=== PATIENT | female | born 1945 | race Caucasian/White ===

== ENCOUNTER → 2016-11-17 | Outpatient (CLI) | payer OTHER, MEDICARE ==
[~2016-11-17] MED LIST: CLB200 PO; GLC500 PO; LRT5 PO; VYTORIN
--- NOTE | 2016-11-18 14:53 | MAMMOGRAPHY REPORT ---
BILATERAL DIGITAL SCREENING MAMMOGRAM WITH CAD: 11/17/2016 CLINICAL HISTORY: Routine screening. Patient has no complaints. TECHNIQUE: Bilateral CC, MLO and repeat left MLO views were obtained. Current study was also evalua janessa with a Computer Aided Detection (CAD) system. COMPARISON: Comparison is made to exams dated: 11/16/2013 mammogram, 07/01/2012 mammogram, 03/24/2011 mammogram, 03/12/2010 mammogram - [facility], 12/12/2007, and 07/19/2006. BREAST COMPOSITION: There are scattered areas of fibroglandular density in both breasts. FINDINGS: There are benign rim calcifications in both breasts. Stable asymmetry in the left lower inner quadrant. No new suspicious mass, architectural distortion or cluster of microcalcifications i s seen. IMPRESSION: ACR BI-RADS CATEGORY 2: BENIGN There is no mammographic evidence of malignancy. A 1 year screening mammogram is recommended. The p atient will receive written notification of the results. Approximately 10% of breast cancers are not detected with mammography. A negative mammographic repor t should not delay biopsy if a clinically suggestive mass is present. Amie Arango M.D. ay/:11/17/2016 16:26:46 Temporary Data Entry Clerk: Shawnee White, [facility] letter sent: Normal 1/2 BI-RADS Code: ACR BI-RADS Category 2: Benign
== END | disposition home or self-care (01) ==
LOC: C.MAMM 15:20
PROVIDERS: ATTEND Family Medicine
DX: Z12.31 Encounter for screening mammogram for malignant neoplasm of breast (principal)

== ENCOUNTER 2019-02-01 05:18 | Inpatient (IN) ==
--- NOTE | 2019-01-13 08:24 | History & Physical Report ---
Date of Service January 13, 2019 date of surgery: 02-01-19 Assessment & Plan (1) Tricompartment osteoarthritis of left knee: Risks and benefits of procedure discussed in detail today, patient would like to proceed with a Left total knee replacement at [facility] as scheduled. will obtain medical clearance prior to surgery as well as obtain PATs at [facility]. Will place on ASA 81mg po bid x 1 month post op, f/u 2 weeks post op for routine post-operative care and x-ray, sooner if having any problems. Will discuss with Case Management poss rehab placement, has 14 steps in her house. At this point in time, has failed conservative measures and would like to proceed with surgical intervention. History of Present Illness Chief Complaint: left knee pain Primary Care Provider: Paul Ellison MD Ms Banks is a 73 year old female who complains of left knee pain, presents for pre-op evaluation prior to a left total knee replacement at [facility]. She presents with pain, crepitus, decreased rom and stiffness on the left side. She states that the symptoms have been chronic non-traumatic. The symptoms occur constantly with intermittent worsening. Currently the patient states that the symptoms are moderate-severe. The pain is described as aching sharp and discomforting. The symptoms are aggravated by ascending stairs, daily activiti es, descending stairs, first steps while awake, weight bearing, walking and repetitive activities. Lynette states that the symptoms are relieved by no specific activity. In addition to left knee pain the patient is also experiencing crepitus, decreased mobility, joint pain, instability, loss of motion, pain after activity and stiffness. Prior NSAIDs include Mobic IBU and Aleve. Prior pain medications include oxycodone and Morphine. She has been treated with Pt, has had Cortisone and Visco in the past on the left side. Pt has also tried PRP injections with no relief. Patient has had arthroscopic surgery. Dr. Sotelo performed a Left knee arthroscopy many years ago. Pt. lives in a 2 story home with Male Partner. Has 6 stairs to enter the home and 18 stairs to access the second floor with bedroom and bathroom. Pt is retired Allergies Allergy/AdvReac Type Severity Reaction Status Date / Time No Known Allergies Allergy Unknown Verified 01/10/19 15:48 Home Medications Home Medications Medication Instructions Recorded Confirmed Type ascorbic acid (vitamin C) [Vitamin 500 mg PO QDL 01/10/19 01/10/19 History C] biotin 1 mg PO QAM 01/10/19 01/10/19 History cholecalciferol (vitamin D3) 400 unit PO QDL 01/10/19 01/10/19 History [Vitamin D3] coenzyme Q10 [CoQ-10] 100 mg PO QDL 01/10/19 01/10/19 History cyanocobalamin (vitamin B-12) 100 mcg PO QDL 01/10/19 01/10/19 History [Vitamin B-12] docusate sodium [Colace] 100 mg PO QDL 01/10/19 01/10/19 History duloxetine 60 mg PO QDL 01/10/19 01/10/19 History folic acid 1 mg PO QDL 01/10/19 01/10/19 History levothyroxine 125 mcg PO QAM 01/10/19 01/10/19 History lisinopril 5 mg PO QDL 01/10/19 01/10/19 History lutein 40 mg PO QDL 01/10/19 01/10/19 History magnesium oxide 500 mg PO QDL 01/10/19 01/10/19 History meloxicam 15 mg PO QDL 01/10/19 01/10/19 History metformin 500 mg PO QDL 01/10/19 01/10/19 History morphine 15 mg PO Q8H PRN 01/10/19 01/10/19 History nystatin 1 applic TOPICAL BID PRN 01/10/19 01/10/19 History oxycodone-acetaminophen 1 tab PO Q6H PRN 01/10/19 01/10/19 History pantoprazole 40 mg PO QDL 01/10/19 01/10/19 History polyethylene glycol 3350 [Miralax] 8.5 g PO DAILY PRN 01/10/19 01/10/19 History pravastatin 20 mg PO QDL 01/10/19 01/10/19 History pregabalin [Lyrica] 225 mg PO BID 01/10/19 01/10/19 History pyridoxine (vitamin B6) [Vitamin 100 mg PO QAM 01/10/19 01/10/19 History B-6] s-adenosylmethionine [Elvin-E] 400 mg PO QDL 01/10/19 01/10/19 History simethicone 125 mg PO BID PRN 01/10/19 01/10/19 History turmeric-herbal complex no.278 300 mg PO QDL 01/10/19 01/10/19 History Past Med/Surg History Medical History Cancer skin (back, nose) Constipation Diabetes mellitus, type 2 Double vision Fibromyalgia GERD (gastroesophageal reflux disease) 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 Hyperlipidemia Hypertension Hypothyroidism Numbness and tingling in both hands Osteoarthritis Peripheral neuropathy feet, legs (causes balance issues) Sleep apnea Surgical History History of meniscectomy of left knee Hx of dilation and curettage Hx of eye surgery corrective (as child) Hx of tonsillectomy Hx of total hysterectomy Social History Preferred Language: Tunisian Communication Ability: Effective Beliefs That Will Affect Care: None Current Living Situation: Significant Other Feels Safe at Home: Yes Safety Concerns: Feels Safe At This Time Smoking Status: Never smoker Do You Dip or Chew Tobacco: No Second Hand Exposure: No Hx Alcohol Use: Yes Alcohol type: wine Hx Substance Use: Yes (MEDICAL MARIJUANA VAP) substance use type: marijuana Review of Systems Review of Systems: All systems reviewed & are unremarkable except as noted in HPI & below Constitutional: no fever, no chills and no sweats Respiratory: no cough and no dyspnea Cardiovascular: no chest pain, no dyspnea and no orthopnea Gastrointestinal: no abdominal pain, no nausea and no vomiting Musculoskeletal: as per Subjective / HPI Physical Exam Physical Exam: Ht: 5ft 6in Wt: 94.8kg BP: 122/76 Pulse: 72 Constitutional: WD/WN, vitals as above no acute distress Respiratory: normal respiratory effort, lungs clear to auscultation no respiratory distress, no labored breathing and does not use accessory muscles Cardiovascular: RRR, no murmur, no edema Gastrointestinal (Abdomen): normal bowel sounds, soft, nontender, no hepatosplenomegaly Musculoskeletal: Lynette ambulates with a limp, there is no erythema, warmth, or atrophy noted, there is a mild effusion, tender over the medial joint line and anterior knee joint. there is positive crepitation with motion, theo's ne gative, posterior drawer negative. positive flexion circumduction testing, negative anterior drawer, knee stable with valgus/varus stress. no extensor lag. pain with active range of motion, AROM 0/3/115, Passive ROM 0/3/120. No pain with active/passive ROM of ankle. Lower Extremity Strength normal. Lower Extremity Neuro-vascular is normal Results & Data Diagnostic Findings Left Knee X-ray from 01/02/19 confirms advanced degenerative changes to the left knee with overal varus alignment, greatest narrowing of the medial compartments and patellofemoral joint, showing osteophyte formation and subchondral sclerosis. no acute bony pathology noted.
--- NOTE | 2019-01-13 09:18 | PAT Medication Instructions ---
Medication Instructions Date of Service January 13, 2019 Home Medications ascorbic acid (vitamin C) [Vitamin C] 500 mg PO QDL biotin 1 mg PO QAM cholecalciferol (vitamin D3) [Vitamin D3] 400 unit PO QDL coenzyme Q10 [CoQ-10] 100 mg PO QDL cyanocobalamin (vitamin B-12) [Vitamin B-12] 100 mcg PO QDL docusate sodium [Colace] 100 mg PO QDL duloxetine 60 mg PO QDL folic acid 1 mg PO QDL levothyroxine 125 mcg PO QAM lisinopril 5 mg PO QDL lutein 40 mg PO QDL magnesium oxide 500 mg PO QDL meloxicam 15 mg PO QDL metformin 500 mg PO QDL morphine 15 mg PO Q8H PRN nystatin 1 applic TOPICAL BID PRN oxycodone-acetaminophen 1 tab PO Q6H PRN pantoprazole 40 mg PO QDL polyethylene glycol 3350 [Miralax] 8.5 g PO DAILY PRN pravastatin 20 mg PO QDL pregabalin [Lyrica] 225 mg PO BID pyridoxine (vitamin B6) [Vitamin B-6] 100 mg PO QAM s-adenosylmethionine [Elvin-E] 400 mg PO QDL simethicone 125 mg PO BID PRN turmeric-herbal complex no.278 300 mg PO QDL ASK your prescriber and surgeon meloxicam 15 mg PO QDL STOP taking 2 weeks before surgery (or as soon as possible if surgery is within 2 weeks) biotin 1 mg PO QAM coenzyme Q10 [CoQ-10] 100 mg PO QDL lutein 40 mg PO QDL s-adenosylmethionine [Elvin-E] 400 mg PO QDL turmeric-herbal complex no.278 300 mg PO QDL STOP taking 24 hours before surgery nystatin 1 applic TOPICAL BID PRN DO NOT take the morning of surgery ascorbic acid (vitamin C) [Vitamin C] 500 mg PO QDL cholecalciferol (vitamin D3) [Vitamin D3] 400 unit PO QDL cyanocobalamin (vitamin B-12) [Vitamin B-12] 100 mcg PO QDL docusate sodium [Colace] 100 mg PO QDL folic acid 1 mg PO QDL lisinopril 5 mg PO QDL magnesium oxide 500 mg PO QDL polyethylene glycol 3350 [Miralax] 8.5 g PO DAILY PRN pyridoxine (vitamin B6) [Vitamin B-6] 100 mg PO QAM simethicone 125 mg PO BID PRN Take morning of surgery With a small sip of water, OTHERWISE NOTHING TO EAT OR DRINK AFTER MIDNIGHT: duloxetine 60 mg PO QDL levothyroxine 125 mcg PO QAM magnesium oxide 500 mg PO QDL morphine 15 mg PO Q8H PRN (okay to take up to 4 hours prior to surgery if needed) oxycodone-acetaminophen 1 tab PO Q6H PRN (okay to take up to 4 hours prior to surgery if needed) pantoprazole 40 mg PO QDL pravastatin 20 mg PO QDL pregabalin [Lyrica] 225 mg PO BID Take evening before surgery morphine 15 mg PO Q8H PRN (if needed) oxycodone-acetaminophen 1 tab PO Q6H PRN (if needed) pregabalin [Lyrica] 225 mg PO BID simethicone 125 mg PO BID PRN (if needed) Other Notes If you have any questions please call us at [phone] or [phone] or [phone] or [phone]
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
[2019-01-13 16:00] LABS: Appearance Urine Clear (Clear); Bilirubin Urine Negative (Negative); Blood Urine Negative (Negative); Color Urine Yellow; Glucose Urine UA Negative (Negative); Ketones Urine Negative (Negative); Leukocyte Esterase Urine Negative (Negative); Nitrite Urine Negative (Negative); Protein Urine Negative (Negative); Specific Gravity Urine 1.014 (1.000-1.030); Urobilinogen Urine Negative (Negative)
--- NOTE | 2019-01-13 16:00 | XRay Report ---
XR chest 2V routine CLINICAL HISTORY: 73 years-old Female presenting with PREOP, shortness of breath with activity, wheez ing. TECHNIQUE: PA and lateral views of the chest were obtained. COMPARISON: None. FINDINGS: Atherosclerosis of the aortic arch. Cardiac silhouette borderline enlarged. Lungs and pleural spaces clear. Degenerative changes of the thoracic spine. Upper abdomen normal. IMPRESSION: 1. Borderline cardiomegaly. No other convincing evidence of acute cardiopulmonary disease. Electronically signed by: Douglas Martin M.D. 01/13/2019 3:59 PM
[2019-01-13 16:01] LABS: Basophils # (auto) 0.03 K/uL (0-0.2); Basophils % (auto) 0.4 %; Eosinophils # (auto) 0.19 K/uL (0-0.5); Eosinophils % (auto) 2.2 %; Hematocrit (blood only) 42.4 % (37-47); Hemoglobin 14.7 g/dL (12.0-16.0); Immature Granulocytes # (auto) 0.02 K/uL (0.00-0.02); Immature Granulocytes % (auto) 0.2 %; Lymphocytes # (auto) 1.71 K/uL (1.2-3.4); Lymphocytes % (auto) 20.2 %; Mean Corpuscular Hgb Conc 34.7 g/dL (32-36); Mean Platelet Volume 10.6 fL (7.4-10.4); Monocytes # (auto) 0.39 K/uL (0.11-0.59); Monocytes % (auto) 4.6 %; Neutrophils # (auto) 6.13 K/uL (1.4-6.5); Neutrophils % (auto) 72.4 %; Platelet Count 195 K/uL (130-400); RDW Coefficient of Variation 13.2 % (11.5-14.5); Red Blood Count 4.66 M/uL (4.2-5.4); White Blood Count 8.47 K/uL (4.8-10.8)
[2019-01-13 16:07] LABS: Albumin Level 4.2 gm/dl (3.4-5.0); BUN Creatinine Ratio 23.2 (10-20); Calcium 9.6 mg/dl (8.5-10.1); Creatinine Clr Calc Pharmacy 53.8 ml/min; Est GFR (African American) 57.9; Est GFR (Non-African American) 49.9; Potassium 5.3 mmol/L (3.5-5.1)
[2019-01-13 16:15] LABS: INR 1.1 (0.9-1.1); Partial Thromboplastin Ratio 0.9; Partial Thromboplastin Time 25.4 Seconds (21.0-31.0)
[2019-01-14 07:04] LABS: Estimated Average Glucose 157 mg/dl; Hemoglobin A1C 7.1 % (4.5-5.6)
[2019-02-01] MEDS ORDERED: LR 500ML BOLUS, THEN 15ML/HR IV SCH (06:00)
[2019-02-01] MEDS ORDERED: dexAMETHasone 4 MG TAB PO SCH (06:00)
[2019-02-01] MEDS ORDERED: GABAPENTIN 300 MG CAP PO SCH (06:00)
[2019-02-01] MEDS ORDERED: TRANEXAMIC ACID 1,000 MG **IV Pre-op IV SCH (06:00)
[2019-02-01] MEDS ORDERED: ACETAMINOPHEN 500 MG TAB PO SCH (06:00)
[2019-02-01] MEDS ORDERED: CEFAZOLIN 2000MG 2,000 MG/15 ML SYR IV SCH (06:00)
[2019-02-01] MEDS ORDERED: CeleBREX 200 MG CAP PO SCH (06:00)
[2019-02-01] MEDS ORDERED: ROPIVACAINE 0.5% HCL/PF 150 MG, BUPIVACAINE 0.5% MPF 30 ML, EPINEPHrine 30MG/30ML (OR U... INSTIL SCH (06:00)
[2019-02-01] MEDS ORDERED: METOCLOPRAMIDE HCL 10 MG TABLET PO SCH (06:00)
[2019-02-01] MEDS ORDERED: FAMOTIDINE 20 MG TAB PO SCH (06:00)
[2019-02-01] MEDS ORDERED: BUPIVACAINE 0.5 % 5 MG/1 ML PF 10ML VIAL ONE (06:23)
[2019-02-01] MEDS ORDERED: BUPIVACAINE 0.25% 30 ML VIAL ONE (06:23)
[2019-02-01] MEDS ORDERED: TRANEXAMIC ACID 1,000 MG **IV Intra-op IV SCH (06:30)
[2019-02-01] MEDS ORDERED: BACITRACIN INJ 50,000 UNIT VIAL ONE (06:34)
[2019-02-01] MEDS ORDERED: MIDAZOLAM HCL 1 MG/ML 2ML VIAL ONE (06:34)
[2019-02-01] MEDS ORDERED: ORTHO JOINT ANESTHETIC ONE (06:34)
[2019-02-01] MEDS ORDERED: PROPOFOL IV EMULSION 10 MG/ML 20 ML VIAL IV ONE ×2 (06:37→07:31)
--- NOTE | 2019-02-01 07:05 | History & Physical Bridge Note ---
Date of Service February 01, 2019 History & Physical Bridge Note I have examined the patient, reviewed the History & Physical and in the interval since the performance of the History & Physical I have noted the following changes of clinical significance: no changes noted
[2019-02-01] MEDS ORDERED: LIDOCAINE HCL 2% 2 ML VIAL/AMP(20MG/ML) INFIL ONE (07:31)
[2019-02-01] MEDS ORDERED: ONDANSETRON INJ 2 MG/ML 2 ML VIAL ONE (07:31)
[2019-02-01] MEDS ORDERED: ONDANSETRON INJ 2 MG/ML 2 ML VIAL IV PRN ×2 (07:43→10:32)
[2019-02-01] MEDS ORDERED: ePHEDrine sulfate 50 MG/ML AMP IV PRN (07:43)
[2019-02-01] MEDS ORDERED: ATROPINE SULFATE 0.1 MG/ML 10ML SYR IV PRN (07:43)
[2019-02-01] MEDS ORDERED: fentaNYL citrate 100 MCG/2 ML VIAL IV PRN (07:43)
--- NOTE | 2019-02-01 08:14 | Operative Report ---
Post Operative Report Pre & Post Diagnosis Operation Date: 02/01/19 07:00 Pre-Op Diagnosis: LEFT KNEE OSTEOARTHRITIS Post-Op Diagnosis: LEFT KNEE OSTEOARTHRITIS Procedure Operation Date: 02/01/19 07:00 Actual Procedures p Left Total Knee Arthroplasty(Left) utilizing [employer] journey 2 patient matched total knee arthroplasty size 5 femur 4 tibia 10 polyethylene 32 oval patella- Ian Chapin DO Surgeon Ian Chapin DO Mr Teacher Bony WANG Estimated Blood Loss 5 Findings Consistent with Post-Op Diagnosis Patient presents with severe end-stage tricompartmental degenerative joint disease left knee with varus alignment 10 degree flexion contracture significant posterior osteophytes marginal osteophyte subchondral bone cystic changes eburnated bone patellofemoral bone to bone eburnated bone changes and a moderate to large effusion Specimens Bone and cartilage Drains Bone and cartilage Complications none Disposition Accompanied Patient To Recovery: No Disposition: Recovery Room Indications Patient presents with severe end-stage tricompartmental degenerative joint disease of left knee no response to conservative management presents for left total knee arthroplasty the above intraoperative findings were noted that she is failed attempted conservative management including physical therapy anti- inflammatories relative rest activity modification corticosteroid injections Visco supplementation activity modification she presents with severe end-stage DJD bone to bone changes for left total knee arthroplasty Description of Procedure The patient was properly identified subsequently after proper prepping and draping of the left lower extremity anterior midline incision was made over the region of the extensor extensor mechanism after meticulous hemostasis was obtained and maintained in subcutaneous tissues a medial parapatellar incision was made The patella was subluxed lateralward the medial lateral gutter were cleaned from any hypertrophic synovitis and scar tissue of the distal femoral block was placed and the distal femoral osteotomy cut was made subsequently the chamfers anterior and posterior osteotomy cuts were made utilizing the 4-in-1 block the tibia was subsequently subluxed anteriorward medial and ateral meniscal remnants were excised in their entirety remnants of the anterior and po sterior cruciate ligaments were excised in their entirety excellent exposure of the proximal tibia was obtained the tibial osteotomy guide was placed on the proximal tibial osteotomy cut was made once again the knee was irrigated with copious amounts of sterile saline solution the patella was subsequently everted lateralward thickened scar tissue around the patella was removed the patella was subsequently cut utilizing a freehand technique and was drilled prepared for final preparation and placement of patella socially flexion-extension gaps were checked and the equal and symmetric trials were placed to the appropriate femoral and tibial trials with poly-spacer being placed for equal flexion and extension gaps and full range of motion including extension to 0 and flexion to 140 the trial components after having been taken to recovery range of motion was subsequently removed meticulous hemostasis was obtained and maintained subsequently a knee block injection of joint cocktail including ropivacaine 0.5% 150 mg. Bupivacaine 0.5% epinephrine 1-200,030 mL's toradol 30 mg dexamethasone 4 mg ketamine 10 mg clonidine 100 micrograms normal saline solution 30 mg was infiltrated into the soft tissues of the posterior knee medial lateral gutters and periosteal synovium special attention was paid to protect neurovascular structures at all times subsequently trial components having been removed the knee was irrigated with sterile saline solution. debris was removed the proximal tibia was subsequently prepared and was made ready for the placement of the tibial component tibial component was also cemented and tamped into position the femoral component was subsequently placed and cemented in the position the patellar component was subsequently cemented in position because hemostasis once again obtained and maintained wound having been thoroughly irrigated with debridement and debridement lavage was performed as well as a medial parapatellar incision closed with #1 Vicryl in interrupted fashion subcutaneous was closed with #2 Vicryl skin was closed with skin clips. PA-C was necessary for prepping and drapping as well as wound closure of deep fascia Sub cutaneous tissue and skin and was necessary for the case. A sterile compressive dressing was placed patient was taken to recovery in stable condition of report dictated by Tavares I attest to the content of the Intraoperative Record and any orders documented therein. Any exceptions are noted below. I attest to the content of the Intraoperative Record and any orders documented therein. Any exceptions are noted below.
--- NOTE | 2019-02-01 09:20 | XRay Report ---
XR knee LT 2V routine HISTORY: 73 years-old Female Surgical Post Op left knee total joint arthroplasty COMPARISON: None available TECHNIQUE: 2 views of the left knee FINDINGS: Left knee total joint arthroplasty and patella resurfacing demonstrates satisfactory alignment. No ac mat fracture or retained foreign body identified. Expected postsurgical soft tissue swelling with micheal p tissue air and surgical drainage catheter. IMPRESSION: Left knee total joint arthroplasty and patellar resurfacing with satisfactory alignment. The above report was generated using voice recognition software. It may contain grammatical, syntax o r spelling errors. Electronically signed by: Saeid Fabian M.D. 02/01/2019 9:18 AM
[2019-02-01] MEDS ORDERED: NON-FORMULARY MEDICATION (Biotin 1 MG) PO SCH (10:32)
[2019-02-01] MEDS ORDERED: MoRPHine SULFATE IR 15 MG TAB (IMMEDIATE RELEASE) PO PRN (10:32)
[2019-02-01] MEDS ORDERED: NALOXONE HCL 0.4 MG/1 ML VIAL/CARP IV PRN (10:32)
[2019-02-01] MEDS ORDERED: NYSTATIN POWDER 15GM BTL EXT PRN (10:32)
[2019-02-01] MEDS ORDERED: BISACODYL 10 MG SUPP PR PRN (10:32)
[2019-02-01] MEDS ORDERED: METOCLOPRAMIDE HCL INJ 5 MG/ML 2 ML VIAL IV PRN (10:32)
[2019-02-01] MEDS ORDERED: ALUMINUM/MAGNESIUM SUSP 30 ML UDC PO PRN (10:32)
[2019-02-01] MEDS ORDERED: MAGNESIUM HYDROXIDE SUSP 30 ML UDC PO PRN (10:32)
--- NOTE | 2019-02-01 10:35 | Operative Report ---
Post Operative Report Pre & Post Diagnosis Operation Date: 02/01/19 07:00 Pre-Op Diagnosis: LEFT KNEE OSTEOARTHRITIS Post-Op Diagnosis: LEFT KNEE OSTEOARTHRITIS Procedure Operation Date: 02/01/19 07:00 Actual Procedures p Left Total Knee Arthroplasty(Left) utilizing journey 2 patient matched total knee arthroplasty size 5 femur 4 tibia 10 polyethylene 32 oval patella- Ian Chapin DO Surgeon Ian Chapin DO Non Destructive Evaluation Manager Bony WANG Estimated Blood Loss 5 Findings Consistent with Post-Op Diagnosis Patient presents with severe end-stage tricompartmental degenerative joint disease varus alignment subchondral cystic changes marginal osteophytes moderate to large effusion varus alignment with a 10 degree flexion contracture Specimens Bone and cartilage Drains Medium bore Hemovac Complications none Disposition Accompanied Patient To Recovery: No Disposition: Recovery Room Indications Patient presents after having failed attempted conservative management including physical physical therapy Visco supplementation corticosteroid injection bracing relative rest activity modification the above intraoperative findings noted times surgery. Description of Procedure After proper identifying the patient subsequently after proper prepping and draping of the left lower extremity anterior midline incision was made over the region of the extensor extensor mechanism after meticulous hemostasis was obtained and maintained in subcutaneous tissues a medial parapatellar incision was made The patella was subluxed lateralward the medial lateral gutter were cleaned from any hypertrophic synovitis and scar tissue of the distal femoral block was placed and the distal femoral osteotomy cut was made subsequently the chamfers anterior and posterior osteotomy cuts were made utilizing the 4-in-1 block the tibia was subsequently subluxed anteriorward medial and ateral meniscal remnants were excised in their entirety remnants of the anterior and posterior cruciate ligaments were excised in their entirety excellent exposure of the proximal tibia was obtained the tibial osteotomy guide was placed on the proximal tibial osteotomy cut was made once again the knee was irrigated with copious amounts of sterile saline solution the patella was subsequently everted lateralward thickened scar tissue around the patella was removed the patella was subsequently cut utilizing a freehand technique and was drilled prepared for final preparation and placement of patella socially flexion-extension gaps were checked and the equal and symmetric trials were placed to the appropriate femoral and tibial trials with poly-spacer being placed for equal flexion and extension gaps and full range of motion including extension to 0 and flexion to 140 the trial components after having been taken to recovery range of motion was subsequently removed meticulous hemostasis was obtained and maintained subsequently a knee block injection of joint cocktail including ropivacaine 0.5% 150 mg. Bupivacaine 0.5% epinephrine 1-200,030 mL's toradol 30 mg dexamethasone 4 mg ketamine 10 mg clonidine 100 micrograms normal saline solution 30 mg was infiltrated into the soft tissues of the posterior knee medial lateral gutters and periosteal synovium special attention was paid to protect neurovascular structures at all times subsequently trial components having been removed the knee was irrigated with sterile saline solution. debris was removed the proximal tibia was subsequently prepared and was made ready for the placement of the tibial component tibial component was also cemented and tamped into position the femoral component was subsequently placed and cemented in the position the patellar component was subsequently cemented in position because hemostasis once again obtained and maintained wound having been thoroughly irrigated with debridement and debridement lavage was performed as well as a medial parapatellar incision closed with #1 Vicryl in interrupted fashion subcutaneous was closed with #2 Vicryl skin was closed with skin clips. PA-C was necessary for prepping and drapping as well as wound closure of deep fascia Sub cutaneous tissue and skin and was necessary for the case. A sterile compressive dressing was placed patient was taken to recovery in stable condition of report dictated by Tavares I attest to the content of the Intraoperative Record and any orders documented therein. Any exceptions are noted below. I attest to the content of the Intraoperative Record and any orders documented t herein. Any exceptions are noted below.
[2019-02-01] MEDS ORDERED: PHARMACY GLYCEMIC MGMT CONSULT PRN (10:44)
[2019-02-01] MEDS ORDERED: GLUCOSE 40% GEL 15 GM TUBE PO PRN (11:00)
[2019-02-01] MEDS ORDERED: GLUCOSE 10 TABS/TUBE PO PRN (11:00)
[2019-02-01] MEDS ORDERED: GLUCAGON FOR INJ 1 MG VIAL IM PRN (11:00)
[2019-02-01] MEDS ORDERED: DEXTROSE 50% 50 ML SYRINGE IV PRN (11:00)
[2019-02-01] MEDS ORDERED: SIMETHICONE 80 MG CHEW PO PRN (11:00)
[2019-02-01] MEDS ORDERED: CARBOHYDRATES FOR HYPOGLYCEMIA PO PRN (11:00)
--- NOTE | 2019-02-01 11:17 | Anesthesiology Progress Note ---
Date of Service February 01, 2019 Anesthesia Post Procedure Vital Signs Vital Signs: Temp Pulse Pulse Resp BP Pulse Ox 02/01/19 10:43 36.5 C 61 16 125/72 94 02/01/19 10:15 36.6 C 69 16 160/77 H 95 02/01/19 09:50 37.1 C 66 15 153/79 H 92 02/01/19 09:40 68 17 157/78 H 95 02/01/19 09:30 68 18 164/97 H 98 02/01/19 09:20 69 18 155/75 H 97 02/01/19 09:10 68 15 147/71 H 99 02/01/19 09:00 72 16 143/80 H 99 02/01/19 08:54 36.1 C L 68 12 137/71 98 02/01/19 06:41 36.7 C 63 18 167/79 H 98 Pain Intensity Bilateral Foot: Pain Intensity: 4 Transfer of Care Handoff Completed per policy Notes Mental Status: alert / awake / arousable and participated in evaluation Nausea / Vomiting: adequately controlled Pain: adequately controlled Airway Patency, RR, SpO2: stable & adequate BP & HR: stable & adequate Hydration State: stable & adequate Neuraxial Anesthesia: was administered and sensory block is resolving Anesthetic Complications: no major complications apparent and Pt Satisfied with anesthetic care
[2019-02-01] MEDS ORDERED: LANTUS PER UNIT CHARGE SQ ONE ×2 (11:30→21:00)
[2019-02-01] MEDS ORDERED: NON-FORMULARY MEDICATION (Lutein 40 MG) PO SCH (11:30)
[2019-02-01] MEDS: MULTIVITAMIN TAB PO SCH (12:26)
[2019-02-01] MEDS: PRAVASTATIN SOD 20 MG TAB PO SCH (12:26)
[2019-02-01] MEDS: CHOLECALCIFEROL (VITAMIN D) 400 UNITS TABLET PO SCH (12:27)
[2019-02-01] MEDS: FOLIC ACID 1 MG TAB PO SCH (12:27)
[2019-02-01] MEDS: LEVOTHYROXINE SODIUM 125 MCG TABLET PO SCH (12:27)
[2019-02-01] MEDS: PYRIDOXINE HCL 50 MG TAB PO SCH (12:28)
[2019-02-01] MEDS: ASCORBIC ACID 500 MG TAB PO SCH (12:28)
[2019-02-01] MEDS: DULOXETINE HCL 60 MG CAP PO SCH (12:29)
[2019-02-01] MEDS: CYANOCOBALAMIN (VITAMIN B-12) 100 MCG TABLET PO SCH (12:30)
[2019-02-01] MEDS: DOCUSATE SODIUM 100 MG CAP PO SCH ×3 (12:30→21:14)
[2019-02-01] MEDS: MAGNESIUM OXIDE 400 MG TAB PO SCH (12:30)
[2019-02-01] MEDS: PANTOprazole 40 MG TAB PO SCH (12:31)
[2019-02-01] MEDS: LISINOPRIL 5 MG TAB PO SCH (12:32)
[2019-02-01] MEDS: PREGABALIN 75 MG CAP PO SCH ×2 (12:34→21:23)
[2019-02-01] MEDS: SODIUM CHLORIDE 0.9% 1000ML 1,000 ML IV SCH ×2 (12:42→21:30)
[2019-02-01] MEDS: KETOROLAC TROMETHAMINE 15 MG/ML VIAL IV SCH ×2 (12:43→16:25)
[2019-02-01] MEDS: INSULIN ASPART 100 UNITS/ML 3 ML PEN SC SCH ×3 (12:46→21:16)
[2019-02-01] MEDS: CEFAZOLIN 2000MG 2,000 MG/15 ML SYR IV SCH ×2 (14:11→21:51)
[2019-02-01] MEDS: OXYCODONE/ACETAMINOPHEN 5mg/325mg TAB PO PRN ×2 (14:46→21:29)
--- NOTE | 2019-02-01 15:09 | Pharmacy Report ---
Pharmacy Glycemic Short Note 2 - Date of Service February 01, 2019 - Glycemic Short BSG Results (Last 24 hours): 02/01/19 02/01/19 02/01/19 06:09 08:57 11:58 POC Glucose 116 H 123 H 172 H OUTPATIENT ANTIDIABETIC REGIMEN: * Metformin 500mg PO daily with lunch * HbA1c: 7.1% (01/13/19) ASSESSMENT: * Ms Banks is a 73yo diabetic female, POD 0 s/p L TKA with Dr Chapin this morning. * Patient received 8mg PO dexamethasone preop, in addition to an ortho mix containing DXM. This is expected to contribute to steroid-induced hyperglycemia. * Patient is ordered a diabetic diet post-op and BSG upon arrival to the floor was 172. * Patient was initiated on a SQ basal/bolus insulin regimen in an attempt to keep BSGs controlled to promote wound healing and prevent infection. PLAN FOR INPATIENT GLYCEMIC CONTROL: * Hold outpatient oral diabetes medications * Plan to resume metformin tomorrow if patient is tolerating diet and renal function is appropriate. * Basal insulin * Lantus 10 units SQ x1 dose post-op * Lantus 10 units SQ x1 dose tonight if BSG > 180mg/dL * Bolus insulin * NovoLog per scale ACHS or Q6hrs while NPO * Goal Range: Low 110 mg/dL - High 150 mg/dL * Correction Factor: 58 mg/dL/unit * Nutritional / Prandial insulin per carb ratio of 1 unit per 8 grams CHO consumed PLAN FOR DISCHARGE: * Patient's A1c (7.1%) indicates excellent glycemic control in a 73yo patient. * Expect that patient may resume home regimen after discharge, as long as she does not report having episodes of hypoglycemia.
[2019-02-01] MEDS: SENNA 8.6 MG TAB PO SCH (21:14)
[2019-02-02] MEDS: KETOROLAC TROMETHAMINE 15 MG/ML VIAL IV SCH ×2 (00:31→06:04)
[2019-02-02] MEDS: LEVOTHYROXINE SODIUM 125 MCG TABLET PO SCH (06:04)
[2019-02-02 08:06] LABS: Hematocrit (blood only) 31.7 % (37-47); Hemoglobin 10.7 g/dL (12.0-16.0); Mean Corpuscular Hgb Conc 33.8 g/dL (32-36); Mean Corpuscular Volume 90.3 fL (80-100); Mean Platelet Volume 10.9 fL (7.4-10.4); Platelet Count 158 K/uL (130-400); RDW Coefficient of Variation 12.9 % (11.5-14.5); RDW Standard Deviation 42.3 fL (36.4-46.3); Red Blood Count 3.51 M/uL (4.2-5.4); White Blood Count 16.06 K/uL (4.8-10.8)
[2019-02-02] MEDS: OXYCODONE/ACETAMINOPHEN 5mg/325mg TAB PO PRN ×3 (08:25→23:08)
[2019-02-02] MEDS: PREGABALIN 75 MG CAP PO SCH ×2 (08:40→21:01)
[2019-02-02 08:46] LABS: BUN Creatinine Ratio 20.2 (10-20); Calcium 8.5 mg/dl (8.5-10.1); Creatinine Clr Calc Pharmacy 61.6 ml/min; Est GFR (African American) 68.1; Est GFR (Non-African American) 58.8; Potassium 4.6 mmol/L (3.5-5.1)
--- NOTE | 2019-02-02 08:55 | Pain Management Consultation ---
Date of Consultation February 02, 2019 Assessment & Plan (1) S/P total knee arthroplasty: Present on Admission?: No (2) Opioid dependence: Present on Admission?: Yes (3) Fibromyalgia: Present on Admission?: Yes (4) Peripheral neuropathy: Present on Admission?: Yes (5) Tricompartment osteoarthritis of left knee: 1. Review of PDMP indicates that the patient has been prescribed MS Contin 15 mg every 8 hours #90/month and oxycodone/acetaminophen 5/325 mg #180/month chronically per Dr. Ellison. Upon this admission it appears her MS Contin was discontinued and she was placed on MSIR 15 mg. Therefore will discontinue MSIR and have the patient resume her MS Contin 15 mg every 8 hours. 2. Patient may continue with oxycodone/acetaminophen 5/325 mg 1 tablet p.o. every 6 hours PRN for breakthrough pain. Due to her reported erratic usage of oxycodone/acetaminophen of 2-6 tablets daily chronically, would not recommend dose escalation or frequency escalation upon discharge. 3. Would ensure patient have Narcan available upon discharge 4. Would recommend follow-up with her prescribing physician upon discharge for plan to diminish her opioid dependency given that she should expect pain burden reduction status post successful TKA Thank you for allowing us to participate in the care of Mrs. Banks Present on Admission?: Yes History of Present Illness Reason for Consultation: History of opioid dependency status post left TKA Requesting Physician: Ian Chapin DO Attending Physician: Ian Chapin DO History of Present Illness Mrs. Banks is a 73-year-old white female who underwent left TKA 02/01/2019 due to chronic left knee pain associated with DJD and osteoarthritis. Patient has history of chronic opioid dependency related to chronic bilateral knee pain left greater than right-sided as well as a reported history of peripheral neuropathic pain. Patient reports she has been on opioid therapy for 20-25 years duration. She is currently followed by Dr. Ellison in the outpatient setting who prescribes her chronic opiate therapy. Patient reports comorbid diagnosis of diabetes mellitus, fibromyalgia, osteoarthritis and peripheral neuropathy affecting her feet. She has reportedly been utilizing MS Contin 15 mg twice daily-3 times daily and oxycodone/acetaminophen 5/325 mg 4-6 tablets daily per her report. Review of PDMP indicates prescriptions for MS Contin 15 mg every 8 hours #90/month and oxycodone/acetaminophen 5/325 every 4 hours #180/month. Patient reports that she does not utilize the medications as prescribed attempting to diminish her MS Contin to twice daily and oxycodone use reportedly varies from 2 daily to 6-8 daily. Patient indicates that she has experience minimal pain in the left knee since her surgical procedure yesterday and is only utilized oxycodone/acetaminophen x2 and MSIR 15 mg x 1. She reports aching discomfort in the left knee at this time rating her pain at a 6-8/10. She slept interm ittently throughout the night without nighttime awakening secondary to the discomfort. She denies low back or lumbar radicular component to pain complaints. She has no change in her chronic right knee pain complaints or her lower extremity peripheral neuropathic pain which she describes as burning and dysesthetic in nature and nondermatomal patterns affecting the feet and toes. Patient further reports use of medical marijuana which she has not found to be efficacious at controlling her pain. She does report that her chronic opiate therapy is minimally effective at pain control. She denies illicit drug use although has utilized marijuana in the past. Patient has no further constitutional complaints. Plan of care discussed with Dr. Grant. Pain Assessment Full Body Front + Back: 1. left knee pain 2. Bilateral non-dermatomal foot pain Pain scale - at its best (0-10): 5 Pain scale - at its worst (0-10): 8 Allergies Allergy/AdvReac Type Severity Reaction Status Date / Time aspirin AdvReac advised to Verified 02/01/19 05:49 avoid due to hx ITP Home Medications Home Medications Medication Instructions Recorded Confirmed Type ascorbic acid (vitamin C) [Vitamin 500 mg PO QDL 01/10/19 02/01/19 History C] biotin 1 mg PO QAM 01/10/19 02/01/19 History cholecalciferol (vitamin D3) 400 unit PO QDL 01/10/19 02/01/19 History [Vitamin D3] coenzyme Q10 [CoQ-10] 100 mg PO QDL 01/10/19 02/01/19 History cyanocobalamin (vitamin B-12) 100 mcg PO QDL 01/10/19 02/01/19 History [Vitamin B-12] docusate sodium [Colace] 100 mg PO QDL 01/10/19 02/01/19 History duloxetine 60 mg PO QDL 01/10/19 02/01/19 History folic acid 1 mg PO QDL 01/10/19 02/01/19 History levothyroxine 125 mcg PO QAM 01/10/19 02/01/19 History lisinopril 5 mg PO QDL 01/10/19 02/01/19 History lutein 40 mg PO QDL 01/10/19 02/01/19 History magnesium oxide 500 mg PO QDL 01/10/19 02/01/19 History meloxicam 15 mg PO QDL 01/10/19 02/01/19 History metformin 500 mg PO QDL 01/10/19 02/01/19 History morphine 15 mg PO Q8H PRN 01/10/19 02/01/19 History nystatin 1 applic TOPICAL BID PRN 01/10/19 02/01/19 History oxycodone-acetaminophen 1 tab PO Q6H PRN 01/10/19 02/01/19 History pantoprazole 40 mg PO QDL 01/10/19 02/01/19 History polyethylene glycol 3350 [Miralax] 8.5 g PO DAILY PRN 01/10/19 02/01/19 History pravastatin 20 mg PO QDL 01/10/19 02/01/19 History pregabalin [Lyrica] 225 mg PO BID 01/10/19 02/01/19 History pyridoxine (vitamin B6) [Vitamin 100 mg PO QAM 01/10/19 02/01/19 History B-6] s-adenosylmethionine [Elvin-E] 400 mg PO QDL 01/10/19 02/01/19 History simethicone 125 mg PO BID PRN 01/10/19 02/01/19 History turmeric-herbal complex no.278 300 mg PO QDL 01/10/19 02/01/19 History Pain History Pain Intensity Pain scale - at its best (0-10): 5 Pain scale - at its worst (0-10): 8 Patient History Medical History History of ITP (Chronic) 40 years ago; no issues since Sleep apnea (Chronic) no device Hyperlipidemia (Chronic) Hypertension (Chronic) Peripheral neuropathy (Chronic) feet, legs (causes balance issues) Numbness and tingling in both hands (Chronic) Double vision (Chronic) Diabetes mellitus, type 2 (Chronic) Hypothyroidism (Chronic) Cancer (Chronic) skin (back, nose) GERD (gastroesophageal reflux disease) (Chronic) Constipation (Chronic) Osteoarthritis (Chronic) Fibromyalgia (Chronic) Surgical History Hx of eye surgery (Chronic) corrective (as child) Hx of total hysterectomy (Resolved) Hx of tonsillectomy (Resolved) History of meniscectomy of left knee (Resolved) Hx of dilation and curettage (Resolved) Social History Preferred Language: Honduran Communication Ability: Effective Beliefs That Will Affect Care: None Current Living Situation: Significant Other Feels Safe at Home: Yes Safety Concerns: Feels Safe At This Time Smoking Status: Never smoker Do You Dip or Chew Tobacco: No Second Hand Exposure: No Hx Alcohol Use: Yes Alcohol type: wine Hx Substance Use: Yes (MEDICAL MARIJUANA VAP) substance use type: marijuana (medical marijuana vape prn pain- remotely; has not used recently- advised on [facility] ) Physical Exam Physical Exam: General: Patient sitting quietly in exam room in no acute distress. Speech and thought process appropriate. Mood and affect appropriate. Cognition intact. Head: Normocephalic and atraumatic. ENT: No evidence of nasal or oral mucosal lesions. Mucous membranes are moist. Eyes: Pupils equal round reactive to light. Neck: Supple without adenopathy and full range of motion. Chest: Nontender to palpation of the costosternal junction. Abdomen: Soft and nondistended. No organomegaly. Bowel sounds active. Upper extremities: Patient has significant thickening of PIP and DIP joints on multiple fingers of bilateral hands without active synovitis. There is evidence of some ulnar deviation appreciated. Lower extremities: Large bandage in place in the left lower extremity involving the knee region which was not removed for visual inspection. Patient has sensation intact to sharp and dull in the distal lower extremities. Minimal teodoro dence of paresthesias upon palpation. No significant dysesthesias. No evidence of allodynia, hyperpathia or hyperalgesic response. Strength testing was 5/5 with dorsiflexion, plantarflexion and EHL testing. Dorsalis pedis and posterior tibial pulses were 2+ equal bilaterally. Feet were warm to touch. Neurologic: Cranial nerves grossly intact. Ambulatory function not witnessed. Results Diagnostic Review Radiology: reports reviewed Radiology Findings: [facility] [place] [phone] XRay Report Patient: BRIDGETTE BANKSAdmit Date: 02/01/19 MR#: [id number]: [address] [facility] Acct ID:[id number]: Date: 1945City Zip: [place] [address] Age: 73Location: [facility]SU Sex: F Room/Bed: Att Phy: Ian Chapin D.O.Diagnosis: LEFT KNEE OSTEOARTHRITIS Breana Phy: Paul Ellison III, MDService Date: 02/01/19 Fam Phy: Paul Ellison III, MDInterpreting Phy: William Fabian Admit Phy: Ordering Phy: Fanny Burdick cc: ~ XR knee LT 2V routine HISTORY: 73 years-old Female Surgical Post Op left knee total joint arthroplasty COMPARISON: None available TECHNIQUE: 2 views of the left knee FINDINGS: Left knee total joint arthroplasty and patella resurfacing demonstrates satisfactory alignment. No acute fracture or retained foreign body identified. Expected postsurgical soft tissue swelling with deep tissue air and surgical drainage catheter. IMPRESSION: Left knee total joint arthroplasty and patellar resurfacing with satisfactory alignment. The above report was generated using voice recognition software. It may contain grammatical, syntax or spelling errors. Electronically signed by: Saeid Fabian M.D. 02/01/2019 9:18 AM Dictated: 02/01/19916 Transcribed: 02/01/19916
[2019-02-02] MEDS: INSULIN ASPART 100 UNITS/ML 3 ML PEN SC SCH ×4 (08:58→21:08)
[2019-02-02] MEDS ORDERED: POLYETHYLENE (MIRALAX) 17 GM PACK PO PRN (09:00)
[2019-02-02] MEDS: MoRPHine SULFATE CR 15 MG TABCR PO SCH ×2 (09:05→16:40)
[2019-02-02] MEDS: DOCUSATE SODIUM 100 MG CAP PO SCH ×3 (09:05→21:02)
[2019-02-02] MEDS: MULTIVITAMIN TAB PO SCH (09:05)
[2019-02-02] MEDS: RIVAROXABAN 10 MG TABLET PO SCH (09:07)
[2019-02-02] MEDS: PYRIDOXINE HCL 50 MG TAB PO SCH (09:07)
--- NOTE | 2019-02-02 09:33 | Orthopedic Progress Note ---
Date of Service February 02, 2019 Assessment & Plan (1) S/P total knee arthroplasty: Postop day 1 status post left total knee arthroplasty. PT/OT protocols. Weightbearing as tolerated. DVT prophylaxis with rivaroxaban, SCDs, CADE hose. Pain management as per pain management team recommendations. Discharge planning -patient is hoping to go to [facility] rehab post discharge. Awaiting authorization. Subjective Postop day 1 status post left total knee arthroplasty. Patient is currently sitting up in bed. Nursing is present and they are getting ready to take her to the restroom. She currently appears comfortable. She has no complaints this morning. Pain is controlled. Pain management team was in to discuss her current medications. She states that her medications have been adjusted accordingly and she is doing well. She denies any shortness of breath chest pain or lightheadedness. She denies calf tenderness. She states she is hoping to go to [facility]. Physical Exam Physical Exam: Dressings are clean, dry, intact. Hemovac drainage was 200 mL's from the latest shift. Calves are soft and nontender. Neurovascular is intact although patient does have some lower extremity neuropathy. Toes are mobile and she has good dorsiflexion and plantarflexion. Results & Data Vital Signs (Past 12 Hours) Vital Signs Temp Pulse Resp BP Pulse Ox 02/02/19 07:33 36.4 C L 65 16 117/71 96 02/02/19 03:18 36.6 C 67 16 161/81 H 97 02/01/19 23:10 36.5 C 69 14 155/74 H 96 Laboratory Results Laboratory Results WBC 16.06 K/uL (4.8-10.8) H 02/02/19 07:35 RBC 3.51 M/uL (4.2-5.4) L 02/02/19 07:35 Hgb 10.7 g/dL (12.0-16.0) L 02/02/19 07:35 Hct 31.7 % (37-47) L 02/02/19 07:35 MCV 90.3 fL (80-100) 02/02/19 07:35 MCH 30.5 pg (25-34) 02/02/19 07:35 MCHC 33.8 g/dL (32-36) 02/02/19 07:35 RDW Std Deviation 42.3 fL (36.4-46.3) 02/02/19 07:35 RDW Coeff of Feng 12.9 % (11.5-14.5) 02/02/19 07:35 Plt Count 158 K/uL (130-400) 02/02/19 07:35 MPV 10.9 fL (7.4-10.4) H 02/02/19 07:35 Immature Gran % (Auto) 0.2 % 01/13/19 15:35 Neut % (Auto) 72.4 % 01/13/19 15:35 Lymph % (Auto) 20.2 % 01/13/19 15:35 [place] % (Auto) 4.6 % 01/13/19 15:35 Eos % (Auto) 2.2 % 01/13/19 15:35 Baso % (Auto) 0.4 % 01/13/19 15:35 Immature Gran # (Auto) 0.02 K/uL (0.00-0.02) 01/13/19 15:35 Neut # (Auto) 6.13 K/uL (1.4-6.5) 01/13/19 15:35 Lymph # (Auto) 1.71 K/uL (1.2-3.4) 01/13/19 15:35 [place] # (Auto) 0.39 K/uL (0.11-0.59) 01/13/19 15:35 Eos # (Auto) 0.19 K/uL (0-0.5) 01/13/19 15:35 Baso # (Auto) 0.03 K/uL (0-0.2) 01/13/19 15:35 PT 11.0 Seconds (9.0-12.0) 01/13/19 15:35 INR 1.1 (0.9-1.1) 01/13/19 15:35 APTT 25.4 Seconds (21.0-31.0) 01/13/19 15:35 PTT Ratio 0.9 01/13/19 15:35 Sodium 136 mmol/L (136-145) 02/02/19 07:35 Potassium 4.6 mmol/L (3.5-5.1) 02/02/19 07:35 Chloride 101 mmol/L (98-107) 02/02/19 07:35 Carbon Dioxide 28 mmol/L (21-32) 02/02/19 07:35 Anion Gap 7.0 (3-11) 02/02/19 07:35 BUN 20 mg/dl (7-18) H 02/02/19 07:35 Creatinine 0.97 mg/dl (0.6-1.2) 02/02/19 07:35 Est Cr Clr Drug Dosing 61.6 ml/min 02/02/19 07:35 Est GFR ( Amer) 68.1 02/02/19 07:35 Est GFR (Non-Af Amer) 58.8 02/02/19 07:35 BUN/Creatinine Ratio 20.2 (10-20) H 02/02/19 07:35 Glucose 146 mg/dl (70-99) H 02/02/19 07:35 POC Glucose 148 (70-99) H 02/02/19 08:22 Estimat Average Glucose 157 mg/dl 01/13/19 15:35 Hemoglobin A1c 7.1 % (4.5-5.6) H 01/13/19 15:35 Calcium 8.5 mg/dl (8.5-10.1) 02/02/19 07:35 Albumin 4.2 gm/dl (3.4-5.0) 01/13/19 15:35 Specimen Hemolysis 02/02/19 07:35 Urine Color Yellow 01/13/19 15:35 Urine Appearance Clear (Clear) 01/13/19 15:35 Urine pH 7.0 (4.5-7.5) 01/13/19 15:35 Ur Specific [place] 1.014 (1.000-1.030) 01/13/19 15:35 Urine Protein Negative (Negative) 01/13/19 15:35 Urine Glucose (UA) Negative (Negative) 01/13/19 15:35 Urine Ketones Negative (Negative) 01/13/19 15:35 Urine Blood Negative (Negative) 01/13/19 15:35 Urine Nitrite Negative (Negative) 01/13/19 15:35 Urine Bilirubin Negative (Negative) 01/13/19 15:35 Urine Urobilinogen Negative (Negative) 01/13/19 15:35 Ur Leukocyte Esterase Negative (Negative) 01/13/19 15:35 Hepatitis C Ab Screen Neg (Neg) 02/01/19 05:46 Blood Type B Positive 01/13/19 15:35 Antibody Screen NEGATIVE 01/13/19 15:35
[2019-02-02] MEDS: ASCORBIC ACID 500 MG TAB PO SCH (11:18)
[2019-02-02] MEDS: FOLIC ACID 1 MG TAB PO SCH (11:18)
[2019-02-02] MEDS: CYANOCOBALAMIN (VITAMIN B-12) 100 MCG TABLET PO SCH (11:18)
[2019-02-02] MEDS: MAGNESIUM OXIDE 400 MG TAB PO SCH (11:18)
[2019-02-02] MEDS: PANTOprazole 40 MG TAB PO SCH (11:19)
[2019-02-02] MEDS: DULOXETINE HCL 60 MG CAP PO SCH (11:19)
[2019-02-02] MEDS: PRAVASTATIN SOD 20 MG TAB PO SCH (11:19)
[2019-02-02] MEDS: CHOLECALCIFEROL (VITAMIN D) 400 UNITS TABLET PO SCH (11:19)
[2019-02-02] MEDS: LISINOPRIL 5 MG TAB PO SCH (11:19)
[2019-02-02] MEDS: METFORMIN HCL 500 MG TAB PO SCH (12:56)
[2019-02-02] MEDS: SENNA 8.6 MG TAB PO SCH (21:02)
[2019-02-03] MEDS: MoRPHine SULFATE CR 15 MG TABCR PO SCH ×3 (00:21→17:12)
[2019-02-03] MEDS: LEVOTHYROXINE SODIUM 125 MCG TABLET PO SCH (06:16)
[2019-02-03] MEDS: OXYCODONE/ACETAMINOPHEN 5mg/325mg TAB PO PRN ×2 (06:19→12:13)
--- NOTE | 2019-02-03 07:04 | Orthopedic Progress Note ---
Date of Service February 03, 2019 Assessment & Plan (1) S/P total knee arthroplasty: Postop day 2 status post left total knee arthroplasty. PT/OT protocols. Weightbearing as tolerated. DVT prophylaxis with rivaroxaban, SCDs, CADE hose. Pain management as per pain management team recommendations. Discharge planning -patient is hoping to go to [facility] rehab post discharge. Awaiting authorization. Subjective POD #2 s/p Left TKA patient resting in bed. denies CP/SOB, denies fever/chills. pain currently rated as 6/10. Pain management team was in to discuss her current medications yesterday. She denies calf tenderness. She states she is hoping to go to [facility]. Physical Exam Physical Exam: Vital Signs Temp Pulse Resp BP Pulse Ox 02/02/19 23:34 36.5 C 67 16 147/78 H 100 02/02/19 15:29 36.7 C 67 17 126/71 97 02/02/19 14:27 96 H 16 137/83 96 02/02/19 12:00 37.3 C 63 16 140/72 99 02/02/19 07:33 36.4 C L 65 16 117/71 96 Intake and Output 02/02/19 02/03/19 02/03/19 22:59 06:59 14:59 Intake Total 500 / 1650 350 / 1650 Output Total 60 / 461 Balance 440 / 1189 350 / 1189 Intake: Oral 500 / 1650 350 / 1650 Output: Drain Output 60 / 110 Left Knee Hemo vac 60 / 110 Other: # Unmeasured Voi ds 1 Musculoskeletal: left leg: NVDI, calf SNT, negative bertram sign. DP palpable, able to wiggle toes/ankle movement without difficulty. JULIAN dressing clean dry and intact. expected post-operative bruising noted. Results & Data Vital Signs (Past 12 Hours) Vital Signs Temp Pulse Resp BP Pulse Ox 02/02/19 23:34 36.5 C 67 16 147/78 H 100 Laboratory Results Laboratory Results WBC 16.06 K/uL (4.8-10.8) H 02/02/19 07:35 RBC 3.51 M/uL (4.2-5.4) L 02/02/19 07:35 Hgb 10.7 g/dL (12.0-16.0) L 02/02/19 07:35 Hct 31.7 % (37-47) L 02/02/19 07:35 MCV 90.3 fL (80-100) 02/02/19 07:35 MCH 30.5 pg (25-34) 02/02/19 07:35 MCHC 33.8 g/dL (32-36) 02/02/19 07:35 RDW Std Deviation 42.3 fL (36.4-46.3) 02/02/19 07:35 RDW Coeff of Feng 12.9 % (11.5-14.5) 02/02/19 07:35 Plt Count 158 K/uL (130-400) 02/02/19 07:35 MPV 10.9 fL (7.4-10.4) H 02/02/19 07:35 Immature Gran % (Auto) 0.2 % 01/13/19 15:35 Neut % (Auto) 72.4 % 01/13/19 15:35 Lymph % (Auto) 20.2 % 01/13/19 15:35 [place] % (Auto) 4.6 % 01/13/19 15:35 Eos % (Auto) 2.2 % 01/13/19 15:35 Baso % (Auto) 0.4 % 01/13/19 15:35 Immature Gran # (Auto) 0.02 K/uL (0.00-0.02) 01/13/19 15:35 Neut # (Auto) 6.13 K/uL (1.4-6.5) 01/13/19 15:35 Lymph # (Auto) 1.71 K/uL (1.2-3.4) 01/13/19 15:35 [place] # (Auto) 0.39 K/uL (0.11-0.59) 01/13/19 15:35 Eos # (Auto) 0.19 K/uL (0-0.5) 01/13/19 15:35 Baso # (Auto) 0.03 K/uL (0-0.2) 01/13/19 15:35 PT 11.0 Seconds (9.0-12.0) 01/13/19 15:35 INR 1.1 (0.9-1.1) 01/13/19 15:35 APTT 25.4 Seconds (21.0-31.0) 01/13/19 15:35 PTT Ratio 0.9 01/13/19 15:35 Sodium 136 mmol/L (136-145) 02/02/19 07:35 Potassium 4.6 mmol/L (3.5-5.1) 02/02/19 07:35 Chloride 101 mmol/L (98-107) 02/02/19 07:35 Carbon Dioxide 28 mmol/L (21-32) 02/02/19 07:35 Anion Gap 7.0 (3-11) 02/02/19 07:35 BUN 20 mg/dl (7-18) H 02/02/19 07:35 Creatinine 0.97 mg/dl (0.6-1.2) 02/02/19 07:35 Est Cr Clr Drug Dosing 61.6 ml/min 02/02/19 07:35 Est GFR ( Amer) 68.1 02/02/19 07:35 Est GFR (Non-Af Amer) 58.8 02/02/19 07:35 BUN/Creatinine Ratio 20.2 (10-20) H 02/02/19 07:35 Glucose 146 mg/dl (70-99) H 02/02/19 07:35 POC Glucose 127 (70-99) H 02/02/19 20:36 Estimat Average Glucose 157 mg/dl 01/13/19 15:35 Hemoglobin A1c 7.1 % (4.5-5.6) H 01/13/19 15:35 Calcium 8.5 mg/dl (8.5-10.1) 02/02/19 07:35 Albumin 4.2 gm/dl (3.4-5.0) 01/13/19 15:35 Specimen Hemolysis 02/02/19 07:35 Urine Color Yellow 01/13/19 15:35 Urine Appearance Clear (Clear) 01/13/19 15:35 Urine pH 7.0 (4.5-7.5) 01/13/19 15:35 Ur Specific [place] 1.014 (1.000-1.030) 01/13/19 15:35 Urine Protein Negative (Negative) 01/13/19 15:35 Urine Glucose (UA) Negative (Negative) 01/13/19 15:35 Urine Ketones Negative (Negative) 01/13/19 15:35 Urine Blood Negative (Negative) 01/13/19 15:35 Urine Nitrite Negative (Negative) 01/13/19 15:35 Urine Bilirubin Negative (Negative) 01/13/19 15:35 Urine Urobilinogen Negative (Negative) 01/13/19 15:35 Ur Leukocyte Esterase Negative (Negative) 01/13/19 15:35 Hepatitis C Ab Screen Neg (Neg) 02/01/19 05:46 Blood Type B Positive 01/13/19 15:35 Antibody Screen NEGATIVE 01/13/19 15:35 Diagnostic Findings XR knee LT 2V routine HISTORY: 73 years-old Female Surgical Post Op left knee total joint arthroplasty COMPARISON: None available TECHNIQUE: 2 views of the left knee FINDINGS: Left knee total joint arthroplasty and patella resurfacing demonstrates satisfactory alignment. No acute fracture or retained foreign body identified. Expected postsurgical soft tissue swelling with deep tissue air and surgical drainage catheter. IMPRESSION: Left knee total joint arthroplasty and patellar resurfacing with satisfactory alignment.
[2019-02-03] MEDS: DOCUSATE SODIUM 100 MG CAP PO SCH ×3 (08:28→20:24)
[2019-02-03] MEDS: MULTIVITAMIN TAB PO SCH (08:28)
[2019-02-03] MEDS: RIVAROXABAN 10 MG TABLET PO SCH (08:29)
[2019-02-03] MEDS: PYRIDOXINE HCL 50 MG TAB PO SCH (08:29)
[2019-02-03] MEDS: PREGABALIN 75 MG CAP PO SCH ×2 (08:31→20:22)
[2019-02-03] MEDS: INSULIN ASPART 100 UNITS/ML 3 ML PEN SC SCH ×4 (08:34→22:07)
--- NOTE | 2019-02-03 10:24 | Pharmacy Report ---
Glycemic Control Progress Note - Date of Service February 03, 2019 - Scope Glycemic Pharmacist consulted for glycemic control to write orders per [facility] inpatient glycemic control protocol. - Objective Accuchecks BSG(last 24 hours):: 02/02/19 02/02/19 02/02/19 12:16 17:27 20:36 POC Glucose 188 H 141 H 127 H 02/03/19 08:08 POC Glucose 101 H HbA1c:: Hemoglobin A1c 7.1 % (4.5-5.6) H 01/13/19 15:35 - Recent Pertinent Medications The patient is currently receiving: * Basal insulin: NONE * Correctional Insulin: Novolog Correction per scale ACHS Goal Range: Low 110 mg/dL - High 150 mg/dL Correction Factor: 25 mg/dL/unit * Prandial insulin: Per carb ratio of 1 unit per 8 grams CHO consumed - Outpatient Anti-Diabetic Meds metformin 500 mg with lunch - Assessment & Plan ASSESSMENT: * See progress note from 02/01/19 for more background info, in short: * Pt receiving SQ basal bolus insulin regimen for hyperglycemia secondary to baseline DM (outpatient regimen on hold), POD 2 for left knee surgery. * Patient is currently receiving an average of 25 units of insulin per day * 0 units of basal insulin * 25 units of prandial/correctional insulin * BSGs ranging 127 - 188 mg/dl over the past 24hrs * Changes needed to insulin regimen: * AM Fasting BSG = 101 mg/dl. This is within goal range for patient based on inpatient targets and co-morbidities. Will continue to hold basal insulin. * Post-prandial BSGs started to trend downwards yesterday after dinner due to the steroid effects "wearing off." Metformin started yesterday as well. Loosen carbohydrate coverage and potentially discontinue by tomorrow. * Total daily dose = < 20 units. * Additional notes / comments: metformin 500 mg daily PLAN FOR INPATIENT GLYCEMIC CONTROL: * LOOSENING factor to 30 mg/dl/unit * LOOSENING carb ratio to 1 unit per 15 grams CHO consumed * Continuing goal range of Low 110 mg/dL - High 150 mg/dL RECOMMENDATIONS FOR DISCHARGE: * Patient's HbA1C is relatively controlled for her age. Would recommend increasing metformin as tolerated to a maximum of 2000 mg per day. * Please note that the plan above was derived based on current level of insulin resistance and hospital stress. These recommendations are appropriate for inpatient admission only. Plan of care upon discharge will need to be reassessed to avoid potential outpatient hypo/hyperglycemia. Thank you.
[2019-02-03] MEDS: PRAVASTATIN SOD 20 MG TAB PO SCH (12:15)
[2019-02-03] MEDS: CHOLECALCIFEROL (VITAMIN D) 400 UNITS TABLET PO SCH (12:15)
[2019-02-03] MEDS: METFORMIN HCL 500 MG TAB PO SCH (12:15)
[2019-02-03] MEDS: DULOXETINE HCL 60 MG CAP PO SCH (12:15)
[2019-02-03] MEDS: PANTOprazole 40 MG TAB PO SCH (12:15)
[2019-02-03] MEDS: LISINOPRIL 5 MG TAB PO SCH (12:16)
[2019-02-03] MEDS: ASCORBIC ACID 500 MG TAB PO SCH (12:16)
[2019-02-03] MEDS: MAGNESIUM OXIDE 400 MG TAB PO SCH (12:16)
[2019-02-03] MEDS: FOLIC ACID 1 MG TAB PO SCH (12:16)
[2019-02-03] MEDS: CYANOCOBALAMIN (VITAMIN B-12) 100 MCG TABLET PO SCH (12:17)
[2019-02-03] MEDS: OXYCODONE/APAP 7.5/325MG TAB PO PRN ×2 (16:13→20:23)
[2019-02-03] MEDS: SENNA 8.6 MG TAB PO SCH (20:24)
[2019-02-04] MEDS: OXYCODONE/APAP 7.5/325MG TAB PO PRN ×4 (00:33→14:17)
[2019-02-04] MEDS: MoRPHine SULFATE CR 15 MG TABCR PO SCH ×2 (01:27→07:48)
[2019-02-04] MEDS: LEVOTHYROXINE SODIUM 125 MCG TABLET PO SCH (06:05)
[2019-02-04] MEDS: PREGABALIN 75 MG CAP PO SCH (07:48)
[2019-02-04] MEDS: MULTIVITAMIN TAB PO SCH (07:49)
[2019-02-04] MEDS: PYRIDOXINE HCL 50 MG TAB PO SCH (07:49)
[2019-02-04] MEDS: DOCUSATE SODIUM 100 MG CAP PO SCH ×2 (07:50→12:48)
[2019-02-04] MEDS: RIVAROXABAN 10 MG TABLET PO SCH (07:50)
--- NOTE | 2019-02-04 07:57 | Orthopedic Progress Note ---
Date of Service February 04, 2019 Assessment & Plan (1) S/P total knee arthroplasty: Postop day 2 status post left total knee arthroplasty. PT/OT protocols. Weightbearing as tolerated. DVT prophylaxis with rivaroxaban, SCDs, CADE boateng. Pain management as per pain management team recommendations. Discharge planning -patient is hoping to go to [facility] rehab post discharge. Awaiting authorization. Subjective POD #3 s/p Left TKA Patient in chair at bedside. denies CP/SOB, denies fever/chills. Pain management team was in to discuss her current medications yesterday, adjustments were made to her pain regimine to give her what she was getting as an outpatient. She denies calf tenderness. She states she is hoping to go to [facility]. She states she wants to see how PT goes today before she goes to rehab. Results & Data Vital Signs (Past 12 Hours) Vital Signs Temp Pulse Resp BP Pulse Ox 02/04/19 06:32 36.5 C 62 18 130/79 96 02/03/19 23:04 36.7 C 65 14 116/70 97
--- NOTE | 2019-02-04 08:01 | Orthopedic Progress Note ---
Date of Service February 04, 2019 Assessment & Plan (1) S/P total knee arthroplasty: Postop day 3 status post left total knee arthroplasty. PT/OT protocols. Weightbearing as tolerated. DVT prophylaxis with rivaroxaban, SCDmaia, CADE boateng. Pain management as per pain management team recommendations. Discharge planning -patient is hoping to go to [facility] rehab post discharge. Awaiting authorization. Subjective POD #3 s/p Left TKA Patient in chair at bedside. denies CP/SOB, denies fever/chills. Pain management team was in to discuss her current medications yesterday, adjustments were made to her pain regimine to give her what she was getting as an outpatient. She denies calf tenderness. She states she is hoping to go to [facility]. She states she wants to see how PT goes today before she goes to rehab. Physical Exam Physical Exam: Left knee wound vac in place, no drainage, no erythema, no calf tenderness. Toes and ankle mobile, A&Ox3. Results & Data Vital Signs (Past 12 Hours) Vital Signs Temp Pulse Resp BP Pulse Ox 02/04/19 06:32 36.5 C 62 18 130/79 96 02/03/19 23:04 36.7 C 65 14 116/70 97
[2019-02-04] MEDS: INSULIN ASPART 100 UNITS/ML 3 ML PEN SC SCH ×2 (08:25→13:26)
[2019-02-04] MEDS: FOLIC ACID 1 MG TAB PO SCH (12:46)
[2019-02-04] MEDS: CYANOCOBALAMIN (VITAMIN B-12) 100 MCG TABLET PO SCH (12:46)
[2019-02-04] MEDS: PANTOprazole 40 MG TAB PO SCH (12:46)
[2019-02-04] MEDS: LISINOPRIL 5 MG TAB PO SCH (12:46)
[2019-02-04] MEDS: PRAVASTATIN SOD 20 MG TAB PO SCH (12:46)
[2019-02-04] MEDS: ASCORBIC ACID 500 MG TAB PO SCH (12:46)
[2019-02-04] MEDS: MAGNESIUM OXIDE 400 MG TAB PO SCH (12:46)
[2019-02-04] MEDS: CHOLECALCIFEROL (VITAMIN D) 400 UNITS TABLET PO SCH (12:47)
[2019-02-04] MEDS: METFORMIN HCL 500 MG TAB PO SCH (12:47)
[2019-02-04] MEDS: DULOXETINE HCL 60 MG CAP PO SCH (12:48)
--- NOTE | 2019-02-05 12:01 | Discharge Summary ---
Date of Service Date of Discharge: February 04, 2019 Date of Admission: 02-01-19 Admission HPI Per Admitting Provider Ms Banks is a 73 year old female who complains of left knee pain, presents for pre-op evaluation prior to a left total knee replacement at [facility]. She presents with pain, crepitus, decreased rom and stiffness on the left side. She states that the symptoms have been chronic non-traumatic. The symptoms occur constantly with intermittent worsening. Currently the patient states that the symptoms are moderate-severe. The pain is described as aching sharp and discomforting. The symptoms are aggravated by ascending stairs, daily activities, descending stairs, first steps while awake, weight bearing, walking and repetitive activities. Lynette states that the symptoms are relieved by no specific activity. In addition to left knee pain the patient is also experiencing crepitus, decreased mobility, joint pain, instability, loss of motion, pain after activity and stiffness. Prior NSAIDs include Mobic IBU and Aleve. Prior pain medications include oxycodone and Morphine. She has been treated with Pt, has had Cortisone and Visco in the past on the left side. Pt has also tried PRP injections with no relief. Patient has had arthroscopic surgery. Dr. Sotelo performed a Left knee arthroscopy many years ago. Pt. lives in a 2 story home with Male Partner. Has 6 stairs to enter the home and 18 stairs to access the second floor with bedroom and bathroom. Pt is retired Principal Diagnosis left knee osteoarthritis Discharge Exam Vital Signs Temp 36.5 C 02/04/19 06:32 Pulse 62 02/04/19 06:32 Resp 18 02/04/19 06:32 BP 130/79 02/04/19 06:32 Pulse Ox 96 02/04/19 06:32 Constitutional WD/WN, vitals as above no acute distress Musculoskeletal NVDI, calf SNT, negative bertram sign. DP palpable, able to wiggle toes/ankle movement without difficulty. JULIAN dressing clean dry and intact. expected post- operative bruising noted. Discharge Data Allergies Allergy/AdvReac Type Severity Reaction Status Date / Time aspirin AdvReac advised to Verified 02/01/19 05:49 avoid due to hx ITP Consultations 02/01/19 09:01 Consult Pain Management Routine 02/01/19 10:32 Consult Case Management - Discharge Planning Routine Procedures Performed Operation Date: 02/01/19 07:00 Actual Procedures p Left Total Knee Arthroplasty(Left) - Ian Chapin, Ordered Studies 02/01/19 05:00 US - OR guided needle placemen Routine Hospital Course (1) S/P total knee arthroplasty: Postop day 3 status post left total knee arthroplasty. PT/OT protocols. Weightbearing as tolerated. DVT prophylaxis with rivaroxaban, SCDs, CADE hose. Pain management as per pain management team recommendations. Total Time Total Time Spent Total Time Spent (In Minutes): 20 Total Time Includes: Examination of the Patient, Discharge Planning and Medication Reconciliation Discharge Plan Discharge Items Patient Disposition: Transfer Inpatient Rehab Fac Reason For Visit: LEFT KNEE OSTEOARTHRITIS Discharge Diagnosis: Left Knee Osteoarthritis Discharge Goals: Decrease discomfort and Improve function Activity: Per 'Additional Instructions' section Weightbearing: Left weightbearing Weightbearing Comment: as tolerated with walker Non-emergency contact: Surgeon Call non-emergency contact if: your pain is not controlled, your temperature is above 101.5, your wound has increased redness and your wound has increased drainage Follow-up/Referrals: Paul Ellison MD [Primary Care Provider] - Diet: Carb Consistent or DM2 Addtl Provider Instructions: ACTIVITY RECOMMENDATIONS: SELF CARE INSTRUCTIONS AFTER TOTAL KNEE REPLACEMENT A. You may need to continue a physical therapy program after discharge from the hospital. There are several options available to you. Your doctor will assist you in selecting the best one for you. 1. An out-patient facility 2 to 3 times a week for therapy or home therapy. 2. Continue working on all exercises taught to you in the hospital. Your goals should be to increase bending of your knee to 90 degrees and beyond and to fully straighten your knee. B. You may progress at your own pace from walking with a walker or crutches to a cane; then to no assistive devices. C. Make walking a part of your daily routine. Be up as much as comfortable with rest periods throughout the day. Rest with leg elevation is very important. Use the ice wrap frequently for the first 3-4 weeks. D. There are no restrictions on activities. You may ride in a car, shop, participate in it security manager and all social activities. E. Wear the long elastic stockings (CADE hose) 20 hours a day for 2 weeks after surgery. They can be removed several times a day for laundering and for a bath. F. You may shower, no tub baths until cleared by your doctor. SPECIAL CARE INSTRUCTIONS: VERY IMPORTANT TO READ AND REVIEW A. There are a few signs you need to watch for after you are home. Call [facility] if you notice any of the followin. Increased severe knee pain. Some pain is expected especially when you exercise. 2. Increased swelling in your leg or knee; pain or swelling of the calf muscle in either lower leg. 3. Any fluid drainage from the incision. 4. Shortness of breath or chest pain. B. Please call [facility] at if you have any concerns or questions about your operation or recovery. The doctor or his nurse will return your call promptly. C. You must take antibiotics before dental work, bladder, bowel or other surgery. Your doctor will provide you with a permanent care to carry describing this precaution. IMPORTANT: * REMEMBER TO TAKE XARELTO , 10 MG, ONCE DAILY FOR 4 WEEKS UNLESS OTHERWISE DIRECTED. THIS IS YOUR BLOOD THINNER. * HIGH RISK PATIENTS MAY BE PRESCRIBED A STRONGER BLOOD THINNER. THIS WILL BE PROVIDED AT DISCHARGE. * CALL IF INCREASED PAIN, REDNESS, DRAINAGE OR FEVER GREATER THAT 101. * WEAR CADE HOSE 20 HOURS PER DAY FOR 2 WEEKS. * JULIAN dressing - This is a large suction dressing covering your incision. This will help pull any excess drainage from the wound and allow your incision to heal properly. You may shower with this if you can keep the unit outside of the shower. If any bleeding or leakage is noted please call your doctor's office. This will remain on your incision for 7 days and then should be removed. This can be done yourself or by the home nursing staff if applicable. The entire unit is disposable once removed. Once removed, keep incision clean and dry. If redness or drainage is noted, please call your surgeon. . FOLLOW UP VISIT: If appointment is not already scheduled: Please call [facility] to make a follow-up appointment for 2 weeks after your surgery at . Patient to continue to follow with pain management as an outpatient. Prescriptions: New morphine 15 mg Tablet Extended Release 15 mg PO Q8H Qty: 18 RF: 0 docusate sodium 100 mg Capsule 100 mg PO BID 10 Days Qty: 20 RF: 0 Xarelto 10 mg Tablet 10 mg PO DAILY 28 Days Qty: 28 RF: 0 Narcan 4 mg/actuation spray,non-aerosol 1 sprays INTNAS ONCE Qty: 2 RF: 0 cefadroxil 500 mg capsule 500 mg PO BID Qty: 28 RF: 1 oxycodone-acetaminophen [Endocet] 7.5-325 mg Tablet 1 tab PO Q4H PRN (Reason: pain) Qty: 30 RF: 0 Continued metformin 500 mg Tablet 500 mg PO QDL RF: 0 cyanocobalamin (vitamin B-12) [Vitamin B-12] 100 mcg Tablet 100 mcg PO QDL RF: 0 ascorbic acid (vitamin C) [Vitamin C] 500 mg Tablet 500 mg PO QDL RF: 0 pantoprazole 40 mg Tablet,Delayed Release (Dr/Ec) 40 mg PO QDL RF: 0 levothyroxine 125 mcg Tablet 125 mcg PO QAM RF: 0 folic acid 1 mg Tablet 1 mg PO QDL RF: 0 pravastatin 20 mg Tablet 20 mg PO QDL RF: 0 lisinopril 5 mg Tablet 5 mg PO QDL RF: 0 pyridoxine (vitamin B6) [Vitamin B-6] 100 mg Tablet 100 mg PO QAM RF: 0 nystatin 100,000 unit/gram Powder 1 applic TOPICAL BID PRN (Reason: SKIN ISSUES) RF: 0 simethicone 125 mg Tablet 125 mg PO BID PRN (Reason: GERD) RF: 0 cholecalciferol (vitamin D3) [Vitamin D3] 400 unit Tablet 400 unit PO QDL RF: 0 coenzyme Q10 [CoQ-10] 100 mg Capsule 100 mg PO QDL RF: 0 duloxetine 60 mg Capsule,Delayed Release(Dr/Ec) 60 mg PO QDL RF: 0 biotin 1 mg Tablet 1 mg PO QAM RF: 0 Elvin-E 400 mg Tablet 400 mg PO QDL RF: 0 pregabalin [Lyrica] 225 mg Capsule 225 mg PO BID RF: 0 magnesium oxide 500 mg Capsule 500 mg PO QDL RF: 0 lutein 40 mg Capsule 40 mg PO QDL RF: 0 polyethylene glycol 3350 [Miralax] 17 gram/dose Powder 8.5 g PO DAILY PRN (Reason: Constipation) RF: 0 Discontinued meloxicam 15 mg Tablet 15 mg PO QDL RF: 0 oxycodone-acetaminophen 5-325 mg Tablet 1 tab PO Q6H PRN (Reason: Pain) RF: 0 morphine 15 mg Tablet 15 mg PO Q8H PRN (Reason: Pain) RF: 0 turmeric-herbal complex no.278 150 mg Capsule 300 mg PO QDL RF: 0 docusate sodium [Colace] 100 mg Capsule 100 mg PO QDL RF: 0 Stand-Alone Forms: [employer], Opioid Pain Management [employer]/Other Patient Handouts: Arthroscopy Knee, Tips Knee Post Op, Replacement Knee, Replacement Knee Home After, Arthroscopy Knee Recover, Arthroscopy Knee After Discharge Orders: Discharge Order (Routine); Ordered 02/04/19 Ordered By: Bony Kessler Skilled Items Patient informed of condition?: Yes DNR: No Discharge Level of Care: Acute rehab Communicable Disease: No Discharge Prognosis: Stable Admission Data Admit Date/Time: 02/01/19 09:00 Attending Provider: Ian Chapin Admit Provider: Ian Chapin Primary Care Provider: Paul Ellison Other Providers: Ruy Momin Upendra Service: Surgical Services Other Interventions: Discharge Summary Assessment (RN) Last Done: 02/03/19 09:41 DC Date/Time DO NOT enter until pt leaves facility: 02/04/19 14:55
== END 2019-02-04 14:55 | DRG 470 ==
LOC: ASU 05:18 → 3E 09:00
DX: Z79.84 Long term (current) use of oral hypoglycemic drugs; M17.12 Unilateral primary osteoarthritis, left knee

== ENCOUNTER 2022-01-23 03:47 | Inpatient (IN) ==
[2022-01-23] MEDS ORDERED: LORazepam 2 MG/1 ML VIAL IV STA (04:01)
[2022-01-23] MEDS ORDERED: ACETAMINOPHEN 1,000 MG/100 ML VIAL IV STA (04:02)
--- NOTE | 2022-01-23 04:25 | Emergency Department Note ---
History of Present Illness General Chief complaint: Chest Pain Stated complaint: chest pain Time Seen by Provider: 01/23/22 03:49 History of Present Illness Maximum Pain Intensity: 10 This 76-year-old presents to the ER complaining of ongoing chronic chest back and abdominal pain was been here twice already Location: Generalized Quality: Painful Severity: Moderate Duration: Past few weeks Timing: Started few weeks ago Context: Patient was concerned and came back in Modifying factors: better with nothing; worse with activity patient had a CTA and abdominal pelvis CT with no acute findings noted. She is on high-dose morphine and oxycodone. Patient denies fevers, vomiting, diarrhea, flulike illness. Home Medications Medication Instructions Recorded Confirmed Type biotin 1 mg tablet 1 mg PO QAM 01/10/19 01/17/22 History cholecalciferol (vitamin D3) 10 400 unit PO QDL 01/10/19 01/17/22 History mcg (400 unit) tablet (Vitamin D3) coenzyme Q10 100 mg capsule 100 mg PO QDL 01/10/19 01/17/22 History (CoQ-10) cyanocobalamin (vitamin B-12) 100 100 mcg PO QDL 01/10/19 01/17/22 History mcg tablet (Vitamin B-12) duloxetine 60 mg capsule,delayed 60 mg PO QDL 01/10/19 01/17/22 History release folic acid 1 mg tablet 1 mg PO QDL 01/10/19 01/17/22 History lutein 40 mg capsule 40 mg PO QDL 01/10/19 01/17/22 History magnesium oxide 500 mg capsule 500 mg PO QDL 01/10/19 01/17/22 History metformin 500 mg tablet 500 mg PO BID 01/10/19 01/17/22 History nystatin 100,000 unit/gram topical 1 applic topical BID PRN SKIN 01/10/19 01/17/22 History powder ISSUES pantoprazole 40 mg tablet,delayed 40 mg PO QDL 01/10/19 01/17/22 History release polyethylene glycol 3350 17 8.5 g PO QDL PRN Constipation 01/10/19 01/17/22 History gram/dose oral powder (Miralax) pravastatin 20 mg tablet 20 mg PO QDL 01/10/19 01/17/22 History simethicone 125 mg tablet 125 mg PO BID PRN GERD 01/10/19 01/17/22 History Lactobacillus-Bifidobacterium 30 30 cap PO QAM 02/18/19 01/17/22 History billion cell capsule,delayed release (Ultimate Alyson Probiotic) docusate sodium 100 mg tablet 100 mg PO BID PRN Constipation 02/18/19 01/17/22 History alpha lipoic acid 300 mg capsule 300 mg PO DAILY 11/19/20 01/17/22 History levothyroxine 150 mcg capsule 150 mcg PO DAILY 11/19/20 01/17/22 History turmeric 400 mg capsule 450 mg PO DAILY 11/19/20 01/17/22 History milk thistle 150 mg capsule 150 mg PO DAILY 01/30/21 01/17/22 History baclofen 10 mg tablet 10 mg PO BID PRN MUSCLE SPASMS 01/17/22 01/17/22 History celecoxib 200 mg capsule 200 mg PO DAILY 01/17/22 01/17/22 History hydrochlorothiazide 25 mg tablet 25 mg PO QAM PRN Fluid Retention 01/17/22 01/17/22 History lisinopril 20 mg tablet 20 mg PO DAILY 01/17/22 01/17/22 History morphine 15 mg tablet,extended 15 mg PO Q8H PRN Pain 01/17/22 01/17/22 History release naloxone 4 mg/actuation nasal 1 sprays intranasal DIRECTED 01/17/22 01/17/22 History spray (Narcan) pregabalin 200 mg capsule 200 mg PO TID 01/17/22 01/17/22 History tizanidine 2 mg tablet 2 mg PO Q6H PRN MUSCLE SPASMS 01/17/22 01/17/22 History Allergies Allergy/AdvReac Type Severity Reaction Status Date / Time aspirin AdvReac Unknown advised to Verified 01/17/22 19:00 avoid due to hx ITP Past Med/Surg History Medical History Cancer skin (back, nose) Constipation Diabetes mellitus, type 2 Diabetic peripheral neuropathy associated with type 2 diabetes mellitus Double vision Fibromyalgia GERD (gastroesophageal reflux disease) 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; no issues since Hyperesthesia Hyperlipidemia Hypertension Hypothyroidism Numbness and tingling in both hands Osteoarthritis Sleep apnea no device Surgical History History of meniscectomy of left knee Hx of dilation and curettage Hx of eye surgery corrective (as child) Hx of tonsillectomy Hx of total hysterectomy Social History Smoking Status: Former smoker Years Smoked: 10; Second Hand Exposure: No; Hx Alcohol Use: Yes Alcohol type: wine Alcohol Intake Frequency Comment: DAILY WITH DINNER Hx Substance Use: Yes (MEDICAL MARIJUANA VAP) Prescribed Medications: Marijuana Preferred Language: Czech Communication Ability: Effective Visual Impairment: No Limitations Hearing Ability: Normal Beliefs That Will Affect Care: None 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, [employer] Current Living Situation: Significant Other current occupational status: retired How many Children do You have: 0 Feels Safe at Home: Yes Diet Comment: ORGANIC Assistive Devices: Walker Review of Systems A total of 10 systems reviewed and were otherwise negative Physical Exam Vital Signs Vital Signs - 24 hr 01/23/22 03:57 01/23/22 04:09 01/23/22 05:03 Temperature 36.4 C L Temperature Source Oral Pulse Rate 63 Pulse Rate [Apical] 61 Respiratory Rate 18 16 Respiratory Effort / Characteristics Non-Labored Spontaneous Respiratory Depth Normal Respiratory Pattern Regular Blood Pressure 222/91 H Blood Pressure [Left Arm] 212/91 H Blood Pressure Mean 134 Blood Pressure Mean [Left Arm] 131 Blood Pressure Position Semi-fowlers Blood Pressure Position [Left Arm] Semi-fowlers Pulse Oximetry 99 99 99 Oxygen Delivery Method Room Air Room Air Room Air Sepsis Recent Fever Within 48 Hours No Sepsis New/Unexplained Change in Mental Status N/A Sepsis Action Taken by Nursing No Action Required VITALS: Vitals are noted on the nurse's note and reviewed by myself. Vital signs reviewed. GENERAL: Elderly female appears upset demanding answers for her chronic pain, in no acute distress, nondiaphoretic, well-developed well-nourished. SKIN: The skin was without rashes, erythema, edema, or bruising. There is no tenting of the skin. Capillary reflex less than 2 seconds. HEAD: Normocephalic atraumatic. EARS: External auditory canals clear, EYES: Pupils equal round and reactive to light and accommodation. Conjunctivae without injection, sclerae without icterus. Extraocular movements intact. NOSE: Patent, turbinates without inflammation or discharge. MOUTH: Mucous membranes moist. Pharynx without erythema or exudate. Uvula midline. Airway patent. Tongue does not deviate. NECK: Supple without nuchal rigidity. No lymphadenopathy. No thyromegaly. Cervical spine is nontender. No JVD. HEART: Regular rate and rhythm LUNGS: Clear to auscultation bilaterally without wheezes, rales or rhonchi. No retractions or accessory muscle use. ABDOMEN: Positive bowel sounds x 4. Normal tympanic percussion. Soft, nontender, without masses or organomegaly. Hahn sign negative. No guarding or rebound tenderness. No CVA tenderness MUSCULOSKELETAL: No muscle atrophy, erythema, or edema noted. NEURO: Patient was alert and oriented to person place and time. Normal sensation to light and sharp touch. No focal neurological deficits. Course Administered Medications Discontinued Medications Acetaminophen (Ofirmev) 1,000 mg in 100 mls @ 400 mls/hr IV NOW STA Stop: 01/23/22 04:16 Last Infusion: 01/23/22 04:45 Dose: 0 mls/hr Documented By: Admin: 01/23/22 04:30 Dose: 400 mls/hr Documented By: ALLYSON Lorazepam (Lorazepam 2 Mg/1 Ml Vial) 1 mg IV NOW STA; Protocol Stop: 01/23/22 04:02 Last Admin: 01/23/22 04:30 Dose: 1 mg Documented By: ALLYSON Medical Decision Making Medical Records Attestation: I reviewed the patient's medical records. Home Medications Current Medication List: was personally reviewed by me Laboratory Data Attestation: I reviewed the patient's lab results. Result diagrams: 01/23/22 04:39 01/23/22 04:39 Lab Results 01/23/22 01/23/22 01/23/22 Range/Units 04:16 04:32 04:39 WBC 8.82 (4.8-10.8) K/ul RBC 5.20 (3.93-5.22) M/uL Hgb 15.5 (12.0-16.0) g/dl Hct 45.4 H (34.1-44.9) % MCV 87.3 (80.0-100.0) fL MCH 29.8 (25.0-34.0) pg MCHC 34.1 (32.0-36.0) g/dL RDW Std Deviation 40.7 (36.4-46.3) fL RDW Coeff of Feng 12.9 (11.5-14.5) % Plt Count 232 (130-400) K/uL MPV 10.1 (9.4-12.3) fL Immature Gran % (Auto) 0.3 % Neut % (Auto) 89.6 % Lymph % (Auto) 7.6 % Crawford % (Auto) 2.2 % Eos % (Auto) 0.1 % Baso % (Auto) 0.2 % Neut # (Auto) 7.90 H (1.4-6.5) K/uL Lymph # (Auto) 0.67 L (1.2-3.4) K/uL Crawford # (Auto) 0.19 L (0.24-0.82) K/uL Eos # (Auto) 0.01 (0-0.50) K/uL Baso # (Auto) 0.02 (0-0.2) K/uL Immature Gran # (Auto) 0.03 H (0.00-0.02) K/uL Sodium (136-145) mmol/L Potassium (3.5-5.1) mmol/L Chloride (98-107) mmol/L Carbon Dioxide (21-32) mmol/L Anion Gap (3-11) BUN (6-23) mg/dl Creatinine (0.6-1.2) mg/dl Est Cr Clr Drug Dosing Est GFR ( Amer) ml/min Est GFR (Non-Af Amer) ml/min BUN/Creatinine Ratio (10-20) Glucose (70-99(Fasting)) mg/dl Calcium (8.5-10.1) mg/dl Magnesium (1.7-2.4) mg/dl Total Bilirubin (0.2-1.0) mg/dl AST (13-39) U/L ALT (7-52) U/L Alkaline Phosphatase (34-104) U/L Total Creatine Kinase (26-192) U/L Troponin I High Sens (0-14) pg/ml Total Protein (6.0-8.3) gm/dl Albumin (3.4-5.0) gm/dl Globulin (2.5-4.0) gm/dl Albumin/Globulin Ratio (0.9-2) Lipase (11-82) U/L Urine Color Yellow Urine Appearance Clear (Clear) Urine pH 7.5 (4.5-7.5) Ur Specific [place] 1.014 (1.000-1.030) Urine Protein 2+ H (Negative) Urine Glucose (UA) Trace H (Negative) Urine Ketones Negative (Negative) Urine Blood Trace H (Negative) Urine Nitrite Negative (Negative) Urine Bilirubin Negative (Negative) Urine Urobilinogen Negative (Negative) Ur Leukocyte Esterase Trace H (Negative) Urine WBC (Auto) 10-30 H (0-5) /hpf Urine RBC (Auto) 0-4 (0-4) /hpf U Hyaline Cast (Auto) 1-5 (0-5) /lpf U Epithel Cells (Auto) >30 H (0-5) /lpf Urine Bacteria (Auto) 1+ H (Negative) Ur Renal Epithelial Cell Not Reportable SARS-CoV-2, RNA, NAAT NEGATIVE (NEGATIVE) 01/23/22 Range/Units 04:39 WBC (4.8-10.8) K/ul RBC (3.93-5.22) M/uL Hgb (12.0-16.0) g/dl Hct (34.1-44.9) % MCV (80.0-100.0) fL MCH (25.0-34.0) pg MCHC (32.0-36.0) g/dL RDW Std Deviation (36.4-46.3) fL RDW Coeff of Feng (11.5-14.5) % Plt Count (130-400) K/uL MPV (9.4-12.3) fL Immature Gran % (Auto) % Neut % (Auto) % Lymph % (Auto) % Crawford % (Auto) % Eos % (Auto) % Baso % (Auto) % Neut # (Auto) (1.4-6.5) K/uL Lymph # (Auto) (1.2-3.4) K/uL Crawford # (Auto) (0.24-0.82) K/uL Eos # (Auto) (0-0.50) K/uL Baso # (Auto) (0-0.2) K/uL Immature Gran # (Auto) (0.00-0.02) K/uL Sodium 125 L (136-145) mmol/L Potassium 4.4 (3.5-5.1) mmol/L Chloride 90 L (98-107) mmol/L Carbon Dioxide 29 (21-32) mmol/L Anion Gap 6 (3-11) BUN 26 H (6-23) mg/dl Creatinine 0.82 (0.6-1.2) mg/dl Est Cr Clr Drug Dosing Not Reportable Est GFR ( Amer) 81.7 ml/min Est GFR (Non-Af Amer) 70.5 ml/min BUN/Creatinine Ratio 31.7 H (10-20) Glucose 169 H (70-99(Fasting)) mg/dl Calcium 9.4 (8.5-10.1) mg/dl Magnesium 2.2 (1.7-2.4) mg/dl Total Bilirubin 1.2 H (0.2-1.0) mg/dl AST 27 (13-39) U/L ALT 26 (7-52) U/L Alkaline Phosphatase 255 H (34-104) U/L Total Creatine Kinase 55 (26-192) U/L Troponin I High Sens 55.7 H* D (0-14) pg/ml Total Protein 8.1 (6.0-8.3) gm/dl Albumin 4.5 (3.4-5.0) gm/dl Globulin 3.6 (2.5-4.0) gm/dl Albumin/Globulin Ratio 1.3 (0.9-2) Lipase 22 (11-82) U/L Urine Color Urine Appearance (Clear) Urine pH (4.5-7.5) Ur Specific [place] (1.000-1.030) Urine Protein (Negative) Urine Glucose (UA) (Negative) Urine Ketones (Negative) Urine Blood (Negative) Urine Nitrite (Negative) Urine Bilirubin (Negative) Urine Urobilinogen (Negative) Ur Leukocyte Esterase (Negative) Urine WBC (Auto) (0-5) /hpf Urine RBC (Auto) (0-4) /hpf U Hyaline Cast (Auto) (0-5) /lpf U Epithel Cells (Auto) (0-5) /lpf Urine Bacteria (Auto) (Negative) Ur Renal Epithelial Cell SARS-CoV-2, RNA, NAAT (NEGATIVE) Imaging Data Attestation: I personally reviewed and interpreted this imaging study as follows: MDM Narrative Prior records/ancillary studies reviewed. Triage Nursing notes reviewed. Additional history obtained from EMS. The patient's history was concerning for chest pain. Differential diagnosis: Etiologies such as cardiac ischemia, aortic dissection, pulmonary embolism, pneumonia, pneumothorax, musculoskeletal, infections, pericarditis, myocarditis, esophageal rupture, gastrointestinal, as well as others were entertained. Physical examination: As above. ER treatment provided: An order was placed for continuous cardiac monitoring. The monitor shows a rate of 60-100 with a sinus rhythm. Ativan, Tylenol On reassessment the patient felt better. Diagnostic interpretation by me: The electrocardiogram was negative for pathologic change. Ordered for chest pain EKG: Normal sinus, poor baseline, no acute ST or T wave changes. Impression normal sinus rhythm interpreted by myself I think arrhythmia is unlikely. EKG shows normal sinus rhythm with no interval abnormalities such as QT prolongation or WPW. There are no findings to suggest Brugada syndrome. Cardiac monitoring in the emergency department reveals no tachycardic or bradycardic dysrhythmia. Hypertrophic cardiomyopathy was considered but there are no clear historical elements pointing toward this. EKG is not suggestive. The QRS voltage is not extremely large and there are no suggestive Q waves. The labs revealed hyponatremia stable per chart reviewed Mild hyperglycemia without DKA Mildly elevated troponin and repeat was ordered Imaging studies: Chest x-ray with no acute consolidation, pneumothorax or free air per my interpretation HEART SCORE: Hx: high/mod/low suspicion: 0 ECG: ST depression/nonspecific changes/normal: 0 Age: Greater than 65/45-64/less than 45: 2 Risk factors: (Hypertension, hyperlipidemia, diabetes, coronary disease, tobacco use, cocaine use): 2 Troponin: Greater than 2 times normal limits/1-2 times normal limits/normal: 1 Total: 5 Consultation: A consultation was placed with the hospitalist. The case was discussed and diag nostics were reviewed. The patient was evaluated in the ER for further treatment. Exam and history seem consistent with intractable pain. Medicine was consulted. She will be evaluated for her ongoing worsening pain. Negative troponin. Stable labs. By the evaluation outlined above emergent etiologies such as cardiac ischemia, aortic dissection, pulmonary embolism, pneumonia, pneumothorax, infections, pericarditis, myocarditis, gastrointestinal, as well as others were deemed relatively unlikely. The pt informed about the findings as listed above. All questions were answered and pleased with the treatment. The chart was completed utilizing [employer] Speech voice recognition software. Grammatical errors, random word insertions, pronoun errors, and incomplete sentences are an occassional consequence of this system due to software limitations, ambient noise, and hardware issues. Any formal questions or concerns about the content, text, or information contained within the body of this dictation should be directly addressed to the physician day care assistant for clarification. Impression & Plan Chest pain, Chronic pain, Elevated troponin Discharge Plan Visit Data Chief Complaint: Chest Pain Stated Complaint: chest pain ED Provider: Haley Burger ED Midlevel Provider: Junie Cowan Discharge Problem: Chest pain, Chronic pain, Elevated troponin Patient Disposition: Being Evaluated by Hospitalist Condition: Good Forms Stand Alone Forms: My [facility] [employer] Prescriptions Prescriptions: No Action levothyroxine 150 mcg capsule 150 mcg PO DAILY Rx Instructions: PER PT "DO NOT TAKE REGULARLY". alpha lipoic acid 300 mg capsule 300 mg PO DAILY Rx Instructions: PER PT "DO NOT TAKE REGULARLY". turmeric 400 mg capsule 450 mg PO DAILY Rx Instructions: PER PT "DO NOT TAKE REGULARLY". milk thistle 150 mg capsule 150 mg PO DAILY Rx Instructions: give with meal/snack PER PT "DO NOT TAKE REGULARLY". metformin 500 mg Tablet 500 mg PO BID Rx Instructions: PER PT "DO NOT TAKE REGULARLY". cyanocobalamin (vitamin B-12) [Vitamin B-12] 100 mcg Tablet 100 mcg PO QDL Rx Instructions: PER PT "DO NOT TAKE REGULARLY". pantoprazole 40 mg Tablet,Delayed Release (Dr/Ec) 40 mg PO QDL Rx Instructions: PER PT "DO NOT TAKE REGULARLY". folic acid 1 mg Tablet 1 mg PO QDL Rx Instructions: PER PT "DO NOT TAKE REGULARLY". pravastatin 20 mg Tablet 20 mg PO QDL Rx Instructions: PER PT "DO NOT TAKE REGULARLY". nystatin 100,000 unit/gram Powder 1 applic TOPICAL BID PRN (Reason: SKIN ISSUES) Rx Instructions: PER PT "DO NOT TAKE REGULARLY". simethicone 125 mg Tablet 125 mg PO BID PRN (Reason: GERD) Rx Instructions: PER PT "DO NOT TAKE REGULARLY". cholecalciferol (vitamin D3) [Vitamin D3] 400 unit Tablet 400 unit PO QDL Rx Instructions: PER PT "DO NOT TAKE REGULARLY". coenzyme Q10 [CoQ-10] 100 mg Capsule 100 mg PO QDL Rx Instructions: PER PT "DO NOT TAKE REGULARLY". duloxetine 60 mg Capsule,Delayed Release(Dr/Ec) 60 mg PO QDL Rx Instructions: PER PT "DO NOT TAKE REGULARLY". biotin 1 mg Tablet 1 mg PO QAM Rx Instructions: PER PT "DO NOT TAKE REGULARLY". magnesium oxide 500 mg Capsule 500 mg PO QDL Rx Instructions: PER PT "DO NOT TAKE REGULARLY". lutein 40 mg Capsule 40 mg PO QDL Rx Instructions: PER PT "DO NOT TAKE REGULARLY". polyethylene glycol 3350 [Miralax] 17 gram/dose Powder 8.5 g PO QDL PRN (Reason: Constipation) Rx Instructions: PER PT "DO NOT TAKE REGULARLY". docusate sodium 100 mg Tablet 100 mg PO BID PRN (Reason: Constipation) Rx Instructions: PER PT "DO NOT TAKE REGULARLY". Ultimate Alyson Probiotic 30 billion cell Capsule,Delayed Release(Dr/Ec) 30 cap PO QAM Rx Instructions: PER PT "DO NOT TAKE REGULARLY". celecoxib 200 mg capsule 200 mg PO DAILY Rx Instructions: PER PT "DO NOT TAKE REGULARLY". tizanidine 2 mg tablet 2 mg PO Q6H PRN (Reason: MUSCLE SPASMS) Rx Instructions: PER PT "DO NOT TAKE REGULARLY". lisinopril 20 mg tablet 20 mg PO DAILY Rx Instructions: PER PT "DO NOT TAKE REGULARLY". baclofen 10 mg tablet 10 mg PO BID PRN (Reason: MUSCLE SPASMS) Rx Instructions: PER PT "DO NOT TAKE REGULARLY". hydrochlorothiazide 25 mg tablet 25 mg PO QAM PRN (Reason: Fluid Retention) Rx Instructions: PER PT "DO NOT TAKE REGULARLY". pregabalin 200 mg capsule 200 mg PO TID Rx Instructions: PER PT "DO NOT TAKE REGULARLY". morphine 15 mg tablet extended release 15 mg PO Q8H PRN (Reason: Pain) Rx Instructions: PER PT "DO NOT TAKE REGULARLY". naloxone [Narcan] 4 mg/actuation spray,non-aerosol 1 sprays INTNAS DIRECTED Rx Instructions: PER PT "DO NOT TAKE REGULARLY". Referrals Referrals: Paul Ellison MD [Primary Care Provider] - : Chest pain Qualifiers: Chest pain type: unspecified Qualified Code(s): R07.9 - Chest pain, unspecified Chronic pain Qualifiers: Chronic pain type: other chronic pain Qualified Code(s): G89.29 - Other chronic pain
[2022-01-23 04:37] LABS: Appearance Urine Clear (Clear); Bacteria Urine Automated 1+ (Negative); Bilirubin Urine Negative (Negative); Blood Urine Trace (Negative); Color Urine Yellow; Epithelial Cell Urine Auto >30 /lpf (0-5); Glucose Urine UA Trace (Negative); Ketones Urine Negative (Negative); Leukocyte Esterase Urine Trace (Negative); Nitrite Urine Negative (Negative); Protein Urine 2+ (Negative); RBC Urine Automated 0-4 /hpf (0-4); Specific Gravity Urine 1.014 (1.000-1.030); Urobilinogen Urine Negative (Negative); pH Urine 7.5 (4.5-7.5)
[2022-01-23 04:50] LABS: Basophils # (auto) 0.02 K/uL (0-0.2); Basophils % (auto) 0.2 %; Eosinophils # (auto) 0.01 K/uL (0-0.50); Eosinophils % (auto) 0.1 %; Hematocrit (blood only) 45.4 % (34.1-44.9); Hemoglobin 15.5 g/dl (12.0-16.0); Immature Granulocytes # (auto) 0.03 K/uL (0.00-0.02); Immature Granulocytes % (auto) 0.3 %; Lymphocytes # (auto) 0.67 K/uL (1.2-3.4); Lymphocytes % (auto) 7.6 %; Mean Corpuscular Hemoglobin 29.8 pg (25.0-34.0); Mean Corpuscular Hgb Conc 34.1 g/dL (32.0-36.0); Mean Corpuscular Volume 87.3 fL (80.0-100.0); Mean Platelet Volume 10.1 fL (9.4-12.3); Monocytes # (auto) 0.19 K/uL (0.24-0.82); Monocytes % (auto) 2.2 %; Neutrophils % (auto) 89.6 %; Platelet Count 232 K/uL (130-400); RDW Coefficient of Variation 12.9 % (11.5-14.5); RDW Standard Deviation 40.7 fL (36.4-46.3); White Blood Count 8.82 K/ul (4.8-10.8)
[2022-01-23 05:12] LABS: Alanine Aminotransferase 26 U/L (7-52); Albumin Globulin Ratio 1.3 (0.9-2); Albumin Level 4.5 gm/dl (3.4-5.0); Alkaline Phosphatase 255 U/L (34-104); Anion Gap 6 (3-11); Aspartate Aminotransferase 27 U/L (13-39); BUN Creatinine Ratio 31.7 (10-20); Bilirubin,Total 1.2 mg/dl (0.2-1.0); Blood Urea Nitrogen 26 mg/dl (6-23); Calcium 9.4 mg/dl (8.5-10.1); Carbon Dioxide 29 mmol/L (21-32); Chloride 90 mmol/L (98-107); Creatine Kinase 55 U/L (26-192); Est GFR (African American) 81.7 ml/min; Est GFR (Non-African American) 70.5 ml/min; Globulin 3.6 gm/dl (2.5-4.0); Glucose 169 mg/dl (70-99(Fasting)); Lipase 22 U/L (11-82); Magnesium 2.2 mg/dl (1.7-2.4); Potassium 4.4 mmol/L (3.5-5.1); Sodium 125 mmol/L (136-145); Total Protein 8.1 gm/dl (6.0-8.3)
[2022-01-23 05:30] LABS: Troponin I High Sensitivity 55.7 pg/ml (0-14)
[2022-01-23] MEDS ORDERED: hydrALAZINE HCL 20 MG/ML VIAL IV STA (05:44)
[2022-01-23] MEDS ORDERED: LABETALOL HCL IV 5 MG/ML 20ML IV STA (07:02)
[2022-01-23] MEDS ORDERED: lisinopril 20 MG TAB PO STA (07:07)
--- NOTE | 2022-01-23 08:21 | XRay Report ---
XR chest 1V portable HISTORY: Atypical Chest Pain COMPARISON: Chest 01/13/2019. FINDINGS: The patient's chin partially obscures the left lung apex. Slightly rotated study. No defini te pneumothorax. No pleural effusions. The lungs are clear. The heart is borderline enlarged. Degener ative changes noted within the shoulders. IMPRESSION: No significant change compared to the prior study. No acute process. ACT 112: Negative or not required by law. Electronically signed by: Deangelo Wright M.D. 01/23/2022 8:20 AM
[2022-01-23] MEDS ORDERED: NYSTATIN POWDER 15GM BTL EXT PRN (08:26)
[2022-01-23] MEDS ORDERED: NALOXONE NASAL SPRAY 4 MG ER HOMEPACK PRN (08:26)
[2022-01-23] MEDS ORDERED: ACETAMINOPHEN 325 MG TAB PO PRN (08:26)
[2022-01-23] MEDS ORDERED: hydroCHLOROthiazide 25 MG TAB PO PRN (08:26)
[2022-01-23] MEDS ORDERED: LABETALOL HCL IV 5 MG/ML 20ML IV PRN (08:26)
[2022-01-23] MEDS ORDERED: HYDROmorphone INJ 0.5 MG/0.5 ML SYR IV PRN (08:26)
[2022-01-23] MEDS ORDERED: NITROGLYCERIN SL 0.4 MG/TAB TAB SL PRN (08:26)
[2022-01-23] MEDS ORDERED: ONDANSETRON INJ 2 MG/ML 2 ML VIAL IV PRN ×2 (08:26→09:33)
[2022-01-23] MEDS ORDERED: BACLOFEN 10 MG TAB PO PRN (08:26)
[2022-01-23] MEDS ORDERED: POLYETHYLENE (MIRALAX) 17 GM PACK PO PRN (08:26)
[2022-01-23] MEDS ORDERED: cefTRIAXone SODIUM 1,000 MG in DEXTROSE 5% 50 ML IV SCH (08:26)
[2022-01-23] MEDS ORDERED: SIMETHICONE 80 MG CHEW PO PRN (08:46)
[2022-01-23] MEDS ORDERED: NITROGLYCERIN 2% OINTMENT 30GM TUBE EXT SCH (09:00)
[2022-01-23] MEDS ORDERED: PREGABALIN 100 MG CAP PO SCH (09:00)
[2022-01-23] MEDS ORDERED: NALOXONE HCL 0.4 MG/1 ML VIAL/CARP IV PRN (09:05)
--- NOTE | 2022-01-23 09:13 | History and Physical Report ---
DATE OF ADMISSION: 01/23/2022. CHIEF COMPLAINT: Chest pain and chronic back pain. HISTORY OF PRESENT ILLNESS: This is a 76-year-old female with past medical history significant for type 2 diabetes, diabetic polyneuropathy, hypothyroidism, carpal tunnel syndrome, hypertension, GERD, osteoarthrosis, depression, sleep apnea, medical marijuana use, who lives at home alone, ambulates with a cane, comes with chest pain. The patient states that she is having chest pain for the last 2 weeks, pressure-like feeling. It is a constant pain, but later its getting worse.Also complains of back pain. Currently, resting comfortably, hemodynamically stable. Has some headache. Has some blurred visions, no earache, has some runny nose, no sore throat, no cough, no fevers. Appetite is okay. No shortness of breath, no nausea, no vomiting. Complains of upper abdominal pain. Normal bowel and bladder movements. ALLERGIES: SALICYLATES. PAST MEDICAL HISTORY: As mentioned above. PAST SURGICAL HISTORY: Colonoscopy, sebaceous cyst excision on the back, Pap screen, tonsillectomy and adenoidectomy. MEDICATIONS: The patient is on baclofen 10 mg p.o. b.i.d. p.r.n., celecoxib 200 mg p.o. daily, vitamin D 400 International Units p.o. daily, Coenzyme Q10 100 mg p.o. daily, vitamin B12 100 mcg p.o. daily, Colace 100 mg p.o. b.i.d. p.r.n., duloxetine 60 mg p.o. daily, folic acid 1 mg p.o. daily, hydrochlorothiazide 25 mg p.o. daily p.r.n. for fluid retention, probiotic 1 daily, levothyroxine 150 mcg p.o. daily, lisinopril 20 mg p.o. daily, magnesium oxide 500 mg p.o. daily, metformin 500 mg p.o. b.i.d., MS Contin 15 mg p.o. b.i.d., Narcan p.r.n., Protonix 40 mg p.o. daily, MiraLax daily p.r.n., pravastatin 20 mg p.o. daily, pregabalin 200 mg p.o. TID. FAMILY HISTORY: Significant for father has arthritis; mother has heart disorder; sister has diabetes; mother has stroke; sister has schizophrenia. SOCIAL HISTORY: Single. Quit smoking in 1971. Smoked 1 pack a day for 10 years. Glass of wine with dinner. Medical marijuana. REVIEW OF SYSTEMS: As per HPI. Rest of review of systems is negative. PHYSICAL EXAMINATION: GENERAL: The patient is of moderate build, not in acute distress. VITAL SIGNS: Temperature 36.4, pulse 63, respiratory rate 16, blood pressure 213/91, oxygen 97% on room air. HEENT: Pupils equal, round and reactive to light. Oral mucosa moist. NECK: No JVD, no neck masses. CARDIOVASCULAR: S1 and S2 heard. Regular rate and rhythm. No murmur, no gallop. RESPIRATORY SYSTEM: Normal AP diameter. No accessory muscle use. No wheezing, no crackles. ABDOMEN: Soft, epigastric tenderness present, no distention, no guarding. CENTRAL NERVOUS SYSTEM: Cranial nerves II-XII grossly intact, nonfocal. EXTREMITIES: No edema, no erythema. LABORATORY DATA: WBC is 8.8, hemoglobin 15.4, hematocrit 45.4, platelets 232. Sodium 125, potassium 4.4, chloride 90, bicarbonate 29, BUN 26, creatinine 0.8, serum glucose 169, calcium 9.4, magnesium 2.2, total bilirubin 1.2, AST 27, ALT 26, alkaline phosphatase 255. Troponin I high sensitivity 55, repeat is 124. Urinalysis: Trace leukocyte esterase, +1 bacteria. SARS-CoV-2 rapid test negative. IMAGING DATA: Chest x-ray, no acute findings. EKG: Normal sinus rhythm at a rate of 61. No significant change was seen. ASSESSMENT AND PLAN: This is a 76-year-old female comes with chest pain. 1. Chest pain: Mild elevation of troponin. EKG is okay. We will admit to tele floor. Serial cardiac enzymes, echocardiogram. N.p.o. until seen by cardiology. 2. Hypertensive urgency: Could be from the pain. Continue home medication. She is on lisinopril 20mg daily.Received iv hydralazine in the ER. We will give a dose of iv labetalol, place on nitro paste. Monitor in tele floor.Consulted cardiology. 3. Hyponatremia: Sodium was 136 on 01/06/2022. Today is 125. We will get serum osmolality, urine osmolality, urine sodium levels. BMP q. 6 hours and consult nephrology. 4. Urinary tract infection: Place on Rocephin. Follow the cultures. 5. Hypothyroidism: Continue Synthroid. 6. Chronic pain. Continue MS Contin. IV Dilaudid p.r.n. PT, OT when stable. 7. Diabetes: Holding metformin. Place on insulin sliding scale. Follow the blood sugars. 8. History of depression: Continue Cymbalta. 9. History of diabetic polyneuropathy: On pregabalin, Cymbalta and pain medications. 10. History of sleep apnea: As per Crys gordon followed after 2011, there was plan for cpap if no improvement. We will get nocturnal pulse ox study in the hospital. 11. Gastroesophageal reflux disease: On Protonix, but the patient also is having epigastric tenderness. We will also place on IV Pepcid b.i.d. and monitor. 12. Hyperlipidemia: On statin. 13. Deep venous thrombosis prophylaxis: Placed on heparin subcutaneous. DISPOSITION: Closely monitor in the tele floor. Level 1 full code. Expect to discharge home and follow with family doctor. Job ID: [id number] [facility]ona
[2022-01-23] MEDS: cefTRIAXone SODIUM 2,000 MG in DEXTROSE 5% 50 ML IV SCH (09:32)
[2022-01-23] MEDS ORDERED: NIFEdipine EXTENDED REL 30 MG TABCR PO STA (09:33)
[2022-01-23] MEDS ORDERED: NAPROXEN 375 MG TAB PO PRN (09:37)
[2022-01-23] MEDS: ATORVASTATIN 40 MG TAB PO SCH ×3 (09:37→11:25)
[2022-01-23] MEDS: FAMOTIDINE 20 MG in SYRINGE 3 ML IV SCH ×2 (09:38→20:27)
[2022-01-23] MEDS: LEVOTHYROXINE SODIUM 150 MCG TABLET PO SCH (09:38)
[2022-01-23 10:40] LABS: BUN Creatinine Ratio 30.7 (10-20); Calcium 9.6 mg/dl (8.5-10.1); Creatinine Clr Calc Pharmacy 73.1 ml/min; Est GFR (Non-African American) 78.5 ml/min; Potassium 4.3 mmol/L (3.5-5.1)
[2022-01-23 10:43] LABS: Troponin I High Sensitivity 197.6 pg/ml (0-14)
--- NOTE | 2022-01-23 11:19 | Electrocardiogram Report ---
Test Reason : Blood Pressure : / mmHG Vent. Rate : 061 BPM Atrial Rate : 061 BPM P-R Int : 186 ms QRS Dur : 084 ms QT Int : 410 ms P-R-T Axes : 070 048 073 degrees QTc Int : 412 ms Poor data quality, interpretation may be adversely affected Normal sinus rhythm Normal ECG When compared with ECG of 17-JAN-2022 17:43, No significant change was found Confirmed by Torsten Armendariz ([id number]) on 01/23/2022 11:18:56 AM Referred By: REFERRED SELF Confirmed By:Torsten Armendariz
--- NOTE | 2022-01-23 11:28 | Cardiology Consultation ---
Date of Consultation January 23, 2022 Assessment & Plan (1) Precordial chest pain: (2) Elevated troponin: (3) Hypertension: (4) Hypertensive urgency: Plan Complex 76 year old female admitted earlier today with atypical chest and epigastric discomfort, hypertension with hypertensive urgency, marked hyponatremia, UTI. High sensitivity Troponin I mildly elevated without acute EKG changes or overt symptoms suggestive of an acute myocardial injury suggesting possible nonischemic cause(s). RECOMMENDATIONS: Resting echocardiography. Nitro paste Increase lisinopril No beta-trevor, RE: resting bradycardia No HCTZ, RE: hyponatremia Maintain telemetry Further recommendations pending the above, evaluation by Dr. Momin, patient's ongoing hospitalization. Supervising Physician Co-Signing Physician Notes Patient was seen and examined, chart, medications, telemetry reviewed. Assessment as above. She presents with back abdominal and chest discomfort for several weeks duration. Symptoms of become limiting but are reproducible on palpation. Marked hypertensive urgency is present and in discussion with the patient, she has been unable to take usual medication regimen at home due to difficulty managing pills and pill bottles per her description for several months. Additional doses include anorexia and malaise with 15 pound or greater weight loss Question possible withdrawal symptoms exacerbating blood pressure issues EKGs without acute ischemic changes despite elevated troponin Echocardiogram reflects hyperdynamic LV function without wall motion abnormality, no pericardial effusion Exam: Notable for hypertension, findings consistent with diffuse arthropathy and neuropathy changes focal tenderness on palpation abdomen and chest Plan: As above. Do not suspect acute coronary syndrome we will add amlodipine 5 mg now and every afternoon for additional hypertension control. Hypertensive urgency is present possibly secondary to possible medication withdrawal. Notes lapse in antihypertensives Will check sed rate CRP question troponin elevation secondary to acute inflammatory marker, severe neuropathy and arthropathy is present. Question polymyalgia History of Present Illness Reason for Consultation: Chest pain, hypertensive urgency Requesting Physician: Jarod Attending Physician: Keshawn History of Present Illness Ms. Lynette Banks is a 76-year-old female who was admitted earlier today after being seen in the ER on 01/15/2022 and again on 01/17/2022, with back pain radiating around to the left side of the chest. This discomfort has waxed and waned somewhat though has pretty much been constant for the past 2+ weeks. The pain is reproducible with palpation of the chest wall. EKG on presentation revealed sinus rhythm at 61 bpm with no significant ST changes. A second EKG obtained earlier this morning revealed sinus bradycardia [address]-T wave changes. QTC 441 ms. Continuous telemetry monitoring reveals sinus/sinus bradycardia without, without atrial or ventricular arrhythmias. High-sensitivity troponin I was negative in the emergency room on January 15, 2022 and again on January 17, 2022, elevated on admission -> 55.7 - 124.5 - 197.6 pg/mL. Blood pressure markedly elevated, 222/91 on presentation. Marked hyponatremia was noted on presentation. Review of medication list reveals hydrochlorothiazide with patient noting she has never taken statin medication, prescribed as needed for fluid retention. No tachypalpitations. Stable exertional dyspnea. No orthopnea, PND, or edema. No dizziness or syncope. No fevers or chills. No melena or hematochezia + Headache. + Blurred vision. Diffuse pain. No vomiting or diarrhea. History includes chronic pain, hypertension, hypertensive heart disease, obstructive sleep apnea, type 2 diabetes mellitus, dyslipidemia, chronic peripheral polyneuropathy, hypothyroidism, GERD, generalized osteoarthritis, and major depression. Family History: Mother with CAD status post PCI. Sister with Schizophrenia. Social History: Former smoker. No alcohol. Medical marijuana. Allergies Allergy/AdvReac Type Severity Reaction Status Date / Time aspirin AdvReac Unknown advised to Verified 01/17/22 19:00 avoid due to hx ITP Home Medications Medication Instructions Recorded Confirmed Type biotin 1 mg tablet 1 mg PO QAM 01/10/19 01/23/22 History cholecalciferol (vitamin D3) 10 2,000 unit PO DAILY 01/10/19 01/23/22 History mcg (400 unit) tablet (Vitamin D3) coenzyme Q10 100 mg capsule 100 mg PO DAILY 01/10/19 01/23/22 History (CoQ-10) cyanocobalamin (vitamin B-12) 100 2,500 mcg PO DAILY 01/10/19 01/23/22 History mcg tablet (Vitamin B-12) duloxetine 60 mg capsule,delayed 60 mg PO DAILY 01/10/19 01/23/22 History release folic acid 1 mg tablet 800 mcg PO DAILY 01/10/19 01/23/22 History lutein 40 mg capsule 40 mg PO DAILY 01/10/19 01/23/22 History pantoprazole 40 mg tablet,delayed 40 mg PO DAILY 01/10/19 01/23/22 History release polyethylene glycol 3350 17 17 g PO DAILY PRN Constipation 01/10/19 01/23/22 History gram/dose oral powder (Miralax) pravastatin 20 mg tablet 20 mg PO DAILY 01/10/19 01/23/22 History simethicone 125 mg tablet 80 mg PO QID PRN Gi Upset 01/10/19 01/23/22 History docusate sodium 100 mg tablet 100 mg PO BID PRN Constipation 02/18/19 01/23/22 History alpha lipoic acid 300 mg capsule 300 mg PO DAILY 11/19/20 01/23/22 History baclofen 10 mg tablet 10 mg PO BID 01/17/22 01/23/22 History celecoxib 200 mg capsule 200 mg PO DAILY 01/17/22 01/23/22 History lisinopril 20 mg tablet 20 mg PO DAILY 01/17/22 01/23/22 History morphine 15 mg tablet,extended 15 mg PO TID 01/17/22 01/23/22 History release naloxone 4 mg/actuation nasal 1 sprays intranasal DIRECTED 01/17/22 01/23/22 History spray (Narcan) pregabalin 200 mg capsule 200 mg PO TID 01/17/22 01/23/22 History levothyroxine 150 mcg tablet 150 mcg PO DAILY 01/23/22 01/23/22 History magnesium citrate 100 mg capsule 100 mg PO DAILY 01/23/22 01/23/22 History meclizine 25 mg tablet 25 mg PO TID PRN Vertigo 01/23/22 01/23/22 History metformin 500 mg tablet,extended 1,000 mg PO DAILY 01/23/22 01/23/22 History release 24 hr oxycodone-acetaminophen 5 mg-325 1 tab PO Q4H PRN Pain, Severe 01/23/22 01/23/22 History mg tablet pyridoxine (vitamin B6) 100 mg 100 mg PO DAILY 01/23/22 01/23/22 History tablet thiamine HCl (vitamin B1) 250 mg 250 mg PO DAILY 01/23/22 01/23/22 History tablet Patient History Medical History Cancer skin (back, nose) Chronic hyponatremia Constipation Diabetes mellitus, type 2 Diabetic peripheral neuropathy associated with type 2 diabetes mellitus Double vision Fibromyalgia GERD (gastroesophageal reflux disease) 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; no issues since Hyperesthesia Hyperlipidemia Hypertension Hypothyroidism Numbness and tingling in both hands Osteoarthritis Sleep apnea no device Surgical History History of meniscectomy of left knee Hx of dilation and curettage Hx of eye surgery corrective (as child) Hx of tonsillectomy Hx of total hysterectomy Family History Mother Coronary heart disease Sister Schizophrenia Social History Smoking Status: Former smoker Years Smoked: 10; Second Hand Exposure: No; Hx Alcohol Use: No Hx Substance Use: No Preferred Language: Occitan Communication Ability: Effective Visual Impairment: No Limitations Hearing Ability: Normal Wafer Cleaner Required: No Beliefs That Will Affect Care: None 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 Physical Exam Physical Exam: General: Alert to person and place. NAD. Lethargic HENT: Normocephalic. Atraumatic. Eyes: PER. Conjunctiva pink, sclera clear. Neck: No carotid bruits. No JVD. Heart: RRR, 60 bpm. Systolic murmur. No rub. Lungs: Clear to auscultation anteriorly and laterally. Chest: Reproducible chest wall discomfort. Abdomen: +BS. Soft. Tenderness in the epigastric area. No masses or organomegaly. Extremities: No clubbing, cyanosis, or edema. Limited neurological examination is without focal deficits. Pulses: radial=3/4, posterior tibial=3/4. Results & Data ([facility]) Vital Signs (Past 12 Hours) Vital Signs Temp Pulse Pulse Resp BP BP Pulse Ox 01/23/22 08:15 59 L 19 98 01/23/22 08:15 201/111 H 01/23/22 08:11 224/100 H 01/23/22 08:11 57 L 20 99 01/23/22 08:04 216/98 H 01/23/22 08:04 59 L 14 01/23/22 08:03 59 L 20 01/23/22 08:12 36.5 C 61 18 216/98 H 99 01/23/22 08:02 58 L 16 190/73 H 95 01/23/22 06:29 63 16 213/91 H 97 01/23/22 05:30 61 14 225/83 H 98 01/23/22 05:03 61 16 212/91 H 99 01/23/22 04:09 99 01/23/22 03:57 36.4 C L 63 18 222/91 H 99 O2 Del Method 01/23/22 08:15 01/23/22 08:15 01/23/22 08:11 01/23/22 08:11 01/23/22 08:04 01/23/22 08:04 01/23/22 08:03 01/23/22 08:12 Room Air 01/23/22 08:02 Room Air 01/23/22 06:29 Room Air 01/23/22 05:30 Room Air 01/23/22 05:03 Room Air 01/23/22 04:09 Room Air 01/23/22 03:57 Room Air Laboratory Results Laboratory Results - last 24 hr 01/23/22 01/23/22 01/23/22 04:16 04:32 04:39 WBC 8.82 RBC 5.20 Hgb 15.5 Hct 45.4 H MCV 87.3 MCH 29.8 MCHC 34.1 RDW Std Deviation 40.7 RDW Coeff of Feng 12.9 Plt Count 232 MPV 10.1 Immature Gran % (Auto) 0.3 Neut % (Auto) 89.6 Lymph % (Auto) 7.6 [place] % (Auto) 2.2 Eos % (Auto) 0.1 Baso % (Auto) 0.2 Neut # (Auto) 7.90 H Lymph # (Auto) 0.67 L [place] # (Auto) 0.19 L Eos # (Auto) 0.01 Baso # (Auto) 0.02 Immature Gran # (Auto) 0.03 H Sodium Potassium Chloride Carbon Dioxide Anion Gap BUN Creatinine Est Cr Clr Drug Dosing Est GFR ( Amer) Est GFR (Non-Af Amer) BUN/Creatinine Ratio Glucose POC Glucose Osmolality Calcium Magnesium Total Bilirubin AST ALT Alkaline Phosphatase Total Creatine Kinase Troponin I High Sens Total Protein Albumin Globulin Albumin/Globulin Ratio Lipase Urine Color Yellow Urine Appearance Clear Urine pH 7.5 Ur Specific [place] 1.014 Urine Protein 2+ H Urine Glucose (UA) Trace H Urine Ketones Negative Urine Blood Trace H Urine Nitrite Negative Urine Bilirubin Negative Urine Urobilinogen Negative Ur Leukocyte Esterase Trace H Urine WBC (Auto) 10-30 H Urine RBC (Auto) 0-4 U Hyaline Cast (Auto) 1-5 U Epithel Cells (Auto) >30 H Urine Bacteria (Auto) 1+ H Ur Renal Epithelial Cell Not Reportable SARS-CoV-2, RNA, NAAT NEGATIVE 01/23/22 01/23/22 01/23/22 04:39 06:31 09:59 WBC RBC Hgb Hct MCV MCH MCHC RDW Std Deviation RDW Coeff of Feng Plt Count MPV Immature Gran % (Auto) Neut % (Auto) Lymph % (Auto) [place] % (Auto) Eos % (Auto) Baso % (Auto) Neut # (Auto) Lymph # (Auto) Marin # (Auto) Eos # (Auto) Baso # (Auto) Immature Gran # (Auto) Sodium 125 L Potassium 4.4 Chloride 90 L Carbon Dioxide 29 Anion Gap 6 BUN 26 H Creatinine 0.82 Est Cr Clr Drug Dosing Not Reportable Est GFR ( Amer) 81.7 Est GFR (Non-Af Amer) 70.5 BUN/Creatinine Ratio 31.7 H Glucose 169 H POC Glucose 169 H Osmolality Calcium 9.4 Magnesium 2.2 Total Bilirubin 1.2 H AST 27 ALT 26 Alkaline Phosphatase 255 H Total Creatine Kinase 55 Troponin I High Sens 55.7 H* D 124.5 H* D Total Protein 8.1 Albumin 4.5 Globulin 3.6 Albumin/Globulin Ratio 1.3 Lipase 22 Urine Color Urine Appearance Urine pH Ur Specific [place] Urine Protein Urine Glucose (UA) Urine Ketones Urine Blood Urine Nitrite Urine Bilirubin Urine Urobilinogen Ur Leukocyte Esterase Urine WBC (Auto) Urine RBC (Auto) U Hyaline Cast (Auto) U Epithel Cells (Auto) Urine Bacteria (Auto) Ur Renal Epithelial Cell SARS-CoV-2, RNA, NAAT 01/23/22 01/23/22 10:04 10:04 WBC RBC Hgb Hct MCV MCH MCHC RDW Std Deviation RDW Coeff of Feng Plt Count MPV Immature Gran % (Auto) Neut % (Auto) Lymph % (Auto) [place] % (Auto) Eos % (Auto) Baso % (Auto) Neut # (Auto) Lymph # (Auto) [place] # (Auto) Eos # (Auto) Baso # (Auto) Immature Gran # (Auto) Sodium 125 L Potassium 4.3 Chloride 87 L Carbon Dioxide 30 Anion Gap 8 BUN 23 Creatinine 0.75 Est Cr Clr Drug Dosing 73.1 Est GFR ( Amer) 91.0 Est GFR (Non-Af Amer) 78.5 BUN/Creatinine Ratio 30.7 H Glucose 168 H POC Glucose Osmolality 272 L Calcium 9.6 Magnesium Total Bilirubin AST ALT Alkaline Phosphatase Total Creatine Kinase Troponin I High Sens 197.6 H* D Total Protein Albumin Globulin Albumin/Globulin Ratio Lipase Urine Color Urine Appearance Urine pH Ur Specific [place] Urine Protein Urine Glucose (UA) Urine Ketones Urine Blood Urine Nitrite Urine Bilirubin Urine Urobilinogen Ur Leukocyte Esterase Urine WBC (Auto) Urine RBC (Auto) U Hyaline Cast (Auto) U Epithel Cells (Auto) Urine Bacteria (Auto) Ur Renal Epithelial Cell SARS-CoV-2, RNA, NAAT
[2022-01-23] MEDS ORDERED: PRAVASTATIN SOD 20 MG TAB PO SCH (11:30)
[2022-01-23] MEDS ORDERED: DULoxetine HCL 60 MG CAP PO SCH (11:30)
[2022-01-23] MEDS: INSULIN ASPART PER UNIT SC SCH ×3 (12:35→20:52)
[2022-01-23] MEDS: MAGNESIUM OXIDE 400 MG TAB PO SCH (12:37)
[2022-01-23] MEDS: CYANOCOBALAMIN (B-12) 100 MCG TABLET PO SCH (12:37)
[2022-01-23] MEDS: FOLIC ACID 1 MG TAB PO SCH (12:37)
[2022-01-23] MEDS: PANTOprazole 40 MG TAB PO SCH (12:38)
[2022-01-23] MEDS: NITROGLYCERIN 2% OINTMENT 30GM TUBE EXT SCH ×2 (12:38→18:31)
[2022-01-23] MEDS: CHOLECALCIFEROL 400 UNITS 10 MCG TAB PO SCH (12:38)
--- NOTE | 2022-01-23 12:51 | Nephrology Consultation ---
Date of Consultation January 23, 2022 Assessment & Plan (1) Chronic hyponatremia: hypotonic hyponatremia present intermittently but which has worsened this month from 131>125. recently rx'd prn hctz but did not start. not floridly volume overloaded or volume depleted. some recent aberrations in liver enzymes earlier this month. working dx would be euvolemic hyponatremia in setting of low solute intake presenting soduim 125 at 0400 on 01/23 in setting of hctz and nsaid use. 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 PMH includes severe/disabling neuropathy leading to chronic ambulatory dysfunction/ ambulates no more ideally than 100 feet w/ cane; DM 2, chronic back pain and fibromyalgia, HTN on lisinopril monotherapy, hypothryoid, OA, GERD, depression, sleep apnea, chronic ambulatory dysfunction /uses cane to ambulate, reformed tobacco abuse. She manages pain with longstanding celebrex and THC and opiates. she was given hctz earlier this month for edema but opted not to start it. she gets edema intermittently for a few weeks at a time and it resolves on its own; not necessarily dependent. She has had repeated low Na readings not in epic but in [facility], including prior to this month but none under 130 previously. She was seen in ER on 01/15 and 01/17 for similar pain issues w/ no ECG changes and normal troponins at those visits, though her troponin is mildly elevated today in setting of marked HTN w/ present Her in October 2021. She has really struggled since - to fill pill boxes, to take meds as rx'd (had stopped x several weeks recently and only resumed them on 01/19), to cope with practical/emotional realities after his . Tells me she 's not been eating well but has been trying to drink a lot of water. she has had blurred/limited vision x years, not acutely changing but possibly a bit worse recently; reproducible epigastric discomfort; no current/recent edema; stable chronic urinary frequency/no dysuria. ongoing severe neuropathy/chronic back/joint pain. no n/v; no F. no falls. no palpitations. no worsening breathing or exertional dyspnea or orthopnea. no cough. marked depression. + chronic vertigo/presyncopay symptoms but no falls. no EtOH use. Allergies Allergy/AdvReac Type Severity Reaction Status Date / Time aspirin AdvReac Unknown advised to Verified 01/17/22 19:00 avoid due to hx ITP Home Medications Medication Instructions Recorded Confirmed Type biotin 1 mg tablet 1 mg PO QAM 01/10/19 01/23/22 History cholecalciferol (vitamin D3) 10 2,000 unit PO DAILY 01/10/19 01/23/22 History mcg (400 unit) tablet (Vitamin D3) coenzyme Q10 100 mg capsule 100 mg PO DAILY 01/10/19 01/23/22 History (CoQ-10) cyanocobalamin (vitamin B-12) 100 2,500 mcg PO DAILY 01/10/19 01/23/22 History mcg tablet (Vitamin B-12) duloxetine 60 mg capsule,delayed 60 mg PO DAILY 01/10/19 01/23/22 History release folic acid 1 mg tablet 800 mcg PO DAILY 01/10/19 01/23/22 History lutein 40 mg capsule 40 mg PO DAILY 01/10/19 01/23/22 History pantoprazole 40 mg tablet,delayed 40 mg PO DAILY 01/10/19 01/23/22 History release polyethylene glycol 3350 17 17 g PO DAILY PRN Constipation 01/10/19 01/23/22 History gram/dose oral powder (Miralax) pravastatin 20 mg tablet 20 mg PO DAILY 01/10/19 01/23/22 History simethicone 125 mg tablet 80 mg PO QID PRN Gi Upset 01/10/19 01/23/22 History docusate sodium 100 mg tablet 100 mg PO BID PRN Constipation 02/18/19 01/23/22 History alpha lipoic acid 300 mg capsule 300 mg PO DAILY 11/19/20 01/23/22 History baclofen 10 mg tablet 10 mg PO BID 01/17/22 01/23/22 History celecoxib 200 mg capsule 200 mg PO DAILY 01/17/22 01/23/22 History lisinopril 20 mg tablet 20 mg PO DAILY 01/17/22 01/23/22 History morphine 15 mg tablet,extended 15 mg PO TID 01/17/22 01/23/22 History release naloxone 4 mg/actuation nasal 1 sprays intranasal DIRECTED 01/17/22 01/23/22 History spray (Narcan) pregabalin 200 mg capsule 200 mg PO TID 01/17/22 01/23/22 History levothyroxine 150 mcg tablet 150 mcg PO DAILY 01/23/22 01/23/22 History magnesium citrate 100 mg capsule 100 mg PO DAILY 01/23/22 01/23/22 History meclizine 25 mg tablet 25 mg PO TID PRN Vertigo 01/23/22 01/23/22 History metformin 500 mg tablet,extended 1,000 mg PO DAILY 01/23/22 01/23/22 History release 24 hr oxycodone-acetaminophen 5 mg-325 1 tab PO Q4H PRN Pain, Severe 01/23/22 01/23/22 History mg tablet pyridoxine (vitamin B6) 100 mg 100 mg PO DAILY 01/23/22 01/23/22 History tablet thiamine HCl (vitamin B1) 250 mg 250 mg PO DAILY 01/23/22 01/23/22 History tablet Patient History Medical History Cancer skin (back, nose) Chronic hyponatremia Constipation Diabetes mellitus, type 2 Diabetic peripheral neuropathy associated with type 2 diabetes mellitus Double vision Fibromyalgia GERD (gastroesophageal reflux disease) 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; no issues since Hyperesthesia Hyperlipidemia Hypertension Hypothyroidism Numbness and tingling in both hands Osteoarthritis Sleep apnea no device Surgical History History of meniscectomy of left knee Hx of dilation and curettage Hx of eye surgery corrective (as child) Hx of tonsillectomy Hx of total hysterectomy Family History Mother Coronary heart disease Sister Schizophrenia Social History Smoking Status: Former smoker Years Smoked: 10; Second Hand Exposure: No; Hx Alcohol Use: No Hx Substance Use: No Preferred Language: Micronesian Communication Ability: Effective Visual Impairment: No Limitations Hearing Ability: Normal Pharmacy Tech Required: No Beliefs That Will Affect Care: None 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, [employer]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 Current Living Situation: Alone current occupational status: retired How many Children do You have: 0 Feels Safe at Home: Yes Safety Concerns: Feels Safe At This Time Diet Comment: ORGANIC Assistive Devices: Cane Review of Systems Review of Systems: All systems reviewed & are unremarkable except as noted in HPI & below Physical Exam Constitutional: well developed, well nourished, + frail appearing and cooperative; no acute distress Eyes: EOM intact bilaterally (R amblyopia and lid lag) ENMT: Ears: no external ear abnormality Nose: no external nose abnormality Mouth: + dry oral mucous membranes Neck: no nuchal rigidity Respiratory: normal respiratory effort Auscultation: + diminished lung sounds Cardiovascular: Rate/Rhythm: regular rhythm and + bradycardic Extremities: no edema Gastrointestinal (Abdomen): Inspection/Auscultation: normal bowel sounds Pe rcussion/Palpation: + abdomen tender (epigastric TTP w/o rebound/guarding) and abdomen soft Musculoskeletal: Extremities: strength 5/5 throughout Skin: no rashes, warm and dry Neurologic: olson, fluent speech, no tremor Psychiatric: Orientation: oriented x 3 Eye Contact: good eye contact Speech: normal rate/rhythm/volume of speech Insight: good insight Judgement: good judgement Results & Data ([facility]) Vital Signs (Past 12 Hours) Vital Signs Temp Pulse Pulse Resp BP BP Pulse Ox 01/23/22 11:30 206/92 H 01/23/22 11:30 58 L 18 01/23/22 11:00 60 16 01/23/22 11:00 207/86 H 01/23/22 10:30 199/143 H 01/23/22 10:30 57 L 20 96 01/23/22 10:01 61 15 98 01/23/22 10:01 202/94 H 01/23/22 10:00 62 17 97 01/23/22 09:50 60 16 94 01/23/22 09:50 201/90 H 01/23/22 09:46 59 L 18 95 01/23/22 09:46 197/90 H 01/23/22 09:41 56 L 20 95 01/23/22 09:41 168/101 H 01/23/22 09:35 62 19 96 01/23/22 09:35 202/93 H 01/23/22 09:33 219/92 H 01/23/22 09:33 62 15 98 01/23/22 09:32 61 22 97 01/23/22 09:32 209/87 H 01/23/22 09:00 57 L 19 98 01/23/22 09:00 203/152 H 01/23/22 08:45 63 27 H 95 01/23/22 08:45 203/139 H 01/23/22 08:30 216/105 H 01/23/22 08:30 59 L 18 97 01/23/22 08:15 59 L 19 98 01/23/22 08:15 201/111 H 01/23/22 08:11 224/100 H 01/23/22 08:11 57 L 20 99 01/23/22 08:04 216/98 H 01/23/22 08:04 59 L 14 01/23/22 08:03 59 L 20 01/23/22 08:12 36.5 C 61 18 216/98 H 99 01/23/22 08:02 58 L 16 190/73 H 95 01/23/22 06:29 63 16 213/91 H 97 01/23/22 05:30 61 14 225/83 H 98 01/23/22 05:03 61 16 212/91 H 99 01/23/22 04:09 99 01/23/22 03:57 36.4 C L 63 18 222/91 H 99 O2 Del Method 01/23/22 11:30 01/23/22 11:30 01/23/22 11:00 01/23/22 11:00 01/23/22 10:30 01/23/22 10:30 01/23/22 10:01 01/23/22 10:01 01/23/22 10:00 01/23/22 09:50 01/23/22 09:50 01/23/22 09:46 01/23/22 09:46 01/23/22 09:41 01/23/22 09:41 01/23/22 09:35 01/23/22 09:35 01/23/22 09:33 01/23/22 09:33 01/23/22 09:32 01/23/22 09:32 01/23/22 09:00 01/23/22 09:00 01/23/22 08:45 01/23/22 08:45 01/23/22 08:30 01/23/22 08:30 01/23/22 08:15 01/23/22 08:15 01/23/22 08:11 01/23/22 08:11 01/23/22 08:04 01/23/22 08:04 01/23/22 08:03 01/23/22 08:12 Room Air 01/23/22 08:02 Room Air 01/23/22 06:29 Room Air 01/23/22 05:30 Room Air 01/23/22 05:03 Room Air 01/23/22 04:09 Room Air 01/23/22 03:57 Room Air Laboratory Results 01/23/22 04:39 01/23/22 10:04 sNa 132 7/14; sNa 127 7/16 sOsm 272 uOsm pending Nelson 86 UA reviewed Diagnostic Findings cxr FINDINGS: The patient's chin partially obscures the left lung apex. Slightly rotated study. No definite pneumothorax. No pleural effusions. The lungs are clear. The heart is borderline enlarged. Degenerative changes noted within the shoulders. IMPRESSION: No significant change compared to the prior study. No acute process. CTA/CT a/p earlier this month -no dissection -plm HTN -unremarkable kidneys/adrenals
[2022-01-23 14:04] LABS: Thyroid Stimulating Hormone 5.016 uIu/ml (0.300-4.500)
[2022-01-23] MEDS: HEPARIN SOD 5,000 UNIT/0.5 ML VIAL SQ SCH ×2 (14:22→21:31)
[2022-01-23] MEDS: MoRPHine SULFATE CR 15 MG TABCR PO SCH ×2 (14:22→20:25)
[2022-01-23] MEDS ORDERED: amLODIPine BESYLATE 5 MG TAB PO ONE (14:31)
--- NOTE | 2022-01-23 15:07 | Ultrasound Report ---
ABDOMINAL ULTRASOUND, RIGHT UPPER QUADRANT HISTORY: abnormal LFTs. COMPARISON: Abdomen and pelvis CT 01/17/2022. FINDINGS: Pancreas: Obscured by overlying bowel gas. Liver: The liver is echogenic consistent with fatty change. 15 cm in length. Gallbladder: No gallbladder wall thickening. No gallstones. Negative sonographic Hahn sign. Questio nal sludge within the gallbladder is likely due to artifact. CBD: 4 mm. Right kidney: No hydronephrosis. IMPRESSION: 1. Hepatic steatosis. 2. No gallbladder wall thickening. No gallstones. ACT 112: Negative or not required by law. Electronically signed by: Deangelo Wright M.D. 01/23/2022 3:06 PM
[2022-01-23 16:10] LABS: BUN Creatinine Ratio 26.3 (10-20); C Reactive Protein 0.98 mg/dl (0-0.5); Calcium 9.2 mg/dl (8.5-10.1); Creatinine Clr Calc Pharmacy 68.5 ml/min; Est GFR (African American) 84.2 ml/min; Est GFR (Non-African American) 72.6 ml/min; Potassium 4.4 mmol/L (3.5-5.1)
[2022-01-23 16:15] LABS: Troponin I High Sensitivity 200.6 pg/ml (0-14)
[2022-01-23] MEDS ORDERED: METOCLOPRAMIDE HCL INJ 5 MG/ML 2 ML VIAL IV PRN (17:14)
[2022-01-23] MEDS: lisinopril 20 MG TAB PO SCH (20:25)
[2022-01-23] MEDS: PREGABALIN 100 MG CAP PO SCH (20:26)
[2022-01-23] MEDS ORDERED: MoRPHine SULFATE CR 15 MG TABCR PO SCH (21:00)
[2022-01-23 21:10] LABS: BUN Creatinine Ratio 26.6 (10-20); Creatinine Clr Calc Pharmacy 69.4 ml/min; Est GFR (African American) 85.5 ml/min; Est GFR (Non-African American) 73.7 ml/min; Potassium 4.3 mmol/L (3.5-5.1)
[2022-01-23 21:16] LABS: Troponin I High Sensitivity 161.5 pg/ml (0-14)
[2022-01-24] MEDS: NITROGLYCERIN 2% OINTMENT 30GM TUBE EXT SCH ×2 (00:47→06:17)
[2022-01-24 05:08] LABS: Basophils # (auto) 0.03 K/uL (0-0.2); Basophils % (auto) 0.2 %; Eosinophils # (auto) 0.07 K/uL (0-0.50); Eosinophils % (auto) 0.5 %; Hemoglobin 13.8 g/dl (12.0-16.0); Immature Granulocytes # (auto) 0.04 K/uL (0.00-0.02); Immature Granulocytes % (auto) 0.3 %; Lymphocytes # (auto) 1.75 K/uL (1.2-3.4); Lymphocytes % (auto) 13.3 %; Mean Corpuscular Hemoglobin 29.6 pg (25.0-34.0); Mean Corpuscular Hgb Conc 34.5 g/dL (32.0-36.0); Mean Corpuscular Volume 85.7 fL (80.0-100.0); Mean Platelet Volume 10.5 fL (9.4-12.3); Monocytes # (auto) 0.88 K/uL (0.24-0.82); Monocytes % (auto) 6.7 %; Neutrophils # (auto) 10.37 K/uL (1.4-6.5); Platelet Count 266 K/uL (130-400); RDW Coefficient of Variation 13.1 % (11.5-14.5); RDW Standard Deviation 40.5 fL (36.4-46.3); Red Blood Count 4.67 M/uL (3.93-5.22); White Blood Count 13.14 K/ul (4.8-10.8)
[2022-01-24 05:26] LABS: BUN Creatinine Ratio 24.7 (10-20); Calcium 8.7 mg/dl (8.5-10.1); Creatinine Clr Calc Pharmacy 64.5 ml/min; Est GFR (African American) 78.2 ml/min; Est GFR (Non-African American) 67.5 ml/min; Magnesium 1.9 mg/dl (1.7-2.4); Potassium 4.6 mmol/L (3.5-5.1)
[2022-01-24] MEDS: HEPARIN SOD 5,000 UNIT/0.5 ML VIAL SQ SCH ×3 (06:17→21:50)
[2022-01-24] MEDS: LEVOTHYROXINE SODIUM 150 MCG TABLET PO SCH (06:17)
[2022-01-24] MEDS ORDERED: SODIUM CHLORIDE 0.9% 1000ML 500 ML IV ONE (07:25)
[2022-01-24 07:51] LABS: Estimated Average Glucose 126 mg/dl
[2022-01-24] MEDS: INSULIN ASPART PER UNIT SC SCH ×4 (08:28→21:41)
[2022-01-24] MEDS: POLYETHYLENE (MIRALAX) 17 GM PACK PO SCH (08:43)
[2022-01-24] MEDS: DOCUSATE SODIUM/SENNA 50/8.6MG TAB PO SCH (08:44)
[2022-01-24] MEDS: ATORVASTATIN 40 MG TAB PO SCH (08:45)
[2022-01-24] MEDS: FAMOTIDINE 20 MG in SYRINGE 3 ML IV SCH (08:47)
[2022-01-24] MEDS: cefTRIAXone SODIUM 2,000 MG in DEXTROSE 5% 50 ML IV SCH (08:47)
[2022-01-24] MEDS ORDERED: lisinopril 20 MG TAB PO SCH (09:00)
--- NOTE | 2022-01-24 09:02 | Nephrology Progress Note ---
Date of Service January 24, 2022 Assessment & Plan (1) Chronic hyponatremia: Plan: Hypotonic hyponatremia present intermittently but which has worsened this month from 131>125. recently rx'd prn hctz but did not start. Was not floridly volume overloaded or volume depleted when examined yesterday .Some recent aberrations in liver enzymes earlier this month. -BP has been variable with systolics in 150--160's, in lows 90's lately - Urine studies pointing towards SIADH/ Renal salt wasting , faridaley on the background of HCTZ and NSAID Use. -Was asymptomatic with initial sodium of 125, sodium dropped to as low as 121 , 122 on latest check. - Agree with 500 mls NS, ok to give another 500 mls. - start on Urea 15 mg BID - Q 6 Sodium - pain control -goal sNa is 130 tomorrow am labs -check q6hr for now -1.5L fluid limit/ protein shakes doesn't count toward limit and diabetic diet. (2) Hypertensive urgency: Plan: had NTG paste, IV labetalol and hydralazine in ER w/ minimal change; adrenals ok on recent imaging and no evidence earlier this month of dissection or aneurysm in chest/abdomen -avoid nsaids -avoid thiazides -f/u TFTs -per cardiology - simpler to have one certified energy manager Admission and Anticipated Discharge Date Admission Date: January 23, 2022 Subjective Seen for Hyponatremia Comfortable, no new issues. Review of Systems Review of Systems: Comfortable no SOB, no pedal edema Physical Exam Physical Exam: General: Alert to person and place. NAD. Lethargic HENT: Normocephalic. Atraumatic. Eyes: PER. Conjunctiva pink, sclera clear. Neck: No carotid bruits. No JVD. Heart: Systolic murmur. No rub. Lungs: Clear to auscultation anteriorly and laterally. Chest: Reproducible chest wall discomfort. Abdomen: +BS. Soft. Tenderness in the epigastric area. No masses or org anomegaly. Extremities: No clubbing, cyanosis, or edema. Results & Data ([facility]) Vital Signs (Past 12 Hours) Vital Signs Pulse Pulse Resp BP Pulse Ox Pulse Ox O2 Del Method 01/24/22 06:00 51 L 23 106/49 L 92 01/24/22 05:30 110/52 L 01/24/22 05:00 53 L 9 L 91/51 L 93 01/24/22 04:30 54 L 17 93/50 L 91 01/24/22 04:00 57 L 16 90 01/24/22 03:30 58 L 19 94 01/24/22 03:00 55 L 14 114/52 L 93 01/24/22 03:00 114/52 L 01/24/22 02:00 56 L 15 124/57 L 92 01/24/22 01:00 56 L 15 114/56 L 92 01/24/22 00:00 58 L 16 132/58 L 93 01/23/22 23:00 58 L 17 139/60 93 01/23/22 22:00 59 L 17 137/63 96 01/24/22 02:15 60 96 Room Air 01/24/22 00:00 57 L 01/23/22 21:59 58 L 94 Room Air 01/23/22 21:30 147/67 H 01/23/22 21:30 59 L 15 94 01/23/22 21:00 59 L 16 93 01/23/22 21:00 139/73 Laboratory Results 01/24/22 04:39 01/24/22 04:39
--- NOTE | 2022-01-24 09:04 | Electrocardiogram Report ---
Test Reason : Blood Pressure : / mmHG Vent. Rate : 059 BPM Atrial Rate : 059 BPM P-R Int : 190 ms QRS Dur : 096 ms QT Int : 446 ms P-R-T Axes : 051 037 035 degrees QTc Int : 441 ms Sinus bradycardia Otherwise normal ECG When compared with ECG of 23-JAN-2022 03:57, No significant change was found Confirmed by Ric Parker ([id number]) on 01/24/2022 9:03:58 AM Referred By: REFERRED SELF Confirmed By:Ric Parker
--- NOTE | 2022-01-24 09:49 | Electrocardiogram Report ---
Test Reason : Blood Pressure : / mmHG Vent. Rate : 052 BPM Atrial Rate : 052 BPM P-R Int : 184 ms QRS Dur : 088 ms QT Int : 492 ms P-R-T Axes : 061 041 064 degrees QTc Int : 457 ms Sinus bradycardia Otherwise normal ECG When compared with ECG of 23-JAN-2022 08:50, (unconfirmed) No significant change was found Confirmed by Ric Parker ([id number] on 01/24/2022 9:48:49 AM Referred By: REFERRED SELF Confirmed By:Ric Parker
[2022-01-24] MEDS: lisinopril 20 MG TAB PO SCH (10:28)
[2022-01-24] MEDS: amLODIPine BESYLATE 5 MG TAB PO SCH (10:28)
[2022-01-24] MEDS: MoRPHine SULFATE CR 15 MG TABCR PO SCH ×3 (10:35→21:45)
[2022-01-24] MEDS: UREA (UREA-NA) 15 GM PACK PO SCH ×2 (10:36→21:45)
[2022-01-24] MEDS: PREGABALIN 100 MG CAP PO SCH ×3 (10:36→21:45)
--- NOTE | 2022-01-24 11:42 | Hospitalist Progress Note ---
Date of Service January 24, 2022 Assessment & Plan (1) Chronic hyponatremia: Plan: - patient has chronic hyponatremia that is usually low 130s - presented with Na around 121-125 - currently asymptomatic - renal consulted - likely in the setting of decreased po intake and solute intake - IVF with NS for now - renal added urea BID - trend Na (2) Hypertensive urgency: Plan: - presented with BP >200s/100s with chest pain, elevated troponin, negative ECG changes - s/p IV BP medications in ED - Cardiology and renal following - s/p nitro paste - increased lisinopril to 20mg BID, amlodipine 5mg - BP much better controlled, chest pain resolved since yesterday - continue above meds (3) Abdominal pain: Plan: - unclear etiology at this time - pancreatitis vs gastroparesis vs gastritis - improving with PPI, IVF, reglan - will continue with above management - CT-AP in ED without significant abnormality - should have GI evaluation for gastroparesis as outpatient given significant polyneuropathy and DM - tolerating diet well (4) Elevated liver enzymes: Plan: - RUQ US shows steatosis - has LFTs much more elevated earlier in 01/2022 that have now improved - monitor for now (5) Gastroesophageal reflux disease: Plan: - could be contributing to pain episodes - continue PPI and pepcid (6) Elevated troponin: Plan: - elevated in the setting of chestp and and severe hypertension - ECG without ischemic changes - on high dose statin - cardiology following - trended down (7) Diabetic peripheral neuropathy associated with type 2 diabetes mellitus: Plan: - severe and somewhat debiliating - chronic pain management - continue lyrical - BG control (8) Hyperlipidemia: Plan: - continue statin (9) Hypertension: Plan: - continue medications as above (10) Diabetes mellitus, type 2: Plan: - FSG AC+HS - SSI for now (11) Hypothyroidism: Plan: - continue home medication - TSH 5 but FT4 1.0 (12) Constipation: Plan: - could be contributing to abdominal pain - aggressive bowel regimen in the setting of chronic opioid use (13) Osteoarthritis: Plan: - multimodal pain management - Voltaren gel for supplementation Plan Full Code DVT ppx heparin SC Momo Liao MD Hospital Medicine Admission and Anticipated Discharge Date Admission Date: January 23, 2022 Subjective This is a 76-year-old female with past medical history significant for type 2 diabetes, diabetic polyneuropathy, hypothyroidism, carpal tunnel syndrome, hypertension, GERD, osteoarthrosis, depression, sleep apnea, medical marijuana use, who lives at home alone, ambulates with a cane, comes with chest pain and upper abdominal pain. Found to have troponin elevation without ECG changes, seen by cardio, not ACS, troponin trended down. Also being treated for UTI. Found to have hyponatremia that has worsened from her baseline hyponatremia. Improved with IVF, antibiotics, pain medication. history of polyneuropathy and in the setting of severe abdominal pain and n/v, could have underlying gastroparesis, treated with reglan with improvement. Continues to progress. The patient feels better today, pain is much improved. Tolerating a diet well. Denies chest pain, shortness of breath, no vomiting but some nausea that is improved from yesterday. Denies other complaints. Review of Systems Review of Systems: All systems reviewed & are unremarkable except as noted in Subjective Physical Exam Constitutional: WD/WN, vitals as above Eyes: PERRL, conjunctivae normal, anicteric sclerae ENMT: external ear and nose normal, oropharynx normal Neck: trachea midline, no thyromegaly Respiratory: normal respiratory effort, lungs clear to auscultation Cardiovascular: RRR, no murmur, no edema Gastrointestinal (Abdomen): Inspection/Auscultation: abdomen normal to inspection and normal bowel sounds Percussion/Palpation: + abdomen tender (mild to palpation in epigastric region but improved) and abdomen soft; no guarding and abdomen not rigid Musculoskeletal: no cyanosis or clubbing, extremities motor strength 5/5 Skin: no rashes, warm and dry Neurologic: PERRL, EOMI, accommodation nl, no face palsy, no dysarthria moves all extremities and awake; no focal motor deficits, not confused and not obtunded Psychiatric: A+Ox3, euthymic affect Results & Data Results & Data ([facility]) Vital Signs (Past 12 Hours) Vital Signs Temp Pulse Pulse Resp BP Pulse Ox Pulse Ox 01/24/22 09:00 92 H 14 94 01/24/22 08:52 82 17 93 01/24/22 08:52 102/44 L 01/24/22 08:46 115 H 15 94 01/24/22 08:46 90/53 L 01/24/22 08:40 93/49 L 01/24/22 08:40 124 H 14 94 01/24/22 08:35 102 H 17 93 01/24/22 08:35 85/42 L 01/24/22 08:32 71/54 L 01/24/22 08:32 68 18 94 01/24/22 08:00 51 L 14 92 01/24/22 08:00 114/53 L 01/24/22 07:30 51 L 20 92 01/24/22 07:30 114/52 L 01/24/22 07:01 51 L 14 92 01/24/22 07:01 105/55 L 01/24/22 07:00 55 L 16 93 01/24/22 06:30 107/48 L 01/24/22 06:30 51 L 15 91 01/24/22 09:07 36.4 C L 01/24/22 06:00 51 L 23 106/49 L 92 01/24/22 05:30 110/52 L 01/24/22 05:00 53 L 9 L 91/51 L 93 01/24/22 04:30 54 L 17 93/50 L 91 01/24/22 04:00 57 L 16 90 01/24/22 03:30 58 L 19 94 01/24/22 03:00 55 L 14 114/52 L 93 01/24/22 03:00 114/52 L 01/24/22 02:00 56 L 15 124/57 L 92 01/24/22 01:00 56 L 15 114/56 L 92 01/24/22 00:00 58 L 16 132/58 L 93 01/24/22 02:15 60 96 01/24/22 00:00 57 L O2 Del Method 01/24/22 09:00 01/24/22 08:52 01/24/22 08:52 01/24/22 08:46 01/24/22 08:46 01/24/22 08:40 01/24/22 08:40 01/24/22 08:35 01/24/22 08:35 01/24/22 08:32 01/24/22 08:32 01/24/22 08:00 01/24/22 08:00 01/24/22 07:30 01/24/22 07:30 01/24/22 07:01 01/24/22 07:01 01/24/22 07:00 01/24/22 06:30 01/24/22 06:30 01/24/22 09:07 01/24/22 06:00 01/24/22 05:30 01/24/22 05:00 01/24/22 04:30 01/24/22 04:00 01/24/22 03:30 01/24/22 03:00 01/24/22 03:00 01/24/22 02:00 01/24/22 01:00 01/24/22 00:00 01/24/22 02:15 Room Air 01/24/22 00:00 Laboratory Results Short CBC 01/24/22 Range/Units 04:39 WBC 13.14 H (4.8-10.8) K/ul Hgb 13.8 (12.0-16.0) g/dl Hct 40.0 (34.1-44.9) % Plt Count 266 (130-400) K/uL BMP 01/23/22 01/23/22 01/24/22 15:26 20:27 04:39 Sodium 123 L 121 L 122 L Potassium 4.4 4.3 4.6 Chloride 86 L 88 L 88 L Carbon Dioxide 29 26 28 BUN 21 21 21 Creatinine 0.80 0.79 0.85 Glucose 124 H 120 H 121 H Calcium 9.2 9.0 8.7 Medications Administered Current Inpatient Medications Acetaminophen (Acetaminophen 325 Mg Tab) 650 mg PO Q4H PRN PRN Reason: Pain or Fever Stop: 02/22/22 08:25 Amlodipine Besylate (Amlodipine Besylate 5 Mg Tab) 5 mg PO [facility] Stop: 02/23/22 08:59 Last Admin: 01/24/22 10:28 Dose: Not Given Atorvastatin Calcium (Atorvastatin 40 Mg Tab) [facility] [place] Stop: 02/22/22 08:59 Last Admin: 01/24/22 08:45 Dose: 80 mg Baclofen (Baclofen 10 Mg Tab) 10 mg PO BID PRN PRN Reason: MUSCLE SPASMS Stop: 02/22/22 08:25 Cyanocobalamin (Cyanocobalamin (B-12) 100 Mcg Tablet) 100 mcg PO QDL [facility] Stop: 02/22/22 11:29 Last Admin: 01/23/22 12:37 Dose: 100 mcg Diclofenac Sodium (Diclofenac Sod 1% Gel 100 Gm Tube) 2 gm EXT Q8 [facility]; Protocol Stop: 02/23/22 13:59 Docusate Sodium (Docusate Sodium 100 Mg Cap) 100 mg PO BID PRN PRN Reason: Constipation Stop: 02/22/22 08:31 Folic Acid (Folic Acid 1 Mg Tab) 1 mg PO QDL [facility] Stop: 02/22/22 11:29 Last Admin: 01/23/22 12:37 Dose: 1 mg Heparin Sodium (Porcine) (Heparin Sod 5,000 Unit/0.5 Ml Vial) 5,000 units SQ Q8 [facility] Stop: 02/22/22 13:59 Last Admin: 01/24/22 06:17 Dose: 5,000 units Famotidine 20 mg/ Syringe 5 mls @ 2.5 mls/min IV BID [facility] Stop: 02/22/22 08:59 Last Admin: 01/24/22 08:47 Dose: 2.5 mls/min Ceftriaxone Sodium 2,000 mg/ (Dextrose) 70 mls @ 140 mls/hr IV Q24H [facility] Stop: 02/02/22 08:59 Last Admin: 01/24/22 08:47 Dose: 140 mls/hr Insulin Aspart (Insulin Aspart Per Unit) 0 units SC ACHS [facility] Stop: 02/22/22 11:29 Last Admin: 01/24/22 08:28 Dose: Not Given Levothyroxine Sodium (Levothyroxine Sodium 150 Mcg Tablet) 150 mcg PO DAILYBB [facility] Stop: 02/22/22 08:59 Last Admin: 01/24/22 06:17 Dose: 150 mcg Lisinopril (Lisinopril 20 Mg Tab) 20 mg PO BID [facility] Stop: 02/22/22 20:59 Last Admin: 01/24/22 10:28 Dose: Not Given Magnesium Oxide (Magnesium Oxide 400 Mg Tab) 400 mg PO QDL [facility] Stop: 02/22/22 11:29 Last Admin: 01/23/22 12:37 Dose: 400 mg Metoclopramide HCl (Metoclopramide Hcl 10 Mg Tablet) 10 mg PO ACHS [facility] Stop: 02/23/22 11:29 Morphine Sulfate (Morphine Sulfate Cr 15 Mg Tabcr) 15 mg PO TID [facility] Stop: 02/06/22 13:59 Last Admin: 01/24/22 10:35 Dose: 15 mg Naloxone HCl (Naloxone Hcl 0.4 Mg/1 Ml Vial/Carp) 0.1 mg IV Q5M PRN; Protocol PRN Reason: Oversedation/Resp Depression Stop: 02/06/22 09:04 Nitroglycerin (Nitroglycerin Sl 0.4 Mg/Tab Tab) 0.4 mg SL UD PRN PRN Reason: Chest Pain Stop: 02/22/22 08:25 Nystatin (Nystatin Powder 15gm Btl) 1 appln EXT BID PRN PRN Reason: SKIN ISSUES Stop: 02/22/22 08:25 Ondansetron HCl (Ondansetron Inj 2 Mg/Ml 2 Ml Vial) 4 mg IV Q6H PRN PRN Reason: Nausea And Vomiting Stop: 02/22/22 09:32 Oxycodone/Acetaminophen (Oxycodone/Acetaminophen 5mg/325mg Tab) 1 tab PO Q4H PRN PRN Reason: Pain Stop: 02/06/22 14:06 Pantoprazole Sodium (Pantoprazole 40 Mg Tab) 40 mg PO QDL [facility] Stop: 02/22/22 11:29 Last Admin: 01/23/22 12:38 Dose: 40 mg Polyethylene Glycol (Polyethylene (Miralax) 17 Gm Pack) 17 gm PO DAILY PRN PRN Reason: Constipation Stop: 02/22/22 08:25 Polyethylene Glycol (Polyethylene (Miralax) 17 Gm Pack) 17 gm PO DAILY [facility] Stop: 01/26/22 08:59 Last Admin: 01/24/22 08:43 Dose: 17 gm Pregabalin (Pregabalin 100 Mg Cap) 200 mg PO TID [facility] Stop: 02/23/22 13:59 Senna/Docusate Sodium (Docusate Sodium/Senna 50/8.6mg Tab) 1 tab PO QAM [facility] Stop: 02/23/22 08:59 Last Admin: 01/24/22 08:44 Dose: 1 tab Simethicone (Simethicone 80 Mg Chew) 160 mg PO BID PRN PRN Reason: gas Stop: 02/22/22 08:45 Urea (Urea (Urea-Na) 15 Gm Pack) 15 gm PO BID [facility] Stop: 02/23/22 09:14 Last Admin: 01/24/22 10:36 Dose: 15 gm Vitamin D (Cholecalciferol 400 Units 10 Mcg Tab) 400 units PO QDL [facility] Stop: 02/22/22 11:29 Last Admin: 01/23/22 12:38 Dose: 400 units (1) Abdominal pain Abdominal location: left upper quadrant Qualified Code(s): R10.12 - Left upper quadrant pain
[2022-01-24] MEDS: FOLIC ACID 1 MG TAB PO SCH (12:43)
[2022-01-24] MEDS: METOCLOPRAMIDE HCL 10 MG TABLET PO SCH ×3 (12:44→21:50)
[2022-01-24] MEDS: PANTOprazole 40 MG TAB PO SCH (12:44)
[2022-01-24] MEDS: MAGNESIUM OXIDE 400 MG TAB PO SCH (12:44)
[2022-01-24] MEDS: CYANOCOBALAMIN (B-12) 100 MCG TABLET PO SCH (12:49)
[2022-01-24] MEDS: CHOLECALCIFEROL 400 UNITS 10 MCG TAB PO SCH (12:49)
--- NOTE | 2022-01-24 13:28 | Cardiology Progress Note ---
Date of Service January 24, 2022 Assessment & Plan (1) Precordial chest pain: (2) Elevated troponin: (3) Hypertension: (4) Hypertensive urgency: Plan Complex 76 year old female admitted earlier today with atypical chest and epigastric discomfort, hypertension with hypertensive urgency, marked hyponatremia, UTI. High sensitivity Troponin I mildly elevated without acute EKG changes or overt symptoms suggestive of an acute myocardial injury suggesting possible nonischemic cause(s). RECOMMENDATIONS: bp now relatively hypotensive will hold pm lisinopril dose ?hypertensive response to pain? no wall motion abnormalities on echo no further cardiac testing indicated at this time Admission and Anticipated Discharge Date Admission Date: January 23, 2022 Subjective Pt seen and examined, chart reviewed. States that she's feeling much better today. No further abdominal pain. Tolerating diet. Denies cp or sob. tele reviewed: sinus rhythm without arrhyhmia Review of Systems Review of Systems: All systems reviewed & are unremarkable except as noted in HPI & below Physical Exam Physical Exam: General: Awake, alert and oriented x 3. No acute distress. HEENT: Normocephalic, atraumatic. Pupils equal, round and reactive to light and accommodation. Extraocular muscles are intact. Anicteric sclera. Moist mucous membranes. Neck: No JVD. No bruit. Cardiovascular: Regular. Positive S-4. Normal S-1 and S-2. No S-3. No murmurs or rubs. Pulmonary: Clear to auscultation B/L. No rales, rhonchi or wheezing Abdomen: Bowel sounds x 4, soft. No rebound, guarding or tenderness. No organomegaly. Extremities: No clubbing, cyanosis or edema. +2 pedal pulses bilaterally. Skin: Warm and dry. Results & Data ([facility]) Vital Signs (Past 12 Hours) Vital Signs Temp Pulse Pulse Resp BP Pulse Ox Pulse Ox 01/24/22 09:00 92 H 14 94 01/24/22 08:52 82 17 93 01/24/22 08:52 102/44 L 01/24/22 08:46 115 H 15 94 01/24/22 08:46 90/53 L 01/24/22 08:40 93/49 L 01/24/22 08:40 124 H 14 94 01/24/22 08:35 102 H 17 93 01/24/22 08:35 85/42 L 01/24/22 08:32 71/54 L 01/24/22 08:32 68 18 94 01/24/22 08:00 51 L 14 92 01/24/22 08:00 114/53 L 01/24/22 07:30 51 L 20 92 01/24/22 07:30 114/52 L 01/24/22 07:01 51 L 14 92 01/24/22 07:01 105/55 L 01/24/22 07:00 55 L 16 93 01/24/22 06:30 107/48 L 01/24/22 06:30 51 L 15 91 01/24/22 09:07 36.4 C L 01/24/22 06:00 51 L 23 106/49 L 92 01/24/22 05:30 110/52 L 01/24/22 05:00 53 L 9 L 91/51 L 93 01/24/22 04:30 54 L 17 93/50 L 91 01/24/22 04:00 57 L 16 90 01/24/22 03:30 58 L 19 94 01/24/22 03:00 55 L 14 114/52 L 93 01/24/22 03:00 114/52 L 01/24/22 02:00 56 L 15 124/57 L 92 01/24/22 02:15 60 96 O2 Del Method 01/24/22 09:00 01/24/22 08:52 01/24/22 08:52 01/24/22 08:46 01/24/22 08:46 01/24/22 08:40 01/24/22 08:40 01/24/22 08:35 01/24/22 08:35 01/24/22 08:32 01/24/22 08:32 01/24/22 08:00 01/24/22 08:00 01/24/22 07:30 01/24/22 07:30 01/24/22 07:01 01/24/22 07:01 01/24/22 07:00 01/24/22 06:30 01/24/22 06:30 01/24/22 09:07 01/24/22 06:00 01/24/22 05:30 01/24/22 05:00 01/24/22 04:30 01/24/22 04:00 01/24/22 03:30 01/24/22 03:00 01/24/22 03:00 01/24/22 02:00 01/24/22 02:15 Room Air
[2022-01-24] MEDS: DICLOFENAC SOD 1% GEL 100 GM TUBE EXT SCH ×2 (15:18→21:45)
[2022-01-24 16:21] LABS: BUN Creatinine Ratio 39.3 (10-20); Calcium 8.9 mg/dl (8.5-10.1); Creatinine Clr Calc Pharmacy 65.2 ml/min; Est GFR (African American) 79.4 ml/min; Est GFR (Non-African American) 68.5 ml/min; Potassium 4.9 mmol/L (3.5-5.1)
[2022-01-24] MEDS: FAMOTIDINE 20 MG TAB PO SCH (21:45)
[2022-01-25] MEDS ORDERED: SODIUM CHLORIDE 0.9% 1000ML 1,000 ML IV SCH (06:58)
[2022-01-25 08:14] LABS: Basophils # (auto) 0.03 K/uL (0-0.2); Basophils % (auto) 0.4 %; Eosinophils # (auto) 0.15 K/uL (0-0.50); Hematocrit (blood only) 40.5 % (34.1-44.9); Hemoglobin 14.1 g/dl (12.0-16.0); Immature Granulocytes # (auto) 0.03 K/uL (0.00-0.02); Immature Granulocytes % (auto) 0.4 %; Lymphocytes % (auto) 30.7 %; Mean Corpuscular Hgb Conc 34.8 g/dL (32.0-36.0); Mean Corpuscular Volume 86.2 fL (80.0-100.0); Mean Platelet Volume 10.9 fL (9.4-12.3); Monocytes # (auto) 0.65 K/uL (0.24-0.82); Monocytes % (auto) 8.7 %; Neutrophils # (auto) 4.34 K/uL (1.4-6.5); Neutrophils % (auto) 57.8 %; Platelet Count 243 K/uL (130-400); RDW Coefficient of Variation 13.3 % (11.5-14.5); RDW Standard Deviation 42.2 fL (36.4-46.3)
[2022-01-25 08:37] LABS: Phosphorus 2.9 mg/dl (2.5-4.9)
[2022-01-25] MEDS: lisinopril 20 MG TAB PO SCH (09:46)
[2022-01-25] MEDS: METOCLOPRAMIDE HCL 10 MG TABLET PO SCH ×4 (09:46→21:38)
[2022-01-25] MEDS: HEPARIN SOD 5,000 UNIT/0.5 ML VIAL SQ SCH ×3 (09:46→21:39)
[2022-01-25] MEDS: LEVOTHYROXINE SODIUM 150 MCG TABLET PO SCH (09:46)
[2022-01-25] MEDS: DICLOFENAC SOD 1% GEL 100 GM TUBE EXT SCH ×3 (09:46→21:39)
[2022-01-25] MEDS: CHOLECALCIFEROL 400 UNITS 10 MCG TAB PO SCH (09:47)
[2022-01-25] MEDS: ATORVASTATIN 40 MG TAB PO SCH (09:47)
[2022-01-25] MEDS: CYANOCOBALAMIN (B-12) 100 MCG TABLET PO SCH (09:47)
[2022-01-25] MEDS: amLODIPine BESYLATE 5 MG TAB PO SCH (09:48)
[2022-01-25] MEDS: PANTOprazole 40 MG TAB PO SCH (09:48)
[2022-01-25] MEDS: POLYETHYLENE (MIRALAX) 17 GM PACK PO SCH (09:48)
[2022-01-25] MEDS: MAGNESIUM OXIDE 400 MG TAB PO SCH (09:48)
[2022-01-25] MEDS: FAMOTIDINE 20 MG TAB PO SCH ×2 (09:48→21:39)
[2022-01-25] MEDS: UREA (UREA-NA) 15 GM PACK PO SCH ×2 (09:48→18:44)
[2022-01-25] MEDS: DOCUSATE SODIUM/SENNA 50/8.6MG TAB PO SCH (09:48)
[2022-01-25] MEDS: FOLIC ACID 1 MG TAB PO SCH (09:50)
[2022-01-25] MEDS: PREGABALIN 100 MG CAP PO SCH ×3 (09:54→21:38)
[2022-01-25] MEDS: oxyCODONE/ACETAMINOPHEN 5mg/325mg TAB PO PRN ×2 (09:54→23:25)
[2022-01-25] MEDS: MoRPHine SULFATE CR 15 MG TABCR PO SCH ×3 (09:55→21:38)
[2022-01-25] MEDS: cefTRIAXone SODIUM 2,000 MG in DEXTROSE 5% 50 ML IV SCH (10:01)
[2022-01-25 10:08] LABS: BUN Creatinine Ratio 40.9 (10-20); Calcium 9.1 mg/dl (8.5-10.1); Creatinine Clr Calc Pharmacy 62.3 ml/min; Est GFR (Non-African American) 64.7 ml/min; Potassium 4.3 mmol/L (3.5-5.1)
--- NOTE | 2022-01-25 10:48 | Cardiology Progress Note ---
Date of Service January 25, 2022 Assessment & Plan (1) Precordial chest pain: (2) Elevated troponin: (3) Hypertension: (4) Hypertensive urgency: (5) Sinus bradycardia: Plan Complex 76 year old female admitted earlier today with atypical chest and epigastric discomfort, hypertension with hypertensive urgency, marked hyponatremia, UTI. High sensitivity Troponin I mildly elevated without acute EKG changes or overt symptoms suggestive of an acute myocardial injury suggesting possible nonischemic cause(s). RECOMMENDATIONS: bp now well controlled Would continue current medical regimen on discharge ?hypertensive response to pain? no wall motion abnormalities on echo no further cardiac testing indicated at this time Patient found to have resting bradycardia and recommend outpatient Zio patch monitor to be placed by our office and worn for 1 week and then follow-up in 1 month. Okay to discharge to home from a cardiac standpoint Admission and Anticipated Discharge Date Admission Date: January 23, 2022 Subjective Patient seen and examined out of bed in chair, chart reviewed. No further cardiovascular complaints. Telemetry reviewed: Sinus rhythm/sinus bradycardia Review of Systems Review of Systems: All systems reviewed & are unremarkable except as noted in HPI & below Physical Exam Physical Exam: General: Awake, alert and oriented x 3. No acute distress. HEENT: Normocephalic, atraumatic. Pupils equal, round and reactive to light and accommodation. Extraocular muscles are intact. Anicteric sclera. Moist mucous membranes. Neck: No JVD. No bruit. Cardiovascular: Regular. Positive S-4. Normal S-1 and S-2. No S-3. No murmurs or rubs. Pulmonary: Clear to auscultation B/L. No rales, rhonchi or wheezing Abdomen: Bowel sounds x 4, soft. No rebound, guarding or tenderness. No organomegaly. Extremities: No clubbing, cyanosis or edema. +2 pedal pulses bilaterally. Skin: Warm and dry. Results & Data ([facility]) Vital Signs (Past 12 Hours) Vital Signs Temp Pulse Pulse Resp BP Pulse Ox O2 Del Method 01/25/22 08:09 36.4 C L 48 L 20 124/78 96 Room Air 01/25/22 03:00 36.9 C 46 L 16 100/52 L 97 01/24/22 23:36 36.5 C 53 L 18 117/55 L 96 01/24/22 23:31 52 L
[2022-01-25] MEDS: INSULIN ASPART PER UNIT SC SCH ×4 (11:05→22:16)
--- NOTE | 2022-01-25 11:28 | Nephrology Progress Note ---
Date of Service January 25, 2022 Assessment & Plan (1) Chronic hyponatremia: Plan: Hypotonic hyponatremia present intermittently but which has worsened this month from 131>125. recently rx'd prn hctz but did not start. Was not floridly volume overloaded or volume depleted when examined yesterday .Some recent aberrations in liver enzymes earlier this month. -BP has been variable with systolics in 150--160's, in lows 90's lately - Urine studies pointing towards SIADH/ Renal salt wasting , faridaley on the background of HCTZ and NSAID Use. -Was asymptomatic with initial sodium of 125, sodium dropped to as low as 121, received fluid and was started on carri urea. sna 130 today , Bp has been good/ - Continue on Urea 15 mg BID - Q 24 Sodium - pain control -1.5L fluid limit/ protein shakes doesn't count toward limit and diabetic diet. - Will need f/u with nephrology in 1-2 weeks of discharge with repeat BMP, Urine and Plasma osm and U na. (2) Hypertensive urgency: Plan: had NTG paste, IV labetalol and hydralazine in ER w/ minimal change; adrenals ok on recent imaging and no evidence earlier this month of dissection or aneurysm in chest/abdomen - Better controlled with lisinopril and amlodipine. -avoid nsaids -avoid thiazides Admission and Anticipated Discharge Date Admission Date: January 23, 2022 Subjective Comfortable, no abdominal pain Denies cp or sob. Review of Systems Review of Systems: Comfortable no SOB, no pedal edema Physical Exam Physical Exam: General: Alert to person and place.Comfortable HENT: Normocephalic. Atraumatic. Eyes: PER. Conjunctiva pink, sclera clear. Neck: No carotid bruits. No JVD. Heart: Systolic murmur. No rub. Lungs: Clear to auscultation anteriorly and laterally. Chest: Reproducible chest wall discomfort. Abdomen: +BS. Soft. Tenderness in the epigastric area. No masses or organomegaly. Extremities: No clubbing, cyanosis, or edema. Results & Data ([facility]) Vital Signs (Past 12 Hours) Vital Signs Temp Pulse Pulse Resp BP Pulse Ox O2 Del Method 01/25/22 08:00 Room Air 01/25/22 08:00 48 L 01/25/22 08:09 36.4 C L 48 L 20 124/78 96 Room Air 01/25/22 03:00 36.9 C 46 L 16 100/52 L 97 01/24/22 23:36 36.5 C 53 L 18 117/55 L 96 01/24/22 23:31 52 L Laboratory Results 01/25/22 06:53 01/25/22 09:29
--- NOTE | 2022-01-25 11:53 | Hospitalist Progress Note ---
Date of Service January 25, 2022 Assessment & Plan (1) Chronic hyponatremia: Plan: - patient has chronic hyponatremia that is usually low 130s - presented with Na around 121-125 - currently asymptomatic - renal consulted - likely in the setting of decreased po intake and solute intake - IVF with NS for now - renal added urea BID - Na up to 130 today - trend Na (2) Hypertensive urgency: Plan: - presented with BP >200s/100s with chest pain, elevated troponin, negative ECG changes - s/p IV BP medications in ED - Cardiology and renal following - s/p nitro paste - continue on lisinopril to 20mg daily, amlodipine 5mg - BP much better controlled, chest pain resolved since yesterday - continue above meds (3) Abdominal pain: Plan: - unclear etiology at this time - pancreatitis vs gastroparesis vs gastritis - improving with PPI, IVF, reglan - will continue with above management - CT-AP in ED without significant abnormality - should have GI evaluation for gastroparesis as outpatient given significant polyneuropathy and DM - tolerating diet well (4) Elevated liver enzymes: Plan: - RUQ US shows steatosis - has LFTs much more elevated earlier in 01/2022 that have now improved - monitor for now (5) Gastroesophageal reflux disease: Plan: - could be contributing to pain episodes - continue PPI and pepcid (6) Elevated troponin: Plan: - elevated in the setting of chestp and and severe hypertension - ECG without ischemic changes - on high dose statin - cardiology following - trended down (7) Diabetic peripheral neuropathy associated with type 2 diabetes mellitus: Plan: - severe and somewhat debiliating - chronic pain management - continue lyrical - BG control (8) Hyperlipidemia: Plan: - continue statin (9) Hypertension: Plan: - continue medications as above (10) Diabetes mellitus, type 2: Plan: - FSG AC+HS - SSI for now (11) Hypothyroidism: Plan: - continue home medication - TSH 5 but FT4 1.0 (12) Constipation: Plan: - could be contributing to abdominal pain - aggressive bowel regimen in the setting of chronic opioid use (13) Osteoarthritis: Plan: - multimodal pain management - Voltaren gel for supplementation Plan Full Code DVT ppx heparin SC Dispo: Inpatient rehab Momo Liao MD Hospital Medicine Admission and Anticipated Discharge Date Admission Date: January 23, 2022 Subjective This is a 76-year-old female with past medical history significant for type 2 diabetes, diabetic polyneuropathy, hypothyroidism, carpal tunnel syndrome, hypertension, GERD, osteoarthrosis, depression, sleep apnea, medical marijuana use, who lives at home alone, ambulates with a cane, comes with chest pain and upper abdominal pain. Found to have troponin elevation without ECG changes, seen by cardio, not ACS, troponin trended down. Also being treated for UTI. Found to have hyponatremia that has worsened from her baseline hyponatremia. Improved with IVF, antibiotics, pain medication. history of polyneuropathy and in the setting of severe abdominal pain and n/v, could have underlying gastroparesis, treated with reglan with improvement. Continues to progress. The patient feels better today, pain is much improved. Tolerating a diet well. Denies chest pain, shortness of breath, no vomiting but some nausea that is improved from yesterday. Denies other complaints except feeling a little weak. Review of Systems Review of Systems: All systems reviewed & are unremarkable except as noted in Subjective Physical Exam Constitutional: WD/WN, vitals as above Eyes: PERRL, conjunctivae normal, anicteric sclerae ENMT: external ear and nose normal, oropharynx normal Neck: trachea midline, no thyromegaly Respiratory: normal respiratory effort, lungs clear to auscultation Cardiovascular: RRR, no murmur, no edema Gastrointestinal (Abdomen): Inspection/Auscultation: abdomen normal to inspection and normal bowel sounds Percussion/Palpation: + abdomen tender (mild to palpation in epigastric region but improved) and abdomen soft; no guarding and abdomen not rigid Musculoskeletal: no cyanosis or clubbing, extremities motor strength 5/5 Extremities: + hand abnormality (chronic changes of osteoarthritis in both hand in DIP and PIP mostly) Bilateral Skin: no rashes, warm and dry Neurologic: PERRL, EOMI, accommodation nl, no face palsy, no dysarthria moves all extremities and awake; no focal motor deficits, not confused and not obtunded Psychiatric: A+Ox3, euthymic affect Results & Data Results & Data ([facility]) Vital Signs (Past 12 Hours) Vital Signs Temp Pulse Pulse Resp BP Pulse Ox O2 Del Method 01/25/22 11:49 36.5 C 51 L 18 114/58 L 98 Room Air 01/25/22 08:00 Room Air 01/25/22 08:00 48 L 01/25/22 08:09 36.4 C L 48 L 20 124/78 96 Room Air 01/25/22 03:00 36.9 C 46 L 16 100/52 L 97 Laboratory Results Short CBC 01/25/22 Range/Units 06:53 WBC 7.50 (4.8-10.8) K/ul Hgb 14.1 (12.0-16.0) g/dl Hct 40.5 (34.1-44.9) % Plt Count 243 (130-400) K/uL BMP 01/24/22 01/25/22 15:44 09:29 Sodium 124 L 130 L Potassium 4.9 4.3 Chloride 91 L 95 L Carbon Dioxide 26 28 BUN 33 H 36 H Creatinine 0.84 0.88 Glucose 110 H 112 H Calcium 8.9 9.1 Medications Administered Current Inpatient Medications Acetaminophen (Acetaminophen 325 Mg Tab) 650 mg PO Q4H PRN PRN Reason: Pain or Fever Stop: 02/22/22 08:25 Amlodipine Besylate (Amlodipine Besylate 5 Mg Tab) [facility] [place] Stop: 02/23/22 08:59 Last Admin: 01/25/22 09:48 Dose: 5 mg Atorvastatin Calcium (Atorvastatin 40 Mg Tab) 80 mg PO QAM [facility] Stop: 02/22/22 08:59 Last Admin: 01/25/22 09:47 Dose: 80 mg Baclofen (Baclofen 10 Mg Tab) 10 mg PO BID PRN PRN Reason: MUSCLE SPASMS Stop: 02/22/22 08:25 Cyanocobalamin (Cyanocobalamin (B-12) 100 Mcg Tablet) 100 mcg PO QDL [facility] Stop: 02/22/22 11:29 Last Admin: 01/25/22 09:47 Dose: 100 mcg Diclofenac Sodium (Diclofenac Sod 1% Gel 100 Gm Tube) 2 gm EXT Q8 [facility]; Protocol Stop: 02/23/22 13:59 Last Admin: 01/25/22 09:46 Dose: 2 gm Docusate Sodium (Docusate Sodium 100 Mg Cap) 100 mg PO BID PRN PRN Reason: Constipation Stop: 02/22/22 08:31 Famotidine (Famotidine 20 Mg Tab) 20 mg PO BID [facility] Stop: 02/23/22 20:59 Last Admin: 01/25/22 09:48 Dose: 20 mg Folic Acid (Folic Acid 1 Mg Tab) 1 mg PO QDL [facility] Stop: 02/22/22 11:29 Last Admin: 01/25/22 09:50 Dose: 1 mg Heparin Sodium (Porcine) (Heparin Sod 5,000 Unit/0.5 Ml Vial) 5,000 units SQ Q8 [facility] Stop: 02/22/22 13:59 Last Admin: 01/25/22 09:46 Dose: 5,000 units Ceftriaxone Sodium 2,000 mg/ (Dextrose) 70 mls @ 140 mls/hr IV Q24H [facility] Stop: 02/02/22 08:59 Last Infusion: 01/25/22 10:46 Dose: Infused Insulin Aspart (Insulin Aspart Per Unit) 0 units SC [facility] Stop: 02/22/22 11:29 Last Admin: 01/25/22 11:05 Dose: Not Given Levothyroxine Sodium (Levothyroxine Sodium 150 Mcg Tablet) 150 mcg PO DAILYBB [facility] Stop: 02/22/22 08:59 Last Admin: 01/25/22 09:46 Dose: 150 mcg Lisinopril (Lisinopril 20 Mg Tab) 20 mg PO DAILY [facility] Stop: 02/24/22 08:59 Last Admin: 01/25/22 09:46 Dose: 20 mg Magnesium Oxide (Magnesium Oxide 400 Mg Tab) 400 mg PO QDL [facility] Stop: 02/22/22 11:29 Last Admin: 01/25/22 09:48 Dose: 400 mg Metoclopramide HCl (Metoclopramide Hcl 10 Mg Tablet) 10 mg PO ACHS [facility] Stop: 02/23/22 11:29 Last Admin: 01/25/22 09:46 Dose: 10 mg Morphine Sulfate (Morphine Sulfate Cr 15 Mg Tabcr) 15 mg PO TID [facility] Stop: 02/06/22 13:59 Last Admin: 01/25/22 09:55 Dose: 15 mg Naloxone HCl (Naloxone Hcl 0.4 Mg/1 Ml Vial/Carp) 0.1 mg IV Q5M PRN; Protocol PRN Reason: Oversedation/Resp Depression Stop: 02/06/22 09:04 Nitroglycerin (Nitroglycerin Sl 0.4 Mg/Tab Tab) 0.4 mg SL UD PRN PRN Reason: Chest Pain Stop: 02/22/22 08:25 Nystatin (Nystatin Powder 15gm Btl) 1 appln EXT BID PRN PRN Reason: SKIN ISSUES Stop: 02/22/22 08:25 Ondansetron HCl (Ondansetron Inj 2 Mg/Ml 2 Ml Vial) 4 mg IV Q6H PRN PRN Reason: Nausea And Vomiting Stop: 02/22/22 09:32 Oxycodone/Acetaminophen (Oxycodone/Acetaminophen 5mg/325mg Tab) 1 tab PO Q4H PRN PRN Reason: Pain Stop: 02/06/22 14:06 Last Admin: 01/25/22 09:54 Dose: 1 tab Pantoprazole Sodium (Pantoprazole 40 Mg Tab) 40 mg PO QDL [facility] Stop: 02/22/22 11:29 Last Admin: 01/25/22 09:48 Dose: 40 mg Polyethylene Glycol (Polyethylene (Miralax) 17 Gm Pack) 17 gm PO DAILY PRN PRN Reason: Constipation Stop: 02/22/22 08:25 Polyethylene Glycol (Polyethylene (Miralax) 17 Gm Pack) 17 gm PO DAILY [facility] Stop: 01/26/22 08:59 Last Admin: 01/25/22 09:48 Dose: Not Given Pregabalin (Pregabalin 100 Mg Cap) 200 mg PO TID [facility] Stop: 02/23/22 13:59 Last Admin: 01/25/22 09:54 Dose: 200 mg Senna/Docusate Sodium (Docusate Sodium/Senna 50/8.6mg Tab) 1 tab PO QAM [facility] Stop: 02/23/22 08:59 Last Admin: 01/25/22 09:48 Dose: 1 tab Simethicone (Simethicone 80 Mg Chew) 160 mg PO BID PRN PRN Reason: gas Stop: 02/22/22 08:45 Urea (Urea (Urea-Na) 15 Gm Pack) 15 gm PO BID [facility] Stop: 02/23/22 09:14 Last Admin: 01/25/22 09:48 Dose: Not Given Vitamin D (Cholecalciferol 400 Units 10 Mcg Tab) 400 units PO QDL [facility] Stop: 02/22/22 11:29 Last Admin: 01/25/22 09:47 Dose: 400 units (1) Abdominal pain Abdominal location: left upper quadrant Qualified Code(s): R10.12 - Left upper quadrant pain
--- NOTE | 2022-01-25 12:01 | Electrocardiogram Report ---
Test Reason : Blood Pressure : / mmHG Vent. Rate : 046 BPM Atrial Rate : 046 BPM P-R Int : 182 ms QRS Dur : 086 ms QT Int : 474 ms P-R-T Axes : 068 045 065 degrees QTc Int : 414 ms Sinus bradycardia Otherwise normal ECG When compared with ECG of 24-JAN-2022 04:47, No significant change was found Confirmed by Ric Parker ([id number]) on 01/25/2022 12:00:56 PM Referred By: REFERRED SELF Confirmed By:Ric Parker
[2022-01-25] MEDS ORDERED: MECLIZINE 12.5 MG TAB PO PRN (12:02)
[2022-01-26] MEDS: HEPARIN SOD 5,000 UNIT/0.5 ML VIAL SQ SCH (06:24)
[2022-01-26] MEDS: DICLOFENAC SOD 1% GEL 100 GM TUBE EXT SCH (06:24)
[2022-01-26] MEDS: LEVOTHYROXINE SODIUM 150 MCG TABLET PO SCH (06:25)
[2022-01-26] MEDS ORDERED: METOCLOPRAMIDE HCL 10 MG TABLET PO PRN (06:58)
[2022-01-26 07:11] LABS: Basophils # (auto) 0.08 K/uL (0-0.2); Eosinophils # (auto) 0.22 K/uL (0-0.50); Eosinophils % (auto) 2.7 %; Hematocrit (blood only) 40.5 % (34.1-44.9); Hemoglobin 13.6 g/dl (12.0-16.0); Immature Granulocytes # (auto) 0.03 K/uL (0.00-0.02); Immature Granulocytes % (auto) 0.4 %; Lymphocytes # (auto) 2.75 K/uL (1.2-3.4); Lymphocytes % (auto) 33.4 %; Mean Corpuscular Hemoglobin 29.4 pg (25.0-34.0); Mean Corpuscular Hgb Conc 33.6 g/dL (32.0-36.0); Mean Corpuscular Volume 87.5 fL (80.0-100.0); Mean Platelet Volume 10.6 fL (9.4-12.3); Monocytes # (auto) 0.64 K/uL (0.24-0.82); Monocytes % (auto) 7.8 %; Neutrophils # (auto) 4.52 K/uL (1.4-6.5); Neutrophils % (auto) 54.7 %; Platelet Count 225 K/uL (130-400); RDW Coefficient of Variation 13.6 % (11.5-14.5); RDW Standard Deviation 43.7 fL (36.4-46.3); Red Blood Count 4.63 M/uL (3.93-5.22); White Blood Count 8.24 K/ul (4.8-10.8)
[2022-01-26 07:53] LABS: Albumin Globulin Ratio 1.3 (0.9-2); Albumin Level 3.6 gm/dl (3.4-5.0); BUN Creatinine Ratio 41.5 (10-20); Bilirubin,Total 0.5 mg/dl (0.2-1.0); Calcium 8.9 mg/dl (8.5-10.1); Creatinine Clr Calc Pharmacy 67.6 ml/min; Est GFR (African American) 81.7 ml/min; Est GFR (Non-African American) 70.5 ml/min; Globulin 2.8 gm/dl (2.5-4.0); Magnesium 1.9 mg/dl (1.7-2.4); Potassium 4.5 mmol/L (3.5-5.1); Total Protein 6.4 gm/dl (6.0-8.3)
[2022-01-26] MEDS: FAMOTIDINE 20 MG TAB PO SCH (10:37)
[2022-01-26] MEDS: UREA (UREA-NA) 15 GM PACK PO SCH (10:37)
[2022-01-26] MEDS: MoRPHine SULFATE CR 15 MG TABCR PO SCH ×2 (10:37→13:25)
[2022-01-26] MEDS: FOLIC ACID 1 MG TAB PO SCH (10:37)
[2022-01-26] MEDS: amLODIPine BESYLATE 5 MG TAB PO SCH ×2 (10:37→14:37)
[2022-01-26] MEDS: ATORVASTATIN 40 MG TAB PO SCH (10:37)
[2022-01-26] MEDS: PANTOprazole 40 MG TAB PO SCH (10:37)
[2022-01-26] MEDS: lisinopril 20 MG TAB PO SCH ×2 (10:37→14:38)
[2022-01-26] MEDS: PREGABALIN 100 MG CAP PO SCH ×2 (10:37→13:25)
[2022-01-26] MEDS: CYANOCOBALAMIN (B-12) 100 MCG TABLET PO SCH (10:38)
[2022-01-26] MEDS: INSULIN ASPART PER UNIT SC SCH ×2 (10:39→12:54)
[2022-01-26] MEDS: cefTRIAXone SODIUM 2,000 MG in DEXTROSE 5% 50 ML IV SCH (10:39)
[2022-01-26] MEDS: oxyCODONE/ACETAMINOPHEN 5mg/325mg TAB PO PRN (10:42)
[2022-01-26] MEDS: DOCUSATE SODIUM 100 MG CAP PO PRN ×2 (10:42→10:49)
[2022-01-26] MEDS: CHOLECALCIFEROL 400 UNITS 10 MCG TAB PO SCH (12:54)
[2022-01-26] MEDS: MAGNESIUM OXIDE 400 MG TAB PO SCH (12:54)
[2022-01-26] MEDS: DOCUSATE SODIUM/SENNA 50/8.6MG TAB PO SCH (12:55)
--- NOTE | 2022-01-26 16:29 | Discharge Summary ---
Date of Service January 26, 2022 Admission HPI Per Admitting Provider This is a 76-year-old female with past medical history significant for type 2 diabetes, diabetic polyneuropathy, hypothyroidism, carpal tunnel syndrome, hypertension, GERD, osteoarthrosis, depression, sleep apnea, medical marijuana use, who lives at home alone, ambulates with a cane, comes with chest pain. The patient states that she is having chest pain for the last 2 weeks, pressure- like feeling. It is a constant pain, but later its getting worse.Also complains of back pain. Currently, resting comfortably, hemodynamically stable. Has some headache. Has some blurred visions, no earache, has some runny nose, no sore throat, no cough, no fevers. Appetite is okay. No shortness of breath, no nausea, no vomiting. Complains of upper abdominal pain. Normal bowel and bladder movements. Admission Exam Per Admitting Provider GENERAL: The patient is of moderate build, not in acute distress. VITAL SIGNS: Temperature 36.4, pulse 63, respiratory rate 16, blood pressure 213/91, oxygen 97% on room air. HEENT: Pupils equal, round and reactive to light. Oral mucosa moist. NECK: No JVD, no neck masses. CARDIOVASCULAR: S1 and S2 heard. Regular rate and rhythm. No murmur, no gallop. RESPIRATORY SYSTEM: Normal AP diameter. No accessory muscle use. No wheezing, no crackles. ABDOMEN: Soft, epigastric tenderness present, no distention, no guarding. CENTRAL NERVOUS SYSTEM: Cranial nerves II-XII grossly intact, nonfocal. EXTREMITIES: No edema, no erythema. Principal Diagnosis Sepsis from UTI Discharge Exam Constitutional: WD/WN, vitals as above Eyes: PERRL, conjunctivae normal, anicteric sclerae ENMT: external ear and nose normal, oropharynx normal Neck: trachea midline, no thyromegaly Respiratory: normal respiratory effort, lungs clear to auscultation Cardiovascular: RRR, no murmur, no edema Gastrointestinal (Abdomen): Inspection/Auscultation: abdomen normal to inspection and normal bowel sounds Percussion/Palpation: + abdomen tender (mild to palpation in epigastric region but improved) and abdomen soft; no guarding and abdomen not rigid Musculoskeletal: no cyanosis or clubbing, extremities motor strength 5/5 Extremities: + hand abnormality (chronic changes of osteoarthritis in both hand in DIP and PIP mostly) Bilateral Skin: no rashes, warm and dry Neurologic: PERRL, EOMI, accommodation nl, no face palsy, no dysarthria moves all extremities and awake; no focal motor deficits, not confused and not obtunded Psychiatric: A+Ox3, euthymic affect Discharge Data Allergies Allergy/AdvReac Type Severity Reaction Status Date / Time aspirin AdvReac Unknown advised to Verified 01/17/22 19:00 avoid due to hx ITP Consultations 01/23/22 05:45 ED Decision to Admit Stat 01/23/22 08:26 Consult Cardiology Routine Consult Nephrology Routine Ordered Studies 01/23/22 13:51 US RUQ [US liver] Routine Hospital Course (1) Chronic hyponatremia: (2) Hypertensive urgency: (3) Abdominal pain: (4) Elevated liver enzymes: (5) Gastroesophageal reflux disease: (6) Elevated troponin: (7) Diabetic peripheral neuropathy associated with type 2 diabetes mellitus: (8) Hyperlipidemia: (9) Hypertension: (10) Diabetes mellitus, type 2: (11) Hypothyroidism: (12) Constipation: (13) Osteoarthritis: Plan This is a 76-year-old female with past medical history significant for type 2 diabetes, diabetic polyneuropathy, hypothyroidism, carpal tunnel syndrome, hypertension, GERD, osteoarthrosis, depression, sleep apnea, medical marijuana use, who lives at home alone, ambulates with a cane, comes with chest pain and upper abdominal pain. Found to have troponin elevation without ECG changes, seen by cardio, not ACS, troponin trended down. Also being treated for UTI. Found to have hyponatremia that has worsened from her baseline hyponatremia. Improved with IVF, antibiotics, pain medication. history of polyneuropathy and in the setting of severe abdominal pain and n/v, could have underlying gastroparesis, treated with reglan with improvement. Improved and ready for discharge 01/26/2022. (1) Chronic hyponatremia: Plan: - patient has chronic hyponatremia that is usually low 130s - presented with Na around 121-125 - currently asymptomatic - renal consulted - likely in the setting of decreased po intake and solute intake - IVF with NS for now - renal added urea BID - Na up to 130 today - trend Na (2) Hypertensive urgency: Plan: - presented with BP >200s/100s with chest pain, elevated troponin, negative ECG changes - s/p IV BP medications in ED - Cardiology and renal following - s/p nitro paste - continue on lisinopril to 20mg daily, amlodipine 5mg - BP much better controlled, chest pain resolved since yesterday - continue above meds (3) Abdominal pain: Plan: - unclear etiology at this time - pancreatitis vs gastroparesis vs gastritis - improving with PPI, IVF, reglan - will continue with above management - CT-AP in ED without significant abnormality - should have GI evaluation for gastroparesis as outpatient given significant polyneuropathy and DM - tolerating diet well (4) Elevated liver enzymes: Plan: - RUQ US shows steatosis - has LFTs much more elevated earlier in 01/2022 that have now improved - monitor for now (5) Gastroesophageal reflux disease: Plan: - could be contributing to pain episodes - continue PPI and pepcid (6) Elevated troponin: Plan: - elevated in the setting of chestp and and severe hypertension - ECG without ischemic changes - on high dose statin - cardiology following - trended down (7) Diabetic peripheral neuropathy associated with type 2 diabetes mellitus: Plan: - severe and somewhat debiliating - chronic pain management - continue lyrical - BG control (8) Hyperlipidemia: Plan: - continue statin (9) Hypertension: Plan: - continue medications as above (10) Diabetes mellitus, type 2: Plan: - FSG AC+HS - SSI for now (11) Hypothyroidism: Plan: - continue home medication - TSH 5 but FT4 1.0 (12) Constipation: Plan: - could be contributing to abdominal pain - aggressive bowel regimen in the setting of chronic opioid use (13) Osteoarthritis: Plan: - multimodal pain management - Voltaren gel for supplementation Plan Full Code DVT ppx heparin SC Dispo: Inpatient rehab Home Health Attestation I certify that this patient is under my care and that I, or a physicians claims assistant working with me, had a face to-face encounter that meets the home health [id number] encounter requirements with this patient. The encounter with the patient was in whole, or in part, for the following medical condition, which is the primary reason for home health care (list medical condition): Chest pain. I certify that, based on my findings, the following services are medically necessary home health services: My clinical findings support the need for the above services because: OT Assess ADL Status and Restore Function w ADLs PT Assessment for Endurance / Balance / Strength PT Eval for Safety and Mobility PT Eval for Safety, Gait Training, Assistive Devices PT Gait and Balance Training, Strengthening and Safety Skilled Nsg Assessment Further, I certify that my clinical findings support that this patient is homebound (i.e. absences from home require considerable and taxing effort and are for medical reasons or tenriism services or infrequently or of short duration when for other reasons) because: Certification for Home Health Services: Based on the above findings, I certify that this patient is confined to the home and needs intermittent senior care care, physical therapy and/or speech therapy or continues to need occupational therapy. The patient is under my care, and I have initiated the establishment of the plan of care. This patient will be followed by a physician who will periodically review the plan of care. Total Time Total Time Spent Total Time Spent (In Minutes): 30 minutes Total Time Includes: Examination of the Patient, Discharge Planning, Medication Reconciliation and Communication With Other Providers Discharge Plan Discharge Items Patient Disposition: Home - Home Health Services Reason For Visit: chest pain Discharge Diagnosis: Sepsis from UTI Condition on Discharge: Good Activity: As commented below Activity Comment: as tolerated. With home PT and services Lifting: Gradually increase as tolerated Bathing: No limitations Weightbearing: Full weightbearing Non-emergency contact: Primary Care Provider, Environmental Health And Safety Intern and Continuous Improvement Manager Call non-emergency contact if: you have any medication questions, your symptoms worsen and your pain is not controlled Follow-up/Referrals: Shawnee Matthew MD, PhD [Physician] - Ruy Momin MD [Physician] - Paul Ellison MD [Primary Care Provider] - Diet: Carb Consistent or DM2 and Heart Healthy Addtl Attending Provider Instructions: You were admitted for sepsis likely from a UTI and abdominal pain with nausea and vomiting. You were treated with IV fluids, antibiotics, and reglan (to help with nausea). You continued to improve in terms of your pain, tolerating a regular diet, and getting out of bed. You should finish 6 more days of antibiotics and work with home physical therapy and home health aide to help you get things done around the house and with your medications. You will have 6 days of ciprofloxacin 500mg 2x/day and should follow up with your primary care doctor, conical mixer (Dr. 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 Pending Studies at Discharge: No Stand-Alone Forms: My [facility], Smoking Cessation Medications and DC Order Prescriptions: New amlodipine [Norvasc] 5 mg Tablet 5 mg PO QAM Qty: 30 0RF diclofenac sodium [Voltaren Arthritis Pain] 1 % Gel 2 g EXT Q8 PRN (Reason: pain) Qty: 100 0RF Ure-Na 15 gram Powder In Packet 15 g PO BID Qty: 8 0RF metoclopramide HCl 10 mg Tablet 10 mg PO ACHS PRN (Reason: nausea and vomiting) Qty: 30 0RF ciprofloxacin HCl 500 mg tablet 500 mg PO BID Qty: 12 0RF pravastatin 40 mg tablet 40 mg PO HS Qty: 30 0RF Continued alpha lipoic acid 300 mg capsule 300 mg PO DAILY cyanocobalamin (vitamin B-12) [Vitamin B-12] 100 mcg Tablet 2,500 mcg PO DAILY pantoprazole 40 mg Tablet,Delayed Release (Dr/Ec) 40 mg PO DAILY folic acid 1 mg Tablet 800 mcg PO DAILY simethicone 125 mg Tablet 80 mg PO QID PRN (Reason: Gi Upset) cholecalciferol (vitamin D3) [Vitamin D3] 400 unit Tablet 2,000 unit PO DAILY coenzyme Q10 [CoQ-10] 100 mg Capsule 100 mg PO DAILY duloxetine 60 mg Capsule,Delayed Release(Dr/Ec) 60 mg PO DAILY biotin 1 mg Tablet 1 mg PO QAM lutein 40 mg Capsule 40 mg PO DAILY polyethylene glycol 3350 [Miralax] 17 gram/dose Powder 17 g PO DAILY PRN (Reason: Constipation) docusate sodium 100 mg Tablet 100 mg PO BID PRN (Reason: Constipation) levothyroxine 150 mcg Tablet 150 mcg PO DAILY magnesium citrate 100 mg Capsule 100 mg PO DAILY metformin 500 mg Tablet Extended Release 24 Hr 1,000 mg PO DAILY meclizine 25 mg Tablet 25 mg PO TID PRN (Reason: Vertigo) oxycodone-acetaminophen 5-325 mg Tablet 1 tab PO Q4H PRN (Reason: Pain, Severe) thiamine HCl (vitamin B1) 250 mg Tablet 250 mg PO DAILY pyridoxine (vitamin B6) 100 mg Tablet 100 mg PO DAILY celecoxib 200 mg capsule 200 mg PO DAILY lisinopril 20 mg tablet 20 mg PO DAILY baclofen 10 mg tablet 10 mg PO BID pregabalin 200 mg capsule 200 mg PO TID morphine 15 mg tablet extended release 15 mg PO TID naloxone [Narcan] 4 mg/actuation spray,non-aerosol 1 sprays [facility] DIRECTED Discontinued pravastatin 20 mg Tablet 20 mg PO DAILY Discharge Orders: Discharge Order (Routine); Ordered 01/26/22 Ordered By: Momo Medina/Other Patient Handouts: Managing Type 2 Diabetes, Special Foot Care for Diabetes Admission Data Admit Date/Time: 01/23/22 07:00 Attending Provider: Momo Liao Admit Provider: Ben Olivera Primary Care Provider: Paul Ellison Other Providers: Ben Olivera ; Woody Sanchez ; Edmund Patel ; Ruy Momin ; Ian Stover ; Aly Benites ; Bony Porras ; Vanessa Saeed ; Meenu Sarah ; Marcella Morales ; Pedro Luis Gama ; Shawnee Matthew. ; [facility] Other Interventions: Discharge Summary Assessment (RN) Last Done: 01/26/22 13:36
--- NOTE | 2022-01-26 17:34 | Nephrology Progress Note ---
Date of Service January 26, 2022 Assessment & Plan (1) Chronic hyponatremia: Plan: Hypotonic hyponatremia present intermittently but which has worsened this month from 131>125 at admission and today back to OP baseline. recently rx'd prn hctz but did not start. Was not floridly volume overloaded or volume depleted when examined yesterday Some recent aberrations in liver enzymes earlier this month. -BP has been variable with systolics in 150--160's, in lows 90's lately - Urine studies pointing towards SIADH/ Renal salt wasting , likley on the background of HCTZ and NSAID Use. - Continue on Urea 15 mg BID while in house but not at d/c as insurnace does not cover it; can review need at OP OV - pain control -1.5L fluid limit/ protein shakes doesn't count toward limit and diabetic diet. - Will need f/u with nephrology in 1-2 weeks of discharge with repeat BMP, Urine and Plasma osm and U na. (2) Hypertensive urgency: Plan: adrenals ok on recent imaging and no evidence earlier this month of dissection or aneurysm in chest/abdomen - Better controlled with lisinopril and amlodipine; per hospitalist, PCP, cardiology -avoid nsaids -avoid thiazides Admission and Anticipated Discharge Date Admission Date: January 23, 2022 Subjective pt seen as she was preparing for hospital d/c. bp better controlled. many questions about her medications, outpt follow up; anxious about how she'll manage house; no pain or dypsnea or n/v or confusion Review of Systems Review of Systems: All systems reviewed & are unremarkable except as noted in Subjective Physical Exam Constitutional: well developed, well nourished and cooperative; no acute distress Eyes: EOM intact bilaterally (R amblyopia and lid lag) ENMT: Ears: no external ear abnormality Nose: no external nose abnormality Mouth: + dry oral mucous membranes Neck: no nuchal rigidity Respiratory: normal respiratory effort Auscultation: + diminished lung sounds Cardiovascular: Rate/Rhythm: regular rhythm and + bradycardic Extremities: no edema Gastrointestinal (Abdomen): Inspection/Auscultation: normal bowel sounds Percussion/Palpation: abdomen soft; abdomen nontender Musculoskeletal: Extremities: strength 5/5 throughout Skin: no rashes, warm and dry Psychiatric: Orientation: oriented x 3 Eye Contact: good eye contact Speech: normal rate/rhythm/volume of speech Insight: good insight Judgement: good judgement Results & Data ([facility]) Vital Signs (Past 12 Hours) Vital Signs Temp Pulse Pulse Resp BP BP Pulse Ox 01/26/22 13:36 36.9 C 49 L 18 133/66 117/57 L 99 01/26/22 08:00 42 L 01/26/22 11:18 36.9 C 49 L 18 133/66 99 01/26/22 07:26 36.4 C L 45 L 18 117/57 L 95 O2 Del Method 01/26/22 13:36 01/26/22 08:00 01/26/22 11:18 Room Air 01/26/22 07:26 Room Air Laboratory Results 01/26/22 06:53 01/26/22 06:53
== END 2022-01-26 16:27 | disposition home health service (06) | DRG 872 ==
LOC: ED 03:47 → 1E 07:00 → 2E 01-24 16:25

== ENCOUNTER 2024-03-08 14:47 | Inpatient (IN) ==
--- NOTE | 2024-03-08 15:25 | XRay Report ---
XR chest 1V portable CLINICAL HISTORY: weakness TECHNIQUE: Single frontal radiograph of the chest was obtained. Comparison: Comparison is made to chest radiograph 01/23/2022 FINDINGS: No lines and tubes are seen. The cardiomediastinal silhouette is normal. The lungs are clear. No evid ence of pleural effusion or pneumothorax. IMPRESSION: No acute chest disease. ACT 112: Negative or not required by law. Electronically signed by: Tanner Russo M.D. 03/08/2024 3:24 PM
--- NOTE | 2024-03-08 15:36 | Emergency Department Note ---
Impression & Plan Generalized weakness, Leukocytosis, Non-ST elevation OH (NSTEMI), FRANKLIN (acute kidney injury), Acute confusion, Rhabdomyolysis, Elevated CK, Transaminitis, Elevated lactic acid level, Elevated procalcitonin ED Provider Note HISTORY OF PRESENT ILLNESS: Patient is a 78-year-old female presenting with generalized weakness. Patient presents with EMS. EMS reports that the friend went to check on the patient today and found her stuck on the commode. Patient was unsure when she went up into the bathroom. She states that "I made a horrible mess with diarrhea." She reports she was too weak to get off of the commode. Friend presents to bedside and reports that she normally checks in on the patient and last saw her yesterday at 1700. States that the patient takes a lot of oxycodone for her pain normally. Patient is complaining of left lower quadrant abdominal pain. No reported fevers. Patient denies any chest pain or shortness of breath. ROS: as above PHYSICAL EXAM: Constitutional: Patient appears in no acute distress. HENT: Head: Normocephalic and atraumatic. Eyes: EOMI, PERRL Mouth/Throat: Mucous membranes moist. Neck: Trachea midline. Neck supple. Cardiovascular: RRR, No murmurs, rubs or gallops. Intact distal pulses. Pulmonary/Chest: No respiratory distress. Breath sounds clear and equal bilaterally. No wheezes or rales. Abdominal: Abdomen soft, no tenderness, rebound or guarding. Musculoskeletal: No edema, tenderness or deformity noted. Skin: Warm and dry. Patient is noted to have ecchymosis and skin breakdown in the shape of a toilet bowl on her bilateral buttock and bilateral proximal posterior thighs. Neurological: Alert to person, place and time but confused as to the events leading up to the ER visit. CN II-XII grossly intact, moving all extremities equally and fully. MDM: - Vitals signs showed hypertension. - History obtained via EMS, given patient's intermittent confusion and amnesia to the events. History as above. - Chronic conditions affecting care: GERD; HTN; HLD; opioid dependence; DM-2 - Differential diagnoses include, but are not limited to: Rhabdomyolysis; CVA; intracranial hemorrhage; electrolyte abnormality; dysrhythmia; viral syndrome; ACS - Order placed for continuous cardiac monitoring. At this time, monitor showed rate of 82 bpm with normal sinus rhythm, per my interpretation. - External medical records reviewed. Discharge summary dated 01/26/2022 was reviewed. Patient was admitted that time for chest pain and sepsis from a UTI. - EKG interpreted by myself showed normal sinus rhythm. Rate 83 bpm. QT 346. No acute ischemic changes. - Laboratory workup interpreted by myself showed leukocytosis (WBC 21.09); hyponatremia (Na 133); elevated anion gap (18); FRANKLIN (Cr 2.15); hyperglycemia (glucose 169); elevated troponin (49.2); negative alcohol; elevated lactate (4.0); hypermagnesemia (Mg 4.1); elevated bilirubin (1.6); transaminitis (AST 177; ALT 53); elevated CK (6644); normal TSH; elevated procalcitonin (43.50) - CXR negative for pneumonia, per my interpretation - Patient given 2L NS in ER and 4 mg IV zofran for nausea. Patient sepsis fluid volume resuscitation based on ideal body weight is 1636.20 mL. - CT head wo contrast negative for acute pathology - CT abdomen/pelvis wo contrast ordered. - Blood cultures added to workup, but obtained after antibiotics administered. - Discussion was had with sample case porter about patient's case and need for admission - Hospitalist consulted for admission - Patient admitted to [facility] Hospitalist service for further evaluation and management. I have personally spent 58 minutes of critical care time in the direct management of this patient. This includes bedside care, interpretation of diagnostic studies, and testing, discussion with consultants, patient, and family members, and other required patient management activities. This 58 minutes is in excess of all separately billable procedures. ASSESSMENT AND PLAN: Diagnosis: generalized weakness; leukocytosis; FRANKLIN; NSTEMI; acute confusion; rhabdomyolysis; elevated lactic acid level; transaminitis; elevated CK; elevated procalcitonin Plan: Admit Past Med/Surg History Problem List (Updated 03/08/24 @ 18:09 by Latricia Matos PA-C) History of MRSA infection Hyponatremia Hypermagnesemia Metabolic acidosis Hypertensive urgency Elevated procalcitonin (Acute) Elevated lactic acid level (Acute) Transaminitis (Acute) Elevated CK (Acute) Rhabdomyolysis (Acute) Acute confusion (Acute) FRANKLIN (acute kidney injury) (Acute) Non-ST elevation OH (NSTEMI) (Acute) Leukocytosis (Acute) Generalized weakness (Acute) Accidental bee sting (Acute) Burn of finger (Acute) Sinus bradycardia Chronic hyponatremia Chronic pain (Acute) Hyperesthesia Diabetic peripheral neuropathy associated with type 2 diabetes mellitus Diabetic ulcer of toe of left foot associated with diabetes mellitus due to underlying condition, limited to breakdown of skin Radicular pain of upper extremity Gait abnormality S/P total knee arthroplasty Opioid dependence Sleep apnea no device Hyperlipidemia Hypertension Numbness and tingling in both hands Diabetes mellitus, type 2 Hypothyroidism Cancer skin (back, nose) GERD (gastroesophageal reflux disease) Constipation Osteoarthritis (Chronic) Fibromyalgia (Acute) Tricompartment osteoarthritis of left knee Medical History Hypertensive urgency Abdominal pain Elevated liver enzymes Precordial chest pain Double vision 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; no issues since Surgical History Hx of dilation and curettage History of meniscectomy of left knee Hx of tonsillectomy Hx of total hysterectomy Hx of eye surgery corrective (as child) Family History Mother Coronary heart disease Sister Schizophrenia Social History Smoking Status: Current some day smoker Tobacco Type: Cigarettes Second Hand Exposure: No; Do You Dip or Chew Tobacco: No; Hx Alcohol Use: Yes Alcohol type: wine Alcohol Intake Frequency: 4 or More x per/Week Alcohol Intake Frequency Comment: DAILY WITH DINNER Hx Substance Use: No Preferred Language: Indonesian Communication Ability: Effective Visual Impairment: Limited Hearing Ability: Normal Gamero[employer] Technician Required: No Beliefs That Will Affect Care: None marital status: Single 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, [employer] Current Living Situation: Alone current occupational status: retired How many Children do You have: 0 Feels Safe at Home: Yes Diet: diabetic Diet Comment: ORGANIC Assistive Devices: Cane Allergies Allergies Allergy/AdvReac Type Severity Reaction Status Date / Time sulfamethoxazole Allergy Severe Swelling Unverified 03/08/24 17:56 [From Bactrim] of Lip/Tongue/Throat AND HIVES trimethoprim [From Bactrim] Allergy Severe Swelling Unverified 03/08/24 17:56 of Lip/Tongue/Throat AND HIVES aspirin AdvReac Unknown advised to Verified 03/08/24 17:56 avoid due to hx ITP Home Meds Home Medications Medication Instructions Recorded Confirmed biotin 1 mg tablet 1 mg PO QAM 01/10/19 03/08/24 cholecalciferol (vitamin D3) 10 2,000 unit PO DAILY 01/10/19 03/08/24 mcg (400 unit) tablet (Vitamin D3) coenzyme Q10 100 mg capsule 100 mg PO DAILY 01/10/19 03/08/24 (CoQ-10) cyanocobalamin (vitamin B-12) 100 2,500 mcg PO DAILY 01/10/19 03/08/24 mcg tablet (Vitamin B-12) folic acid 1 mg tablet 1 mg PO DAILY 01/10/19 03/08/24 lutein 40 mg capsule 40 mg PO DAILY 01/10/19 03/08/24 pantoprazole 40 mg tablet,delayed 40 mg PO DAILY 01/10/19 03/08/24 release polyethylene glycol 3350 17 17 g PO DAILY PRN Constipation 01/10/19 03/08/24 gram/dose oral powder (Miralax) simethicone 125 mg tablet 80 mg PO QID PRN Gi Upset 01/10/19 03/08/24 docusate sodium 100 mg tablet 100 mg PO BID PRN Constipation 02/18/19 03/08/24 celecoxib 200 mg capsule 200 mg PO DAILY 01/17/22 03/08/24 lisinopril 20 mg tablet 20 mg PO DAILY 01/17/22 03/08/24 morphine 15 mg tablet,extended 15 mg PO TID 01/17/22 03/08/24 release naloxone 4 mg/actuation nasal 1 sprays intranasal DIRECTED 01/17/22 03/08/24 spray (Narcan) pregabalin 200 mg capsule 200 mg PO TID 01/17/22 03/08/24 levothyroxine 150 mcg tablet 150 mcg PO DAILY 01/23/22 03/08/24 magnesium citrate 100 mg capsule 100 mg PO DAILY 01/23/22 03/08/24 meclizine 25 mg tablet 25 mg PO TID PRN Vertigo 01/23/22 03/08/24 metformin 500 mg tablet,extended 1,000 mg PO DAILY 01/23/22 03/08/24 release 24 hr oxycodone-acetaminophen 5 mg-325 1 tab PO Q4H PRN Pain, Severe 01/23/22 03/08/24 mg tablet pyridoxine (vitamin B6) 100 mg 100 mg PO DAILY 01/23/22 03/08/24 tablet thiamine HCl (vitamin B1) 250 mg 250 mg PO DAILY 01/23/22 03/08/24 tablet alpha lipoic acid 300 mg capsule 600 mg PO DAILY 12/18/22 03/08/24 berberine-herbal comb no.18 capsule 1 cap PO DAILY 12/18/22 03/08/24 duloxetine 30 mg capsule,delayed See Rx Instructions .Route .COMPLEX 07/30/23 03/08/24 release duloxetine 60 mg capsule,delayed See Rx Instructions .Route .COMPLEX 03/08/24 03/08/24 release Previous Rx's Medication Instructions Recorded pravastatin 40 mg tablet 40 mg PO HS #30 tabs 01/26/22 Results & Data (ED) Vital Signs Vital Signs - 24 hr 03/08/24 14:58 03/08/24 15:00 03/08/24 15:16 Pulse Rate 83 82 Pulse Rate [Apical] Respiratory Rate 16 Respiratory Effort / Characteristics Non-Labored Respiratory Depth Normal Blood Pressure 151/102 H Blood Pressure [Right Arm] Blood Pressure Mean 118 Blood Pressure Mean [Right Arm] Pulse Oximetry 94 94 Oxygen Delivery Method Room Air Room Air Sepsis Recent Fever Within 48 Hours No Sepsis New/Unexplained Change in Mental Status N/A Sepsis Action Taken by Nursing No Action Required 03/08/24 16:40 Pulse Rate Pulse Rate [Apical] 79 Respiratory Rate 22 Respiratory Effort / Characteristics Respiratory Depth Blood Pressure Blood Pressure [Right Arm] 196/97 H Blood Pressure Mean Blood Pressure Mean [Right Arm] 130 Pulse Oximetry Oxygen Delivery Method Sepsis Recent Fever Within 48 Hours Sepsis New/Unexplained Change in Mental Status Sepsis Action Taken by Nursing Laboratory Data 03/08/24 16:24 03/08/24 16:24 Lab Results 03/08/24 03/08/24 Range/Units 16:24 16:44 WBC 21.09 H (4.8-10.8) K/ul RBC 6.42 H (4.20-5.40) M/uL Hgb 18.0 H (12.0-16.0) g/dl Hct 53.7 H (37.0-47.0) % MCV 83.6 (80.0-100.0) fL MCH 28.0 (25.0-34.0) pg MCHC 33.5 (32.0-36.0) g/dL RDW Std Deviation 43.7 (36.4-46.3) fL RDW Coeff of Feng 14.9 H (11.5-14.5) % Plt Count 244 (130-400) K/uL MPV 11.0 (9.4-12.4) fL Immature Gran % (Auto) 0.6 % Neut % (Auto) 87.6 % Lymph % (Auto) 3.6 % Taylor % (Auto) 7.8 % Eos % (Auto) 0.0 % Baso % (Auto) 0.4 % Neut # (Auto) 18.47 H (1.40-6.50) K/uL Lymph # (Auto) 0.76 L (1.20-3.40) K/uL Taylor # (Auto) 1.65 H (0.11-0.59) K/uL Eos # (Auto) 0.00 (0.00-0.50) K/uL Baso # (Auto) 0.09 (0.00-0.20) K/uL Immature Gran # (Auto) 0.12 (0.01-0.20) K/uL Hypogranular Neuts Occasional Dohle Bodies 1+ PT 12.1 H (9.0-12.0) Seconds INR 1.1 (0.9-1.1) Sodium 133 L (136-145) mmol/L Potassium 4.9 (3.5-5.1) mmol/L Chloride 98 (98-107) mmol/L Carbon Dioxide 17 L (21-32) mmol/L Anion Gap 18 H (3-11) BUN 43 H (6-23) mg/dl Creatinine 2.15 H (0.6-1.2) mg/dl Est Cr Clr Drug Dosing Not Reportable Est GFR ( Amer) 25.1 ml/min Est GFR (Non-Af Amer) 21.7 ml/min BUN/Creatinine Ratio 20.0 (10-20) Glucose 169 H (70-99(Fasting)) mg/dl Lactate 4.0 H* (0.4-2.0) mmol/L Calcium 9.0 (8.6-10.3) mg/dl Magnesium 4.1 H (1.7-2.4) mg/dl Total Bilirubin 1.6 H (0.2-1.0) mg/dl AST 177 H (13-39) U/L ALT 53 H (7-52) U/L Alkaline Phosphatase 75 (34-104) U/L Total Creatine Kinase 6644 H (26-192) U/L Troponin I High Sens 49.2 H (0-14) pg/ml Total Protein 6.5 (6.0-8.3) gm/dl Albumin 3.8 (3.4-5.0) gm/dl Globulin 2.7 (2.5-4.0) gm/dl Albumin/Globulin Ratio 1.4 (0.9-2) Procalcitonin 43.50 H (0-0.5) ng/ml TSH 0.675 (0.300-4.500) uIu/ml Ethyl Alcohol mg/dL < 10.0 (<10.0) mg/dl Administered Medications Discontinued Medications Sodium Chloride (Nss) 1,000 mls @ 999 mls/hr IV .Q1H1M ONE Stop: 03/08/24 16:23 Last Infusion: 03/08/24 16:43 Dose: Infused Documented By: Admin: 03/08/24 15:42 Dose: 999 mls/hr Documented By: GARRICK Sodium Chloride (Nss) 1,000 mls @ 999 mls/hr IV .Q1H1M ONE Stop: 03/08/24 18:13 Last Admin: 03/08/24 17:45 Dose: 999 mls/hr Documented By: GARRICK Piperacillin Sod/Tazobactam Sod (Zosyn) 4.5 gm in 100 mls @ 200 mls/hr IV NOW ONE Stop: 03/08/24 17:42 Last Admin: 03/08/24 17:54 Dose: 200 mls/hr Documented By: GARRICK Ondansetron HCl (Ondansetron Inj 2 Mg/Ml 2 Ml Vial) 4 mg IV NOW STA Stop: 03/08/24 15:24 Last Admin: 03/08/24 15:47 Dose: 4 mg Documented By: GARRICK Imaging Data Radiologist's Impression: Chest X-Ray 03/08/24 15:00 XR chest 1V portable CLINICAL HISTORY: weakness TECHNIQUE: Single frontal radiograph of the chest was obtained. Comparison: Comparison is made to chest radiograph 01/23/2022 FINDINGS: No lines and tubes are seen. The cardiomediastinal silhouette is normal. The lungs are clear. No evidence of pleural effusion or pneumothorax. IMPRESSION: No acute chest disease. ACT 112: Negative or not required by law. Electronically signed by: Tanner Russo M.D. 03/08/2024 3:[address] 03/08/24 15:23 CT head/brain wo con CLINICAL HISTORY: 78 years-old Female with confusion. Acutely altered mental status TECHNIQUE: Multiple axial CT images of the head were obtained without contrast. A dose lowering technique was utilized adhering to the principles of ALARA. CT DOSE: 1984.53 mGy.cm COMPARISON: None. FINDINGS: No acute intracranial hemorrhage, intra-axial mass, acute territorial infarct or abnormal extra-axial collection. Mild involutional changes with chronic microvascular ischemic disease. Asymmetric dilation of the right lateral ventricle in comparison to the left measures up to 2.3 cm and displaces the septum pellucidum several millimeters to the left. The calvarium is intact. The paranasal sinuses, mastoid air cells, and middle ear cavities are clear. IMPRESSION: 1. No acute intracranial hemorrhage or acute territorial infarct. 2. Age-indeterminate asymmetric dilation of the right lateral ventricle in comparison to the left with displacement of the septum pellucidum. Correlate with prior imaging. ACT 112: Negative or not required by law. The above report was generated using voice recognition software. It may contain grammatical, syntax or spelling errors. Electronically signed by: William Fabian M.D. 03/08/2024 6:01 PM Discharge Plan Visit Data Chief Complaint: Weakness Stated Complaint: WEAKNESS ED Provider: Luz Frank Discharge Problem: Generalized weakness, Leukocytosis, Non-ST elevation OH (NSTEMI), FRANKLIN (acute kidney injury), Acute confusion, Rhabdomyolysis, Elevated CK, Transaminitis, Elevated lactic acid level, Elevated procalcitonin Forms Stand Alone Forms: [employer] Prescriptions Prescriptions: No Action alpha lipoic acid 300 mg capsule 600 mg PO DAILY Rx Instructions: Unable to verify OTC meds at this date/time. berberine-herbal comb no.18 Capsule 1 cap PO DAILY Rx Instructions: Unable to verify OTC meds at this date/time. cyanocobalamin (vitamin B-12) [Vitamin B-12] 100 mcg Tablet 2,500 mcg PO DAILY Rx Instructions: Unable to verify OTC meds at this date/time. pantoprazole 40 mg Tablet,Delayed Release (Dr/Ec) 40 mg PO DAILY folic acid 1 mg Tablet 1 mg PO DAILY simethicone 125 mg Tablet 80 mg PO QID PRN (Reason: Gi Upset) Rx Instructions: Unable to verify OTC meds at this date/time. cholecalciferol (vitamin D3) [Vitamin D3] 400 unit Tablet 2,000 unit PO DAILY Rx Instructions: Unable to verify OTC meds at this date/time. coenzyme Q10 [CoQ-10] 100 mg Capsule 100 mg PO DAILY Rx Instructions: Unable to verify OTC meds at this date/time. biotin 1 mg Tablet 1 mg PO QAM Rx Instructions: Unable to verify OTC meds at this date/time. lutein 40 mg Capsule 40 mg PO DAILY Rx Instructions: Unable to verify OTC meds at this date/time. polyethylene glycol 3350 [Miralax] 17 gram/dose Powder 17 g PO DAILY PRN (Reason: Constipation) Rx Instructions: Unable to verify OTC meds at this date/time. docusate sodium 100 mg Tablet 100 mg PO BID PRN (Reason: Constipation) Rx Instructions: Unable to verify OTC meds at this date/time. levothyroxine 150 mcg Tablet 150 mcg PO DAILY magnesium citrate 100 mg Capsule 100 mg PO DAILY Rx Instructions: Unable to verify OTC meds at this date/time. metformin 500 mg Tablet Extended Release 24 Hr 1,000 mg PO DAILY meclizine 25 mg Tablet 25 mg PO TID PRN (Reason: Vertigo) oxycodone-acetaminophen 5-325 mg Tablet 1 tab PO Q4H PRN (Reason: Pain, Severe) thiamine HCl (vitamin B1) 250 mg Tablet 250 mg PO DAILY Rx Instructions: Unable to verify OTC meds at this date/time. pyridoxine (vitamin B6) 100 mg Tablet 100 mg PO DAILY Rx Instructions: Unable to verify OTC meds at this date/time. pravastatin 40 mg tablet 40 mg PO HS Qty: 30 0RF duloxetine 30 mg capsule,delayed release(DR/EC) See Rx Instructions .ROUTE .COMPLEX Rx Instructions: Take 30mg w/ 60mg to equal 90mg once daily celecoxib 200 mg capsule 200 mg PO DAILY lisinopril 20 mg tablet 20 mg PO DAILY pregabalin 200 mg capsule 200 mg PO TID morphine 15 mg tablet extended release 15 mg PO TID naloxone [Narcan] 4 mg/actuation spray,non-aerosol 1 sprays INTNAS DIRECTED duloxetine 60 mg capsule,delayed release(DR/EC) See Rx Instructions .ROUTE .COMPLEX Rx Instructions: Take 60mg w/ 30mg to equal 90mg everyday Referrals Referrals: Paul Ellison MD [Primary Care Provider] -
[2024-03-08] MEDS: SODIUM CHLORIDE 0.9% 1,000 ML IV ONE ×2 (15:42→17:45)
[2024-03-08] MEDS: ONDANSETRON INJ 2 MG/ML 2 ML VIAL IV STA (15:47)
[2024-03-08 16:41] LABS: Hematocrit (blood only) 53.7 % (37.0-47.0); Mean Corpuscular Hgb Conc 33.5 g/dL (32.0-36.0); Mean Corpuscular Volume 83.6 fL (80.0-100.0); Platelet Count 244 K/uL (130-400); RDW Coefficient of Variation 14.9 % (11.5-14.5); RDW Standard Deviation 43.7 fL (36.4-46.3); Red Blood Count 6.42 M/uL (4.20-5.40); White Blood Count 21.09 K/ul (4.8-10.8)
[2024-03-08 17:09] LABS: Anion Gap 18 (3-11); Blood Urea Nitrogen 43 mg/dl (6-23); Carbon Dioxide 17 mmol/L (21-32); Chloride 98 mmol/L (98-107); Est GFR (African American) 25.1 ml/min; Est GFR (Non-African American) 21.7 ml/min; Glucose 169 mg/dl (70-99(Fasting)); Potassium 4.9 mmol/L (3.5-5.1); Sodium 133 mmol/L (136-145)
[2024-03-08 17:15] LABS: Troponin I High Sensitivity 49.2 pg/ml (0-14)
[2024-03-08 17:23] LABS: INR 1.1 (0.9-1.1); Prothrombin Time 12.1 Seconds (9.0-12.0)
[2024-03-08 17:24] LABS: Thyroid Stimulating Hormone 0.675 uIu/ml (0.300-4.500)
[2024-03-08 17:25] LABS: Alanine Aminotransferase 53 U/L (7-52); Albumin Globulin Ratio 1.4 (0.9-2); Albumin Level 3.8 gm/dl (3.4-5.0); Alkaline Phosphatase 75 U/L (34-104); Aspartate Aminotransferase 177 U/L (13-39); Bilirubin,Total 1.6 mg/dl (0.2-1.0); Creatine Kinase 6644 U/L (26-192); Globulin 2.7 gm/dl (2.5-4.0); Magnesium 4.1 mg/dl (1.7-2.4); Total Protein 6.5 gm/dl (6.0-8.3)
--- NOTE | 2024-03-08 17:52 | History & Physical Report ---
Date of Service March 08, 2024 Assessment & Plan (1) Rhabdomyolysis: (2) FRANKLIN (acute kidney injury): (3) Transaminitis: (4) Acute metabolic encephalopathy: (5) Elevated lactic acid level: (6) Nausea vomiting and diarrhea: (7) Generalized weakness: (8) Hypermagnesemia: (9) Sepsis: (10) Elevated procalcitonin: (11) Metabolic acidosis: Plan: Pancolitis ?Possible GI symptoms from infectious vs inflammatory vs narcotic withdrawal Possible UTI Patient is 78 year old female with PMH HTN, DM II, peripheral neuropathy, chronic pain on chronic narcotics and medical marijuana, hypothyroidism, depression and others listed below presented to ER for generalized weakness, N/V/D. It is reported upon initial presentation to ER patient was confused and very drowsy. Nursing staff report patient appears to be less drowsy and is now able to tell more history WBC: 21, CO2: 17, A, BUN: 43, Cr: 2.1, Lactate: 4.0, procalcitonin: 43, CK: 6644, Troponin: 49, Na: 133, magnesium: 4.1 T bili: 1.6 (was 1.7 on 11/20/23), AST: 177, ALT: 53 (Previously normal in 11/2023) EKG: Sinus rhythm without ST elevation [employer] respiratory panel negative CT Abd/pelvis: Findings compatible with a nonspecific nonspecific pancolitis, likely infectious or inflammatory. No bowel obstruction, pneumatosis or pneumoperitoneum.. Distended gallbladder. Punctate right renal calculus. In ER given 2L NSS, Zofran, Zosyn. Obtain stool culture, c-diff Blood culture pending Place Toro cath for more accurate I&O's Lactated Ringers Trend lactate Trend troponin Lipase pending Zosyn, daptomycin Obtain US gallbladder further assess gallbladder. Currently pt with diffuse abdo rosa maria discomfort GI consult Hold home metformin, Celebrex secondary to FRANKLIN For now patients mental status seems to be clearing and improving. Will hold her chronic narcotic pain medications for now and if mental status back to baseline will plan to resume. Hold home magnesium supplement secondary to hypermagnesemia Hold home vitamins/supplements for now given nausea Fall precautions PT/OT eval CBC, CMP, CK, magnesium labs in am If no improvement or worsening renal function consider nephrology consult (12) Hypertensive urgency: Plan: Prior Dx HTN, Not on BP meds recently secondary to controlled BP. Outpatient PCP notes with BP: 112/58 on 11/04/23 visit and BP: 132/80 on 02/01/24 visit. Has HCTZ to use on prn basis for LE edema however reports does not use ?possible opioid withdrawal component Monitor BP Hydralazine IV prn (13) Abnormal CT scan, head: Plan: History brain MRI without contrast 06/02/2011: Mild generalized age-related cerebral parenchyma is appreciated with slight compensatory dilation of ventricles, sulci and basal cisterns. Mild asymmetry of the lateral ventricles likely congenital and of no clinical significance. Tiny nonspecific focus of T2/FLAIR hyperintensity is present in the subcortical white matter of the right posterior frontal lobe. 08/19/2007 MRI brain with and without contrast: Mild asymmetry in the lateral ventricles is essentially unchanged, as on previous study there are few tiny punctate areas of increased T2 and FLAIR signal in the deep white matter. This is about the same. 04/17/2004 MRI brain with and without contrast: Right lateral ventricle is slightly larger compared to the left CT Head: No acute intracranial hemorrhage or acute territorial infarct. Age- indeterminate asymmetric dilation of the right lateral ventricle in comparison to the left with displacement of the septum pellucidum. Correlate with prior imaging. Obtain new MRI brain Neurology consult (14) Pressure injury of buttock, stage 1: Plan: From prolonged sitting on toilet seat Wound nurse consult (15) Hyponatremia: Plan: Prior history chronic hyponatremia. Was 138 on 11/20/2023, 131 on 07/29/2023 Monitor BMP (16) History of MRSA infection: Plan: Reported h/o MRSA infection to left toe in past. Currently appears healed (17) Hyperlipidemia: Plan: Hold statin while on daptomycin (18) Chronic pain: Plan: On chronic morphine, Percocet, pregabalin. Holding for now given encephalopathy. Seems to be improving and will plan to resume when able (19) Diabetes mellitus, type 2: Plan: A1c: 6.2 on 10/15/23 Hold metformin Novolog sliding scale per protocol A1c in am (20) Hypothyroidism: Plan: TSH: 0.67 Continue levothyroxine DVT Prophylaxis Heparin SQ Admit PCU Full Code as per discussion with pt, however states if poor prognosis would not want prolonged life support Follows with Dr Ellison for routine care Pt was seen and care coordinated with Dr Kaur. See addendum I spent a total of 80 minutes reviewing notes, outpatient records, labs, medication, coordinating, documenting and providing care for this patient excluding time spent in the performance of separately billed services. History of Present Illness Chief Complaint: generalized weakness Primary Care Provider: Paul Ellison MD Patient is 78 year old female with PMH HTN, DM II, peripheral neuropathy, chronic pain on chronic narcotics and medical marijuana, hypothyroidism, depression and others listed below presented to ER for generalized weakness, N/V/D. History obtained from patient and outpatient chart review and inpatient chart review. History is somewhat limited and possibly unreliable as patient with difficulty recalling events. Patient states past couple of days had some chills, was not taking temperature. States yesterday had some generalized weakness. It is reported her friend saw her yesterday afternoon and patient seemed to be ok. Patient states that she remembers her friend visiting and remembers letting the cats inside yesterday evening. She states she had onset of nausea, vomiting and diarrhea. Is unsure how many episodes and unsure if any melena or hematochezia or hematemesis. Complains of diffuse abdominal discomfort. States sat on toilet and was too weak and couldn't get up. Patient was found today by friend sitting on toilet with reported diarrhea noted in bathroom. Patient unsure how long was sitting on toilet as is having trouble recalling events in past 24 hours. She states her throat feels dry but denies any recent sore throat, rhinorrhea or cough. States chronic SOB with climbing flight of stairs but otherwise denies SOB at rest. Patient had reported some intermittent blurry vision for unknown amount of time. Also reports intermittent dizziness for years and states had workup previously. Doesn't feel dizziness is worse than usual. Per outpatient PCP note from 02/01/24 patient with history MRSA to left 3rd toe and was following with Enoch Canela with [facility] and was on Bactrim however developed hives and oral sores so was switched to Nuzyra. Patient reports hasn't taken antibiotics for months as left 3rd toe has healed. Reports chronic pain "everywhere" with worst pain being in bilateral upper and lower extremities. Is on chronic morphine, Percocet and pregabalin. Denies DELCID, dizziness, neck pain, CP, palpitations, cough, paresthesias, weakness, extremity weakness, extremity edema, rashes, urinary sy mptoms. Denies recent travel or known ill contacts Allergies Allergy/AdvReac Type Severity Reaction Status Date / Time sulfamethoxazole Allergy Severe Swelling Unverified 03/08/24 17:56 [From Bactrim] of Lip/Tongue/Throat AND HIVES trimethoprim [From Bactrim] Allergy Severe Swelling Unverified 03/08/24 17:56 of Lip/Tongue/Throat AND HIVES aspirin AdvReac Unknown advised to Verified 03/08/24 17:56 avoid due to hx ITP Home Medications Medication Instructions Recorded Confirmed Type biotin 1 mg tablet 1 mg PO QAM 01/10/19 03/08/24 History cholecalciferol (vitamin D3) 10 2,000 unit PO DAILY 01/10/19 03/08/24 History mcg (400 unit) tablet (Vitamin D3) coenzyme Q10 100 mg capsule 100 mg PO DAILY 01/10/19 03/08/24 History (CoQ-10) cyanocobalamin (vitamin B-12) 100 100 mcg PO DAILY 01/10/19 03/08/24 History mcg tablet (Vitamin B-12) folic acid 1 mg tablet 1 mg PO DAILY 01/10/19 03/08/24 History lutein 40 mg capsule 40 mg PO DAILY 01/10/19 03/08/24 History pantoprazole 40 mg tablet,delayed 40 mg PO DAILY 01/10/19 03/08/24 History release polyethylene glycol 3350 17 17 g PO DAILY PRN Constipation 01/10/19 03/08/24 History gram/dose oral powder (Miralax) simethicone 125 mg tablet 80 mg PO QID PRN Gi Upset 01/10/19 03/08/24 History docusate sodium 100 mg tablet 100 mg PO BID PRN Constipation 02/18/19 03/08/24 History celecoxib 200 mg capsule 200 mg PO DAILY 01/17/22 03/08/24 History morphine 15 mg tablet,extended 15 mg PO TID 01/17/22 03/08/24 History release naloxone 4 mg/actuation nasal 1 sprays intranasal DIRECTED 01/17/22 03/08/24 History spray (Narcan) pregabalin 200 mg capsule 200 mg PO TID 01/17/22 03/08/24 History levothyroxine 150 mcg tablet 150 mcg PO DAILY 01/23/22 03/08/24 History magnesium citrate 100 mg capsule 100 mg PO DAILY 01/23/22 03/08/24 History meclizine 25 mg tablet 25 mg PO TID PRN Vertigo 01/23/22 03/08/24 History metformin 500 mg tablet,extended 1,000 mg PO DAILY 01/23/22 03/08/24 History release 24 hr oxycodone-acetaminophen 5 mg-325 1 tab PO Q4H PRN Pain, Severe 01/23/22 03/08/24 History mg tablet pyridoxine (vitamin B6) 100 mg 100 mg PO DAILY 01/23/22 03/08/24 History tablet thiamine HCl (vitamin B1) 250 mg 250 mg PO DAILY 01/23/22 03/08/24 History tablet pravastatin 40 mg tablet 40 mg PO HS #30 tabs 01/26/22 03/08/24 Rx alpha lipoic acid 300 mg capsule 600 mg PO DAILY 12/18/22 03/08/24 History berberine-herbal comb no.18 capsule 1 cap PO DAILY 12/18/22 03/08/24 History duloxetine 30 mg capsule,delayed See Rx Instructions .Route .COMPLEX 07/30/23 03/08/24 History release duloxetine 60 mg capsule,delayed See Rx Instructions .Route .COMPLEX 03/08/24 03/08/24 History release hydrochlorothiazide 12.5 mg capsule 12.5 mg PO DAILY PRN Edema 03/08/24 03/08/24 History oxybutynin chloride 10 mg 10 mg PO DAILY 03/08/24 03/08/24 History tablet,extended release 24 hr oxybutynin chloride 5 mg 5 mg PO PM 03/08/24 03/08/24 History tablet,extended release 24 hr Past Med/Surg History Problem List (Updated 03/08/24 @ 20:27 by Latricia Matos PA-C) Sepsis Acute metabolic encephalopathy Pressure injury of buttock, stage 1 Nausea vomiting and diarrhea Abnormal CT scan, head History of MRSA infection Hyponatremia Hypermagnesemia Metabolic acidosis Hypertensive urgency Elevated procalcitonin (Acute) Elevated lactic acid level (Acute) Transaminitis (Acute) Elevated CK (Acute) Rhabdomyolysis (Acute) Acute confusion (Acute) FRANKLIN (acute kidney injury) (Acute) Non-ST elevation DC (NSTEMI) (Acute) Leukocytosis (Acute) Generalized weakness (Acute) Accidental bee sting (Acute) Burn of finger (Acute) Sinus bradycardia Chronic hyponatremia Chronic pain (Acute) Hyperesthesia Diabetic peripheral neuropathy associated with type 2 diabetes mellitus Diabetic ulcer of toe of left foot associated with diabetes mellitus due to und erlying condition, limited to breakdown of skin Radicular pain of upper extremity Gait abnormality S/P total knee arthroplasty Opioid dependence Sleep apnea no device Hyperlipidemia Hypertension Numbness and tingling in both hands Diabetes mellitus, type 2 Hypothyroidism Cancer skin (back, nose) GERD (gastroesophageal reflux disease) Constipation Osteoarthritis (Chronic) Fibromyalgia (Acute) Tricompartment osteoarthritis of left knee Medical History Abdominal pain Elevated liver enzymes Precordial chest pain Double vision 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; no issues since Surgical History Hx of dilation and curettage History of meniscectomy of left knee Hx of tonsillectomy Hx of total hysterectomy Hx of eye surgery corrective (as child) Family History Mother Coronary heart disease Sister Schizophrenia Social History Smoking Status: Former smoker Tobacco Type: Cigarettes Cigarettes Per Day: "long time ago"; Second Hand Exposure: No; Do You Dip or Chew Tobacco: No; Hx Alcohol Use: Yes Alcohol type: wine Alcohol Intake Frequency: 4 or More x per/Week Alcohol Intake Frequency Comment: DAILY WITH DINNER Hx Substance Use: Yes Prescribed Medications: Marijuana Last Used Substance: Unknown Substance Use Type Other:: "I have been trying medical marijuana" Preferred Language: Korean Communication Ability: Effective Visual Impairment: Limited Hearing Ability: Normal Extension Work Instructor Required: No Beliefs That Will Affect Care: None marital status: Single 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, [employer] Current Living Situation: Alone Current Living Situation Comment: lives at home in 2 story house - friend checks in regularly current occupational status: retired How many Children do You have: 0 Feels Safe at Home: Yes Diet: diabetic Diet Comment: ORGANIC Assistive Devices: Cane and Walker Review of Systems Review of Systems: All systems reviewed & are unremarkable except as noted in HPI & below Physical Exam Physical Exam: General: no acute distress, overweight elderly female Head: normocephalic, atraumatic Eyes: PERRL, conjunctiva non-injected, anicteric ENT: normal inspection external ears, nose, mucous membranes dry Neck: supple, trachea midline Lungs: clear, no respiratory distress, no wheezing/rhonchi/rales CV: RRR, no murmur, no pretibial edema Abd: normal BS, soft, +diffuse tenderness to palpation Ext: no erythema, no calf tenderness; left 3rd toe with small scab without erythema Neuro: More Alert, oriented to person, place and time, difficulty remembering events of past 12-24 hours, no focal deficits noted, appears to have normal affect Skin: warm, dry, +nonblanching erythema to buttock from toilet seat Results & Data Results & Data Vital Signs (Past 12 Hours) Vital Signs Pulse Pulse Resp BP BP Pulse Ox O2 Del Method 03/08/24 16:40 79 22 196/97 H 03/08/24 15:16 82 03/08/24 15:00 94 Room Air 03/08/24 14:58 83 16 151/102 H 94 Room Air Laboratory Results Short CBC 03/08/24 Range/Units 16:24 WBC 21.09 H (4.8-10.8) K/ul Hgb 18.0 H (12.0-16.0) g/dl Hct 53.7 H (37.0-47.0) % Plt Count 244 (130-400) K/uL BMP 03/08/24 16:24 Sodium 133 L Potassium 4.9 Chloride 98 Carbon Dioxide 17 L BUN 43 H Creatinine 2.15 H Glucose 169 H Calcium 9.0 Cardiac Enzymes 03/08/24 Range/Units 16:24 Total Creatine Kinase 6644 H (26-192) U/L Liver Function 03/08/24 Range/Units 16:24 Total Bilirubin 1.6 H (0.2-1.0) mg/dl AST 177 H (13-39) U/L ALT 53 H (7-52) U/L Alkaline Phosphatase 75 (34-104) U/L Albumin 3.8 (3.4-5.0) gm/dl Urine 03/08/24 Range/Units 18:35 Urine Color Dark Yellow Urine Appearance Cloudy A (Clear) Urine pH 5.5 (4.5-7.5) Ur Specific [place] 1.020 (1.000-1.030) Urine Protein 3+ H (Negative) Urine Glucose (UA) Negative (Negative) Diagnostic Findings Chest X-Ray 03/08/24 15:00 XR chest 1V portable CLINICAL HISTORY: weakness TECHNIQUE: Single frontal radiograph of the chest was obtained. Comparison: Comparison is made to chest radiograph 01/23/2022 FINDINGS: No lines and tubes are seen. The cardiomediastinal silhouette is normal. The lungs are clear. No evidence of pleural effusion or pneumothorax. IMPRESSION: No acute chest disease. ACT 112: Negative or not required by law. Electronically signed by: Tanner Russo M.D. 03/08/2024 3:[address] 03/08/24 15:23 CT head/brain wo con CLINICAL HISTORY: 78 years-old Female with confusion. Acutely altered mental status TECHNIQUE: Multiple axial CT images of the head were obtained without contrast. A dose lowering technique was utilized adhering to the principles of ALARA. CT DOSE: 1984.53 mGy.cm COMPARISON: None. FINDINGS: No acute intracranial hemorrhage, intra-axial mass, acute territorial infarct or abnormal extra-axial collection. Mild involutional changes with chronic microvascular ischemic disease. Asymmetric dilation of the right lateral ventricle in comparison to the left measures up to 2.3 cm and displaces the septum pellucidum several millimeters to the left. The calvarium is intact. The paranasal sinuses, mastoid air cells, and middle ear cavities are clear. IMPRESSION: 1. No acute intracranial hemorrhage or acute territorial infarct. 2. Age-indeterminate asymmetric dilation of the right lateral ventricle in comparison to the left with displacement of the septum pellucidum. Correlate with prior imaging. ACT 112: Negative or not required by law. The above report was generated using voice recognition software. It may contain grammatical, syntax or spelling errors. Electronically signed by: William Fabian M.D. 03/08/2024 6:01 PM Abdomen/Pelvis CT 03/08/24 17:[address] WITHOUT CONTRAST HISTORY: Acute left lower quadrant abdominal pain LLQ abd pain; diarrhea TECHNIQUE: Multiaxial CT images of the abdomen and pelvis were performed without contrast. A dose lowering technique was utilized adhering to the principles of ALARA. COMPARISON STUDY: 12/10/2023. FINDINGS: 4 mm left lower lobe and 3 mm inferior segment lingula as solid pulmonary nodules were not clearly seen on prior. No free air. Unenhanced spleen, atrophic pancreas and adrenal glands appear unchanged. 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 Unremarkable unenhanced liver. Distended gallbladder without definite wall thickening. Punctate nonobstructing right renal calculus. No hydronephrosis. Small exophytic cyst of the inferior pole left kidney. Decompressed urinary bladder with wall thickening. Hysterectomy. Atherosclerosis of the aorta. Distended stomach. No small bowel obstruction. The majority of the large bowel and rectum is distended and fluid-filled with diffuse wall thickening and pericolonic inflammatory stranding. Normal appendix. Unremarkable soft tissues. 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 No acute fracture. IMPRESSION: 1. Findings compatible with a nonspecific nonspecific pancolitis, likely infectious or inflammatory. 2. No bowel obstruction, pneumatosis or pneumoperitoneum. 3. Distended gallbladder. 4. Punctate right renal calculus. ACT 112: Negative or not required by law. The above report was generated using voice recognition software. It may contain grammatical, syntax or spelling errors. Electronically signed by: William Fabian M.D. 03/08/2024 6:50 PM Supervising Physician Co-Signing Physician Notes Patient is a 78-year-old female with history of diabetes mellitus, hypertension, hypothyroidism, SEE, chronic pain syndrome, depression and other medical problems presents with history of nausea, vomiting, diarrhea, generalized weakness, altered mental status. Patient is although oriented during my encounter in ED, she had some memory issues giving details about her medical history and current problems. She admits to have significant diarrhea which she believes especially since 1 day duration associated with chills and generalized weakness. She was unable to take her medications today due to significant weakness. She states that she lives alone. She also states having generalized abdominal pain. She was unable to get up from her toilet due to significant weakness today. She is unsure about recent antibiotic use. Also reports intermittent dizziness for many years and ongoing visual changes which she does not believe to be new. Please review HPI for complete details of presentation. I personally reviewed blood work and imaging studies. Physical Exam: Vitals signs as noted above General Appearance: Obese, no apparent distress Head: normocephalic, Atraumatic Eyes: normal inspection, EOMI Neck: supple, Trachea midline Respiratory/Chest: Normal breath sounds, CTA, No accessory muscle use Cardiovascular: S1, S2, No murmur Abdomen/GI:Soft, generalized tenderness, no guarding, rigidity, Bowel sounds present Extremities/Musculoskeletal:normal inspection, 1+edema Neurologic/Psych:AAOX3, grossly no focal neurological deficits, poor memory Skin: normal color, warm, erythematous buttock Acute metabolic encephalopathy likely multifactorial secondary to sepsis, medications, Rhabdomyolysis Sepsis: Possible sources:Pancolitis,Suspected UTI, Gall bladder disease Acute kidney injury Non traumatic Acute Rhabdomyolysis Hypertensive urgency Acute Metabolic acidosis Lactic acidosis Hypermagnesemia Troponin elevation, transaminitis likely secondary to Rhabdomyolysis Abnormal CT head Distended gallbladder Dehydration Agree with aggressive fluids, Broad spectrum antibiotics Trend lactic acid, Monitor renal function, CK levels Avoid nephrotoxic occasions IV hydralazine PRN Hold magnesium supplements Follow up blood, urine cultures Obtain gallbladder ultrasound Also obtain MRI brain for further revelation Neuro checks, neurology ergonomics consultant Check Lipase levels Obtain stool studies for diarrhea Given pancolitis, request GI evaluation Hold sedative medications, Monitor for withdrawal I personally interviewed and examined at bedside. Patient's care is coordinated with Latricia Matos PA-C. I have reviewed the advanced practitioner's documentation, and I agree with plan of care. Please refer to the documentation above for details of patient's presentation and for discussion of other issues. I spent a total [id number] coordinating, documenting, and providing care for this patient excluding time spent in the performance of separately billed services. (18) Chronic pain Chronic pain type: other chronic pain Qualified Code(s): G89.29 - Other chronic pain
[2024-03-08] MEDS: PIPERACILLIN/TAZOBACTAM 4.5 GM/100 ML BAG IV ONE (17:54)
--- NOTE | 2024-03-08 18:04 | CT Scan Report ---
CT head/brain wo con CLINICAL HISTORY: 78 years-old Female with confusion. Acutely altered mental status TECHNIQUE: Multiple axial CT images of the head were obtained without contrast. A dose lowering tech nique was utilized adhering to the principles of ALARA. CT DOSE: 1984.53 mGy.cm COMPARISON: None. FINDINGS: No acute intracranial hemorrhage, intra-axial mass, acute territorial infarct or abnormal extra-axial collection. Mild involutional changes with chronic microvascular ischemic disease. Asymmetric dilati on of the right lateral ventricle in comparison to the left measures up to 2.3 cm and displaces the s eptum pellucidum several millimeters to the left. The calvarium is intact. The paranasal sinuses, mastoid air cells, and middle ear cavities are clear . IMPRESSION: 1. No acute intracranial hemorrhage or acute territorial infarct. 2. Age-indeterminate asymmetric dilation of the right lateral ventricle in comparison to the left wit h displacement of the septum pellucidum. Correlate with prior imaging. ACT 112: Negative or not required by law. The above report was generated using voice recognition software. It may contain grammatical, syntax o r spelling errors. Electronically signed by: William Fabian M.D. 03/08/2024 6:01 PM
[2024-03-08 18:12] LABS: Dohle Bodies 1+; Hypogranular Neutrophils Occasional
[2024-03-08 18:15] LABS: Basophils # (auto) 0.09 K/uL (0.00-0.20); Basophils % (auto) 0.4 %; Immature Granulocytes # (auto) 0.12 K/uL (0.01-0.20); Immature Granulocytes % (auto) 0.6 %; Lymphocytes # (auto) 0.76 K/uL (1.20-3.40); Lymphocytes % (auto) 3.6 %; Monocytes # (auto) 1.65 K/uL (0.11-0.59); Monocytes % (auto) 7.8 %; Neutrophils # (auto) 18.47 K/uL (1.40-6.50); Neutrophils % (auto) 87.6 %
[2024-03-08 18:24] LABS: Adenovirus PCR Not Detected (NotDetected); Bordetella parapertussis PCR Not Detected (NotDetected); Bordetella pertussis PCR Not Detected (NotDetected); Chlamydia pneumoniae PCR Not Detected (NotDetected); Coronavirus 229E PCR Not Detected (NotDetected); Coronavirus CoV-2 (COVID19)PCR Not Detected (NotDetected); Coronavirus HKU1 PCR Not Detected (NotDetected); Coronavirus NL63 PCR Not Detected (NotDetected); Coronavirus OC43PCR Not Detected (NotDetected); Human Metapneumovirus PCR Not Detected (NotDetected); Influenza A PCR Not Detected (NotDetected); Influenza B PCR Not Detected (NotDetected); Mycoplasma pneumoniae PCR Not Detected (NotDetected); Parainfluenza Virus 1 PCR Not Detected (NotDetected); Parainfluenza Virus 2 PCR Not Detected (NotDetected); Parainfluenza Virus 3 PCR Not Detected (NotDetected); Parainfluenza Virus 4 PCR Not Detected (NotDetected); Respiratory Syncytial VirusPCR Not Detected (NotDetected); Rhinovirus/Enterovirus PCR Not Detected (NotDetected)
--- NOTE | 2024-03-08 18:52 | CT Scan Report ---
ABDOMEN AND PELVIS CT WITHOUT CONTRAST HISTORY: Acute left lower quadrant abdominal pain LLQ abd pain; diarrhea TECHNIQUE: Multiaxial CT images of the abdomen and pelvis were performed without contrast. A dose lo wering technique was utilized adhering to the principles of ALARA. COMPARISON STUDY: 12/10/2023. FINDINGS: 4 mm left lower lobe and 3 mm inferior segment lingula as solid pulmonary nodules were not clearly seen on prior. No free air. Unenhanced spleen, atrophic pancreas and adrenal glands appear un changed. 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 Unremarkable unenhanced liver. Distende d gallbladder without definite wall thickening. Punctate nonobstructing right renal calculus. No hydronephrosis. Small exophytic cyst of the inferior pole left kidney. Decompressed urinary bladder with wall thickening. Hysterectomy. Atherosclerosis o f the aorta. Distended stomach. No small bowel obstruction. The majority of the large bowel and rectu m is distended and fluid-filled with diffuse wall thickening and pericolonic inflammatory stranding. Normal appendix. Unremarkable soft tissues. 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 No acute fracture. IMPRESSION: 1. Findings compatible with a nonspecific nonspecific pancolitis, likely infectious or inflammatory. 2. No bowel obstruction, pneumatosis or pneumoperitoneum. 3. Distended gallbladder. 4. Punctate right renal calculus. ACT 112: Negative or not required by law. The above report was generated using voice recognition software. It may contain grammatical, syntax o r spelling errors. Electronically signed by: William Fabian M.D. 03/08/2024 6:50 PM
[2024-03-08 19:09] LABS: Appearance Urine Cloudy (Clear); Bilirubin Urine 1+ (Negative); Blood Urine Negative (Negative); Color Urine Dark Yellow; Glucose Urine UA Negative (Negative); Ketones Urine Negative (Negative); Leukocyte Esterase Urine 1+ (Negative); Nitrite Urine Positive (Negative); Protein Urine 3+ (Negative); RBC Urine Automated 0-2 /hpf (0-2); Urobilinogen Urine Negative (Negative); pH Urine 5.5 (4.5-7.5)
[2024-03-08 19:11] LABS: Bacteria Urine Automated 1+ (None Seen); Renal Epithelial Cells Urine Present /lpf (None Presnt)
[2024-03-08 19:12] LABS: Hyaline Casts Urine P /lpf (None Presnt)
[2024-03-08] MEDS: hydrALAZINE HCL 20 MG/ML VIAL IV STA (19:28)
[2024-03-08 19:43] LABS: Amphetamines+Metham, Urine Neg (Neg); Barbiturates, Urine Neg (Neg); Benzodiazepine, Urine Neg (Neg); Cocaine, Urine Neg (Neg); Fentanyl, Urine Neg (Neg); MDMA (Ecstacy), Urine Neg (Neg); Marijuana, Urine Neg (Neg); Methadone, Urine Neg (Neg); Opiate, Urine Pos (Neg); Phencyclidine, Urine Neg (Neg)
[2024-03-08] MEDS: ACETAMINOPHEN 1,000 MG/100 ML VIAL IV STA (19:57)
[2024-03-08 20:07] LABS: Troponin I High Sensitivity 58.8 pg/ml (0-14)
[2024-03-08] MEDS: DAPTOmycin 425 MG in SYRINGE 0 ML IV ONE (20:32)
[2024-03-08] MEDS ORDERED: GLUCOSE 10 TAB/TUBE PO PRN (21:26)
[2024-03-08] MEDS ORDERED: CARBOHYDRATES FOR HYPOGLYCEMIA PO PRN (21:26)
[2024-03-08] MEDS ORDERED: hydrALAZINE HCL 20 MG/ML VIAL IV PRN (21:26)
[2024-03-08] MEDS ORDERED: ACETAMINOPHEN 325 MG TAB PO PRN (21:26)
[2024-03-08] MEDS ORDERED: GLUCOSE 40% GEL 15 GM TUBE PO PRN (21:26)
[2024-03-08] MEDS ORDERED: GLUCAGON FOR INJ 1 MG VIAL SQ PRN (21:26)
[2024-03-08] MEDS: LACTATED RINGER'S 1,000 ML IV ONE (21:29)
[2024-03-08] MEDS: INSULIN ASPART PER UNIT CHARGE SC SCH (22:12)
[2024-03-08] MEDS: HEPARIN SOD 5,000 UNIT/0.5 ML VIAL SQ SCH (22:25)
--- NOTE | 2024-03-08 22:45 | Ultrasound Report ---
Exam(s): US GALLBLADDER EXAM: US Abdomen Limited, Right Upper Quadrant CLINICAL HISTORY: Reason for exam: abd pain. TECHNIQUE: Real-time ultrasound of the right upper quadrant with image documentation. COMPARISON: CT abdomen pelvis March 08, 2024 FINDINGS: Liver: Liver measures 15.3 cm. Somewhat heterogeneous. No focal lesion. Gallbladder: Gallbladder distended. No stones or wall thickening. Negative Hahn sign. Common bile duct: Common bile duct nondilated measuring 4 mm. Pancreas: Unremarkable as visualized. Right kidney: No hydronephrosis in the right kidney. IMPRESSION: Distended gallbladder. No cholelithiasis or evidence of acute cholecystitis. Electronically signed by: David Talavera MD 03/08/24 22:44 PM
[2024-03-08] MEDS: LACTATED RINGER'S 1,000 ML IV SCH (23:58)
[2024-03-09] MEDS: PIPERACILLIN/TAZOBACTAM 4.5 GM/100 ML BAG IV SCH ×2 (00:06→18:02)
[2024-03-09] MEDS: metroNIDAZOLE 500 MG/100 ML BAG IV STA (00:06)
--- NOTE | 2024-03-09 00:49 | Magnetic Resonance Report ---
Exam(s): MRI HEAD Without Contrast EXAM: MR Head Without Intravenous Contrast CLINICAL HISTORY: Reason for exam: abnormal ct head. TECHNIQUE: Magnetic resonance images of the head/brain without intravenous contrast in multiple planes. COMPARISON: Head CT 03/08/2024 FINDINGS: Brain: No restricted diffusion. No cerebral edema, mass-effect, or susceptibility artifact. No intracranial hemorrhage. Empty sella. Ventricles: Asymmetric dilatation of the right lateral ventricle with respect to the left. Normal third and fourth ventricles. No periventricular edema or obstructing mass. Bones/joints: Unremarkable. No acute fracture. Sinuses: Unremarkable as visualized. No acute sinusitis. Mastoid air cells: Unremarkable as visualized. No mastoid effusion. Orbits: Unremarkable as visualized. IMPRESSION: Asymmetric dilatation of the right lateral ventricle with respect to the left. No periventricular edema or obstructing mass. Electronically signed by: David Talavera MD 03/09/24 00:49 AM
[2024-03-09] MEDS: SIMETHICONE 80 MG CHEW PO ONE (01:10)
[2024-03-09] MEDS: ONDANSETRON INJ 2 MG/ML 2 ML VIAL IV PRN (01:11)
[2024-03-09] MEDS: LACTATED RINGER'S 1,000 ML IV SCH (01:24)
[2024-03-09 03:17] LABS: Adenovirus F 40/41 PCR Not Detected (NotDetected); Astrovirus PCR Not Detected (NotDetected); Campylobacter PCR Not Detected (NotDetected); Cryptosporidium PCR Not Detected (NotDetected); Cyclospora cayetanensis PCR Not Detected (NotDetected); Entamoeba histolytica PCR Not Detected (NotDetected); Enteroaggregative E.coli(EAEC) Not Detected (NotDetected); Enteropathogenic E.coli (EPEC) Not Detected (NotDetected); Enterotoxigenic E.coli (ETEC) Not Detected (NotDetected); Giardia lamblia PCR Not Detected (NotDetected); Norovirus GI/GII PCR Not Detected (NotDetected); Plesiomonas shigelloides PCR Not Detected (NotDetected); Rotavirus A PCR Not Detected (NotDetected); Salmonella PCR Not Detected (NotDetected); Sapovirus PCR Not Detected (NotDetected); Shiga-like Toxin E.coli (STEC) Not Detected (NotDetected); Shigella/Enteroinvasive E.coli Not Detected (NotDetected); Vibrio cholerae PCR Not Detected (NotDetected); Vibrio species PCR Not Detected (NotDetected); Yersinia enterocolitica PCR Not Detected (NotDetected)
[2024-03-09 04:49] LABS: Basophils # (auto) 0.12 K/uL (0.00-0.20); Basophils % (auto) 0.7 %; Eosinophils # (auto) 0.22 K/uL (0.00-0.50); Eosinophils % (auto) 1.2 %; Hematocrit (blood only) 49.5 % (37.0-47.0); Hemoglobin 16.6 g/dl (12.0-16.0); Immature Granulocytes # (auto) 0.08 K/uL (0.01-0.20); Immature Granulocytes % (auto) 0.4 %; Lymphocytes # (auto) 1.03 K/uL (1.20-3.40); Lymphocytes % (auto) 5.7 %; Mean Corpuscular Hemoglobin 27.9 pg (25.0-34.0); Mean Corpuscular Hgb Conc 33.5 g/dL (32.0-36.0); Mean Corpuscular Volume 83.1 fL (80.0-100.0); Monocytes % (auto) 5.6 %; Neutrophils # (auto) 15.55 K/uL (1.40-6.50); Neutrophils % (auto) 86.4 %; Platelet Count 241 K/uL (130-400); RDW Coefficient of Variation 15.6 % (11.5-14.5); Red Blood Count 5.96 M/uL (4.20-5.40)
[2024-03-09 05:33] LABS: BUN Creatinine Ratio 21.9 (10-20); Calcium 8.7 mg/dl (8.6-10.3); Creatinine Clr Calc Pharmacy 19.2 ml/min; Est GFR (African American) 19.1 ml/min; Est GFR (Non-African American) 16.5 ml/min; Potassium 5.8 mmol/L (3.5-5.1)
--- NOTE | 2024-03-09 05:33 | Communication Note ---
Date of Service: March 09, 2024 Late entry Notified of worsening lactic acidosis at 1130 PM, 03/08. 9.9 from 6.7 from 4 SBP 170s AP Severe sepsis SIRS + lactic acidosis Secondary to complicated UTI Rule out C. difficile given diarrhea symptoms Rhabdomyolysis Continue Zosyn, hold daptomycin given rhabdomyolysis Follow lactic acid response to increase IVF rate Stool C. difficile Flagyl 1 dose for possible C. difficile given sepsis criteria
[2024-03-09 05:50] LABS: Albumin Globulin Ratio 1.4 (0.9-2); Albumin Level 3.3 gm/dl (3.4-5.0); Bilirubin,Total 1.6 mg/dl (0.2-1.0); Globulin 2.3 gm/dl (2.5-4.0); Magnesium 3.7 mg/dl (1.7-2.4); Phosphorus 7.9 mg/dl (2.5-4.9); Total Protein 5.6 gm/dl (6.0-8.3)
[2024-03-09] MEDS: CALCIUM GLUCONATE 1,000 MG/60 ML BAG IV STA ×2 (06:04→21:39)
[2024-03-09] MEDS: SODIUM CHLORIDE 0.9% 1,000 ML IV ONE (06:05)
[2024-03-09] MEDS: SODIUM BICARB 8.4% INJ 50 MEQ/50 ML SYR IV STA (06:42)
[2024-03-09] MEDS: SODIUM CHLORIDE 0.9% 1,000 ML IV SCH (07:11)
[2024-03-09 07:47] LABS: Estimated Average Glucose 131 mg/dl; Hemoglobin A1C 6.2 % (4.5-5.6)
[2024-03-09] MEDS: DULoxetine HCL 30 MG CAP PO SCH (08:06)
[2024-03-09] MEDS: LEVOTHYROXINE SODIUM 150 MCG TABLET PO SCH (08:06)
[2024-03-09] MEDS: DULoxetine HCL 60 MG CAP PO SCH (08:06)
--- NOTE | 2024-03-09 08:50 | XRay Report ---
KUB HISTORY: abd distension, pain COMPARISON: Abdomen and pelvis CT 03/08/2024. FINDINGS: Moderate gaseous distention of the stomach. Mildly dilated gas and stool-filled colon is ag ain noted. This is similar to the prior study. This measures up to 8.7 cm in diameter. No dilated loo ps of small bowel identified. No renal calculi. No ureteral calculi. No pneumoperitoneum or pneumato sis. IMPRESSION: 1. Mildly dilated gas and stool-filled colon, unchanged. 2. No evidence for a small bowel obstruction. 3. Moderate gaseous distention of the stomach. ACT 112: Negative or not required by law. Electronically signed by: Deangelo Wright M.D. 03/09/2024 8:48 AM
[2024-03-09] MEDS ORDERED: PANTOprazole 40 MG TAB PO SCH (09:00)
[2024-03-09] MEDS: MULTI-VITAMIN INFUSION 10 ML, THIAMINE HCL 100 MG, FOLIC ACID 1 MG in SODIUM CHLORIDE 0... IV ONE (09:12)
[2024-03-09] MEDS: HYDROmorphone INJ 1 MG/ML SYRINGE IV PRN (09:12)
[2024-03-09] MEDS: PANTOprazole 40 MG in SYRINGE 0 ML IV SCH (09:12)
[2024-03-09] MEDS: THIAMINE HCL 200 MG in SODIUM CHLORIDE 0.9% 50 ML IV STA (09:12)
[2024-03-09 09:30] LABS: Base Excess VBG -10.2 mEq/L; HCO3 VBG 15 mmol/L; Oxygen Saturation VBG < 60.0 %; PCO2 VBG 29 mmHg (38-50); PO2 VBG 33 mmHg; pH VBG 7.31 (7.36-7.41)
[2024-03-09] MEDS: FUROSEMIDE 40 MG/4 ML VIAL IV ONE (09:43)
--- NOTE | 2024-03-09 09:43 | Surgery Consultation ---
Date of Consultation March 09, 2024 Assessment & Plan (1) Pancolitis: (2) Sepsis: (3) Rhabdomyolysis: (4) FRANKLIN (acute kidney injury): (5) Nausea vomiting and diarrhea: (6) Elevated lactic acid level: 78 yo female presented to ED via EMS with questionable 1 day history of nausea, vomiting, and diarrhea found on commode by friend. Found to have pancolitis with leukocytosis of 21k, lactic acid elevated at 4, severe rhabdomyolysis with FRANKLIN, elevated troponin, transaminitis, and electrolyte abnormalities. Rising lactic acid up to 9.9 overnight with increasing abdominal pain, distention, and not passing gas. KUB this am showing distended stomach and large bowel up to 8 cm. Repeat lactic acid trending down 9.9 --? 8.6 --> 6.5. NGT placed and over 700 cc dark bilious output and abdomen softer on examination. No acute surgical intervention required, recommend NGT for decompression, pain management, IV fluids, antiemetics , follow lactic acid. Given patients severe rhabdomyolysis, FRANKLIN, electrolyte abnormalities, sepsis, would consider ICU for closer monitoring. If colon continues to be distended may need rectal decompression?, await GI consultation. Discussed with Dr. Vickers who agrees with above. Supervising Physician Co-Signing Physician Notes I have seen and examined the patient and agree with the above assessment and plan. In brief this is a woman who was found on the commode by her friends. She was too weak to get off the commode. She was taken to the department where she was found to have severe electrolyte derangements, pancolitis but negative C. difficile. Leukocytosis 21. Elevated troponin, transaminitis. Rhabdomyolysis with AKA. Lactic acid was 4 peaked at 9.9 and is now down to 6.5. On exam she is tender to palpation diffusely in the abdomen but is not peritoneal. Given her improving numbers and abdominal exam, would hold off on emergent surgical intervention at this time. I strongly recommend she be transferred to the intensive care unit for closer monitoring of her multiple organ dysfunction. if possible, I would repeat the CT scan with IV and possible p.o. contrast in the next day or 2. We will continue to follow closely. History of Present Illness Reason for Consultation: acute abdomen Requesting Physician: Helder Chaudhary MD Attending Physician: Helder Chaudhary MD History of Present Illness 78 year old female with past medical history of chronic pain on chronic narcotics, diabetes type 2, hyperlipidemia, hypertension, hypothyroidism, osteoarthritis, fibromyalgia, who presented to ED via EMS. EMS reported that the friend went to check on the patient and found her stuck on the commode patient was having diarrhea, nausea, and vomiting. Unsure how long she was on commode. She was confused when she presented to ED so history is limited. She was found to have pancolitis on CT scan with FRANKLIN, rhabdomyolysis, transaminitis, elevated lactic acid, electrolyte abnormalities, and leukocytosis of 21k. I was asked to see patient this morning due to acute abdomen with increasing distention, abdominal pain , and not passing gas. Patient states she is currently feeling a lot of abdominal pain rating 9/10. ROS is limited, not great historian. Stats she did have small bowel movement when getting an xray of her abdomen not passing much gas. Has not had any pain medication. Nursing staff present in room states she has had no urine output and is on her 8th liter of fluid. Lactic acid this morning was 8.6 at 4. KUB still pending. Allergies Allergy/AdvReac Type Severity Reaction Status Date / Time sulfamethoxazole Allergy Severe Swelling Unverified 03/08/24 17:56 [From Bactrim] of Lip/Tongue/Throat AND HIVES trimethoprim [From Bactrim] Allergy Severe Swelling Unverified 03/08/24 17:56 of Lip/Tongue/Throat AND HIVES aspirin AdvReac Unknown advised to Verified 03/08/24 17:56 avoid due to hx ITP Home Medications Medication Instructions Recorded Confirmed Type biotin 1 mg tablet 1 mg PO QAM 01/10/19 03/08/24 History cholecalciferol (vitamin D3) 10 2,000 unit PO DAILY 01/10/19 03/08/24 History mcg (400 unit) tablet (Vitamin D3) coenzyme Q10 100 mg capsule 100 mg PO DAILY 01/10/19 03/08/24 History (CoQ-10) cyanocobalamin (vitamin B-12) 100 100 mcg PO DAILY 01/10/19 03/08/24 History mcg tablet (Vitamin B-12) folic acid 1 mg tablet 1 mg PO DAILY 01/10/19 03/08/24 History lutein 40 mg capsule 40 mg PO DAILY 01/10/19 03/08/24 History pantoprazole 40 mg tablet,delayed 40 mg PO DAILY 01/10/19 03/08/24 History release polyethylene glycol 3350 17 17 g PO DAILY PRN Constipation 01/10/19 03/08/24 History gram/dose oral powder (Miralax) simethicone 125 mg tablet 80 mg PO QID PRN Gi Upset 01/10/19 03/08/24 History docusate sodium 100 mg tablet 100 mg PO BID PRN Constipation 02/18/19 03/08/24 History celecoxib 200 mg capsule 200 mg PO DAILY 01/17/22 03/08/24 History morphine 15 mg tablet,extended 15 mg PO TID 01/17/22 03/08/24 History release naloxone 4 mg/actuation nasal 1 sprays intranasal DIRECTED 01/17/22 03/08/24 History spray (Narcan) pregabalin 200 mg capsule 200 mg PO TID 01/17/22 03/08/24 History levothyroxine 150 mcg tablet 150 mcg PO DAILY 01/23/22 03/08/24 History magnesium citrate 100 mg capsule 100 mg PO DAILY 01/23/22 03/08/24 History meclizine 25 mg tablet 25 mg PO TID PRN Vertigo 01/23/22 03/08/24 History metformin 500 mg tablet,extended 1,000 mg PO DAILY 01/23/22 03/08/24 History release 24 hr oxycodone-acetaminophen 5 mg-325 1 tab PO Q4H PRN Pain, Severe 01/23/22 03/08/24 History mg tablet pyridoxine (vitamin B6) 100 mg 100 mg PO DAILY 01/23/22 03/08/24 History tablet thiamine HCl (vitamin B1) 250 mg 250 mg PO DAILY 01/23/22 03/08/24 History tablet pravastatin 40 mg tablet 40 mg PO HS #30 tabs 01/26/22 03/08/24 Rx alpha lipoic acid 300 mg capsule 600 mg PO DAILY 12/18/22 03/08/24 History berberine-herbal comb no.18 capsule 1 cap PO DAILY 12/18/22 03/08/24 History duloxetine 30 mg capsule,delayed See Rx Instructions .Route .COMPLEX 07/30/23 03/08/24 History release duloxetine 60 mg capsule,delayed See Rx Instructions .Route .COMPLEX 03/08/24 03/08/24 History release hydrochlorothiazide 12.5 mg capsule 12.5 mg PO DAILY PRN Edema 03/08/24 03/08/24 History oxybutynin chloride 10 mg 10 mg PO DAILY 03/08/24 03/08/24 History tablet,extended release 24 hr oxybutynin chloride 5 mg 5 mg PO PM 03/08/24 03/08/24 History tablet,extended release 24 hr Patient History Medical History Abdominal pain Elevated liver enzymes Precordial chest pain Double vision 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; no issues since Surgical History Hx of dilation and curettage History of meniscectomy of left knee Hx of tonsillectomy Hx of total hysterectomy Hx of eye surgery corrective (as child) Family History Mother Coronary heart disease Sister Schizophrenia Social History Smoking Status: Former smoker Tobacco Type: Cigarettes Cigarettes Per Day: "long time ago"; Second Hand Exposure: No; Do You Dip or Chew Tobacco: No; Hx Alcohol Use: Yes Alcohol type: wine Alcohol Intake Frequency: 4 or More x per/Week Alcohol Intake Frequency Comment: DAILY WITH DINNER Hx Substance Use: Yes Prescribed Medications: Marijuana Last Used Substance: Unknown Substance Use Type Other:: "I have been trying medical marijuana" Preferred Language: Yi Communication Ability: Effective Visual Impairment: Limited Hearing Ability: Normal Director Heart Required: No Beliefs That Will Affect Care: None marital status: Single 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, [employer]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 Current Living Situation: Alone Current Living Situation Comment: lives at home in 2 story house - friend checks in regularly current occupational status: retired How many Children do You have: 0 Other Information That Helps Us Care for You: No Feels Safe at Home: Yes Safety Concerns: Feels Safe At This Time Diet: diabetic Diet Comment: ORGANIC Assistive Devices: Cane, Walker and Wheelchair Assistive Devices Comment: pt states she has walker and cane but "furnitrue surfs" Review of Systems Review of Systems: All systems reviewed & are unremarkable except as noted in HPI & below Physical Exam Constitutional: + obese; no acute distress, not in distr ess, not combative and not diaphoretic Looks uncomfortable due to abdominal distention and pain but not in acute distress Respiratory: normal respiratory effort; no respiratory distress, no labored breathing and no retractions Cardiovascular: Rate/Rhythm: regular rhythm and + tachycardic Heart Sounds: normal S1 and normal S2 Gastrointestinal (Abdomen): Inspection/Auscultation: + abdomen distended (moderately distended) Percussion/Palpation: + abdomen tender (generalized), + guarding (voluntary), abdomen soft and + abdomen firm (secondary to distention); abdomen not rigid She is tympaninc on percussion with generalized tenderness on palpation with guarding. Skin: no rashes, warm and dry Psychiatric: Orientation: alert and oriented x 3 Results & Data Vital Signs (Past 12 Hours) Vital Signs Temp Pulse Pulse Resp BP BP Pulse Ox 03/09/24 07:28 36.6 C 99 H 18 168/70 H 91 03/09/24 02:27 36.4 C L 93 H 18 160/67 H 92 03/09/24 02:00 94 H O2 Del Method 03/09/24 07:28 Room Air 03/09/24 02:27 Room Air 03/09/24 02:00 Laboratory Results 03/09/24 03/09/24 03/09/24 Range/Units 11:12 09:18 07:32 WBC (4.8-10.8) K/ul RBC (4.20-5.40) M/uL Hgb (12.0-16.0) g/dl Hct (37.0-47.0) % MCV (80.0-100.0) fL MCH (25.0-34.0) pg MCHC (32.0-36.0) g/dL RDW Std Deviation (36.4-46.3) fL RDW Coeff of Feng (11.5-14.5) % Plt Count (130-400) K/uL MPV (9.4-12.4) fL Immature Gran % (Auto) % Neut % (Auto) % Lymph % (Auto) % [place] % (Auto) % Eos % (Auto) % Baso % (Auto) % Neut # (Auto) (1.40-6.50) K/uL Lymph # (Auto) (1.20-3.40) K/uL [place] # (Auto) (0.11-0.59) K/uL Eos # (Auto) (0.00-0.50) K/uL Baso # (Auto) (0.00-0.20) K/uL Immature Gran # (Auto) (0.01-0.20) K/uL Hypogranular Neuts Dohle Bodies PT (9.0-12.0) Seconds INR (0.9-1.1) VBG pH 7.31 L (7.36-7.41) VBG pCO2 29 L (38-50) mmHg VBG pO2 33 mmHg VBG HCO3 15 mmol/L VBG O2 Saturation < 60.0 % VBG Base Excess -10.2 mEq/L Sodium 132 L (136-145) mmol/L Potassium 5.7 H (3.5-5.1) mmol/L Chloride 99 (98-107) mmol/L Carbon Dioxide 17 L (21-32) mmol/L Anion Gap 16 H (3-11) BUN 65 H (6-23) mg/dl Creatinine 3.07 H D (0.6-1.2) mg/dl Est Cr Clr Drug Dosing 16.7 Est GFR ( Amer) 16.3 ml/min Est GFR (Non-Af Amer) 14.1 ml/min BUN/Creatinine Ratio 21.2 H (10-20) Glucose 111 H (70-99(Fasting)) mg/dl POC Glucose 99 (70-99) mg/dl Estimat Average Glucose mg/dl Hemoglobin A1c (4.5-5.6) % Lactate Pending 6.5 H* (0.4-2.0) mmol/L Calcium 8.0 L (8.6-10.3) mg/dl Phosphorus (2.5-4.9) mg/dl Magnesium (1.7-2.4) mg/dl Total Bilirubin (0.2-1.0) mg/dl AST (13-39) U/L ALT (7-52) U/L Alkaline Phosphatase (34-104) U/L Total Creatine Kinase (26-192) U/L Troponin I High Sens (0-14) pg/ml Total Protein (6.0-8.3) gm/dl Albumin (3.4-5.0) gm/dl Globulin (2.5-4.0) gm/dl Albumin/Globulin Ratio (0.9-2) Lipase (11-82) U/L Procalcitonin (0-0.5) ng/ml TSH (0.300-4.500) uIu/ml Urine Color Urine Appearance (Clear) Urine pH (4.5-7.5) Ur Specific [place] (1.000-1.030) Urine Protein (Negative) Urine Glucose (UA) (Negative) Urine Ketones (Negative) Urine Blood (Negative) Urine Nitrite (Negative) Urine Bilirubin (Negative) Urine Urobilinogen (Negative) Ur Leukocyte Esterase (Negative) Urine WBC (Auto) (0-5) /hpf Urine RBC (Auto) (0-2) /hpf U Hyaline Cast (Auto) (0-2) /lpf U Epithel Cells (Auto) (0-2) /hpf Urine Bacteria (Auto) (None Seen) Ur Renal Epithelial Cell (None Presnt) /lpf Hyaline Casts (None Presnt) /lpf Nasal Screen MRSA (PCR) (Negative) Stl C. cayetanensis PCR (NotDetected) Stool Rotavirus A PCR (NotDetected) Stl Adenov F 40/41 PCR (NotDetected) Stool Astrovirus (PCR) (NotDetected) Stool Campylobacter PCR (NotDetected) Stl C. diff Tox B Gene (Neg) Stool Cryptosporidium PCR (NotDetected) Stl E.coli Shiga Tox PCR (NotDetected) Stl Enterotoxigenic E PCR (NotDetected) Stool EPEC (PCR) (NotDetected) Stool EAEC (PCR) (NotDetected) Stl E. histolytica PCR (NotDetected) Stool Giardia Lamblia PCR (NotDetected) Stool Salmonella PCR (NotDetected) Stool Sapovirus (PCR) (NotDetected) Stl P. shigelloides PCR (NotDetected) Stl Shigella/EIEC PCR (NotDetected) St Y.enterocolitica PCR (NotDetected) Stool Vibrio (PCR) (NotDetected) Stl Vibrio cholerae PCR (NotDetected) Stl Norovirus GI/GII PCR (NotDetected) Urine Opiates Screen (Neg) U Codeine Confrm GC/MS Ur Morphine (GC/MS) Ur Hydrocodone (GC/MS) Ur Norhydrocodone Ur Noroxycodone Urine Oxycodone (GC/MS) U Oxymorphone GC/MS Ur Methadone, Qual (Neg) Ur Hydromorphone (GC/MS) Urine Fentanyl Screen (Neg) Urine Barbiturates (Neg) Ur Phencyclidine (PCP) (Neg) U Amphetamin/Meth Scrn (Neg) MDMA (Ecstasy) Screen (Neg) U Benzodiazepines Scrn (Neg) Ur Cocaine Metabolite (Neg) U Marijuana (THC) Screen (Neg) Drug Screen Comment Ethyl Alcohol mg/dL (<10.0) mg/dl Adenovirus (PCR) (NotDetected) B. pertussis DNA (PCR) (NotDetected) B.parapertussis DNA PCR (NotDetected) C. pneumoniae DNA (PCR) (NotDetected) Coronavirus OC43 (PCR) (NotDetected) Coronavirus HKU1 (PCR) (NotDetected) Coronavirus 229E (PCR) (NotDetected) SARS-CoV-2 (PCR) (NotDetected) Coronavirus NL63 (PCR) (NotDetected) Human Metapneumovir PCR (NotDetected) Influenza Type A (PCR) (NotDetected) Influenza Type B (PCR) (NotDetected) M. pneumoniae (PCR) (NotDetected) Parainfluenza 1 (PCR) (NotDetected) Parainfluenza 2 (PCR) (NotDetected) Parainfluenza 3 (PCR) (NotDetected) Parainfluenza 4 (PCR) (NotDetected) RSV (PCR) (NotDetected) Entero/Rhino (PCR) (NotDetected) 03/09/24 03/09/24 03/08/24 Range/Units 04:13 01:51 23:34 WBC 18.00 H (4.8-10.8) K/ul RBC 5.96 H (4.20-5.40) M/uL Hgb 16.6 H (12.0-16.0) g/dl Hct 49.5 H (37.0-47.0) % MCV 83.1 (80.0-100.0) fL MCH 27.9 (25.0-34.0) pg MCHC 33.5 (32.0-36.0) g/dL RDW Std Deviation 45.0 (36.4-46.3) fL RDW Coeff of Feng 15.6 H (11.5-14.5) % Plt Count 241 (130-400) K/uL MPV 11.0 (9.4-12.4) fL Immature Gran % (Auto) 0.4 % Neut % (Auto) 86.4 % Lymph % (Auto) 5.7 % [place] % (Auto) 5.6 % Eos % (Auto) 1.2 % Baso % (Auto) 0.7 % Neut # (Auto) 15.55 H (1.40-6.50) K/uL Lymph # (Auto) 1.03 L (1.20-3.40) K/uL [place] # (Auto) 1.00 H (0.11-0.59) K/uL Eos # (Auto) 0.22 (0.00-0.50) K/uL Baso # (Auto) 0.12 (0.00-0.20) K/uL Immature Gran # (Auto) 0.08 (0.01-0.20) K/uL Hypogranular Neuts Dohle Bodies PT (9.0-12.0) Seconds INR (0.9-1.1) VBG pH (7.36-7.41) VBG pCO2 (38-50) mmHg VBG pO2 mmHg VBG HCO3 mmol/L VBG O2 Saturation % VBG Base Excess mEq/L Sodium 130 L (136-145) mmol/L Potassium 5.8 H (3.5-5.1) mmol/L Chloride 97 L (98-107) mmol/L Carbon Dioxide 13 L (21-32) mmol/L Anion Gap 20 H (3-11) BUN 59 H (6-23) mg/dl Creatinine 2.70 H D (0.6-1.2) mg/dl Est Cr Clr Drug Dosing 19.2 Est GFR ( Amer) 19.1 ml/min Est GFR (Non-Af Amer) 16.5 ml/min BUN/Creatinine Ratio 21.9 H (10-20) Glucose 127 H (70-99(Fasting)) mg/dl POC Glucose (70-99) mg/dl Estimat Average Glucose 131 mg/dl Hemoglobin A1c 6.2 H (4.5-5.6) % Lactate 8.6 H* 9.9 H* (0.4-2.0) mmol/L Calcium 8.7 (8.6-10.3) mg/dl Phosphorus 7.9 H (2.5-4.9) mg/dl Magnesium 3.7 H (1.7-2.4) mg/dl Total Bilirubin 1.6 H (0.2-1.0) mg/dl AST 633 H (13-39) U/L ALT 341 H (7-52) U/L Alkaline Phosphatase 74 (34-104) U/L Total Creatine Kinase 8853 H (26-192) U/L Troponin I High Sens 189.5 H* D 102.5 H* D (0-14) pg/ml Total Protein 5.6 L (6.0-8.3) gm/dl Albumin 3.3 L (3.4-5.0) gm/dl Globulin 2.3 L (2.5-4.0) gm/dl Albumin/Globulin Ratio 1.4 (0.9-2) Lipase (11-82) U/L Procalcitonin 51.90 H (0-0.5) ng/ml TSH (0.300-4.500) uIu/ml Urine Color Urine Appearance (Clear) Urine pH (4.5-7.5) Ur Specific [place] (1.000-1.030) Urine Protein (Negative) Urine Glucose (UA) (Negative) Urine Ketones (Negative) Urine Blood (Negative) Urine Nitrite (Negative) Urine Bilirubin (Negative) Urine Urobilinogen (Negative) Ur Leukocyte Esterase (Negative) Urine WBC (Auto) (0-5) /hpf Urine RBC (Auto) (0-2) /hpf U Hyaline Cast (Auto) (0-2) /lpf U Epithel Cells (Auto) (0-2) /hpf Urine Bacteria (Auto) (None Seen) Ur Renal Epithelial Cell (None Presnt) /lpf Hyaline Casts (None Presnt) /lpf Nasal Screen MRSA (PCR) (Negative) Stl C. cayetanensis PCR Not Detected (NotDetected) Stool Rotavirus A PCR Not Detected (NotDetected) Stl Adenov F 40/41 PCR Not Detected (NotDetected) Stool Astrovirus (PCR) Not Detected (NotDetected) Stool Campylobacter PCR Not Detected (NotDetected) Stl C. diff Tox B Gene Negative Cdiff Gene (Neg) Stool Cryptosporidium PCR Not Detected (NotDetected) Stl E.coli Shiga Tox PCR Not Detected (NotDetected) Stl Enterotoxigenic E PCR Not Detected (NotDetected) Stool EPEC (PCR) Not Detected (NotDetected) Stool EAEC (PCR) Not Detected (NotDetected) Stl E. histolytica PCR Not Detected (NotDetected) Stool Giardia Lamblia PCR Not Detected (NotDetected) Stool Salmonella PCR Not Detected (NotDetected) Stool Sapovirus (PCR) Not Detected (NotDetected) Stl P. shigelloides PCR Not Detected (NotDetected) Stl Shigella/EIEC PCR Not Detected (NotDetected) St Y.enterocolitica PCR Not Detected (NotDetected) Stool Vibrio (PCR) Not Detected (NotDetected) Stl Vibrio cholerae PCR Not Detected (NotDetected) Stl Norovirus GI/GII PCR Not Detected (NotDetected) Urine Opiates Screen (Neg) U Codeine Confrm GC/MS Ur Morphine (GC/MS) Ur Hydrocodone (GC/MS) Ur Norhydrocodone Ur Noroxycodone Urine Oxycodone (GC/MS) U Oxymorphone GC/MS Ur Methadone, Qual (Neg) Ur Hydromorphone (GC/MS) Urine Fentanyl Screen (Neg) Urine Barbiturates (Neg) Ur Phencyclidine (PCP) (Neg) U Amphetamin/Meth Scrn (Neg) MDMA (Ecstasy) Screen (Neg) U Benzodiazepines Scrn (Neg) Ur Cocaine Metabolite (Neg) U Marijuana (THC) Screen (Neg) Drug Screen Comment Ethyl Alcohol mg/dL (<10.0) mg/dl Adenovirus (PCR) (NotDetected) B. pertussis DNA (PCR) (NotDetected) B.parapertussis DNA PCR (NotDetected) C. pneumoniae DNA (PCR) (NotDetected) Coronavirus OC43 (PCR) (NotDetected) Coronavirus HKU1 (PCR) (NotDetected) Coronavirus 229E (PCR) (NotDetected) SARS-CoV-2 (PCR) (NotDetected) Coronavirus NL63 (PCR) (NotDetected) Human Metapneumovir PCR (NotDetected) Influenza Type A (PCR) (NotDetected) Influenza Type B (PCR) (NotDetected) M. pneumoniae (PCR) (NotDetected) Parainfluenza 1 (PCR) (NotDetected) Parainfluenza 2 (PCR) (NotDetected) Parainfluenza 3 (PCR) (NotDetected) Parainfluenza 4 (PCR) (NotDetected) RSV (PCR) (NotDetected) Entero/Rhino (PCR) (NotDetected) 03/08/24 03/08/24 03/08/24 Range/Units 21:36 19:24 19:04 WBC (4.8-10.8) K/ul RBC (4.20-5.40) M/uL Hgb (12.0-16.0) g/dl Hct (37.0-47.0) % MCV (80.0-100.0) fL MCH (25.0-34.0) pg MCHC (32.0-36.0) g/dL RDW Std Deviation (36.4-46.3) fL RDW Coeff of Feng (11.5-14.5) % Plt Count (130-400) K/uL MPV (9.4-12.4) fL Immature Gran % (Auto) % Neut % (Auto) % Lymph % (Auto) % [place] % (Auto) % Eos % (Auto) % Baso % (Auto) % Neut # (Auto) (1.40-6.50) K/uL Lymph # (Auto) (1.20-3.40) K/uL [place] # (Auto) (0.11-0.59) K/uL Eos # (Auto) (0.00-0.50) K/uL Baso # (Auto) (0.00-0.20) K/uL Immature Gran # (Auto) (0.01-0.20) K/uL Hypogranular Neuts Dohle Bodies PT (9.0-12.0) Seconds INR (0.9-1.1) VBG pH (7.36-7.41) VBG pCO2 (38-50) mmHg VBG pO2 mmHg VBG HCO3 mmol/L VBG O2 Saturation % VBG Base Excess mEq/L Sodium (136-145) mmol/L Potassium (3.5-5.1) mmol/L Chloride (98-107) mmol/L Carbon Dioxide (21-32) mmol/L Anion Gap (3-11) BUN (6-23) mg/dl Creatinine (0.6-1.2) mg/dl Est Cr Clr Drug Dosing Est GFR ( Amer) ml/min Est GFR (Non-Af Amer) ml/min BUN/Creatinine Ratio (10-20) Glucose (70-99(Fasting)) mg/dl POC Glucose 136 H (70-99) mg/dl Estimat Average Glucose mg/dl Hemoglobin A1c (4.5-5.6) % Lactate 6.7 H* (0.4-2.0) mmol/L Calcium (8.6-10.3) mg/dl Phosphorus (2.5-4.9) mg/dl Magnesium (1.7-2.4) mg/dl Total Bilirubin (0.2-1.0) mg/dl AST (13-39) U/L ALT (7-52) U/L Alkaline Phosphatase (34-104) U/L Total Creatine Kinase (26-192) U/L Troponin I High Sens (0-14) pg/ml Total Protein (6.0-8.3) gm/dl Albumin (3.4-5.0) gm/dl Globulin (2.5-4.0) gm/dl Albumin/Globulin Ratio (0.9-2) Lipase (11-82) U/L Procalcitonin (0-0.5) ng/ml TSH (0.300-4.500) uIu/ml Urine Color Urine Appearance (Clear) Urine pH (4.5-7.5) Ur Specific [place] (1.000-1.030) Urine Protein (Negative) Urine Glucose (UA) (Negative) Urine Ketones (Negative) Urine Blood (Negative) Urine Nitrite (Negative) Urine Bilirubin (Negative) Urine Urobilinogen (Negative) Ur Leukocyte Esterase (Negative) Urine WBC (Auto) (0-5) /hpf Urine RBC (Auto) (0-2) /hpf U Hyaline Cast (Auto) (0-2) /lpf U Epithel Cells (Auto) (0-2) /hpf Urine Bacteria (Auto) (None Seen) Ur Renal Epithelial Cell (None Presnt) /lpf Hyaline Casts (None Presnt) /lpf Nasal Screen MRSA (PCR) Negative (Negative) Stl C. cayetanensis PCR (NotDetected) Stool Rotavirus A PCR (NotDetected) Stl Adenov F 40/41 PCR (NotDetected) Stool Astrovirus (PCR) (NotDetected) Stool Campylobacter PCR (NotDetected) Stl C. diff Tox B Gene (Neg) Stool Cryptosporidium PCR (NotDetected) Stl E.coli Shiga Tox PCR (NotDetected) Stl Enterotoxigenic E PCR (NotDetected) Stool EPEC (PCR) (NotDetected) Stool EAEC (PCR) (NotDetected) Stl E. histolytica PCR (NotDetected) Stool Giardia Lamblia PCR (NotDetected) Stool Salmonella PCR (NotDetected) Stool Sapovirus (PCR) (NotDetected) Stl P. shigelloides PCR (NotDetected) Stl Shigella/EIEC PCR (NotDetected) St Y.enterocolitica PCR (NotDetected) Stool Vibrio (PCR) (NotDetected) Stl Vibrio cholerae PCR (NotDetected) Stl Norovirus GI/GII PCR (NotDetected) Urine Opiates Screen (Neg) U Codeine Confrm GC/MS Ur Morphine (GC/MS) Ur Hydrocodone (GC/MS) Ur Norhydrocodone Ur Noroxycodone Urine Oxycodone (GC/MS) U Oxymorphone GC/MS Ur Methadone, Qual (Neg) Ur Hydromorphone (GC/MS) Urine Fentanyl Screen (Neg) Urine Barbiturates (Neg) Ur Phencyclidine (PCP) (Neg) U Amphetamin/Meth Scrn (Neg) MDMA (Ecstasy) Screen (Neg) U Benzodiazepines Scrn (Neg) Ur Cocaine Metabolite (Neg) U Marijuana (THC) Screen (Neg) Drug Screen Comment Ethyl Alcohol mg/dL (<10.0) mg/dl Adenovirus (PCR) (NotDetected) B. pertussis DNA (PCR) (NotDetected) B.parapertussis DNA PCR (NotDetected) C. pneumoniae DNA (PCR) (NotDetected) Coronavirus OC43 (PCR) (NotDetected) Coronavirus HKU1 (PCR) (NotDetected) Coronavirus 229E (PCR) (NotDetected) SARS-CoV-2 (PCR) (NotDetected) Coronavirus NL63 (PCR) (NotDetected) Human Metapneumovir PCR (NotDetected) Influenza Type A (PCR) (NotDetected) Influenza Type B (PCR) (NotDetected) M. pneumoniae (PCR) (NotDetected) Parainfluenza 1 (PCR) (NotDetected) Parainfluenza 2 (PCR) (NotDetected) Parainfluenza 3 (PCR) (NotDetected) Parainfluenza 4 (PCR) (NotDetected) RSV (PCR) (NotDetected) Entero/Rhino (PCR) (NotDetected) 03/08/24 03/08/24 03/08/24 Range/Units 18:35 17:42 17:27 WBC (4.8-10.8) K/ul RBC (4.20-5.40) M/uL Hgb (12.0-16.0) g/dl Hct (37.0-47.0) % MCV (80.0-100.0) fL MCH (25.0-34.0) pg MCHC (32.0-36.0) g/dL RDW Std Deviation (36.4-46.3) fL RDW Coeff of Feng (11.5-14.5) % Plt Count (130-400) K/uL MPV (9.4-12.4) fL Immature Gran % (Auto) % Neut % (Auto) % Lymph % (Auto) % [place] % (Auto) % Eos % (Auto) % Baso % (Auto) % Neut # (Auto) (1.40-6.50) K/uL Lymph # (Auto) (1.20-3.40) K/uL [place] # (Auto) (0.11-0.59) K/uL Eos # (Auto) (0.00-0.50) K/uL Baso # (Auto) (0.00-0.20) K/uL Immature Gran # (Auto) (0.01-0.20) K/uL Hypogranular Neuts Dohle Bodies PT (9.0-12.0) Seconds INR (0.9-1.1) VBG pH (7.36-7.41) VBG pCO2 (38-50) mmHg VBG pO2 mmHg VBG HCO3 mmol/L VBG O2 Saturation % VBG Base Excess mEq/L Sodium (136-145) mmol/L Potassium (3.5-5.1) mmol/L Chloride (98-107) mmol/L Carbon Dioxide (21-32) mmol/L Anion Gap (3-11) BUN (6-23) mg/dl Creatinine (0.6-1.2) mg/dl Est Cr Clr Drug Dosing Est GFR ( Amer) ml/min Est GFR (Non-Af Amer) ml/min BUN/Creatinine Ratio (10-20) Glucose (70-99(Fasting)) mg/dl POC Glucose (70-99) mg/dl Estimat Average Glucose mg/dl Hemoglobin A1c (4.5-5.6) % Lactate (0.4-2.0) mmol/L Calcium (8.6-10.3) mg/dl Phosphorus (2.5-4.9) mg/dl Magnesium (1.7-2.4) mg/dl Total Bilirubin (0.2-1.0) mg/dl AST (13-39) U/L ALT (7-52) U/L Alkaline Phosphatase (34-104) U/L Total Creatine Kinase (26-192) U/L Troponin I High Sens 58.8 H* (0-14) pg/ml Total Protein (6.0-8.3) gm/dl Albumin (3.4-5.0) gm/dl Globulin (2.5-4.0) gm/dl Albumin/Globulin Ratio (0.9-2) Lipase 152 H (11-82) U/L Procalcitonin (0-0.5) ng/ml TSH (0.300-4.500) uIu/ml Urine Color Dark Yellow Urine Appearance Cloudy A (Clear) Urine pH 5.5 (4.5-7.5) Ur Specific [place] 1.020 (1.000-1.030) Urine Protein 3+ H (Negative) Urine Glucose (UA) Negative (Negative) Urine Ketones Negative (Negative) Urine Blood Negative (Negative) Urine Nitrite Positive A (Negative) Urine Bilirubin 1+ H (Negative) Urine Urobilinogen Negative (Negative) Ur Leukocyte Esterase 1+ H (Negative) Urine WBC (Auto) 6-10 H (0-5) /hpf Urine RBC (Auto) 0-2 (0-2) /hpf U Hyaline Cast (Auto) 11-20 H (0-2) /lpf U Epithel Cells (Auto) 6-10 H (0-2) /hpf Urine Bacteria (Auto) 1+ H (None Seen) Ur Renal Epithelial Cell Present A (None Presnt) /lpf Hyaline Casts P (None Presnt) /lpf Nasal Screen MRSA (PCR) (Negative) Stl C. cayetanensis PCR (NotDetected) Stool Rotavirus A PCR (NotDetected) Stl Adenov F 40/41 PCR (NotDetected) Stool Astrovirus (PCR) (NotDetected) Stool Campylobacter PCR (NotDetected) Stl C. diff Tox B Gene (Neg) Stool Cryptosporidium PCR (NotDetected) Stl E.coli Shiga Tox PCR (NotDetected) Stl Enterotoxigenic E PCR (NotDetected) Stool EPEC (PCR) (NotDetected) Stool EAEC (PCR) (NotDetected) Stl E. histolytica PCR (NotDetected) Stool Giardia Lamblia PCR (NotDetected) Stool Salmonella PCR (NotDetected) Stool Sapovirus (PCR) (NotDetected) Stl P. shigelloides PCR (NotDetected) Stl Shigella/EIEC PCR (NotDetected) St Y.enterocolitica PCR (NotDetected) Stool Vibrio (PCR) (NotDetected) Stl Vibrio cholerae PCR (NotDetected) Stl Norovirus GI/GII PCR (NotDetected) Urine Opiates Screen Pos H (Neg) U Codeine Confrm GC/MS Pending Ur Morphine (GC/MS) Pending Ur Hydrocodone (GC/MS) Pending Ur Norhydrocodone Pending Ur Noroxycodone Pending Urine Oxycodone (GC/MS) Pending U Oxymorphone GC/MS Pending Ur Methadone, Qual Neg (Neg) Ur Hydromorphone (GC/MS) Pending Urine Fentanyl Screen Neg (Neg) Urine Barbiturates Neg (Neg) Ur Phencyclidine (PCP) Neg (Neg) U Amphetamin/Meth Scrn Neg (Neg) MDMA (Ecstasy) Screen Neg (Neg) U Benzodiazepines Scrn Neg (Neg) Ur Cocaine Metabolite Neg (Neg) U Marijuana (THC) Screen Neg (Neg) Drug Screen Comment Pending Ethyl Alcohol mg/dL (<10.0) mg/dl Adenovirus (PCR) Not Detected (NotDetected) B. pertussis DNA (PCR) Not Detected (NotDetected) B.parapertussis DNA PCR Not Detected (NotDetected) C. pneumoniae DNA (PCR) Not Detected (NotDetected) Coronavirus OC43 (PCR) Not Detected (NotDetected) Coronavirus HKU1 (PCR) Not Detected (NotDetected) Coronavirus 229E (PCR) Not Detected (NotDetected) SARS-CoV-2 (PCR) Not Detected (NotDetected) Coronavirus NL63 (PCR) Not Detected (NotDetected) Human Metapneumovir PCR Not Detected (NotDetected) Influenza Type A (PCR) Not Detected (NotDetected) Influenza Type B (PCR) Not Detected (NotDetected) M. pneumoniae (PCR) Not Detected (NotDetected) Parainfluenza 1 (PCR) Not Detected (NotDetected) Parainfluenza 2 (PCR) Not Detected (NotDetected) Parainfluenza 3 (PCR) Not Detected (NotDetected) Parainfluenza 4 (PCR) Not Detected (NotDetected) RSV (PCR) Not Detected (NotDetected) Entero/Rhino (PCR) Not Detected (NotDetected) 03/08/24 03/08/24 Range/Units 16:44 16:24 WBC 21.09 H (4.8-10.8) K/ul RBC 6.42 H (4.20-5.40) M/uL Hgb 18.0 H (12.0-16.0) g/dl Hct 53.7 H (37.0-47.0) % MCV 83.6 (80.0-100.0) fL MCH 28.0 (25.0-34.0) pg MCHC 33.5 (32.0-36.0) g/dL RDW Std Deviation 43.7 (36.4-46.3) fL RDW Coeff of Feng 14.9 H (11.5-14.5) % Plt Count 244 (130-400) K/uL MPV 11.0 (9.4-12.4) fL Immature Gran % (Auto) 0.6 % Neut % (Auto) 87.6 % Lymph % (Auto) 3.6 % [place] % (Auto) 7.8 % Eos % (Auto) 0.0 % Baso % (Auto) 0.4 % Neut # (Auto) 18.47 H (1.40-6.50) K/uL Lymph # (Auto) 0.76 L (1.20-3.40) K/uL [place] # (Auto) 1.65 H (0.11-0.59) K/uL Eos # (Auto) 0.00 (0.00-0.50) K/uL Baso # (Auto) 0.09 (0.00-0.20) K/uL Immature Gran # (Auto) 0.12 (0.01-0.20) K/uL Hypogranular Neuts Occasional Dohle Bodies 1+ PT 12.1 H (9.0-12.0) Seconds INR 1.1 (0.9-1.1) VBG pH (7.36-7.41) VBG pCO2 (38-50) mmHg VBG pO2 mmHg VBG HCO3 mmol/L VBG O2 Saturation % VBG Base Excess mEq/L Sodium 133 L (136-145) mmol/L Potassium 4.9 (3.5-5.1) mmol/L Chloride 98 (98-107) mmol/L Carbon Dioxide 17 L (21-32) mmol/L Anion Gap 18 H (3-11) BUN 43 H (6-23) mg/dl Creatinine 2.15 H (0.6-1.2) mg/dl Est Cr Clr Drug Dosing Not Reportable Est GFR ( Amer) 25.1 ml/min Est GFR (Non-Af Amer) 21.7 ml/min BUN/Creatinine Ratio 20.0 (10-20) Glucose 169 H (70-99(Fasting)) mg/dl POC Glucose (70-99) mg/dl Estimat Average Glucose mg/dl Hemoglobin A1c (4.5-5.6) % Lactate 4.0 H* (0.4-2.0) mmol/L Calcium 9.0 (8.6-10.3) mg/dl Phosphorus (2.5-4.9) mg/dl Magnesium 4.1 H (1.7-2.4) mg/dl Total Bilirubin 1.6 H (0.2-1.0) mg/dl AST 177 H (13-39) U/L ALT 53 H (7-52) U/L Alkaline Phosphatase 75 (34-104) U/L Total Creatine Kinase 6644 H (26-192) U/L Troponin I High Sens 49.2 H (0-14) pg/ml Total Protein 6.5 (6.0-8.3) gm/dl Albumin 3.8 (3.4-5.0) gm/dl Globulin 2.7 (2.5-4.0) gm/dl Albumin/Globulin Ratio 1.4 (0.9-2) Lipase (11-82) U/L Procalcitonin 43.50 H (0-0.5) ng/ml TSH 0.675 (0.300-4.500) uIu/ml Urine Color Urine Appearance (Clear) Urine pH (4.5-7.5) Ur Specific [place] (1.000-1.030) Urine Protein (Negative) Urine Glucose (UA) (Negative) Urine Ketones (Negative) Urine Blood (Negative) Urine Nitrite (Negative) Urine Bilirubin (Negative) Urine Urobilinogen (Negative) Ur Leukocyte Esterase (Negative) Urine WBC (Auto) (0-5) /hpf Urine RBC (Auto) (0-2) /hpf U Hyaline Cast (Auto) (0-2) /lpf U Epithel Cells (Auto) (0-2) /hpf Urine Bacteria (Auto) (None Seen) Ur Renal Epithelial Cell (None Presnt) /lpf Hyaline Casts (None Presnt) /lpf Nasal Screen MRSA (PCR) (Negative) Stl C. cayetanensis PCR (NotDetected) Stool Rotavirus A PCR (NotDetected) Stl Adenov F 40/41 PCR (NotDetected) Stool Astrovirus (PCR) (NotDetected) Stool Campylobacter PCR (NotDetected) Stl C. diff Tox B Gene (Neg) Stool Cryptosporidium PCR (NotDetected) Stl E.coli Shiga Tox PCR (NotDetected) Stl Enterotoxigenic E PCR (NotDetected) Stool EPEC (PCR) (NotDetected) Stool EAEC (PCR) (NotDetected) Stl E. histolytica PCR (NotDetected) Stool Giardia Lamblia PCR (NotDetected) Stool Salmonella PCR (NotDetected) Stool Sapovirus (PCR) (NotDetected) Stl P. shigelloides PCR (NotDetected) Stl Shigella/EIEC PCR (NotDetected) St Y.enterocolitica PCR (NotDetected) Stool Vibrio (PCR) (NotDetected) Stl Vibrio cholerae PCR (NotDetected) Stl Norovirus GI/GII PCR (NotDetected) Urine Opiates Screen (Neg) U Codeine Confrm GC/MS Ur Morphine (GC/MS) Ur Hydrocodone (GC/MS) Ur Norhydrocodone Ur Noroxycodone Urine Oxycodone (GC/MS) U Oxymorphone GC/MS Ur Methadone, Qual (Neg) Ur Hydromorphone (GC/MS) Urine Fentanyl Screen (Neg) Urine Barbiturates (Neg) Ur Phencyclidine (PCP) (Neg) U Amphetamin/Meth Scrn (Neg) MDMA (Ecstasy) Screen (Neg) U Benzodiazepines Scrn (Neg) Ur Cocaine Metabolite (Neg) U Marijuana (THC) Screen (Neg) Drug Screen Comment Ethyl Alcohol mg/dL < 10.0 (<10.0) mg/dl Adenovirus (PCR) (NotDetected) B. pertussis DNA (PCR) (NotDetected) B.parapertussis DNA PCR (NotDetected) C. pneumoniae DNA (PCR) (NotDetected) Coronavirus OC43 (PCR) (NotDetected) Coronavirus HKU1 (PCR) (NotDetected) Coronavirus 229E (PCR) (NotDetected) SARS-CoV-2 (PCR) (NotDetected) Coronavirus NL63 (PCR) (NotDetected) Human Metapneumovir PCR (NotDetected) Influenza Type A (PCR) (NotDetected) Influenza Type B (PCR) (NotDetected) M. pneumoniae (PCR) (NotDetected) Parainfluenza 1 (PCR) (NotDetected) Parainfluenza 2 (PCR) (NotDetected) Parainfluenza 3 (PCR) (NotDetected) Parainfluenza 4 (PCR) (NotDetected) RSV (PCR) (NotDetected) Entero/Rhino (PCR) (NotDetected) Diagnostic Findings ABDOMEN AND PELVIS CT WITHOUT CONTRAST HISTORY: Acute left lower quadrant abdominal pain LLQ abd pain; diarrhea TECHNIQUE: Multiaxial CT images of the abdomen and pelvis were performed without contrast. A dose lowering technique was utilized adhering to the principles of ALARA. COMPARISON STUDY: 12/10/2023. FINDINGS: 4 mm left lower lobe and 3 mm inferior segment lingula as solid pulmonary nodules were not clearly seen on prior. No free air. Unenhanced s pleen, atrophic pancreas and adrenal glands appear unchanged. 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 Unremarkable unenhanced liver. Distended gallbladder without definite wall thickening. Punctate nonobstructing right renal calculus. No hydronephrosis. Small exophytic cyst of the inferior pole left kidney. Decompressed urinary bladder with wall thickening. Hysterectomy. Atherosclerosis of the aorta. Distended stomach. No small bowel obstruction. The majority of the large bowel and rectum is distended and fluid-filled with diffuse wall thickening and pericolonic inflammatory stra nding. Normal appendix. Unremarkable soft tissues. 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 No acute fracture. IMPRESSION: 1. Findings compatible with a nonspecific nonspecific pancolitis, likely infectious or inflammatory. 2. No bowel obstruction, pneumatosis or pneumoperitoneum. 3. Distended gallbladder. 4. Punctate right renal calculus. Exam(s): US GALLBLADDER EXAM: US Abdomen Limited, Right Upper Quadrant CLINICAL HISTORY: Reason for exam: abd pain. TECHNIQUE: Real-time ultrasound of the right upper quadrant with image documentation. COMPARISON: CT abdomen pelvis March 08, 2024 FINDINGS: Liver: Liver measures 15.3 cm. Somewhat heterogeneous. No focal lesion. Gallbladder: Gallbladder distended. No stones or wall thickening. Negative Hahn sign. Common bile duct: Common bile duct nondilated measuring 4 mm. Pancreas: Unremarkable as visualized. Right kidney: No hydronephrosis in the right kidney. IMPRESSION: Distended gallbladder. No cholelithiasis or evidence of acute cholecystitis. KUB HISTORY: abd distension, pain COMPARISON: Abdomen and pelvis CT 03/08/2024. FINDINGS: Moderate gaseous distention of the stomach. Mildly dilated gas and stool-filled colon is again noted. This is similar to the prior study. This measures up to 8.7 cm in diameter. No dilated loops of small bowel identified. No renal calculi. No ureteral calculi. No pneumoperitoneum or pneumatosis. IMPRESSION: 1. Mildly dilated gas and stool-filled colon, unchanged. 2. No evidence for a small bowel obstruction. 3. Moderate gaseous distention of the stomach.
--- NOTE | 2024-03-09 09:44 | XRay Report ---
XR chest 1V portable HISTORY: Post NG tube placement COMPARISON: Chest 03/08/2024. FINDINGS: No pneumothorax. No pleural effusions. No focal lung consolidations to suggest a pneumonia. No evidence for pulmonary edema. The heart is normal in size. Nasogastric tube terminates below the diaphragm is likely within the stomach. The tip is not included on this study. IMPRESSION: Nasogastric tube terminates below the diaphragm is likely within the stomach. The tip is not included on this study. Therefore, this is considered to be in good position. ACT 112: Negative or not required by law. Electronically signed by: Deangelo Wright M.D. 03/09/2024 9:42 AM
[2024-03-09 09:56] LABS: Potassium 5.7 mmol/L (3.5-5.1)
[2024-03-09 10:05] LABS: BUN Creatinine Ratio 21.2 (10-20); Creatinine Clr Calc Pharmacy 16.7 ml/min; Est GFR (African American) 16.3 ml/min; Est GFR (Non-African American) 14.1 ml/min
--- NOTE | 2024-03-09 10:24 | Nephrology Consultation ---
Date of Consultation March 09, 2024 Assessment & Plan (1) FRANKLIN (acute kidney injury): FRANKLIN in the setting of Acute rhabdo. Unfortunately rhabdo is severe despite not so impressive initial total CK. given her age, gender, baseline health she does not need a really massive CK to have this no urine after 8 liters of Iv fluid. cannot give aggressively anymore. but with rising K ( usually the first problem to deal) have to give bicarb drip to delay the dialysis. Dropping Ca++, rising Creat ( rising about 2 per day), rising K, rising LFT are all bad features of Severe rhabdo and she has it all. urine sediment is consistent with ATN with lots of epithelial cells as well as hyaline cast. at this rate she will almost certainly need dialysis within next 36---48 hrs. her BP is good so she can have Conventional HD if needed. Stop metformin, Celebrex, JANET/ARB, Lyrica. She is too many meds. Unless Critical Stop all her meds. She is NPO anyway. Can give iv Opioids given her baseline use. but at this point the most difficult thing to manage would be the hyperkalemia which unfortunately is very likely to get worse and we need to be proactive and avoid all potassium containing liquids including Ringer lactate. and as aggressively managed medically as possible. dextrose insulin bicarb drip and Lokelma when allowed p.o. (2) Rhabdomyolysis: primary issue here. No clear h/o fall but maybe she did and does not remember. (3) Sepsis: High WBC and high lactic Acid. Both are dropping and BP is good so that is good. (4) Metabolic acidosis: Will start Bicarb drip for this. lactic acidosis still present although the lactic acid level is dropping. (5) Hypermagnesemia: Sec to taking Mag tabs and FRANKLIN pre admission. mag is trending now and needs to be tracked. Mag check BID (6) Hyponatremia: She has h/o Hyponatremia but was still on HCTZ. Should never be used ever again. Currently stable. But low na is expected with such severe anuric FRANKLIN. (7) Transaminitis: Rising Liver enzymes again expected with Acute Rhabdo and Severe Anuric FRANKLIN. needs at least twice daily LFT. NAC can be given but she really should not be getting too much iv fluid given anuric. More important to give bicarb. Plan very complex patient involving multiple systems. Reviewed multiple specialists notes including General Surgery Gastroenterology. time spent total of 80 mins. Plan discussed with Primary team and in agreement. History of Present Illness Reason for Consultation: FRANKLIN with Rhabdomyolysis Attending Physician: Helder Chaudhary MD History of Present Illness 78/F with long standing DM II, peripheral neuropathy, chronic pain on chronic narcotics, PVD with h/o MRSA Infection, hypothyroidism, depression and others listed below presented to ER for generalized weakness, N/V/D. found to have FRANKLIN with Acute Rhabdo. got 8 liters fluid already and still no urine.Then just got 100 iv lasix but so far no urine. Creat rising rapidly, K is rising and Ca is dropping as expected in severe Rhabdo. CT abdomen shows park colitis and is currently NPO For the last few days she had chills, ? fever , generalized weakness, nausea vomiting and diarrhea. Patient was found by friend sitting on toilet with reported diarrhea noted in bathroom. Patient unsure how long was sitting on toilet as is having trouble recalling events. Reports chronic pain with worst pain being in bilateral upper and lower extremities. Is on chronic morphine, Percocet and pregabalin. Denies DELCID, dizziness, neck pain, CP, palpitations, cough, paresthesias, weakness, extremity weakness, extremity edema, rashes, urinary symptoms. Denies recent travel or known ill contacts. ROS--see HPI. She had n,v,d,abd pain, weakness. 12 systems reviewed and negative Physical Exam Physical Exam: General: no acute distress, Speech is slow with difficulty remembering things. Head: normocephalic, atraumatic ENT: normal inspection external ears, nose, mucous membranes dry Neck: supple, trachea midline Lungs: clear, no respiratory distress, no wheezing/rhonchi/rales CV: RRR, no murmur, no pretibial edema Abd: normal BS, soft, +diffuse tenderness to palpation Ext: clear skin signs of PVD. Dusky red Skin b/l Neuro: Alert, oriented to person, place and time, difficulty remembering events .no focal deficits noted, appears to have normal affect Allergies Allergy/AdvReac Type Severity Reaction Status Date / Time sulfamethoxazole Allergy Severe Swelling Unverified 03/08/24 17:56 [From Bactrim] of Lip/Tongue/Throat AND HIVES trimethoprim [From Bactrim] Allergy Severe Swelling Unverified 03/08/24 17:56 of Lip/Tongue/Throat AND HIVES aspirin AdvReac Unknown advised to Verified 03/08/24 17:56 avoid due to hx ITP Home Medications Medication Instructions Recorded Confirmed Type biotin 1 mg tablet 1 mg PO QAM 01/10/19 03/08/24 History cholecalciferol (vitamin D3) 10 2,000 unit PO DAILY 01/10/19 03/08/24 History mcg (400 unit) tablet (Vitamin D3) coenzyme Q10 100 mg capsule 100 mg PO DAILY 01/10/19 03/08/24 History (CoQ-10) cyanocobalamin (vitamin B-12) 100 100 mcg PO DAILY 01/10/19 03/08/24 History mcg tablet (Vitamin B-12) folic acid 1 mg tablet 1 mg PO DAILY 01/10/19 03/08/24 History lutein 40 mg capsule 40 mg PO DAILY 01/10/19 03/08/24 History pantoprazole 40 mg tablet,delayed 40 mg PO DAILY 01/10/19 03/08/24 History release polyethylene glycol 3350 17 17 g PO DAILY PRN Constipation 01/10/19 03/08/24 History gram/dose oral powder (Miralax) simethicone 125 mg tablet 80 mg PO QID PRN Gi Upset 01/10/19 03/08/24 History docusate sodium 100 mg tablet 100 mg PO BID PRN Constipation 02/18/19 03/08/24 History celecoxib 200 mg capsule 200 mg PO DAILY 01/17/22 03/08/24 History morphine 15 mg tablet,extended 15 mg PO TID 01/17/22 03/08/24 History release naloxone 4 mg/actuation nasal 1 sprays intranasal DIRECTED 01/17/22 03/08/24 History spray (Narcan) pregabalin 200 mg capsule 200 mg PO TID 01/17/22 03/08/24 History levothyroxine 150 mcg tablet 150 mcg PO DAILY 01/23/22 03/08/24 History magnesium citrate 100 mg capsule 100 mg PO DAILY 01/23/22 03/08/24 History meclizine 25 mg tablet 25 mg PO TID PRN Vertigo 01/23/22 03/08/24 History metformin 500 mg tablet,extended 1,000 mg PO DAILY 01/23/22 03/08/24 History release 24 hr oxycodone-acetaminophen 5 mg-325 1 tab PO Q4H PRN Pain, Severe 01/23/22 03/08/24 History mg tablet pyridoxine (vitamin B6) 100 mg 100 mg PO DAILY 01/23/22 03/08/24 History tablet thiamine HCl (vitamin B1) 250 mg 250 mg PO DAILY 01/23/22 03/08/24 History tablet pravastatin 40 mg tablet 40 mg PO HS #30 tabs 01/26/22 03/08/24 Rx alpha lipoic acid 300 mg capsule 600 mg PO DAILY 12/18/22 03/08/24 History berberine-herbal comb no.18 capsule 1 cap PO DAILY 12/18/22 03/08/24 History duloxetine 30 mg capsule,delayed See Rx Instructions .Route .COMPLEX 07/30/23 03/08/24 History release duloxetine 60 mg capsule,delayed See Rx Instructions .Route .COMPLEX 03/08/24 03/08/24 History release hydrochlorothiazide 12.5 mg capsule 12.5 mg PO DAILY PRN Edema 03/08/24 03/08/24 History oxybutynin chloride 10 mg 10 mg PO DAILY 03/08/24 03/08/24 History tablet,extended release 24 hr oxybutynin chloride 5 mg 5 mg PO PM 03/08/24 03/08/24 History tablet,extended release 24 hr Patient History Medical History Abdominal pain Elevated liver enzymes Precordial chest pain Double vision 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; no issues since Surgical History Hx of dilation and curettage History of meniscectomy of left knee Hx of tonsillectomy Hx of total hysterectomy Hx of eye surgery corrective (as child) Family History Mother Coronary heart disease Sister Schizophrenia Social History Smoking Status: Former smoker Tobacco Type: Cigarettes Cigarettes Per Day: "long time ago"; Second Hand Exposure: No; Do You Dip or Chew Tobacco: No; Hx Alcohol Use: Yes Alcohol type: wine Alcohol Intake Frequency: 4 or More x per/Week Alcohol Intake Frequency Comment: DAILY WITH DINNER Hx Substance Use: Yes Prescribed Medications: Marijuana Last Used Substance: Unknown Substance Use Type Other:: "I have been trying medical marijuana" Preferred Language: Liberian Communication Ability: Effective Visual Impairment: Limited Hearing Ability: Normal Tube Molder Fiberglass Required: No Beliefs That Will Affect Care: None marital status: Single 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, [employer] Current Living Situation: Alone Current Living Situation Comment: lives at home in 2 story house - friend checks in regularly current occupational status: retired How many Children do You have: 0 Other Information That Helps Us Care for You: No Feels Safe at Home: Yes Safety Concerns: Feels Safe At This Time Diet: diabetic Diet Comment: ORGANIC Assistive Devices: Cane and Walker Assistive Devices Comment: pt states she has walker and cane but "furnitrue surfs" Results & Data Vital Signs (Past 12 Hours) Vital Signs Temp Pulse Pulse Resp BP BP Pulse Ox 03/09/24 07:28 36.6 C 99 H 18 168/70 H 91 03/09/24 02:27 36.4 C L 93 H 18 160/67 H 92 03/09/24 02:00 94 H O2 Del Method 03/09/24 07:28 Room Air 03/09/24 02:27 Room Air 03/09/24 02:00 Laboratory Results reviewed CBC, renal panel, CK, CXR, LFT. Magnesium level urine test Diagnostic Findings CXR, CT Abdomen
[2024-03-09] MEDS ORDERED: STAT IV/IM STA (10:31)
--- NOTE | 2024-03-09 10:48 | Electrocardiogram Report ---
Test Reason : Blood Pressure : */* mmHG Vent. Rate : 83 BPM Atrial Rate : 83 BPM P-R Int : 168 ms QRS Dur : 74 ms QT Int : 346 ms P-R-T Axes : 85 74 80 degrees QTcB Int : 406 ms Normal sinus rhythm Left atrial enlargement Normal ECG When compared with ECG of 29-Jul-2023 21:51, No significant change was found Confirmed by Carlos Garcia [id number] on 03/09/2024 10:48:10 AM Referred By: Confirmed By: Carlos Garcia
--- NOTE | 2024-03-09 10:49 | Gastrointestinal Consultation ---
Date of Consultation March 09, 2024 Assessment & Plan (1) Pancolitis: Patient is a 78 year old female currently admitted with sepsis/rhabdomyolysis. Likely most of her issues stem from the rhabdomyolysis. LFTs rising and this is likely secondary to rhabdo. CT scan shown pancolitis. KUB with moderate gaseous distention of stomach and mild dilated colon. stool studies were unremarkable. No bowel movements during admission. Discussed case with Dr. Srivastava. - no need for rectal tube at this time. - continue with NG. - recommend supportive care. - Further recommendations to follow, see Dr. Srivastava's append. Supervising Physician Co-Signing Physician Notes I examined the patient and reviewed patient's chart , laboratory data and imaging studies. I agree with with assessment and plan of care as suggested by advanced practice provider. Critically ill patient with rhabdomyolysis, acute renal failure, acute ischemic colitis which is likely of ischemic etiology as stool studies are negative for infectious cause. Abdominal x-rays showed mildly dilated gas and stool-filled colon that measured up to 8.7 cm in diameter, similar to the prior study. At this point continue supportive measures. Obtain abdominal films tomorrow. Consider colonoscopy for colonic decompression if diameter of the colon increases to 12 cm. History of Present Illness Reason for Consultation: pancolitis Requesting Physician: Latricia Matos PAC Attending Physician: Helder Chaudhary MD History of Present Illness Patient is a 78 year old female with a past medical history of HTN, DM II, peripheral neuropathy, chronic pain on chronic narcotics and medical marijuana, hypothyroidism, and depression who presented to ED on 03/08 for generalized weakness, nausea, vomiting, and diarrhea. Upon work up she was admitted due to rhabdomyolysis and sepsis amongst other things. During evaluation she had a CT scan showing pancolitis that favored infectious or inflammatory etiology. stool studies were unremarkable. she denies any black stools or rectal bleeding. she tells me that she does feel somewhat better since admission. she has NG placed due to distention and it is draining green fluid. no further emesis, but she does report ongoing nausea and abdominal discomfort. she denies acid reflux. no bowel movements since admission. Nursing said surgery was questioning rectal tube placement for decompression. she has had rising transaminases and worsening renal function in the setting of rhabdomyolysis. she tells me she has had egd and colonoscopy in the past through [facility], but I do not have these records for review. Allergies Allergy/AdvReac Type Severity Reaction Status Date / Time sulfamethoxazole Allergy Severe Swelling Unverified 03/08/24 17:56 [From Bactrim] of Lip/Tongue/Throat AND HIVES trimethoprim [From Bactrim] Allergy Severe Swelling Unverified 03/08/24 17:56 of Lip/Tongue/Throat AND HIVES aspirin AdvReac Unknown advised to Verified 03/08/24 17:56 avoid due to hx ITP Home Medications Medication Instructions Recorded Confirmed Type biotin 1 mg tablet 1 mg PO QAM 01/10/19 03/08/24 History cholecalciferol (vitamin D3) 10 2,000 unit PO DAILY 01/10/19 03/08/24 History mcg (400 unit) tablet (Vitamin D3) coenzyme Q10 100 mg capsule 100 mg PO DAILY 01/10/19 03/08/24 History (CoQ-10) cyanocobalamin (vitamin B-12) 100 100 mcg PO DAILY 01/10/19 03/08/24 History mcg tablet (Vitamin B-12) folic acid 1 mg tablet 1 mg PO DAILY 01/10/19 03/08/24 History lutein 40 mg capsule 40 mg PO DAILY 01/10/19 03/08/24 History pantoprazole 40 mg tablet,delayed 40 mg PO DAILY 01/10/19 03/08/24 History release polyethylene glycol 3350 17 17 g PO DAILY PRN Constipation 01/10/19 03/08/24 History gram/dose oral powder (Miralax) simethicone 125 mg tablet 80 mg PO QID PRN Gi Upset 01/10/19 03/08/24 History docusate sodium 100 mg tablet 100 mg PO BID PRN Constipation 02/18/19 03/08/24 History celecoxib 200 mg capsule 200 mg PO DAILY 01/17/22 03/08/24 History morphine 15 mg tablet,extended 15 mg PO TID 01/17/22 03/08/24 History release naloxone 4 mg/actuation nasal 1 sprays intranasal DIRECTED 01/17/22 03/08/24 History spray (Narcan) pregabalin 200 mg capsule 200 mg PO TID 01/17/22 03/08/24 History levothyroxine 150 mcg tablet 150 mcg PO DAILY 01/23/22 03/08/24 History magnesium citrate 100 mg capsule 100 mg PO DAILY 01/23/22 03/08/24 History meclizine 25 mg tablet 25 mg PO TID PRN Vertigo 01/23/22 03/08/24 History metformin 500 mg tablet,extended 1,000 mg PO DAILY 01/23/22 03/08/24 History release 24 hr oxycodone-acetaminophen 5 mg-325 1 tab PO Q4H PRN Pain, Severe 01/23/22 03/08/24 History mg tablet pyridoxine (vitamin B6) 100 mg 100 mg PO DAILY 01/23/22 03/08/24 History tablet thiamine HCl (vitamin B1) 250 mg 250 mg PO DAILY 01/23/22 03/08/24 History tablet pravastatin 40 mg tablet 40 mg PO HS #30 tabs 01/26/22 03/08/24 Rx alpha lipoic acid 300 mg capsule 600 mg PO DAILY 12/18/22 03/08/24 History berberine-herbal comb no.18 capsule 1 cap PO DAILY 12/18/22 03/08/24 History duloxetine 30 mg capsule,delayed See Rx Instructions .Route .COMPLEX 07/30/23 03/08/24 History release duloxetine 60 mg capsule,delayed See Rx Instructions .Route .COMPLEX 03/08/24 03/08/24 History release hydrochlorothiazide 12.5 mg capsule 12.5 mg PO DAILY PRN Edema 03/08/24 03/08/24 History oxybutynin chloride 10 mg 10 mg PO DAILY 03/08/24 03/08/24 History tablet,extended release 24 hr oxybutynin chloride 5 mg 5 mg PO PM 03/08/24 03/08/24 History tablet,extended release 24 hr Patient History Medical History Abdominal pain Elevated liver enzymes Precordial chest pain Double vision 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; no issues since Surgical History Hx of dilation and curettage History of meniscectomy of left knee Hx of tonsillectomy Hx of total hysterectomy Hx of eye surgery corrective (as child) Family History Mother Coronary heart disease Sister Schizophrenia Social History Smoking Status: Former smoker Tobacco Type: Cigarettes Cigarettes Per Day: "long time ago"; Second Hand Exposure: No; Do You Dip or Chew Tobacco: No; Hx Alcohol Use: Yes Alcohol type: wine Alcohol Intake Frequency: 4 or More x per/Week Alcohol Intake Frequency Comment: DAILY WITH DINNER Hx Substance Use: Yes Prescribed Medications: Marijuana Last Used Substance: Unknown Substance Use Type Other:: "I have been trying medical marijuana" Preferred Language: Chinese Communication Ability: Effective Visual Impairment: Limited Hearing Ability: Normal Handyman Required: No Beliefs That Will Affect Care: None marital status: Single 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, [employer] Current Living Situation: Alone Current Living Situation Comment: lives at home in 2 story house - friend checks in regularly current occupational status: retired How many Children do You have: 0 Other Information That Helps Us Care for You: No Feels Safe at Home: Yes Safety Concerns: Feels Safe At This Time Diet: diabetic Diet Comment: ORGANIC Assistive Devices: Cane, Walker and Wheelchair Assistive Devices Comment: pt states she has walker and cane but "furnitrue surfs" Review of Systems Review of Systems: All systems reviewed & are unremarkable except as noted in HPI & below Physical Exam Constitutional: WD/WN, vitals as above ENMT: NG in place Respiratory: normal respiratory effort, lungs clear to auscultation Cardiovascular: Rate/Rhythm: regular rate and regular rhythm Gastrointestinal (Abdomen): diffuse tenderness noted to palpation, soft, no guarding. normal bowel sounds. Psychiatric: Orientation: alert and oriented x 3 Affect: euthymic affect Results & Data Vital Signs (Past 12 Hours) Vital Signs Temp Pulse Pulse Resp BP BP Pulse Ox 03/09/24 07:28 97.9 F 99 H 18 168/70 H 91 03/09/24 02:27 97.5 F L 93 H 18 160/67 H 92 03/09/24 02:00 94 H O2 Del Method 03/09/24 07:28 Room Air 03/09/24 02:27 Room Air 03/09/24 02:00 Diagnostic Findings KUB HISTORY: abd distension, pain COMPARISON: Abdomen and pelvis CT 03/08/2024. FINDINGS: Moderate gaseous distention of the stomach. Mildly dilated gas and stool-filled colon is again noted. This is similar to the prior study. This measures up to 8.7 cm in diameter. No dilated loops of small bowel identified. No renal calculi. No ureteral calculi. No pneumoperitoneum or pneumatosis. IMPRESSION: 1. Mildly dilated gas and stool-filled colon, unchanged. 2. No evidence for a small bowel obstruction. 3. Moderate gaseous distention of the stomach. ACT 112: Negative or not required by law. Electronically signed by: Deangelo Wright M.D. 03/09/2024 8:48 AM ABDOMEN AND PELVIS CT WITHOUT CONTRAST HISTORY: Acute left lower quadrant abdominal pain LLQ abd pain; diarrhea TECHNIQUE: Multiaxial CT images of the abdomen and pelvis were performed without contrast. A dose lowering technique was utilized adhering to the principles of ALARA. COMPARISON STUDY: 12/10/2023. FINDINGS: 4 mm left lower lobe and 3 mm inferior segment lingula as solid pulmonary nodules were not clearly seen on prior. No free air. Unenhanced spleen, atrophic pancreas and adrenal glands appear unchanged. 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 Unremarkable unenhanced liver. Distended gallbladder without definite wall thickening. Punctate nonobstructing right renal calculus. No hydronephrosis. Small exophytic cyst of the inferior pole left kidney. Decompressed urinary bladder with wall thickening. Hysterectomy. Atherosclerosis of the aorta. Distended stomach. No small bowel obstruction. The majority of the large bowel and rectum is distended and fluid-filled with diffuse wall thickening and pericolonic inflammatory stranding. Normal appendix. Unremarkable soft tissues. 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 No acute fracture. IMPRESSION: 1. Findings compatible with a nonspecific nonspecific pancolitis, likely infectious or inflammatory. 2. No bowel obstruction, pneumatosis or pneumoperitoneum. 3. Distended gallbladder. 4. Punctate right renal calculus. ACT 112: Negative or not required by law. The above report was generated using voice recognition software. It may contain grammatical, syntax or spelling errors. Electronically signed by: William Fabian M.D. 03/08/2024 6:50 PM Coding Level of Care Code 11556 INT INP/OBS CARE 2/55MIN Diagnoses Pancolitis K51.00 Time Spent (min) 60
--- NOTE | 2024-03-09 11:01 | Electrocardiogram Report ---
Test Reason : Blood Pressure : */* mmHG Vent. Rate : 95 BPM Atrial Rate : 95 BPM P-R Int : 180 ms QRS Dur : 82 ms QT Int : 340 ms P-R-T Axes : 84 61 54 degrees QTcB Int : 427 ms Normal sinus rhythm Normal ECG When compared with ECG of 08-Mar-2024 15:01, (unconfirmed) No significant change was found Confirmed by Carlos Garcia ([id number] on 03/09/2024 11:00:44 AM Referred By: REFERRED SELF Confirmed By: Carlos Garcia
[2024-03-09] MEDS: INSULIN HUMAN REGULAR PER UNIT 10 UNITS in SYRINGE 9.9 ML IV STA ×2 (11:15→17:45)
[2024-03-09] MEDS: SODIUM BICARBONATE 8.4% 150 MEQ in DEXTROSE 5% 1,000 ML IV SCH (11:16)
[2024-03-09] MEDS: CALCIUM GLUCONATE 1,000 MG/60 ML BAG IV SCH (11:16)
[2024-03-09] MEDS: DEXTROSE 50% 50 ML SYRINGE IV ONE ×3 (11:18→21:45)
--- NOTE | 2024-03-09 11:46 | Hospitalist Progress Note ---
Date of Service March 09, 2024 Assessment & Plan (1) Pancolitis: Plan 78 year old female with PMH of HTN, DM II, peripheral neuropathy, chronic pain on chronic narcotics and medical marijuana, hypothyroidism, depression and others listed below presented to ER for generalized weakness, N/V/D, diffuse abdominal discomfort. It is reported upon initial presentation to ER patient was confused and very drowsy. Later on patient appears to be less drowsy and is was able to provide more history to admitting team. Pt noted to have difficulty recalling events. Pt was found by her friend sitting on toilet, maybe anywhere between 12-24 hours she might have been there. She is being managed for the following: Acute metabolic encephalopathy likely multifactorial secondary to sepsis, medications, Rhabdomyolysis Patient coming in with generalized weakness, nausea, vomiting, diffuse abdominal discomfort and noted to be confused/forgetful at presentation. Admitting CT head with no acute intracranial findings. Age-indeterminate asymmetric dilatation of right lateral ventricle noted. Admitting Brain MRI: Asymmetric dilatation of right lateral ventricle with respect to the left. No acute finding. Admitting CXR with no acute finding. BioFire panel negative. U tox positive for opiates/respiratory depending on negative. Hold home neuropsychotropic's. Discussed with neurology, brain imaging findings appears to be anatomical variant. No need for any further workup. Patient still forgetful and unreliable with history. Expect to improve with treatment of underlying cause. See below. Severe sepsis POA: Likely secondary to pancolitis Pancolitis Likely large bowel obstruction Increase blood lactic acid level: At admission 4.0, gradually up trended, now downtrending. Patient on IV fluid resuscitation. Patient on antibiotic. Transaminitis: At admisison - total bilirubin 1.6/AST and ALT elevated/ALP WNL. Likely secondary to rhabdomyolysis and acute sepsis. Monitor LFT. Patient presenting with nausea, vomiting, diarrhea, diffuse abdominal tenderness. CTAP: Nonspecific pancolitis likely infectious or inflammatory. No bowel obstruction. Distended gallbladder. Punctate right renal calculus. US gallbladder: Distended gallbladder. No cholelithiasis or evidence of acute cholecystitis. Stool PCR and C. difficile negative. Admitting procalcitonin 43, up trended to 51 next day. Patient continues to have increasing abdominal pain and distention 9/5, repeat x-ray KUB with mildly dilated gas and stool-filled colon. No evidence of a small bowel obstruction. Moderate gaseous distention of the stomach. Discussed with general surgery, plan for NG tube, 700 mL fluid out open NG tube insertion. Patient reports some relief in abdominal pain and distention. Continue with Zosyn 03/08. continue with PPI IV twice daily. c/w pain meds prn. GI consulted, await further recommendation. Follow blood culture. Acute UTI: Noted on urinalysis. Patient on antibiotic. Follow urine culture. Acute rhabdomyolysis: Likely nontraumatic versus traumatic. Patient cannot reliably recall events. Admitting CPK of 6644, up trended to 8853 next day. patient had been on IV fluid resuscitation, fluid rate need to be decreased due to patient not making any urine and risks of pulmonary edema. Discussed with nephrology. Currently on IV fluid per nephrology. CPK in AM. Likely demand ischemia: Troponin 49, gradually up trended to 189, likely secondary to significant rhabdomyolysis ongoing. Patient complains no chest pain. EKG NSR, no acute ST or T changes. Repeat EKG today w/ no new changes. Hypertensive urgency: Blood pressure elevated at presentation in the ED. Still high but better currently. Continue to monitor. Acute kidney injury and ATN iso acute rhabdomyolysis Lactic acidosis Metabolic acidosis Electrolyte abnormalities: Hyperkalemia, Hypocalcemia, Hypomagnesemia Dehydration Admitting WBC 21K, hemoglobin 18K, platelet 240 4K. Likely hemoconcentration. Admitting creatinine 2.15, admitting lactic acid 4.0. Admitting bicarb 17. Patient received about 8 L IV fluid from admission time, no urine output by 03/09 AM. Discussed with nephrology urgently, plan to decrease IV fluid rate to 80 mL an hour, currently fluid being managed by nephrology. Patient on bicarb drip due to worsening metabolic acidosis. Lactic acidosis also worsening, now finally downtrending. Patient hyperkalemic, continue to monitor BMP, utilize insulin and dextrose to bring the potassium down. Patient getting calcium. Patient is a started on high-dose IV Lasix trial, if patient does not make urine, likely will need dialysis. Chronic hyponatremia: Prior history chronic hyponatremia. Was 138 on 11/20/2023, 131 on 07/29/2023. Sodium 132 today. DC hydrochlorothiazide on discharge. Pressure injury of buttock, stage I: From prolonged sitting on toilet seat. Wound nurse consult. History of MRSA infection: Reported h/o MRSA infection to left toe in past. Currently appears healed Other chronic medical conditions: Currently hold p.o. medications if not warranted emergently. Hyperlipidemia: Patient on statin at home. Chronic pain: Patient on chronic morphine, Percocet, pregabalin. T2DM: Hold metformin, sliding scale insulin while in hospital. Glycemic pharmacy consult. Hypothyroidism: Hold home levothyroxine DVT prophylaxis: Heparin subcu PCU status, PT/OT down the road. Full Code as per admitting team's discussion with pt, however states if poor prognosis would not want prolonged life support Follows with Dr Ellison for routine care Total time spent reviewing chart, bedside exam x 2, d/w Gen Sx and Nephrology in detail (see note), updating pt's friends was 100 minutes. Admission and Anticipated Discharge Date Admission Date: March 08, 2024 Subjective Patient was seen and examined at bedside. Patient was lying in bed, on room air, in mild distress, reporting increasing abdominal pain and distention. Patient is made n.p.o., has been getting IV fluid, has not made urine output. Patient is alert and awake, appears forgetful on conversation. Pt reports no gas since last night. During the visit at bedside, patient's friend at bedside , discussed plan of care with the patient and her friend at bedside. They voiced understanding and were agreeable. Patient is aware that she is very sick and can deteriorate any moment and might end up needing dialysis. Pt had NGT in and she had 700 cc out, she feels better w/ abd pain at this moment. Physical Exam Physical Exam: GENERAL: Alert and awake, mild distress, on RA. appears ill/sick. NG tube in situ noted during revist at bedside. HEENT: No pallor, no icterus. Pupils equal, round and reactive to light. Oral mucosa dry. NECK: No JVD, no neck masses. HEART: S1 and S2 heard. Regular rate and rhythm. tachycardia. No murmur, no gallop. RESPIRATORY SYSTEM: Normal AP diameter. No accessory muscle use. No wheezing, no crackles. ABDOMEN: distended, diffusely tender. CENTRAL NERVOUS SYSTEM: No facial droop. Speech is clear. Obeys simple commands. Moves extremities. EXTREMITIES: No edema, no erythema seen. Results & Data Results & Data Vital Signs (Past 12 Hours) Vital Signs Temp Pulse Pulse Resp BP BP Pulse Ox 03/09/24 11:00 36.4 C L 93 H 18 149/73 H 92 03/09/24 07:28 36.6 C 99 H 18 168/70 H 91 03/09/24 02:27 36.4 C L 93 H 18 160/67 H 92 03/09/24 02:00 94 H O2 Del Method 03/09/24 11:00 Room Air 03/09/24 07:28 Room Air 03/09/24 02:27 Room Air 03/09/24 02:00
[2024-03-09 15:31] LABS: BUN Creatinine Ratio 20.7 (10-20); Calcium 8.3 mg/dl (8.6-10.3); Est GFR (African American) 14.3 ml/min; Est GFR (Non-African American) 12.3 ml/min; Potassium 5.5 mmol/L (3.5-5.1)
[2024-03-09] MEDS ORDERED: PHARMACY GLYCEMIC MGMT CONSULT PRN (16:42)
[2024-03-09] MEDS: FUROSEMIDE 40 MG/4 ML VIAL IV SCH (17:45)
[2024-03-09] MEDS ORDERED: Nursing to Pharmacy Communication SCH (20:15)
[2024-03-09 20:19] LABS: BUN Creatinine Ratio 20.3 (10-20); Calcium 7.9 mg/dl (8.6-10.3); Creatinine Clr Calc Pharmacy 13.5 ml/min; Est GFR (African American) 12.6 ml/min; Est GFR (Non-African American) 10.9 ml/min; Potassium 5.6 mmol/L (3.5-5.1)
[2024-03-09] MEDS ORDERED: HYDROmorphone INJ 1 MG/ML SYRINGE IV PRN (21:02)
[2024-03-09] MEDS: INSULIN HUMAN REGULAR PER UNIT 5 UNITS in SYRINGE 4.95 ML IV STA (21:44)
[2024-03-10] MEDS: INSULIN ASPART PER UNIT CHARGE SC SCH (00:12)
[2024-03-10 00:57] LABS: BUN Creatinine Ratio 20.3 (10-20); Creatinine Clr Calc Pharmacy 12.8 ml/min; Est GFR (African American) 11.9 ml/min; Est GFR (Non-African American) 10.2 ml/min
[2024-03-10] MEDS: CALCIUM GLUCONATE 1,000 MG/60 ML BAG IV STA ×2 (01:31→22:30)
[2024-03-10] MEDS: INSULIN HUMAN REGULAR PER UNIT 5 UNITS in SYRINGE 4.95 ML IV ONE (01:38)
[2024-03-10] MEDS: DEXTROSE 50% 50 ML SYRINGE IV ONE ×3 (01:39→22:32)
[2024-03-10] MEDS: ALBUMIN 25% 25 GM/100 ML VIAL IV ONE (02:05)
[2024-03-10 07:46] LABS: Base Excess VBG -5.2 mEq/L; HCO3 VBG 17 mmol/L; PCO2 VBG 26 mmHg (38-50); PO2 VBG 58 mmHg; pH VBG 7.43 (7.36-7.41)
--- NOTE | 2024-03-10 07:49 | XRay Report ---
XR chest 1V portable HISTORY: tachypnea COMPARISON: Chest 03/09/2024. FINDINGS: Nasogastric tube terminates within the distal stomach. There are low lung volumes. No pneum othorax. The heart remains enlarged. Bibasilar linear densities are nonspecific but favor subsegmenta l atelectasis. There is mild central pulmonary vascular congestion without overt edema. No pleural ef fusions. IMPRESSION: 1. Cardiomegaly with mild central pulmonary vascular congestion. 2. Nasogastric tube terminates in the stomach. 3. A few bibasilar densities are new from the prior study and favor subsegmental atelectasis given th e low lung volumes. A developing pneumonia also remains in the differential diagnosis. ACT 112: Negative or not required by law. Electronically signed by: Deangelo Wright M.D. 03/10/2024 7:48 AM
[2024-03-10 08:01] LABS: Hematocrit (blood only) 39.3 % (37.0-47.0); Hemoglobin 14.2 g/dl (12.0-16.0); Mean Corpuscular Hemoglobin 28.1 pg (25.0-34.0); Mean Corpuscular Hgb Conc 36.1 g/dL (32.0-36.0); Mean Corpuscular Volume 77.8 fL (80.0-100.0); Mean Platelet Volume 11.2 fL (9.4-12.4); Platelet Count 156 K/uL (130-400); RDW Coefficient of Variation 15.2 % (11.5-14.5); Red Blood Count 5.05 M/uL (4.20-5.40)
[2024-03-10 08:20] LABS: Albumin Globulin Ratio 1.4 (0.9-2); Albumin Level 2.8 gm/dl (3.4-5.0); BUN Creatinine Ratio 20.3 (10-20); Bilirubin,Total 2.5 mg/dl (0.2-1.0); Calcium 7.8 mg/dl (8.6-10.3); Creatinine Clr Calc Pharmacy 12.5 ml/min; Est GFR (African American) 10.9 ml/min; Est GFR (Non-African American) 9.4 ml/min; Magnesium 3.3 mg/dl (1.7-2.4); Phosphorus 5.2 mg/dl (2.5-4.9); Potassium 6.4 mmol/L (3.5-5.1); Total Protein 4.8 gm/dl (6.0-8.3)
[2024-03-10] MEDS: INSULIN HUMAN REGULAR PER UNIT 10 UNITS in SYRINGE 9.9 ML IV ONE ×2 (08:41→22:32)
[2024-03-10] MEDS: CALCIUM GLUCONATE 1,000 MG/60 ML BAG IV ONE (08:44)
[2024-03-10] MEDS: SODIUM BICARB 8.4% INJ 50 MEQ/50 ML SYR IV STA ×3 (09:03→22:38)
--- NOTE | 2024-03-10 10:03 | Surgery Progress Note ---
Date of Service March 10, 2024 Assessment & Plan (1) Pancolitis: (2) Sepsis: (3) Rhabdomyolysis: (4) FRANKLIN (acute kidney injury): (5) Nausea vomiting and diarrhea: (6) Elevated lactic acid level: Plan: 78 yo female presented to ED via EMS with questionable 1 day history of nausea, vomiting, and diarrhea found on commode by friend. Found to have pancolitis with leukocytosis of 21k, lactic acid elevated at 4, severe rhabdomyolysis with FRANKLIN, elevated troponin, transaminitis, and electrolyte abnormalities. Rising lactic acid up to 9.9 overnight with increasing abdominal pain, distention, and not passing gas. KUB this am showing distended stomach and large bowel up to 8 cm. Repeat lactic acid trending down 9.9 --? 8.6 --> 6.5. NGT placed and over 700 cc dark bilious output and abdomen softer on examination. 03/10/2024: afebrile leukocytosis improved to 16 (18) lactate down to 4.9 (6.3) CK trending down Potassium 6.4, Creatinine 4.29 NGT output 50 cc last shift Abdomen with diffuse tenderness, guarding, and rebound (worse today) Plan: Patient being transferred to ICU, will require HD Given patients abdominal examination and overall decline, will require exploration. Will plan for ex lap possible bowel resection possible ostomy once patient gets HD Continue ICU management Dr. Vickers has seen and examined patient. Admission and Anticipated Discharge Date Admission Date: March 08, 2024 Supervising Physician Co-Signing Physician Notes I have seen and examined the patient personally and agree with the above assessment plan. As of this morning, her abdominal exam has progressed to distended, severely tender with rebound and guarding. She is being transferred to the ICU. I had discussion with the ICU attending. potassium is 6.8. We will plan for an emergent run of dialysis followed by emergent exploratory laparotomy. As she is obtunded, her friend was consented, but this case is considered an emergent life-threatening situation. We will take her to the operating room as soon as dialysis is complete. Subjective unable to obtain ROS given current mental status, obtunded Physical Exam Constitutional: + ill appearing, + obese and + lethargic Respiratory: normal respiratory effort; no respiratory distress Cardiovascular: Rate/Rhythm: + tachycardic Gastrointestinal (Abdomen): Inspection/Auscultation: + abdomen distended Percussion/Palpation: + abdomen tender (diffuse tenderness with rebound and guarding), + guarding and abdomen soft; abdomen not rigid Neurologic: + obtunded Results & Data Vital Signs (Past 12 Hours) Vital Signs Temp Pulse Pulse Resp BP Pulse Ox O2 Del Method 03/10/24 07:57 37.0 C 89 20 143/72 H 93 Nasal Cannula 03/10/24 03:41 36.8 C 90 26 H 111/67 91 Nasal Cannula 03/10/24 01:10 37.0 C 90 24 104/58 L 91 Nasal Cannula 03/09/24 23:17 89 20 93 Nasal Cannula 03/09/24 23:00 95 H 03/09/24 22:13 36.8 C 102 H 22 160/73 H 90 Nasal Cannula O2 Flow Rate 03/10/24 07:57 2 03/10/24 03:41 2.0 03/10/24 01:10 2 03/09/24 23:17 2 03/09/24 23:00 03/09/24 22:13 3.0 Laboratory Results 03/10/24 03/10/24 03/10/24 Range/Units 07:28 05:59 00:14 WBC 16.10 H (4.8-10.8) K/ul RBC 5.05 (4.20-5.40) M/uL Hgb 14.2 (12.0-16.0) g/dl Hct 39.3 (37.0-47.0) % MCV 77.8 L D (80.0-100.0) fL MCH 28.1 (25.0-34.0) pg MCHC 36.1 H (32.0-36.0) g/dL RDW Std Deviation 43.0 (36.4-46.3) fL RDW Coeff of Feng 15.2 H (11.5-14.5) % Plt Count 156 (130-400) K/uL MPV 11.2 (9.4-12.4) fL VBG pH 7.43 H (7.36-7.41) VBG pCO2 26 L (38-50) mmHg VBG pO2 58 mmHg VBG HCO3 17 mmol/L VBG O2 Saturation 89.0 % VBG Base Excess -5.2 mEq/L Sodium 132 L 130 L (136-145) mmol/L Potassium 6.4 H* 6.0 H (3.5-5.1) mmol/L Chloride 96 L 97 L (98-107) mmol/L Carbon Dioxide 20 L 19 L (21-32) mmol/L Anion Gap 16 H 14 H (3-11) BUN 87 H 81 H (6-23) mg/dl Creatinine 4.29 H 4.00 H (0.6-1.2) mg/dl Est Cr Clr Drug Dosing 12.5 12.8 ml/min Est GFR ( Amer) 10.9 11.9 ml/min Est GFR (Non-Af Amer) 9.4 10.2 ml/min BUN/Creatinine Ratio 20.3 H 20.3 H (10-20) Glucose 133 H 151 H (70-99(Fasting)) mg/dl POC Glucose 148 H (70-99) mg/dl Lactate 4.9 H* (0.4-2.0) mmol/L Calcium 7.8 L 8.0 L (8.6-10.3) mg/dl Phosphorus 5.2 H (2.5-4.9) mg/dl Magnesium 3.3 H (1.7-2.4) mg/dl Total Bilirubin 2.5 H D (0.2-1.0) mg/dl AST 1216 H (13-39) U/L ALT 1230 H (7-52) U/L Alkaline Phosphatase 112 H (34-104) U/L Ammonia 74.0 H 76.0 H (18-72) umol/L Total Creatine Kinase 2344 H (26-192) U/L Total Protein 4.8 L (6.0-8.3) gm/dl Albumin 2.8 L (3.4-5.0) gm/dl Globulin 2.0 L (2.5-4.0) gm/dl Albumin/Globulin Ratio 1.4 (0.9-2) 03/10/24 03/09/24 03/09/24 Range/Units 00:02 19:47 16:55 WBC (4.8-10.8) K/ul RBC (4.20-5.40) M/uL Hgb (12.0-16.0) g/dl Hct (37.0-47.0) % MCV (80.0-100.0) fL MCH (25.0-34.0) pg MCHC (32.0-36.0) g/dL RDW Std Deviation (36.4-46.3) fL RDW Coeff of Feng (11.5-14.5) % Plt Count (130-400) K/uL MPV (9.4-12.4) fL VBG pH (7.36-7.41) VBG pCO2 (38-50) mmHg VBG pO2 mmHg VBG HCO3 mmol/L VBG O2 Saturation % VBG Base Excess mEq/L Sodium 131 L (136-145) mmol/L Potassium 5.6 H (3.5-5.1) mmol/L Chloride 98 (98-107) mmol/L Carbon Dioxide 17 L (21-32) mmol/L Anion Gap 16 H (3-11) BUN 77 H (6-23) mg/dl Creatinine 3.80 H D (0.6-1.2) mg/dl Est Cr Clr Drug Dosing 13.5 ml/min Est GFR ( Amer) 12.6 ml/min Est GFR (Non-Af Amer) 10.9 ml/min BUN/Creatinine Ratio 20.3 H (10-20) Glucose 151 H (70-99(Fasting)) mg/dl POC Glucose 140 H 105 H (70-99) mg/dl Lactate (0.4-2.0) mmol/L Calcium 7.9 L (8.6-10.3) mg/dl Phosphorus (2.5-4.9) mg/dl Magnesium (1.7-2.4) mg/dl Total Bilirubin (0.2-1.0) mg/dl AST (13-39) U/L ALT (7-52) U/L Alkaline Phosphatase (34-104) U/L Ammonia (18-72) umol/L Total Creatine Kinase (26-192) U/L Total Protein (6.0-8.3) gm/dl Albumin (3.4-5.0) gm/dl Globulin (2.5-4.0) gm/dl Albumin/Globulin Ratio (0.9-2) 03/09/24 03/09/24 03/09/24 Range/Units 14:35 12:03 11:12 WBC (4.8-10.8) K/ul RBC (4.20-5.40) M/uL Hgb (12.0-16.0) g/dl Hct (37.0-47.0) % MCV (80.0-100.0) fL MCH (25.0-34.0) pg MCHC (32.0-36.0) g/dL RDW Std Deviation (36.4-46.3) fL RDW Coeff of Feng (11.5-14.5) % Plt Count (130-400) K/uL MPV (9.4-12.4) fL VBG pH (7.36-7.41) VBG pCO2 (38-50) mmHg VBG pO2 mmHg VBG HCO3 mmol/L VBG O2 Saturation % VBG Base Excess mEq/L Sodium 131 L (136-145) mmol/L Potassium 5.5 H (3.5-5.1) mmol/L Chloride 98 (98-107) mmol/L Carbon Dioxide 17 L (21-32) mmol/L Anion Gap 16 H (3-11) BUN 71 H (6-23) mg/dl Creatinine 3.43 H D (0.6-1.2) mg/dl Est Cr Clr Drug Dosing 15.0 ml/min Est GFR ( Amer) 14.3 ml/min Est GFR (Non-Af Amer) 12.3 ml/min BUN/Creatinine Ratio 20.7 H (10-20) Glucose 130 H (70-99(Fasting)) mg/dl POC Glucose 143 H (70-99) mg/dl Lactate 6.3 H* (0.4-2.0) mmol/L Calcium 8.3 L (8.6-10.3) mg/dl Phosphorus (2.5-4.9) mg/dl Magnesium (1.7-2.4) mg/dl Total Bilirubin (0.2-1.0) mg/dl AST (13-39) U/L ALT (7-52) U/L Alkaline Phosphatase (34-104) U/L Ammonia (18-72) umol/L Total Creatine Kinase (26-192) U/L Total Protein (6.0-8.3) gm/dl Albumin (3.4-5.0) gm/dl Globulin (2.5-4.0) gm/dl Albumin/Globulin Ratio (0.9-2)
--- NOTE | 2024-03-10 10:33 | Nephrology Progress Note ---
Date of Service March 10, 2024 Assessment & Plan Admission and Anticipated Discharge Date Admission Date: March 08, 2024 Subjective Assessment & Plan (1) FRANKLIN (acute kidney injury): FRANKLIN in the setting of Acute rhabdo. Unfortunately rhabdo is severe despite not so impressive initial total CK. given her age, gender, baseline health she does not need a really massive CK to have this no urine after 8 liters of Iv fluid. cannot give aggressively anymore. but with rising K ( usually the first problem to deal) have to give bicarb drip to delay the dialysis. Dropping Ca++, rising Creat ( rising about 2 per day), rising K, rising LFT are all bad features of Severe rhabdo and she has it all. urine sediment is consistent with ATN with lots of epithelial cells as well as hyaline cast. her BP is good so she can have Conventional HD if needed. Although does have high HR Stop metformin, Celebrex, JANET/ARB, Lyrica. She is too many meds. Unless Critical Stop all her meds. She is NPO anyway. Can give iv Opioids given her baseline use. Despite aggressive control of high K --K is 6.4 with anuric FRANKLIN from ATN in the setting of Rhabdo. will do emergent dialysis today for about 2hrs. She needs temp HD cath and then dialysis for high K mainly. Plan is potential surgery after that. if question can use IV contrast since it is such a critical decision to make at this time. (2) Rhabdomyolysis: primary issue here. No clear h/o fall but maybe she did and does not remember. ? ut as the cause. CK is down today though (3) Sepsis: High WBC and high lactic Acid. Both are dropping (4) Metabolic acidosis: Continue Bicarb drip for this. lactic acidosis still present although the lactic acid level is dropping. Should get better after dialysis (5) Hypermagnesemia: Sec to taking Mag tabs and FRANKLIN pre admission. mag is trending now and needs to be tracked. Should get normal after dialysis (6) Hyponatremia: She has h/o Hyponatremia but was still on HCTZ. Should never be used ever again. Currently stable. But low na is expected with such severe anuric FRANKLIN. (7) Transaminitis: Rising Liver enzymes again expected with Acute Rhabdo and Severe Anuric FRANKLIN. needs at least twice daily LFT. ALT and AST still rising Plan very complex patient involving multiple systems. Significant decline in her health status overnight. Reviewed multiple specialists notes including General Surgery Gastroenterology. Discussed in detail with ICU. Called her friend Iwona listed as her contact and service clerks supervisor ( patient has no family) and got verbal Consent for dialysis. She gave verbal Consent yesterday when she was more lucid anyway. had to arrange emergent dialysis nurse ( back up nurse) Time spent total of 80 mins. Physical Exam Physical Exam: General: Much sicker today. HR fast BP is fine for now. Not able to talk. Head: normocephalic, atraumatic ENT: normal inspection external ears, nose, mucous membranes dry Neck: supple, trachea midline Lungs: clear, no respiratory distress, no wheezing/rhonchi/rales CV: tachycardic. Abd:Distended +diffuse tenderness to palpation Ext: clear skin signs of PVD. Dusky red Skin b/l Neuro: much more obtunded today Results & Data Vital Signs (Past 12 Hours) Vital Signs Temp Pulse Pulse Resp BP Pulse Ox O2 Del Method 03/10/24 07:57 37.0 C 89 20 143/72 H 93 Nasal Cannula 03/10/24 03:41 36.8 C 90 26 H 111/67 91 Nasal Cannula 03/10/24 01:10 37.0 C 90 24 104/58 L 91 Nasal Cannula 03/09/24 23:17 89 20 93 Nasal Cannula 03/09/24 23:00 95 H O2 Flow Rate 03/10/24 07:57 2 03/10/24 03:41 2.0 03/10/24 01:10 2 03/09/24 23:17 2 03/09/24 23:00
[2024-03-10] MEDS ORDERED: SODIUM CHLORIDE 0.9% 1,000 ML IV PRN (10:45)
--- NOTE | 2024-03-10 11:14 | Anesthesiology Consultation ---
Date of Service March 10, 2024 Assessment & Plan (1) Encounter for pre-operative examination: Chart Review Chart Review: Acceptable Risk for Surgery (urgent procedure - to have dialysis first) History Surgery Operation Date: 03/10/24 09:10 Proposed Procedures p Exploratory Laparotomy, Possible Bowel Resection, Possible Ostomy - Duke Vickers MD Height/Weight Height: 5 ft 4 in Weight: 94.9 kg Allergies Allergy/AdvReac Type Severity Reaction Status Date / Time sulfamethoxazole Allergy Severe Swelling Unverified 03/08/24 17:56 [From Bactrim] of Lip/Tongue/Throat AND HIVES trimethoprim [From Bactrim] Allergy Severe Swelling Unverified 03/08/24 17:56 of Lip/Tongue/Throat AND HIVES aspirin AdvReac Unknown advised to Verified 03/08/24 17:56 avoid due to hx ITP Medications Home Medications Medication Instructions Recorded Confirmed Last Taken biotin 1 mg tablet 1 mg PO QAM 01/10/19 03/08/24 03/07/24 cholecalciferol (vitamin D3) 10 2,000 unit PO DAILY 01/10/19 03/08/24 03/07/24 mcg (400 unit) tablet (Vitamin D3) coenzyme Q10 100 mg capsule 100 mg PO DAILY 01/10/19 03/08/24 03/07/24 (CoQ-10) cyanocobalamin (vitamin B-12) 100 100 mcg PO DAILY 01/10/19 03/08/24 03/07/24 mcg tablet (Vitamin B-12) folic acid 1 mg tablet 1 mg PO DAILY 01/10/19 03/08/24 03/07/24 lutein 40 mg capsule 40 mg PO DAILY 01/10/19 03/08/24 03/07/24 pantoprazole 40 mg tablet,delayed 40 mg PO DAILY 01/10/19 03/08/24 03/07/24 release polyethylene glycol 3350 17 17 g PO DAILY PRN Constipation 01/10/19 03/08/24 03/07/24 gram/dose oral powder (Miralax) simethicone 125 mg tablet 80 mg PO QID PRN Gi Upset 01/10/19 03/08/24 03/07/24 docusate sodium 100 mg tablet 100 mg PO BID PRN Constipation 02/18/19 03/08/24 02/18/19 celecoxib 200 mg capsule 200 mg PO DAILY 01/17/22 03/08/24 03/07/24 morphine 15 mg tablet,extended 15 mg PO TID 01/17/22 03/08/24 03/07/24 release naloxone 4 mg/actuation nasal 1 sprays intranasal DIRECTED 01/17/22 03/08/24 Unknown spray (Narcan) pregabalin 200 mg capsule 200 mg PO TID 01/17/22 03/08/24 03/07/24 levothyroxine 150 mcg tablet 150 mcg PO DAILY 01/23/22 03/08/24 03/07/24 magnesium citrate 100 mg capsule 100 mg PO DAILY 01/23/22 03/08/24 03/07/24 meclizine 25 mg tablet 25 mg PO TID PRN Vertigo 01/23/22 03/08/24 Unknown metformin 500 mg tablet,extended 1,000 mg PO DAILY 01/23/22 03/08/24 03/07/24 release 24 hr oxycodone-acetaminophen 5 mg-325 1 tab PO Q4H PRN Pain, Severe 01/23/22 03/08/24 03/07/24 mg tablet pyridoxine (vitamin B6) 100 mg 100 mg PO DAILY 01/23/22 03/08/24 03/07/24 tablet thiamine HCl (vitamin B1) 250 mg 250 mg PO DAILY 01/23/22 03/08/24 03/07/24 tablet pravastatin 40 mg tablet 40 mg PO HS #30 tabs 01/26/22 03/08/24 03/07/24 alpha lipoic acid 300 mg capsule 600 mg PO DAILY 12/18/22 03/08/24 03/07/24 berberine-herbal comb no.18 capsule 1 cap PO DAILY 12/18/22 03/08/24 03/07/24 duloxetine 30 mg capsule,delayed See Rx Instructions .Route .COMPLEX 07/30/23 03/08/24 03/07/24 release duloxetine 60 mg capsule,delayed See Rx Instructions .Route .COMPLEX 03/08/24 03/08/24 03/07/24 release hydrochlorothiazide 12.5 mg capsule 12.5 mg PO DAILY PRN Edema 03/08/24 03/08/24 Unknown oxybutynin chloride 10 mg 10 mg PO DAILY 03/08/24 03/08/24 Unknown tablet,extended release 24 hr oxybutynin chloride 5 mg 5 mg PO PM 03/08/24 03/08/24 Unknown tablet,extended release 24 hr Active Medications Generic Name Dose Route Start Last Admin Trade Name Patsy RIDER Reason Stop Dose Admin Duloxetine HCl 30 mg 03/09/24 09:00 03/09/24 08:06 Duloxetine Hcl 30 Mg Cap PO 04/08/24 08:59 Not Given DAILY HARMAN Duloxetine HCl 60 mg 03/09/24 09:00 03/09/24 08:06 Duloxetine Hcl 60 Mg Cap PO 04/08/24 08:59 Not Given DAILY HARMAN Furosemide 100 mg 03/09/24 16:45 03/10/24 09:07 Furosemide 40 Mg/4 Ml Vial IV 04/08/24 16:44 100 mg Q8H HARMAN Administration Heparin Sodium (Porcine) 5,000 units 03/08/24 21:26 03/09/24 21:40 Heparin Sod 5,000 Unit/0.5 Ml Vial SQ 04/07/24 21:25 5,000 units Q12 HARMAN Administration Pantoprazole Sodium 40 mg/ 10 mls @ 5 mls/min 03/09/24 08:15 03/10/24 08:44 Syringe IV 04/08/24 08:14 5 mls/min BID HARMAN Administration Sodium Bicarbonate 150 meq/ 1,150 mls @ 80 mls/hr 03/09/24 10:45 03/10/24 01:06 Dextrose IV 04/08/24 10:44 80 mls/hr .[id number] HARMAN Administration Piperacillin Sod/Tazobactam Sod 4.5 gm in 100 mls @ 25 mls/hr 03/09/24 19:00 03/10/24 06:07 Zosyn IV 03/12/24 18:59 25 mls/hr Q12H HARMAN Administration Insulin Aspart 0 units 03/10/24 00:00 03/10/24 06:10 Insulin Aspart Per Unit Charge SC 04/09/24 00:00 1 units Q6 HARMAN Administration Levothyroxine Sodium 150 mcg 03/09/24 09:00 03/09/24 08:06 Levothyroxine Sodium 150 Mcg Tablet PO 04/08/24 08:59 Not Given DAILY HARMAN Ondansetron HCl 4 mg 03/08/24 21:26 03/09/24 01:11 Ondansetron Inj 2 Mg/Ml 2 Ml Vial IV 04/07/24 21:25 4 mg Q6H PRN Administration Nausea Past Medical History Medical History (Updated 03/10/24 @ 11:14 by Francisco Ryan MD) Pancolitis Sepsis Acute metabolic encephalopathy Rhabdomyolysis FRANKLIN (acute kidney injury) GERD (gastroesophageal reflux disease) Diabetes mellitus, type 2 Sleep apnea no device Abdominal pain Elevated liver enzymes Precordial chest pain Double vision 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; no issues since Past Family History Family History Mother Coronary heart disease Sister Schizophrenia Past Surgical History Surgical History S/P total knee arthroplasty Hx of dilation and curettage History of meniscectomy of left knee Hx of tonsillectomy Hx of total hysterectomy Hx of eye surgery corrective (as child) Social History Smoking Status: Former smoker Smoking cigarettes per day: "long time ago" Do You Dip or Chew Tobacco: No Hx Alcohol Use: Yes Alcohol type: wine alcohol intake frequency: a few times a week Hx Substance Use: Yes substance use type: marijuana Substance Use Type Other:: "I have been trying medical marijuana" Last Used Substance: Unknown Physical Exam Vital Signs Last Vital Signs Temp 37.0 C 03/10/24 07:57 Pulse 89 03/10/24 07:57 Resp 20 03/10/24 07:57 BP 143/72 H 03/10/24 07:57 Pulse Ox 93 03/10/24 07:57 O2 Del Method Nasal Cannula 03/10/24 07:57 O2 Flow Rate 2 03/10/24 07:57 Testing Laboratory Results 03/10/24 07:28 03/10/24 07:28 PT 12.1 Seconds (9.0-12.0) H 03/08/24 16:24 INR 1.1 (0.9-1.1) 03/08/24 16:24 Hemoglobin A1c 6.2 % (4.5-5.6) H 03/09/24 04:13 Urine Color Dark Yellow 03/08/24 18:35 Urine Appearance Cloudy (Clear) A 03/08/24 18:35 Urine pH 5.5 (4.5-7.5) 03/08/24 18:35 Ur Specific [place] 1.020 (1.000-1.030) 03/08/24 18:35 Urine Protein 3+ (Negative) H 03/08/24 18:35 Urine Glucose (UA) Negative (Negative) 03/08/24 18:35 Urine Ketones Negative (Negative) 03/08/24 18:35 Urine Nitrite Positive (Negative) A 03/08/24 18:35 Ur Leukocyte Esterase 1+ (Negative) H 03/08/24 18:35 Urine WBC (Auto) 6-10 /hpf (0-5) H 03/08/24 18:35 Urine RBC (Auto) 0-2 /hpf (0-2) 03/08/24 18:35 U Hyaline Cast (Auto) 11-20 /lpf (0-2) H 03/08/24 18:35 U Epithel Cells (Auto) 6-10 /hpf (0-2) H 03/08/24 18:35 Urine Bacteria (Auto) 1+ (None Seen) H 03/08/24 18:35 03/08/24 18:35 Urine Culture - Final Urine,Clean Catch No growth - less than 1,000 colonies/mL. 03/08/24 17:42 Aerobic Blood Culture - Preliminary Blood No growth in Aerobic bottle after 24 hours. Anaerobic Blood Culture - Preliminary No growth in Anaerobic bottle after 24 hours. 03/10/24 03/10/24 05:59 00:02 POC Glucose 148 H 140 H Electrocardiogram Date: 03/10/24 Findings: + NSR @ (98) Echocardiogram Date: 01/23/22 EF: 65-70% LV Function: normal Other Findings: + LVH (mild) Valvular Disease: + no significant valvular disease
--- NOTE | 2024-03-10 11:19 | Pharmacy Report ---
Pharmacy Glycemic Short Note 2 - Date of Service March 10, 2024 - Glycemic Short BSG Results (Last 24 hours): 03/09/24 03/09/24 03/09/24 12:03 14:35 16:55 Glucose 130 H POC Glucose 143 H 105 H 03/09/24 03/10/24 03/10/24 19:47 00:02 00:14 Glucose 151 H 151 H POC Glucose 140 H 03/10/24 03/10/24 05:59 07:28 Glucose 133 H POC Glucose 148 H OUTPATIENT ANTIDIABETIC REGIMEN: * Metformin 1 gm PO daily HbA1c: 6.2% on 03/09/24 ASSESSMENT: * 78 y/o F admitted for rhabdomyolysis and acute kidney injury. She currently also has pancolitis and on IV antibiotic for this. * History of Type 2 diabetes well controlled on oral Metformin only based on A1c. * Patient's renal function worsening with elevated potassium levels. She has been getting IV insulin 10 units with dextrose periodically for the potassium. * Pharmacy consulted yesterday for glycemic management. Novolog insulin started yesterday, parameters between stress of 1 and 2. * Blood sugars were well controlled yesterday with patient receiving no SubQ insulin for hyperglycemia. * NPO this morning. She received 1 unit of Novolog so far today. * Worsening renal function requiring dialysis. Surgery evaluating exp laparotomy and possible bowel resection. Patient moved to ICU. * At this time, will loosen goal range for Novolog so that blood sugars are managed conservatively in ICU setting. * If blood sugars are well controlled then will possibly sign off on pharmacy glycemic consult tomorrow. PLAN FOR INPATIENT GLYCEMIC CONTROL: * Hold outpatient oral diabetes medications * Basal insulin * None * Bolus insulin * NovoLog per scale ACHS or Q6hrs while NPO * Goal Range: Low 120 mg/dL - High 160 mg/dL * Correction Factor: 30 mg/dL/unit * Nutritional / Prandial insulin per carb ratio of 1 unit per 10 grams CHO consumed
--- NOTE | 2024-03-10 12:16 | Procedure Note ---
Procedure Note Date of Service March 10, 2024 Procedure date: Noted above Procedure: Central venous access Pre-procedure indication: Need for vasoactive medication administration Post-procedure Diagnosis: same as above Prior to Procedure: Informed Consent: The risks, benefits, indications, potential complications, and alternatives were explained to the patient's surrogate and informed consent obtained. Attending Staff: Justin Wolfe DO Resident/APC: Not applicable Skin Prep: Chlorhexidine Anesthesia: 4 mL 1% lidocaine without epinephrine The identity of the patient was confirmed and a bedside time out was performed. Description of Procedure: After sterile prep and sterile drape utilizing standa rd sterile technique the superficial skin of the right subclavian area was anesthetized. The target vessel was identified and entered with an 18-gauge needle. Dark venous blood return was noted. A guidewire was inserted through the needle and into the vessel. The needle was withdrawn and a skin ralph was made. A tissue dilator was advanced via Seldinger technique and removed. A triple lumen catheter was inserted via Seldinger technique and the guidewire removed. All ports ricki and flushed easily. A Biopatch was placed, and the catheter was secured via silk suture. A sterile dressing was then applied. Complications: None [facility] [place] Procedure Codes (Charges) Tubes, Drains, and Vasc Access Procedure 1: Tubes, Drains, and Vasc Access: [id number] Insertion Of Non-tunneled Catheter Age 7 Yrs> Coding CPT Codes Tubes, Drains, and Vasc Access - Tubes, Drains, and Vasc Access: [id number] Insertion Of Non-tunneled Catheter Age 7 Yrs> ([id number]) Additional Codes Date of Service ([email or web address])
--- NOTE | 2024-03-10 12:17 | Procedure Note ---
Procedure Note Date of Service March 10, 2024 Procedure date: Noted above Procedure: Right radial artery cannulation Pre-procedure Diagnosis: Need for invasive monitoring, hypotension/frequent blood draws Post-procedure Diagnosis: same as above Prior to Procedure: Informed Consent: The risks, benefits, indications, potential complications, and alternatives were explained to the patient's surgery and informed consent obtained. Attending Staff: Justin Wolfe DO Skin Prep: Chlorhexidine Anesthesia: 3 mL 1% lidocaine without epinephrine The identity of the patient was confirmed and a bedside time out was performed. Description of Procedure: After sterile prep and sterile drape utilizing standard sterile technique the superficial skin of the right radial artery was anesthetized. The target artery was identified via dynamic ultrasound guidance and entered with a 20-gauge arrow Angiocath. Pulsatile bright red blood return was noted. Via modified Seldinger technique the self-contained guidewire was advanced and the Angiocath advanced over the guidewire. The guidewire was removed and brisk arterial blood return was noted. The pressure monitor was connected, and the arterial line was secured via commercial securement device. A sterile dressing was then applied. Complications: None Estimated blood loss: Trace Patient tolerated the procedure well. [facility] [place] Procedure Codes (Charges) Tubes, Drains, and Vasc Access Procedure 1: Tubes, Drains, and Vasc Access: [id number] Arterial Cath/Cannulation Sampling/Monitoring/Transfusion Coding CPT Codes Tubes, Drains, and Vasc Access - Tubes, Drains, and Vasc Access: [id number] Arterial Cath/Cannulation Sampling/Monitoring/Transfusion ([id number]) Additional Codes Date of Service ([email or web address])
--- NOTE | 2024-03-10 12:19 | Procedure Note ---
Procedure Note Date of Service March 10, 2024 Procedure date: Noted above Procedure: Temporary hemodialysis Pre-procedure indication: Temporary hemodialysis Post-procedure Diagnosis: same as above Prior to Procedure: Informed Consent: The risks, benefits, indications, potential complications, and alternatives were explained to the patient's surrogate and informed consent obtained. Attending Staff: Justin Wolfe DO Resident/APC: Not applicable Skin Prep: Chlorhexidine Anesthesia: 4 mL 1% lidocaine without epinephrine The identity of the patient was confirmed and a bedside time out was performed. Description of Procedure: After sterile prep and sterile drape utilizing standard sterile technique the superficial skin of the left femoral area was anesthetized. The target vessel was identified and entered with an 18-gauge needle. Dark venous blood return was noted. A guidewire was inserted through the needle and into the vessel. The needle was withdrawn and a skin ralph was made. A tissue dilator was advanced via Seldinger technique and removed. A double lumen catheter was inserted via Seldinger technique and the guidewire removed. All ports ricki and flushed easily. A Biopatch was placed, and the catheter was secured via nylon suture. A sterile dressing was then applied. Complications: None Estimated blood loss: Trace Patient tolerated the procedure well. Procedure Date: Noted Above Procedure: Procedural Ultrasound Indication: Femoral vein cannulation of temporary HD catheter Attending: Justin Wolfe DO Resident/Physician Molding Cutter: Not applicable Artery visualized: Yes Vein visualized: Yes Compressible Vein: Yes Vein patent: Yes Guidewire or Short Catheter seen in vein prior to dilation: Yes Line confirmed in Vein with ultrasound: Yes Lung Sliding on side of attempt (if applicable): NA Impression: Successful central venous access placement Images obtained are saved for permanent record [facility] [place] Codes (Charges) Tubes, Drains, and Vasc Access Procedure 1: Tubes, Drains, and Vasc Access: [id number] Insertion Of Non-tunneled Catheter Age 5 Yrs> (lt side, separate procedure) Procedure 2: Tubes, Drains, and Vasc Access: [id number] Ultrasound Guidance For Vascular Coding CPT Codes Tubes, Drains, and Vasc Access - Tubes, Drains, and Vasc Access: [id number] Insertion Of Non-tunneled Catheter Age 7 Yrs> ([id number]) Tubes, Drains, and Vasc Access - Tubes, Drains, and Vasc Access: [id number] Ultrasound Guidance For Vascular ([id number]) Additional Codes Date of Service ([facility].[email or web address])
[2024-03-10] MEDS ORDERED: SODIUM CHLORIDE 0.9% 250 ML IV PRN (12:21)
--- NOTE | 2024-03-10 12:25 | Critical Care Consultation ---
Date of Consultation March 10, 2024 Assessment & Plan (1) Atrial fibrillation, rapid: Reason Critically Ill: 78-year-old female with multisystem organ failure presumptive secondary to intra-abdominal sepsis PLAN: Neuro: Acute encephalopathy: Likely multifactorial metabolic in origin -Asymmetric dilatation of right lateral ventricle: Unclear significance at this time -Hyperammonemia Resp: compensatory respiratory alkalosis CV: atrial fibrillation with rapid ventricular response - amiodarone infusion and bolus -Would like to initiate beta-blockade and augment pressures with phenylephrine -Reviewed January 23, 2022 echocardiogram EF 65% no profoundly significant valvular abnormality Fluids/Renal: High gap metabolic acidosis: Lactic acid acidosis -Presumptively secondary to lactate ID: Possible intra-abdominal sepsis, abdominal ischemia -Plan for emergent laparotomy -Continue Zosyn GI/Nutrition: Transaminitis -Reviewed general surgery and gastroenterology consultation Heme: Leukocytosis -Acute phase reactant DVT prophylaxis: Heparin 5000 twice daily Endocrine: ICU hyperglycemia protocol Hypothyroidism -Levothyroxine 150 mcg by mouth daily Vascular access: Right triple-lumen subclavian placed 03/10, right radial arterial line placed 03/10, left femoral dialysis catheter placed 03/10 Code Status: Full code Disposition: ICU (2) Hyponatremia: (3) Metabolic acidosis: (4) Elevated lactic acid level: (5) Chronic pain: (6) Chronic hyponatremia: (7) Diabetic peripheral neuropathy associated with type 2 diabetes mellitus: (8) Pressure injury of buttock, stage 1: Supervising Physician Co-Signing Physician Notes I have personally spent 90 minutes of critical care time in the direct management of this patient. This is a life/limb threatening event. This includes time spent evaluating patient, direct bedside care, chart review, placing orders, interpretation of diagnostic studies, discussion with home sales consultant s, patient, and/or family members regarding treatment decisions, as well as other required patient management activities. This time is exclusive of all separately billable procedures, and teaching time and separate from and in addition to any other critical care service time. History of Present Illness Reason for Consultation: Probable intra-abdominal sepsis Attending Physician: Helder Chaudhary MD History of Present Illness Patient is a 78-year-old female with worsening kidney function new onset tachycardia and conversion to atrial fibrillation with rapid ventricular response. History is obtained from prior records and family friend at the bedside. Family friend informs me that she has no children, no living spouse, they discussed medical power of deputy attorney general yesterday she is not formally designated medical power of deputy attorney general. At this point we are using her contacts listed in the chart as her surrogate decision makers. Clinically the patient has worsening abdominal pain and decreasing mental status. I discussed this extensively with general surgery and nephrology. Given the hyperkalemia it was felt she needed to undergo emergent dialysis prior to an emergent exploratory laparotomy with concern for possible ischemic bowel. Patient was verbally assented to the procedures, she is not obtunded however she is not by enlarge able to respond does not exhibit insight into the underlying disease process at this time. Upon admission patient was found to have pancolitis as well as acute kidney injury. Her CPK was elevated. There is discussion about rhabdomyolysis, the elevation of the CPK is not significantly profound to have warranted treatment specifically for rhabdomyolysis. Accordingly the CPK is actually downtrending. Concerning the the patient's kidney function has decreased. She has not been hypotensive per records. Allergies Allergy/AdvReac Type Severity Reaction Status Date / Time sulfamethoxazole Allergy Severe Swelling Unverified 03/08/24 17:56 [From Bactrim] of Lip/Tongue/Throat AND HIVES trimethoprim [From Bactrim] Allergy Severe Swelling Unverified 03/08/24 17:56 of Lip/Tongue/Throat AND HIVES aspirin AdvReac Unknown advised to Verified 03/08/24 17:56 avoid due to hx ITP Home Medications Medication Instructions Recorded Confirmed Type biotin 1 mg tablet 1 mg PO QAM 01/10/19 03/08/24 History cholecalciferol (vitamin D3) 10 2,000 unit PO DAILY 01/10/19 03/08/24 History mcg (400 unit) tablet (Vitamin D3) coenzyme Q10 100 mg capsule 100 mg PO DAILY 01/10/19 03/08/24 History (CoQ-10) cyanocobalamin (vitamin B-12) 100 100 mcg PO DAILY 01/10/19 03/08/24 History mcg tablet (Vitamin B-12) folic acid 1 mg tablet 1 mg PO DAILY 01/10/19 03/08/24 History lutein 40 mg capsule 40 mg PO DAILY 01/10/19 03/08/24 History pantoprazole 40 mg tablet,delayed 40 mg PO DAILY 01/10/19 03/08/24 History release polyethylene glycol 3350 17 17 g PO DAILY PRN Constipation 01/10/19 03/08/24 History gram/dose oral powder (Miralax) simethicone 125 mg tablet 80 mg PO QID PRN Gi Upset 01/10/19 03/08/24 History docusate sodium 100 mg tablet 100 mg PO BID PRN Constipation 02/18/19 03/08/24 History celecoxib 200 mg capsule 200 mg PO DAILY 01/17/22 03/08/24 History morphine 15 mg tablet,extended 15 mg PO TID 01/17/22 03/08/24 History release naloxone 4 mg/actuation nasal 1 sprays intranasal DIRECTED 01/17/22 03/08/24 History spray (Narcan) pregabalin 200 mg capsule 200 mg PO TID 01/17/22 03/08/24 History levothyroxine 150 mcg tablet 150 mcg PO DAILY 01/23/22 03/08/24 History magnesium citrate 100 mg capsule 100 mg PO DAILY 01/23/22 03/08/24 History meclizine 25 mg tablet 25 mg PO TID PRN Vertigo 01/23/22 03/08/24 History metformin 500 mg tablet,extended 1,000 mg PO DAILY 01/23/22 03/08/24 History release 24 hr oxycodone-acetaminophen 5 mg-325 1 tab PO Q4H PRN Pain, Severe 01/23/22 03/08/24 History mg tablet pyridoxine (vitamin B6) 100 mg 100 mg PO DAILY 01/23/22 03/08/24 History tablet thiamine HCl (vitamin B1) 250 mg 250 mg PO DAILY 01/23/22 03/08/24 History tablet pravastatin 40 mg tablet 40 mg PO HS #30 tabs 01/26/22 03/08/24 Rx alpha lipoic acid 300 mg capsule 600 mg PO DAILY 12/18/22 03/08/24 History berberine-herbal comb no.18 capsule 1 cap PO DAILY 12/18/22 03/08/24 History duloxetine 30 mg capsule,delayed See Rx Instructions .Route .COMPLEX 07/30/23 03/08/24 History release duloxetine 60 mg capsule,delayed See Rx Instructions .Route .COMPLEX 03/08/24 03/08/24 History release hydrochlorothiazide 12.5 mg capsule 12.5 mg PO DAILY PRN Edema 03/08/24 03/08/24 History oxybutynin chloride 10 mg 10 mg PO DAILY 03/08/24 03/08/24 History tablet,extended release 24 hr oxybutynin chloride 5 mg 5 mg PO PM 03/08/24 03/08/24 History tablet,extended release 24 hr Patient History Medical History Pancolitis Sepsis Acute metabolic encephalopathy Rhabdomyolysis [place]LIN (acute kidney injury) GERD (gastroesophageal reflux disease) Diabetes mellitus, type 2 Sleep apnea no device Abdominal pain Elevated liver enzymes Precordial chest pain Double vision 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; no issues since Surgical History S/P total knee arthroplasty Hx of dilation and curettage History of meniscectomy of left knee Hx of tonsillectomy Hx of total hysterectomy Hx of eye surgery corrective (as child) Family History Mother Coronary heart disease Sister Schizophrenia Social History Smoking Status: Former smoker Tobacco Type: Cigarettes Cigarettes Per Day: "long time ago"; Second Hand Exposure: No; Do You Dip or Chew Tobacco: No; Hx Alcohol Use: Yes Alcohol type: wine Alcohol Intake Frequency: 4 or More x per/Week Alcohol Intake Frequency Comment: DAILY WITH DINNER Hx Substance Use: Yes Prescribed Medications: Marijuana Last Used Substance: Unknown Substance Use Type Other:: "I have been trying medical marijuana" Preferred Language: Arabic Communication Ability: Effective Visual Impairment: Limited Hearing Ability: Normal Cold Storage Supervisor Required: No Beliefs That Will Affect Care: None marital status: Single 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 Uncomfortable appearing. Skin: Warm, dry, Head: Atraumatic Ears, nose, mouth and throat: airway patent Cardiovascular: Normal peripheral perfusion Atrial fibrillation with rapid ventricular response on bedside monitor Respiratory: Tachypnea Gastrointestinal: Moderate distention with obvious discomfort with palpation. Concern for surgical abdomen Musculoskeletal: No deformity Results & Data Results & Data Vital Signs (Past 12 Hours) Vital Signs Temp Pulse Resp BP Pulse Ox O2 Del Method O2 Flow Rate 03/10/24 07:57 37.0 C 89 20 143/72 H 93 Nasal Cannula 2 03/10/24 03:41 36.8 C 90 26 H 111/67 91 Nasal Cannula 2.0 03/10/24 01:10 37.0 C 90 24 104/58 L 91 Nasal Cannula 2 Critical Care Results & Data Vital Signs (Past 12 Hours) Vital Signs Temp Pulse Resp BP Pulse Ox O2 Del Method O2 Flow Rate 03/10/24 07:57 37.0 C 89 20 143/72 H 93 Nasal Cannula 2 03/10/24 03:41 36.8 C 90 26 H 111/67 91 Nasal Cannula 2.0 03/10/24 01:10 37.0 C 90 24 104/58 L 91 Nasal Cannula 2 Lab & Micro Results (Past 24 Hours) RBC 5.05 M/uL (4.20-5.40) 03/10/24 WBC 16.10 K/ul (4.8-10.8) H 03/10/24 Hgb 14.2 g/dl (12.0-16.0) 03/10/24 Hct 39.3 % (37.0-47.0) 03/10/24 MCV 77.8 fL (80.0-100.0) L 03/10/24 MCH 28.1 pg (25.0-34.0) 03/10/24 MCHC 36.1 g/dL (32.0-36.0) H 03/10/24 RDW Standard Deviation 43.0 fL (36.4-46.3) 03/10/24 RDW Coefficient of Variation 15.2 % (11.5-14.5) H 03/10/24 Plt Count 156 K/uL (130-400) 03/10/24 MPV 11.2 fL (9.4-12.4) 03/10/24 Na 132 mmol/L (136-145) L 03/10/24 K 6.4 mmol/L (3.5-5.1) H* 03/10/24 Cl 96 mmol/L (98-107) L 03/10/24 CO2 20 mmol/L (21-32) L 03/10/24 Anion Gap 16 (3-11) H 03/10/24 BUN 87 mg/dl (6-23) H 03/10/24 Creatinine 4.29 mg/dl (0.6-1.2) H 03/10/24 Estimated GFR ( Amer) 10.9 ml/min 03/10/24 Estimated GFR (Non-Af Amer) 9.4 ml/min 03/10/24 BUN/Creatinine Ratio 20.3 (10-20) H 03/10/24 Glu 133 mg/dl (70-99(Fasting)) H 03/10/24 Ca 7.8 mg/dl (8.6-10.3) L 03/10/24 Phosphorus Level 5.2 mg/dl (2.5-4.9) H 03/10/24 Total Bilirubin 2.5 mg/dl (0.2-1.0) H 03/10/24 AST 1216 U/L (13-39) H 03/10/24 ALT 1230 U/L (7-52) H 03/10/24 Alkaline Phosphatase 112 U/L (34-104) H 03/10/24 TP 4.8 gm/dl (6.0-8.3) L 03/10/24 Albumin 2.8 gm/dl (3.4-5.0) L 03/10/24 Globulin 2.0 gm/dl (2.5-4.0) L 03/10/24 Albumin/Globulin Ratio 1.4 (0.9-2) 03/10/24 Mg 3.3 mg/dl (1.7-2.4) H 03/10/24 07:28 Calcium Level 7.8 mg/dl (8.6-10.3) L 03/10/24 07:28 Venous Blood pH 7.43 (7.36-7.41) H 03/10/24 07:28 Venous Blood Partial Pressure CO2 26 mmHg (38-50) L 03/10/24 07 :28 Venous Blood Partial Pressure O2 58 mmHg 03/10/24 07:28 Venous Blood HCO3 17 mmol/L 03/10/24 07:28 Venous Blood Base Excess -5.2 mEq/L 03/10/24 07:28 Venous Blood Oxygen Saturation 89.0 % 03/10/24 07:28 Castro Test NA 03/10/24 12:32 Microbiology 03/08/24 18:35 Urine Culture - Final Urine,Clean Catch No growth - less than 1,000 colonies/mL. 03/08/24 17:42 Aerobic Blood Culture - Preliminary Blood No growth in Aerobic bottle after 24 hours. Anaerobic Blood Culture - Preliminary No growth in Anaerobic bottle after 24 hours. Diagnostic Findings (Past 24 Hours) Chest X-Ray 03/10/24 05:06 XR chest 1V portable HISTORY: tachypnea COMPARISON: Chest 03/09/2024. FINDINGS: Nasogastric tube terminates within the distal stomach. There are low lung volumes. No pneumothorax. The heart remains enlarged. Bibasilar linear densities are nonspecific but favor subsegmental atelectasis. There is mild central pulmonary vascular congestion without overt edema. No pleural effusions. IMPRESSION: 1. Cardiomegaly with mild central pulmonary vascular congestion. 2. Nasogastric tube terminates in the stomach. 3. A few bibasilar densities are new from the prior study and favor subsegmental atelectasis given the low lung volumes. A developing pneumonia also remains in the differential diagnosis. ACT 112: Negative or not required by law. Electronically signed by: Deangelo Wright M.D. 03/10/2024 7:48 AM I & O Totals 24 Hours 03/09/24 03/10/24 03/11/24 06:59 06:59 06:59 Intake Total 5522.5 / 5522.5 3612.167 / 3612.167 Output Total 3 / 1110 / 1110 Balance 5519.5 / 5519.5 2502.167 / 2502.167 Cumulative 03/08/24 14:31 thru 03/10/24 11:14 Intake Total 9134.667 Output Total 1113 Balance 8021.667 RT Ventilator Mngmt (Last Documented) Ventilator Ordered Settings Respiratory Rate 20 03/10/24 07:57 Ventilator - PT Measurements Respiratory Rate 20 Coding Level of Care Code 83735 CRITICAL CARE 1ST 30-74M Additional Critical Care Time Additional 30min Critical Care Time: Yes - Diagnoses Atrial fibrillation, rapid I48.91 Hyponatremia E87.1 Metabolic acidosis E87.20 Elevated lactic acid level R79.89 Chronic pain G89.29 Chronic pain type: other chronic pain Chronic hyponatremia E87.1 Diabetic peripheral neuropathy associated with type 2 diabetes mellitus E11.42 Pressure injury of buttock, stage 1 L89.301 Additional Codes Critical Care Time - Additional 30min Critical Care Time: Yes - ([id number]) (5) Chronic pain Chronic pain type: other chronic pain Qualified Code(s): G89.29 - Other chronic pain
[2024-03-10] MEDS ORDERED: STAT IV Infusion **Titration per Protocol STA ×3 (12:38→19:05)
[2024-03-10] MEDS: ALBUMIN 25% 12.5 GM/50 ML VIAL IV ONE (12:41)
[2024-03-10 12:44] LABS: iSTAT Art Bld Gas pCO2 Correct 28 mmHg (35-46); iSTAT Art Bld Gas pH Corrected 7.488 (7.35-7.45); iSTAT Arterial Blood Gas HCO3 21 meg/L (19-24); iSTAT Arterial Blood Gas pCO2 28 mmHg (35-46); iSTAT Arterial Blood Gas pH 7.49 (7.35-7.45); iSTAT Arterial Blood Gas pO2 93 mmHg (80-95); iSTAT Arterial Blood Gas pO2 C 93; iSTAT Carbon Dioxide 22 mmol/L (24-31); iSTAT Hematocrit 39 % (37-47); iSTAT Hemoglobin 13.3 g/dl (12.0-16.0); iSTAT Potassium 4.6 mmol/L (3.3-5.0); iSTAT Site Art Line; iSTAT Sodium 135 mmol/L (135-144)
--- NOTE | 2024-03-10 12:49 | XRay Report ---
SINGLE VIEW CHEST CLINICAL HISTORY: Central venous catheter placement. FINDINGS: An AP, portable, upright chest radiograph is compared to study dated 03/10/2024 and correlate d with chest CT dated 01/15/2022. The enteric tube is unchanged in position. A right subclavian centra l venous catheter has been placed. The tip of the catheter projects over the right atrium at the leve l of the diaphragm. The heart is mildly enlarged noting atherosclerotic calcification of the thoracic aorta. There is mild pulmonary vascular congestion. Chronic reticular thickening is similar to previ ous. Atelectasis is seen at the lung bases. No airspace consolidation or large pleural effusion is id entified. No pneumothorax is seen. The skeletal structures are osteopenic. The bony thorax is grossly intact. Degenerative change is noted in the shoulders and spine. IMPRESSION: 1. A right subclavian central venous catheter has been placed as above. The tip projects over the rig ht atrium at the level of the diaphragm. Repositioning may be indicated. 2. No pneumothorax is seen post procedure. 3. Cardiomegaly with mild pulmonary vascular congestion ACT 112: Negative or not required by law. Electronically signed by: Juancho Hatfield M.D. 03/10/2024 12:47 PM
[2024-03-10] MEDS: PHENYLEPHRINE/NSS 25 MG/250 ML BAG IV SCH (12:50)
[2024-03-10] MEDS: AMIODARONE 360MG / 200ML D5W IV ONE ×2 (12:52→17:16)
[2024-03-10] MEDS: AMIODARONE 150MG / 100ML D5W IV ONE (12:52)
[2024-03-10] MEDS ORDERED: fentaNYL citrate PF 100 MCG/2 ML VIAL IV PRN (12:52)
[2024-03-10] MEDS ORDERED: MIDAZOLAM HCL 1 MG/ML 2ML VIAL IV PRN (12:52)
[2024-03-10] MEDS: MIDAZOLAM HCL 5 MG/ML 2ML VIAL ONE (13:28)
[2024-03-10] MEDS: VECURONIUM BROMIDE 10 MG VIAL IV ONE (13:28)
[2024-03-10] MEDS: fentaNYL citrate PF 100 MCG/2 ML VIAL ONE (13:28)
[2024-03-10] MEDS: VASOPRESSIN 20 UNITS in 0.9 % SODIUM CHLORIDE 100 ML IV SCH (13:29)
[2024-03-10] MEDS: VECURONIUM BROMIDE 10 MG VIAL IV STA (13:29)
[2024-03-10] MEDS ORDERED: fentaNYL citrate PF 100 MCG/2 ML VIAL ONE (13:39)
[2024-03-10 13:55] LABS: Hep B Surface Ag with confirm Negative (Negative)
[2024-03-10] MEDS ORDERED: MIDAZOLAM HCL 1 MG/ML 2ML VIAL ONE ×2 (13:55→14:50)
[2024-03-10] MEDS ORDERED: ATROPINE SULFATE 0.1 MG/ML 10ML SYR IV PRN (13:56)
[2024-03-10] MEDS ORDERED: HYDROmorphone INJ 1 MG/ML SYRINGE IV PRN (13:56)
[2024-03-10 14:04] LABS: Hepatitis B Surface Ab Quant < 3.00 mIU/mL (>or=10mIU/mL Immune); Hepatitis B Surface Antibody Non-Immune
[2024-03-10] MEDS ORDERED: ROCURONIUM BROMIDE 10 MG/ML 5 ML VIAL IV ONE (15:21)
--- NOTE | 2024-03-10 15:38 | Electrocardiogram Report ---
Test Reason : Blood Pressure : */* mmHG Vent. Rate : 98 BPM Atrial Rate : 98 BPM P-R Int : 164 ms QRS Dur : 86 ms QT Int : 332 ms P-R-T Axes : 58 38 45 degrees QTcB Int : 423 ms Normal sinus rhythm Normal ECG When compared with ECG of 09-Mar-2024 05:16, No significant change was found Confirmed by Carlos Garcia ([id number]) on 03/10/2024 3:38:26 PM Referred By: REFERRED SELF Confirmed By: Carlos Garcia
--- NOTE | 2024-03-10 15:40 | Electrocardiogram Report ---
Test Reason : Blood Pressure : */* mmHG Vent. Rate : 144 BPM Atrial Rate : 170 BPM P-R Int : 160 ms QRS Dur : 80 ms QT Int : 278 ms P-R-T Axes : 89 55 40 degrees QTcB Int : 430 ms Atrial fibrillation Otherwise normal ECG When compared with ECG of 10-Mar-2024 09:00, (unconfirmed) No significant change was found Confirmed by Carlos Garcia ([id number]) on 03/10/2024 3:39:52 PM Referred By: REFERRED SELF Confirmed By: Carlos Garcia
[2024-03-10 15:54] LABS: Base Excess ABG -3.9 mEq/L (-9-1.8); HCO3 ABG 22 mmol/L (19-24); Oxygen Saturation ABG 97.4 % (90-95); PCO2 ABG 40 mmHg (35-46); PO2 ABG 144 mmHg (80-95); pH ABG 7.34 (7.35-7.45)
--- NOTE | 2024-03-10 15:54 | Post Operative Brief Note ---
Immediate Post Op Note Date of Surgery March 10, 2024 Pre & Post Diagnosis Operation Date: 03/10/24 09:10 Pre-Op Diagnosis: Pancolitis Post-Op Diagnosis: Pancolitis I identified the patient and participated in the time-out.: Yes Procedure Operation Date: 03/10/24 09:10 Actual Procedures p Exploratory Laparotomy, Subtotal Colectomy with Removal of Terminal Ilium and Appendix(Not Applicable) - Duke Vickers MD Surgeon Duke Vickers MD Planisher KATYA Foreman assisted with tissue retraction, camera op, closure Estimated Blood Loss 10 Findings Consistent with Post-Op Diagnosis necrotic areas throughout the entire colon down to the sigmoid; necrotic terminal ileum; no perforation; focal areas of ischemia on the liver
--- NOTE | 2024-03-10 16:02 | Operative Report ---
Post Operative Report Pre & Post Diagnosis Operation Date: 03/10/24 09:10 Pre-Op Diagnosis: Pancolitis Post-Op Diagnosis: Pancolitis I identified the patient and participated in the time-out.: Yes Procedure Operation Date: 03/10/24 09:10 Actual Procedures p Exploratory Laparotomy, Subtotal Colectomy with Removal of Terminal Ilium and Appendix(Not Applicable) - Duke Vickers MD Surgeon Duke Vickers MD Housing Quality Standard Inspector KATYA Foreman assisted with tissue retraction, camera op, closure Estimated Blood Loss 10 Findings Consistent with Post-Op Diagnosis necrotic areas throughout the colon down to the mid sigmoid; necrotic terminal ileum; ischemic areas of liver; no perforation noted Specimens subtotal colectomy including terminal ileum and appendix; omentum Drains ABThera wound VAC Anesthesia Type General Complications none Description of Procedure patient was taken to the operating room, and placed supine on the operating table. She was already intubated and sedated. She already had a Toro catheter in place and an NG tube. After adequate anesthesia and analgesia was obtained, the abdomen was prepped and draped in normal sterile fashion. A midline incision was made with a 10 blade scalpel and carried down to the fascia. The fascia was entered at the umbilicus and the wound was opened to its fullest extent with the electrocautery. Exploration began. The omentum was lifted and immediately yielded a necrotic area of transverse colon. We began our exploration with the colon, and started at the rectum. At the level of the mid sigmoid, there were patchy areas of necrosis extending back all through the descending colon and splenic flexure to the transverse colon. The entire splenic flexure and distal transverse colon was necrotic. There was no viable area of the proximal transverse colon, however the entire right colon and cecum as well as the terminal ileum was necrotic. We rapidly ran the small bowel, and except for the terminal ileum, the small bowel was viable. Decision was made to proceed with a subtotal colectomy. A Bookwalter retractor was placed. A site was selected on the sigmoid colon and an area below the areas of necrosis, and this was transected with a JACKSON 80 bowel stapler. The descending colon was mobilized along the white line of Toldt up to the splenic flexure. We then mobilized the omentum off of the distal transverse colon back to the splenic flexure. The splenic flexure was completely mobilized with blunt dissection and judicious use of the cautery. The mesentery of the colon was taken down with the LigaSure device. Once the splenic flexure was fully taken down and the mesentery transected, we began mobilizing back towards the hepatic flexure. To the stomach in dissecting the omentum and stomach away from the transverse colon. This was again done with the LigaSure device as well as electrocautery and blunt dissection. Once we attained the level of the hepatic flexure from the transverse colon side, we then turned our attention to the right colon. The right colon was mobilized along the white line of Toldt with the electrocautery and blunt dissection. This was done up to the hepatic flexure, and the hepatic flexure was completely mobilized. Again, the mesentery was taken down with the LigaSure device. Site was selected on the ileum just proximal to the area of necrosis of the terminal ileum. This was transected with the bowel load of the JACKSON stapler. The rest of the mesentery was taken down with the LigaSure device, and the specimen was removed and sent off the field. A majority of the omentum also had necrosis and necrotic areas. A significant portion of the omentum was transected with the LigaSure device and sent off for specimen as well. Attention was turned to hemostasis, specifically in the hepatic and splenic flexures, and the wound was copiously irrigated with warm saline and was suctioned free. Again hemostasis was checked and attended to and was excellent. At this point, the decision was made to proceed with damage control technique. An ABThera wound VAC device was placed in the usual fashion into the abdomen. There was a good seal when the wound VAC was turned on. The patient tolerated the procedure without complication, and was transferred in critical condition to the ICU. She remains on the ventilator and paralyzed. All instrument, needle, and sponge counts were correct at the end of the case. My psychiatric assistant was necessary throughout the procedure for tissue retraction, possible camera operation, and closure of the wounds. I understand that section 1842(b)(7)(D) of the Social Security act generally prohibits Medicare physician fee schedule payment for the services of assistants at surgery in teaching hospitals when qualified residents are available to furnish such services. I certify that the services for which payment is claimed were medically necessary and that no qualified resident was available to perform the services. I further understand that these services are subject to postpayment review by the Medicare carrier. I attest to the content of the Intraoperative Record and any orders documented t herein. Any exceptions are noted below.
[2024-03-10] MEDS: ceFAZolin 330 MG/ML 1 GM VIAL ONE (16:09)
[2024-03-10] MEDS ORDERED: CALCIUM CHLORIDE 10% 10 ML SYR IV ONE (16:17)
[2024-03-10 16:27] LABS: BUN Creatinine Ratio 19.1 (10-20); Calcium 7.5 mg/dl (8.6-10.3); Creatinine Clr Calc Pharmacy 15.3 ml/min; Est GFR (African American) 13.9 ml/min; Potassium 5.5 mmol/L (3.5-5.1)
[2024-03-10 16:37] LABS: Allen Test Pos (Pos)
[2024-03-10] MEDS ORDERED: fentaNYL BOLUS from BAG IV PRN (16:44)
[2024-03-10] MEDS ORDERED: MIDAZOLAM BOLUS FROM BAG IV PRN (16:44)
--- NOTE | 2024-03-10 16:52 | Hospitalist Progress Note ---
Date of Service March 10, 2024 Assessment & Plan (1) Pancolitis: Plan 78 year old female with PMH of HTN, DM II, peripheral neuropathy, chronic pain on chronic narcotics and medical marijuana, hypothyroidism, depression and others listed below presented to ER for generalized weakness, N/V/D, diffuse abdominal discomfort. It is reported upon initial presentation to ER patient was confused and very drowsy. Later on patient appears to be less drowsy and is was able to provide more history to admitting team. Pt noted to have difficulty recalling events. Pt was found by her friend sitting on toilet, maybe anywhere between 12-24 hours she might have been there. She is being managed for the following: Acute metabolic encephalopathy likely multifactorial secondary to sepsis, medications, Rhabdomyolysis Patient coming in with generalized weakness, nausea, vomiting, diffuse abdominal discomfort and noted to be confused/forgetful at presentation. Admitting CT head with no acute intracranial findings. Age-indeterminate asymmetric dilatation of right lateral ventricle noted. Admitting Brain MRI: Asymmetric dilatation of right lateral ventricle with respect to the left. No acute finding. Admitting CXR with no acute finding. BioFire panel negative. U tox positive for opiates/respiratory depending on negative. Hold home neuropsychotropic's. Discussed with neurology 03/09, brain imaging findings appears to be anatomical variant. No need for any further workup. Patient obtunded today, plan was to get hemodialysis and exp lap today. Both taken care of by late afternoon. Expect to improve with treatment of underlying cause. See below. Severe sepsis POA: Likely secondary to pancolitis Pancolitis Likely large bowel obstruction Increase blood lactic acid level: At admission 4.0, gradually up trended, now downtrending. Patient on IV fluid resuscitation. Patient on antibiotic. Transaminitis: At admisison - total bilirubin 1.6/AST and ALT elevated/ALP WNL. Likely secondary to rhabdomyolysis and acute sepsis. Monitor LFT. Patient presenting with nausea, vomiting, diarrhea, diffuse abdominal tenderness. CTAP: Nonspecific pancolitis likely infectious or inflammatory. No bowel obstruction. Distended gallbladder. Punctate right renal calculus. US gallbladder: Distended gallbladder. No cholelithiasis or evidence of acute cholecystitis. Stool PCR and C. difficile negative. Admitting procalcitonin 43, up trended to 51 next day. Patient continued to have increasing abdominal pain and distention 03/09, repeat x-ray KUB with mildly dilated gas and stool-filled colon. No evidence of a small bowel obstruction. Moderate gaseous distention of the stomach. Patient with continued abdominal pain and was obtunded 03/10. Taken to the OR for exploratory laparotomy. Noted was : necrotic areas throughout the colon down to the mid sigmoid; necrotic terminal ileum; ischemic areas of liver; no perforation noted. 03/10 - s/p Exploratory Laparotomy, Subtotal Colectomy with Removal of Terminal Ilium and Appendix. General surgery on board, managing acute abdomen. Patient currently NPO. Continue with Zosyn 03/08. continue with PPI IV twice daily. c/w pain meds prn. GI Evaluating, appreciate recommendation. Follow blood culture. Acute UTI: Noted on urinalysis. Patient on antibiotic. Follow urine culture. Acute rhabdomyolysis: Likely 2/2 ischemic/necrotic colitis. CPK of 6644--> 8853 --> 2344. C/w IV fluid resuscitation, Nephro on board, managing ivf. Likely demand ischemia: Troponin 49, gradually up trended to 189, likely secondary to significant rhabdomyolysis ongoing. Patient complained of no chest pain. EKG NSR, no acute ST or T changes. Repeat EKG today w/ no new changes. Hypertensive urgency: Blood pressure elevated at presentation in the ED. Still high but better currently. Continue to monitor. Acute kidney injury and ATN iso acute rhabdomyolysis Lactic acidosis Metabolic acidosis Electrolyte abnormalities: Hyperkalemia, Hypocalcemia, Hypomagnesemia Dehydration Admitting WBC 21K, hemoglobin 18K, platelet 240 4K. Likely hemoconcentration. Admitting creatinine 2.15, admitting lactic acid 4.0. Admitting bicarb 17. Pt being managed in ICU, getting ivf. Mx per ICU. Temp cath placement 03/10, s/p HD 03/10 w/ improvement in labs. Pt is intubated and needing pressor support in icu. Chronic hyponatremia: Prior history chronic hyponatremia. Was 138 on 11/20/2023, 131 on 07/29/2023. Sodium 132 today. DC hydrochlorothiazide on discharge. Pressure injury of buttock, stage I: From prolonged sitting on toilet seat. Wound nurse consult. History of MRSA infection: Reported h/o MRSA infection to left toe in past. Currently appears healed Other chronic medical conditions: Currently hold p.o. medications if not warranted emergently. Hyperlipidemia: Patient on statin at home. Chronic pain: Patient on chronic morphine, Percocet, pregabalin. T2DM: Hold metformin, sliding scale insulin while in hospital. Glycemic pharmacy consult. Hypothyroidism: Hold home levothyroxine DVT prophylaxis: Heparin subcu PCU status, PT/OT down the road. Full Code as per admitting team's discussion with pt, however states if poor prognosis would not want prolonged life support Follows with Dr Ellison for routine care Pt's primary contact Tea was updated over the phone and answered all her questions. Total time spent reviewing chart, bedside exam x 2, d/w Gen Sx and Nephrology in detail (see note), updating pt's friends was 85 minutes. Admission and Anticipated Discharge Date Admission Date: March 08, 2024 Subjective patient was seen and examined at bedside. Patient obtunded, not able to obtain ROS. Case was discussed with nephrology for ongoing hyperkalemia and possible volume overload status. Plan was to get temporary dialysis catheter and hemodialysis. Hemodialysis achieved. Case was also discussed with ICU attending given worsening hyperkalemia, risks of pulmonary edema, for close ICU monitoring. Patient was then transferred to ICU care. Physical Exam Physical Exam: GENERAL: Obtunded, appears ill/sick. on 4 L oxygen via nasal cannula NG tube in situ HEENT: No pallor, no icterus. Pupils equal, round and reactive to light. Oral mucosa dry. NECK: No JVD, no neck masses. HEART: S1 and S2 heard. Regular rate and rhythm. tachycardia. No murmur, no gallop. RESPIRATORY SYSTEM: Normal AP diameter. No accessory muscle use. No wheezing, no crackles. ABDOMEN: distended, diffusely tender. CENTRAL NERVOUS SYSTEM: obtunded EXTREMITIES: No edema, no erythema seen. Results & Data Results & Data Vital Signs (Past 12 Hours) Vital Signs Temp Pulse Pulse Resp BP BP BP 03/10/24 16:25 37.2 C 117 H 18 136/112 H 03/10/24 16:17 134 H 19 03/10/24 16:15 37.3 C 119 H 18 172/115 H 03/10/24 16:05 37.3 C 115 H 18 153/108 H 03/10/24 14:38 03/10/24 14:12 139 H 20 03/10/24 13:51 130 H 25 H 03/10/24 13:42 122 H 22 03/10/24 13:40 37.0 C 129 H 97/52 L 03/10/24 13:33 117 H 25 H 03/10/24 13:31 120/99 03/10/24 13:31 120/99 03/10/24 13:30 119 H 99/51 L 03/10/24 13:27 120 H 24 03/10/24 13:25 122 H 27 H 03/10/24 13:12 126 H 35 H 03/10/24 13:03 139 H 36 H 03/10/24 13:00 72/57 L 03/10/24 13:00 72/57 L 03/10/24 13:00 135 H 121/52 L 03/10/24 12:51 129 H 32 H 03/10/24 12:42 150 H 32 H 03/10/24 12:36 136 H 34 H 03/10/24 12:31 70/50 L 03/10/24 12:30 117 H 84/49 L 03/10/24 12:30 148 H 40 H 03/10/24 12:27 127 H 34 H 03/10/24 12:20 120/67 03/10/24 12:15 110/69 03/10/24 12:11 102/42 L 03/10/24 12:09 118 H 34 H 03/10/24 12:05 98/54 L 03/10/24 12:05 98/54 L 03/10/24 12:04 144 H 102/42 L 03/10/24 12:03 137 H 37 H 03/10/24 12:01 107/57 L 03/10/24 12:01 107/57 L 03/10/24 12:01 107/57 L 03/10/24 12:01 107/57 L 03/10/24 12:00 37.0 C 126 H 03/10/24 11:57 130 H 37 H 03/10/24 11:56 113/59 L 03/10/24 11:56 113/59 L 03/10/24 11:45 145/81 H 03/10/24 11:42 124 H 45 H 03/10/24 11:39 134 H 36 H 03/10/24 11:30 119/82 03/10/24 11:27 133 H 34 H 03/10/24 11:21 136 H 36 H 03/10/24 11:18 136 H 36 H 03/10/24 11:16 129/79 03/10/24 11:16 129/79 03/10/24 11:16 129/79 03/10/24 11:16 129/79 03/10/24 11:16 129/79 03/10/24 11:06 134 H 34 H 03/10/24 11:00 107/72 03/10/24 11:00 107/72 03/10/24 11:00 107/72 03/10/24 11:00 116 H 35 H 03/10/24 10:54 121 H 40 H 03/10/24 10:45 140/84 03/10/24 10:45 154 H 36 H 03/10/24 10:36 152 H 47 H 03/10/24 10:21 163 H 48 H 03/10/24 10:16 92/68 L 03/10/24 10:16 92/68 L 03/10/24 10:16 92/68 L 03/10/24 10:16 92/68 L 03/10/24 10:15 159 H 41 H 03/10/24 10:06 142 H 42 H 03/10/24 10:00 94/66 L 03/10/24 09:51 145 H 39 H 03/10/24 09:45 124/64 03/10/24 09:42 148 H 39 H 03/10/24 09:36 116/77 03/10/24 07:57 37.0 C 89 20 143/72 H Pulse Ox O2 Del Method O2 Flow Rate FiO2 03/10/24 16:25 96 Mechanical Vent 50 03/10/24 16:17 95 50 03/10/24 16:15 94 Mechanical Vent 50 03/10/24 16:05 94 Mechanical Vent 50 03/10/24 14:38 Mechanical Vent 03/10/24 14:12 03/10/24 13:51 95 03/10/24 13:42 95 03/10/24 13:40 03/10/24 13:33 95 03/10/24 13:31 03/10/24 13:31 03/10/24 13:30 03/10/24 13:27 94 03/10/24 13:25 95 50 03/10/24 13:12 96 03/10/24 13:03 93 03/10/24 13:00 03/10/24 13:00 03/10/24 13:00 03/10/24 12:51 91 03/10/24 12:42 92 03/10/24 12:36 93 03/10/24 12:31 03/10/24 12:30 03/10/24 12:30 93 03/10/24 12:27 94 03/10/24 12:20 03/10/24 12:15 03/10/24 12:11 03/10/24 12:09 95 03/10/24 12:05 03/10/24 12:05 03/10/24 12:04 03/10/24 12:03 94 03/10/24 12:01 03/10/24 12:01 03/10/24 12:01 03/10/24 12:01 03/10/24 12:00 03/10/24 11:57 94 03/10/24 11:56 03/10/24 11:56 03/10/24 11:45 03/10/24 11:42 96 03/10/24 11:39 93 03/10/24 11:30 03/10/24 11:27 94 03/10/24 11:21 95 03/10/24 11:18 94 03/10/24 11:16 03/10/24 11:16 03/10/24 11:16 03/10/24 11:16 03/10/24 11:16 03/10/24 11:06 94 03/10/24 11:00 03/10/24 11:00 03/10/24 11:00 03/10/24 11:00 94 03/10/24 10:54 93 03/10/24 10:45 03/10/24 10:45 94 03/10/24 10:36 93 03/10/24 10:21 93 03/10/24 10:16 03/10/24 10:16 03/10/24 10:16 03/10/24 10:16 03/10/24 10:15 91 03/10/24 10:06 92 03/10/24 10:00 03/10/24 09:51 91 03/10/24 09:45 03/10/24 09:42 90 03/10/24 09:36 03/10/24 07:57 93 Nasal Cannula 2
--- NOTE | 2024-03-10 16:53 | Communication Note ---
Date of Service: March 10, 2024 Patient returned from operating room which ischemic bowel was discovered and resected. Patient is in discontinuity. Will remain intubated until back to the operating room anticipated Wednesday. Tolerated dialysis prior to going to operating room. Will continue to trend electrolytes, patient has produced little bit of urine, I am hopeful there will be return of renal function. Obtain echocardiogram rule out intracardiac thrombus and showering of thrombi as source of ischemic gut. No indication for systemic anticoagulation in the immediate postop period. Wean vasoactive's as tolerated. Continue with lactated Ringer's infusion discontinuing bicarbonate at this time. Adding IV beta-trevor for rate control. I have personally spent 55 minutes of critical care time in the direct management of this patient. This is a life/limb threatening event. This includes time spent evaluating patient, direct bedside care, chart review, placing orders, interpretation of diagnostic studies, discussion with consultants, patient, and/or family members regarding treatment decisions, as well as other required patient management activities. This time is exclusive of all separately billable procedures, and teaching time and separate from and in addition to any other critical care service time. Coding Level of Care Code 29703 CRITICAL CARE EA ADD 30M
[2024-03-10] MEDS: fentaNYL citrate 2,500 MCG/250 ML BAG IV SCH (17:19)
[2024-03-10] MEDS: MIDAZOLAM HCL 125 MG/250 ML BAG IV SCH (17:19)
[2024-03-10] MEDS: LACTATED RINGER'S 1,000 ML IV SCH (17:32)
[2024-03-10] MEDS: dilTIAZem HCl 5 MG/ML 5 ML VIAL IV ONE (18:37)
[2024-03-10] MEDS ORDERED: 0.2 MICRON FILTER SET 1 EACH IV STA (19:05)
[2024-03-10] MEDS ORDERED: AMIODARONE IV BOLUS & DRIP IV STA (19:05)
--- NOTE | 2024-03-10 19:06 | Communication Note ---
Date of Service: March 10, 2024 Patient underwent dialysis earlier today. Will rebolus amiodarone postdialysis and start on drip due to continued atrial fibrillation with RVR in the setting of septic shock. Coding Level of Care Code None
--- NOTE | 2024-03-10 19:25 | Anesthesiology Progress Note ---
Date of Service March 10, 2024 Anesthesia Post Procedure Vital Signs Vital Signs: Temp Pulse Pulse Resp BP BP BP 03/10/24 18:33 131 H 19 03/10/24 18:21 118 H 22 03/10/24 18:12 128 H 23 03/10/24 18:09 128 H 23 03/10/24 18:01 135/77 03/10/24 17:57 104 H 24 03/10/24 17:46 109/76 03/10/24 17:46 109/76 03/10/24 17:45 123 H 24 03/10/24 17:33 121 H 25 H 03/10/24 17:31 168/101 H 03/10/24 17:31 168/101 H 03/10/24 17:24 127 H 23 03/10/24 17:15 167/118 H 03/10/24 17:06 112 H 21 03/10/24 17:00 165/129 H 03/10/24 17:00 117 H 19 03/10/24 16:51 130 H 22 03/10/24 16:48 123 H 21 03/10/24 16:46 159/89 H 03/10/24 16:46 159/89 H 03/10/24 16:46 159/89 H 03/10/24 16:46 159/89 H 03/10/24 16:39 120 H 19 03/10/24 16:33 114 H 19 03/10/24 16:30 136/112 H 03/10/24 16:25 164/121 H 03/10/24 16:25 37.2 C 117 H 18 136/112 H 03/10/24 16:24 131 H 18 03/10/24 16:17 134 H 19 03/10/24 16:16 172/116 H 03/10/24 16:15 126 H 18 03/10/24 16:15 37.3 C 119 H 18 172/115 H 03/10/24 16:12 119 H 18 03/10/24 16:05 153/108 H 03/10/24 16:05 153/108 H 03/10/24 16:05 37.3 C 115 H 18 153/108 H 03/10/24 15:45 132 H 12 03/10/24 15:30 35.0 C L 130 H 12 03/10/24 15:21 36.8 C 119 H 12 03/10/24 15:12 36.9 C 113 H 12 03/10/24 14:51 36.4 C L 132 H 12 03/10/24 14:42 37.2 C 132 H 12 03/10/24 14:38 03/10/24 14:30 37.2 C 134 H 12 03/10/24 14:12 139 H 20 03/10/24 13:51 130 H 25 H 03/10/24 13:42 122 H 22 03/10/24 13:40 37.0 C 129 H 97/52 L 03/10/24 13:33 117 H 25 H 03/10/24 13:31 120/99 03/10/24 13:31 120/99 03/10/24 13:30 119 H 99/51 L 03/10/24 13:27 120 H 24 03/10/24 13:25 122 H 27 H 03/10/24 13:12 126 H 35 H 03/10/24 13:03 139 H 36 H 03/10/24 13:00 72/57 L 03/10/24 13:00 72/57 L 03/10/24 13:00 135 H 121/52 L 03/10/24 12:51 129 H 32 H 03/10/24 12:42 150 H 32 H 03/10/24 12:36 136 H 34 H 03/10/24 12:31 70/50 L 03/10/24 12:30 117 H 84/49 L 03/10/24 12:30 148 H 40 H 03/10/24 12:27 127 H 34 H 03/10/24 12:20 120/67 03/10/24 12:15 110/69 03/10/24 12:11 102/42 L 03/10/24 12:09 118 H 34 H 03/10/24 12:05 98/54 L 03/10/24 12:05 98/54 L 03/10/24 12:04 144 H 102/42 L 03/10/24 12:03 137 H 37 H 03/10/24 12:01 107/57 L 03/10/24 12:01 107/57 L 03/10/24 12:01 107/57 L 03/10/24 12:01 107/57 L 03/10/24 12:00 37.0 C 126 H 09/06/24 11:57 130 H 37 H 03/10/24 11:56 113/59 L 03/10/24 11:56 113/59 L 03/10/24 11:45 145/81 H 03/10/24 11:42 124 H 45 H 03/10/24 11:39 134 H 36 H 03/10/24 11:30 119/82 03/10/24 11:27 133 H 34 H 03/10/24 11:21 136 H 36 H 03/10/24 11:18 136 H 36 H 03/10/24 11:16 129/79 03/10/24 11:16 129/79 03/10/24 11:16 129/79 03/10/24 11:16 129/79 03/10/24 11:16 129/79 03/10/24 11:06 134 H 34 H 03/10/24 11:00 107/72 03/10/24 11:00 107/72 03/10/24 11:00 107/72 03/10/24 11:00 116 H 35 H 03/10/24 10:54 121 H 40 H 03/10/24 10:45 140/84 03/10/24 10:45 154 H 36 H 03/10/24 10:36 152 H 47 H 03/10/24 10:21 163 H 48 H 03/10/24 10:16 92/68 L 03/10/24 10:16 92/68 L 03/10/24 10:16 92/68 L 03/10/24 10:16 92/68 L 03/10/24 10:15 159 H 41 H 03/10/24 10:06 142 H 42 H 03/10/24 10:00 94/66 L 03/10/24 09:51 145 H 39 H 03/10/24 09:45 124/64 03/10/24 09:42 148 H 39 H 03/10/24 09:36 116/77 03/10/24 07:57 37.0 C 89 20 143/72 H 03/10/24 03:41 36.8 C 90 26 H 111/67 03/10/24 01:10 37.0 C 90 24 104/58 L 03/09/24 23:17 89 20 03/09/24 23:00 95 H 03/09/24 22:13 36.8 C 102 H 22 160/73 H 03/09/24 20:00 03/09/24 19:27 36.4 C L 92 H 17 129/74 Pulse Ox O2 Del Method O2 Flow Rate FiO2 03/10/24 18:33 100 03/10/24 18:21 99 03/10/24 18:12 99 03/10/24 18:09 99 03/10/24 18:01 03/10/24 17:57 97 03/10/24 17:46 03/10/24 17:46 03/10/24 17:45 98 03/10/24 17:33 98 03/10/24 17:31 03/10/24 17:31 03/10/24 17:24 97 03/10/24 17:15 03/10/24 17:06 97 03/10/24 17:00 03/10/24 17:00 96 03/10/24 16:51 97 03/10/24 16:48 96 03/10/24 16:46 03/10/24 16:46 03/10/24 16:46 03/10/24 16:46 03/10/24 16:39 96 03/10/24 16:33 96 03/10/24 16:30 03/10/24 16:25 03/10/24 16:25 96 Mechanical Vent 50 03/10/24 16:24 96 03/10/24 16:17 95 50 03/10/24 16:16 03/10/24 16:15 93 03/10/24 16:15 94 Mechanical Vent 50 03/10/24 16:12 93 03/10/24 16:05 03/10/24 16:05 03/10/24 16:05 94 Mechanical Vent 50 03/10/24 15:45 98 03/10/24 15:30 99 03/10/24 15:21 99 03/10/24 15:12 98 03/10/24 14:51 82 L 03/10/24 14:42 81 L 03/10/24 14:38 Mechanical Vent 03/10/24 14:30 100 03/10/24 14:12 03/10/24 13:51 95 03/10/24 13:42 95 03/10/24 13:40 03/10/24 13:33 95 03/10/24 13:31 03/10/24 13:31 03/10/24 13:30 03/10/24 13:27 94 03/10/24 13:25 95 50 03/10/24 13:12 96 03/10/24 13:03 93 03/10/24 13:00 03/10/24 13:00 03/10/24 13:00 03/10/24 12:51 91 03/10/24 12:42 92 03/10/24 12:36 93 03/10/24 12:31 03/10/24 12:30 03/10/24 12:30 93 03/10/24 12:27 94 03/10/24 12:20 03/10/24 12:15 03/10/24 12:11 03/10/24 12:09 95 03/10/24 12:05 03/10/24 12:05 03/10/24 12:04 03/10/24 12:03 94 03/10/24 12:01 03/10/24 12:01 03/10/24 12:01 03/10/24 12:01 03/10/24 12:00 03/10/24 11:57 94 03/10/24 11:56 03/10/24 11:56 03/10/24 11:45 03/10/24 11:42 96 03/10/24 11:39 93 03/10/24 11:30 03/10/24 11:27 94 03/10/24 11:21 95 03/10/24 11:18 94 03/10/24 11:16 03/10/24 11:16 03/10/24 11:16 03/10/24 11:16 03/10/24 11:16 03/10/24 11:06 94 03/10/24 11:00 03/10/24 11:00 03/10/24 11:00 03/10/24 11:00 94 03/10/24 10:54 93 03/10/24 10:45 03/10/24 10:45 94 03/10/24 10:36 93 03/10/24 10:21 93 03/10/24 10:16 03/10/24 10:16 03/10/24 10:16 03/10/24 10:16 03/10/24 10:15 91 03/10/24 10:06 92 03/10/24 10:00 03/10/24 09:51 91 03/10/24 09:45 03/10/24 09:42 90 03/10/24 09:36 03/10/24 07:57 93 Nasal Cannula 2 03/10/24 03:41 91 Nasal Cannula 2.0 03/10/24 01:10 91 Nasal Cannula 2 03/09/24 23:17 93 Nasal Cannula 2 03/09/24 23:00 03/09/24 22:13 90 Nasal Cannula 3.0 03/09/24 20:00 Room Air 03/09/24 19:27 90 Room Air Pain Intensity Generalized: Pain Intensity: 6 Transfer of Care Handoff Completed per policy Notes Mental Status: alert / awake / arousable and participated in evaluation Patient Amnestic to Procedure: Yes Nausea / Vomiting: adequately controlled Pain: adequately controlled Airway Patency, RR, SpO2: stable & adequate BP & HR: stable & adequate Hydration State: stable & adequate Anesthetic Complications: no major complications apparent Notes: Pt had exploratory laparotomy and resection of infarcted bowel under GA. Pt had been intubated and required intravenous pressor support preoperatively. Intraoperative course was uncomplicated. Pt was sedated at end of surgery and transported to SICU. Placed on vent and continuing intravenous vasopressor support. Further care as per surgeon and equipment lead.
[2024-03-10] MEDS ORDERED: DAPTOmycin 425 MG in SYRINGE 0 ML IV SCH (20:00)
[2024-03-10] MEDS: AMIODARONE / D5W 150 MG/100 ML BAG IV STA (20:05)
[2024-03-10] MEDS: AMIODARONE / D5W 360 MG/200 ML BAG IV ONE (20:18)
[2024-03-10] MEDS: METOPROLOL TARTRATE 1 MG/ML VIAL IV SCH (20:35)
[2024-03-10 21:37] LABS: iSTAT Art Bld Gas pCO2 Correct 21 mmHg (35-46); iSTAT Art Bld Gas pH Corrected 7.327 (7.35-7.45); iSTAT Arterial Blood Gas HCO3 11 meg/L (19-24); iSTAT Arterial Blood Gas pCO2 22 mmHg (35-46); iSTAT Arterial Blood Gas pH 7.32 (7.35-7.45); iSTAT Arterial Blood Gas pO2 114 mmHg (80-95); iSTAT Arterial Blood Gas pO2 C 113; iSTAT Carbon Dioxide 12 mmol/L (24-31); iSTAT FiO2 40 %; iSTAT Hematocrit 41 % (37-47); iSTAT Hemoglobin 13.9 g/dl (12.0-16.0); iSTAT Potassium 6.6 mmol/L (3.3-5.0); iSTAT Site Art Line; iSTAT Sodium 132 mmol/L (135-144)
[2024-03-10 21:58] LABS: Albumin Globulin Ratio 1.4 (0.9-2); Albumin Level 2.5 gm/dl (3.4-5.0); BUN Creatinine Ratio 16.9 (10-20); Bilirubin,Total 2.6 mg/dl (0.2-1.0); Creatinine Clr Calc Pharmacy 13.1 ml/min; Est GFR (African American) 11.5 ml/min; Globulin 1.8 gm/dl (2.5-4.0); Potassium 6.9 mmol/L (3.5-5.1); Total Protein 4.3 gm/dl (6.0-8.3)
[2024-03-10] MEDS ORDERED: SODIUM BICARBONATE 8.4% 100 MEQ in WATER, STERILE 1,000 ML IV SCH (22:00)
[2024-03-10] MEDS: SODIUM BICARBONATE 8.4% 75 MEQ in SODIUM CHLORIDE 0.45 % 1,000 ML IV SCH (22:15)
[2024-03-11] MEDS: SODIUM BICARB 8.4% INJ 50 MEQ/50 ML SYR IV STA ×2 (01:42→01:48)
[2024-03-11] MEDS: AMIODARONE / D5W 360 MG/200 ML BAG IV SCH (01:44)
[2024-03-11] MEDS: SODIUM BICARBONATE 8.4% 150 MEQ in WATER, STERILE 1,000 ML IV SCH (02:03)
--- NOTE | 2024-03-11 02:09 | Communication Note ---
Date of Service: March 11, [address] Zamorano regarding patient's worsening acidosis, with lactic acid now greater than 12. At this time, surgery not recommended as the patient would likely not survive. I did speak with the patient's friend which is her primary contact, Eladio Guzman, Who is also a retired nurse. I explained that the patient's prognosis is very poor and she is continuing to decompensate. She remains full code. Will continue with medical management in the ICU Coding Level of Care Code None
[2024-03-11 02:35] LABS: Anion Gap 24 (3-11); Carbon Dioxide 16 mmol/L (21-32); Chloride 98 mmol/L (98-107); Sodium 138 mmol/L (136-145)
[2024-03-11 02:36] LABS: BUN Creatinine Ratio 17.5 (10-20); Blood Urea Nitrogen 74 mg/dl (6-23); Creatinine Clr Calc Pharmacy 12.6 ml/min; Est GFR (African American) 11.1 ml/min; Est GFR (Non-African American) 9.5 ml/min; Glucose 99 mg/dl (70-99(Fasting))
[2024-03-11 02:55] LABS: Hematocrit (blood only) 37.7 % (37.0-47.0); Hemoglobin 12.7 g/dl (12.0-16.0); Mean Corpuscular Hemoglobin 27.5 pg (25.0-34.0); Mean Corpuscular Hgb Conc 33.7 g/dL (32.0-36.0); Mean Corpuscular Volume 81.8 fL (80.0-100.0); Mean Platelet Volume 12.1 fL (9.4-12.4); Nucleated RBC # (auto) 0.02 K/uL (0.00-0.12); Nucleated RBC % (auto) 0.1 %; Platelet Count 107 K/uL (130-400); RDW Standard Deviation 47.5 fL (36.4-46.3); Red Blood Count 4.61 M/uL (4.20-5.40); White Blood Count 13.37 K/ul (4.8-10.8)
[2024-03-11 04:20] LABS: Albumin Globulin Ratio 1.5 (0.9-2); Albumin Level 2.2 gm/dl (3.4-5.0); BUN Creatinine Ratio 17.6 (10-20); Bilirubin,Total 2.7 mg/dl (0.2-1.0); Calcium 7.7 mg/dl (8.6-10.3); Creatinine Clr Calc Pharmacy 12.6 ml/min; Est GFR (Non-African American) 9.5 ml/min; Globulin 1.5 gm/dl (2.5-4.0); Magnesium 2.7 mg/dl (1.7-2.4); Potassium 5.9 mmol/L (3.5-5.1); Total Protein 3.7 gm/dl (6.0-8.3)
[2024-03-11 05:06] LABS: iSTAT Art Bld Gas pCO2 Correct 29 mmHg (35-46); iSTAT Art Bld Gas pH Corrected 7.418 (7.35-7.45); iSTAT Arterial Blood Gas HCO3 19 meg/L (19-24); iSTAT Arterial Blood Gas pCO2 29 mmHg (35-46); iSTAT Arterial Blood Gas pH 7.42 (7.35-7.45); iSTAT Arterial Blood Gas pO2 129 mmHg (80-95); iSTAT Arterial Blood Gas pO2 C 130; iSTAT Carbon Dioxide 19 mmol/L (24-31); iSTAT FiO2 40 %; iSTAT Hematocrit 39 % (37-47); iSTAT Hemoglobin 13.3 g/dl (12.0-16.0); iSTAT Potassium 5.5 mmol/L (3.3-5.0); iSTAT Site Art Line; iSTAT Sodium 136 mmol/L (135-144)
[2024-03-11 05:11] LABS: Hematocrit (blood only) 39.2 % (37.0-47.0); Hemoglobin 13.6 g/dl (12.0-16.0); Mean Corpuscular Hemoglobin 27.6 pg (25.0-34.0); Mean Corpuscular Hgb Conc 34.7 g/dL (32.0-36.0); Mean Corpuscular Volume 79.5 fL (80.0-100.0); Mean Platelet Volume 11.7 fL (9.4-12.4); Nucleated RBC # (auto) 0.03 K/uL (0.00-0.12); Nucleated RBC % (auto) 0.2 %; Platelet Count 114 K/uL (130-400); RDW Coefficient of Variation 15.4 % (11.5-14.5); RDW Standard Deviation 44.3 fL (36.4-46.3); Red Blood Count 4.93 M/uL (4.20-5.40); White Blood Count 16.93 K/ul (4.8-10.8)
[2024-03-11 05:30] LABS: Magnesium 2.9 mg/dl (1.7-2.4); Phosphorus 6.6 mg/dl (2.5-4.9)
[2024-03-11 05:47] LABS: Basophils # (auto) 0.14 K/uL (0.00-0.20); Basophils % (auto) 0.8 %; Eosinophils # (auto) 0.05 K/uL (0.00-0.50); Eosinophils % (auto) 0.3 %; Immature Granulocytes # (auto) 1.11 K/uL (0.01-0.20); Immature Granulocytes % (auto) 6.6 %; Lymphocytes % (auto) 5.9 %; Monocytes # (auto) 1.46 K/uL (0.11-0.59); Monocytes % (auto) 8.6 %; Neutrophils # (auto) 13.17 K/uL (1.40-6.50); Neutrophils % (auto) 77.8 %
[2024-03-11] MEDS ORDERED: ALBUMIN 25% 12.5 GM/50 ML VIAL IV PRN (07:00)
[2024-03-11] MEDS ORDERED: SODIUM CHLORIDE 0.9% 1,000 ML IV PRN (07:00)
--- NOTE | 2024-03-11 07:57 | Critical Care Progress Note ---
Date of Service March 11, 2024 Assessment & Plan (1) Atrial fibrillation, rapid: Plan: Reason Critically Ill: 78-year-old female with multisystem organ failure presumptive secondary to intra-abdominal sepsis PLAN: Neuro: Acute encephalopathy: Likely multifactorial metabolic in origin -Asymmetric dilatation of right lateral ventricle: Unclear significance at this time -Hyperammonemia: Patient in discontinuity no avenue for treatment for next several days Resp: compensatory respiratory alkalosis CV: atrial fibrillation with rapid ventricular response: Spontaneous conversion to normal sinus rhythm -Complete amiodarone load today then transition to 200 mg IV twice daily -Patient was in baseline normal sinus rhythm, total time in atrial fibrillation less than 24 hours I feel the patient would strongly benefit from rhythm control -Echocardiogram pending -Patient now on rhythm control, hopefully will readdress beta-blockade after weaning further from vasoactive pressors -Reviewed January 23, 2022 echocardiogram EF 65% no profoundly significant valvular abnormality Fluids/Renal: High gap metabolic acidosis: Lactic acid acidosis -Thiamine supplementation for lactic acid acidosis Acute kidney injury -Planned dialysis today ID: Ischemic bowel: Postop day 1 subtotal colectomy -Patient in discontinuity, no gross spillage of abdominal contents -Continue Zosyn GI/Nutrition: Transaminitis -Reviewed general surgery and gastroenterology consultation -Likely component of shock liver Heme: Leukocytosis -Acute phase reactant DVT prophylaxis: Heparin 5000 three times daily Endocrine: ICU hyperglycemia protocol Hypothyroidism -Levothyroxine 150 mcg by mouth daily Vascular access: Right triple-lumen subclavian placed 03/10, right radial arterial line placed 03/10, left femoral dialysis catheter placed 03/10 Code Status: Full code Disposition: ICU (2) Hyponatremia: (3) Metabolic acidosis: (4) Elevated lactic acid level: (5) Chronic pain: (6) Chronic hyponatremia: (7) Diabetic peripheral neuropathy associated with type 2 diabetes mellitus: (8) Pressure injury of buttock, stage 1: Admission and Anticipated Discharge Date Admission Date: March 08, 2024 Supervising Physician Co-Signing Physician Notes I have personally spent 85 minutes of critical care time in the direct management of this patient. This is a life/limb threatening event. This inclu maggie time spent evaluating patient, direct bedside care, chart review, placing orders, interpretation of diagnostic studies, discussion with consultants, patient, and/or family members regarding treatment decisions, as well as other required patient management activities. This time is exclusive of all separately billable procedures, and teaching time and separate from and in addition to any other critical care service time. Subjective Overnight patient converted to normal sinus rhythm, mild decrease in vasoactive requirements. This morning patient had persistent cuff leak, reevaluated endotracheal tube positioning which was advanced 2 cm and cuff leak resolved Physical Exam Physical Exam: General: Sedated. Skin: Cool, dry, Head: Atraumatic Ears, nose, mouth and throat: airway obscured by endotracheal tube Cardiovascular: Decreased capillary refill/acrocyanosis Respiratory: Ventilator settings reviewed Gastrointestinal: Non distended Musculoskeletal: No deformity Results & Data Results & Data Vital Signs (Past 12 Hours) Vital Signs Temp Pulse Pulse Resp BP BP Pulse Ox 03/11/24 06:01 37.7 C H 63 31 H 113/48 L 97 03/11/24 05:06 60 27 H 98 03/11/24 04:29 57 L 156/59 H 03/11/24 04:22 57 L 21 100 03/11/24 04:00 37.1 C 56 L 20 100 03/11/24 04:00 37.1 C 03/11/24 04:00 03/11/24 04:00 159/59 H 03/11/24 03:06 54 L 18 100 03/11/24 02:54 54 L 19 100 03/11/24 02:24 53 L 18 100 03/11/24 02:00 53 L 20 137/42 L 100 03/11/24 01:09 49 L 21 125/53 L 99 03/11/24 01:05 163/47 H 03/11/24 01:05 163/47 H 03/11/24 00:57 94 H 22 100 03/11/24 00:35 93 H 115/65 03/11/24 00:21 100 H 107/62 03/11/24 00:00 37.2 C 103 H 119/97 99 03/11/24 00:00 03/11/24 00:00 93 H 109/62 03/10/24 23:31 106 H 03/10/24 23:04 97 H 125/67 97 03/10/24 23:04 125/67 03/10/24 22:39 66 29 H 97 03/10/24 22:36 59 L 33 H 99 03/10/24 22:30 87 28 H 98 03/10/24 22:01 92/58 L 03/10/24 22:01 92/58 L 03/10/24 22:01 92/58 L 03/10/24 22:00 97 H 33 H 99 03/10/24 21:31 36.9 C 88 31 H 120/70 100 03/10/24 21:30 97 H 32 H 100 03/10/24 21:03 90 27 H 100 03/10/24 21:02 108/69 03/10/24 20:50 92 H 107/71 03/10/24 20:35 93 H 102/64 03/10/24 20:26 37.2 C 134/85 03/10/24 20:18 90 28 H 100 03/10/24 20:03 100 H 25 H 100 03/10/24 20:00 104/64 03/10/24 20:00 103 H 26 H 100 03/10/24 19:56 113/92 O2 Del Method FiO2 03/11/24 06:01 03/11/24 05:06 03/11/24 04:29 03/11/24 04:22 30 03/11/24 04:00 03/11/24 04:00 03/11/24 04:00 30 03/11/24 04:00 03/11/24 03:06 03/11/24 02:54 03/11/24 02:24 03/11/24 02:00 03/11/24 01:09 03/11/24 01:05 03/11/24 01:05 03/11/24 00:57 03/11/24 00:35 03/11/24 00:21 03/11/24 00:00 03/11/24 00:00 40 03/11/24 00:00 03/10/24 23:31 03/10/24 23:04 03/10/24 23:04 03/10/24 22:39 03/10/24 22:36 03/10/24 22:30 40 03/10/24 22:01 03/10/24 22:01 03/10/24 22:01 03/10/24 22:00 03/10/24 21:31 Mechanical Vent 40 03/10/24 21:30 03/10/24 21:03 03/10/24 21:02 03/10/24 20:50 03/10/24 20:35 03/10/24 20:26 03/10/24 20:18 03/10/24 20:03 03/10/24 20:00 03/10/24 20:00 40 03/10/24 19:56 Critical Care Results & Data Vital Signs (Past 12 Hours) Vital Signs Temp Pulse Pulse Resp BP BP Pulse Ox 03/11/24 07:48 38.5 C H 66 37 H 92/67 L 97 03/11/24 07:39 38.5 C H 69 36 H 92 03/11/24 07:30 38.5 C H 66 36 H 97 03/11/24 07:15 38.4 C H 65 37 H 97 03/11/24 07:00 38.4 C H 65 36 H 133/76 97 03/11/24 06:01 37.7 C H 63 31 H 113/48 L 97 03/11/24 05:06 60 27 H 98 03/11/24 04:29 57 L 156/59 H 03/11/24 04:22 57 L 21 100 03/11/24 04:00 37.1 C 56 L 20 100 03/11/24 04:00 37.1 C 03/11/24 04:00 03/11/24 04:00 159/59 H 03/11/24 03:06 54 L 18 100 03/11/24 02:54 54 L 19 100 03/11/24 02:24 53 L 18 100 03/11/24 02:00 53 L 20 137/42 L 100 03/11/24 01:09 49 L 21 125/53 L 99 03/11/24 01:05 163/47 H 03/11/24 01:05 163/47 H 03/11/24 00:57 94 H 22 100 03/11/24 00:35 93 H 115/65 03/11/24 00:21 100 H 107/62 03/11/24 00:00 37.2 C 103 H 119/97 99 03/11/24 00:00 03/11/24 00:00 93 H 109/62 03/10/24 23:31 106 H 03/10/24 23:04 97 H 125/67 97 03/10/24 23:04 125/67 03/10/24 22:39 66 29 H 97 03/10/24 22:36 59 L 33 H 99 03/10/24 22:30 87 28 H 98 03/10/24 22:01 92/58 L 03/10/24 22:01 92/58 L 03/10/24 22:01 92/58 L 03/10/24 22:00 97 H 33 H 99 03/10/24 21:31 36.9 C 88 31 H 120/70 100 03/10/24 21:30 97 H 32 H 100 03/10/24 21:03 90 27 H 100 03/10/24 21:02 108/69 03/10/24 20:50 92 H 107/71 03/10/24 20:35 93 H 102/64 03/10/24 20:26 37.2 C 134/85 03/10/24 20:18 90 28 H 100 O2 Del Method FiO2 03/11/24 07:48 03/11/24 07:39 03/11/24 07:30 03/11/24 07:15 03/11/24 07:00 03/11/24 06:01 03/11/24 05:06 03/11/24 04:29 03/11/24 04:22 30 03/11/24 04:00 03/11/24 04:00 03/11/24 04:00 30 03/11/24 04:00 03/11/24 03:06 03/11/24 02:54 03/11/24 02:24 03/11/24 02:00 03/11/24 01:09 03/11/24 01:05 03/11/24 01:05 03/11/24 00:57 03/11/24 00:35 03/11/24 00:21 03/11/24 00:00 03/11/24 00:00 40 03/11/24 00:00 03/10/24 23:31 03/10/24 23:04 03/10/24 23:04 03/10/24 22:39 03/10/24 22:36 03/10/24 22:30 40 03/10/24 22:01 03/10/24 22:01 03/10/24 22:01 03/10/24 22:00 03/10/24 21:31 Mechanical Vent 40 03/10/24 21:30 03/10/24 21:03 03/10/24 21:02 03/10/24 20:50 03/10/24 20:35 03/10/24 20:26 03/10/24 20:18 Lab & Micro Results (Past 24 Hours) RBC 4.93 M/uL (4.20-5.40) 03/11/24 WBC 16.93 K/ul (4.8-10.8) H 03/11/24 Hgb 13.6 g/dl (12.0-16.0) 03/11/24 Hct 39.2 % (37.0-47.0) 03/11/24 MCV 79.5 fL (80.0-100.0) L 03/11/24 MCH 27.6 pg (25.0-34.0) 03/11/24 MCHC 34.7 g/dL (32.0-36.0) 03/11/24 RDW Standard Deviation 44.3 fL (36.4-46.3) 03/11/24 RDW Coefficient of Variation 15.4 % (11.5-14.5) H 03/11/24 Plt Count 114 K/uL (130-400) L 03/11/24 MPV 11.7 fL (9.4-12.4) 03/11/24 Nucleated Red Blood Cells % (auto) 0.2 % 03/11 Nucleated RBC Absolute Count (auto) 0.03 K/uL (0.00-0.12) 0 03/11/24 Neutrophils (%) (Auto) 77.8 % 03/11/24 Lymphocytes (%) (Auto) 5.9 % 03/11/24 Monocytes # (Auto) 1.46 K/uL (0.11-0.59) H 03/11/24 Eosinophils # (Auto) 0.05 K/uL (0.00-0.50) 03/11/24 Immature Granulocyte % (Auto) 6.6 % 03/11/24 Neutrophils # (Auto) 13.17 K/uL (1.40-6.50) H 03/11/24 Lymphocytes # (Auto) 1.00 K/uL (1.20-3.40) L 03/11/24 Monocytes # (Auto) 1.46 K/uL (0.11-0.59) H 03/11/24 Eosinophils # (Auto) 0.05 K/uL (0.00-0.50) 03/11/24 Basophils # (Auto) 0.14 K/uL (0.00-0.20) 03/11/24 Immature Granulocyte # (Auto) 1.11 K/uL (0.01-0.20) H 03/11 Na 140 mmol/L (136-145) 03/11/24 K 6.8 mmol/L (3.5-5.1) H* 03/11/24 Cl 95 mmol/L (98-107) L 03/11/24 CO2 18 mmol/L (21-32) L 03/11/24 Anion Gap 27 (3-11) H 03/11/24 BUN 80 mg/dl (6-23) H 03/11/24 Creatinine 4.59 mg/dl (0.6-1.2) H* 03/11/24 Estimated GFR ( Amer) 10.0 ml/min 03/11/24 Estimated GFR (Non-Af Amer) 8.7 ml/min 03/11/24 BUN/Creatinine Ratio 17.4 (10-20) 03/11/24 Glu 23 mg/dl (70-99(Fasting)) L* 03/11/24 Ca 7.6 mg/dl (8.6-10.3) L 03/11/24 Phosphorus Level 6.6 mg/dl (2.5-4.9) H 03/11/24 Total Bilirubin 3.2 mg/dl (0.2-1.0) H 03/11/24 AST 2891 U/L (13-39) H 03/11/24 ALT 1614 U/L (7-52) H 03/11/24 Alkaline Phosphatase 208 U/L (34-104) H 03/11/24 TP 4.3 gm/dl (6.0-8.3) L 03/11/24 Albumin 2.6 gm/dl (3.4-5.0) L 03/11/24 Globulin 1.7 gm/dl (2.5-4.0) L 03/11/24 Albumin/Globulin Ratio 1.5 (0.9-2) 03/11/24 Mg 2.9 mg/dl (1.7-2.4) H 03/11/24 04:50 Calcium Level 7.6 mg/dl (8.6-10.3) L 03/11/24 08:39 Arterial Blood pH 7.34 (7.35-7.45) L 03/10/24 15:35 Arterial Blood Partial Pressure CO2 40 mmHg (35-46) 03/10/24 15 :35 Arterial Blood Partial Pressure O2 144 mmHg (80-95) H 03/10/24 15:35 Arterial Blood HCO3 22 mmol/L (19-24) 03/10/24 15:35 Arterial Blood Base Excess -3.9 mEq/L (-9-1.8) 03/10/24 15:35 Arterial Blood Oxygen Saturation 97.4 % (90-95) H 03/10/24 15:3 5 Blood Gas Oxygen Given VENTILATOR 03/10/24 15:35 Castro Test NA 03/11/24 04:16 Microbiology 03/08/24 17:42 Aerobic Blood Culture - Preliminary Blood No growth in Aerobic bottle after 48 hours. Anaerobic Blood Culture - Preliminary No growth in Anaerobic bottle after 48 hours. 03/08/24 18:35 Urine Culture - Final Urine,Clean Catch No growth - less than 1,000 colonies/mL. Diagnostic Findings (Past 24 Hours) Chest X-Ray 03/10/24 12:16 SINGLE VIEW CHEST CLINICAL HISTORY: Central venous catheter placement. FINDINGS: An AP, portable, upright chest radiograph is compared to study dated 03/10/2024 and correlated with chest CT dated 01/15/2022. The enteric tube is unchanged in position. A right subclavian central venous catheter has been placed. The tip of the catheter projects over the right atrium at the level of the diaphragm. The heart is mildly enlarged noting atherosclerotic calcification of the thoracic aorta. There is mild pulmonary vascular congestion. Chronic reticular thickening is similar to previous. Atelectasis is seen at the lung bases. No airspace consolidation or large pleural effusion is identified. No pneumothorax is seen. The skeletal structures are osteopenic. The bony thorax is grossly intact. Degenerative change is noted in the shoulders and spine. IMPRESSION: 1. A right subclavian central venous catheter has been placed as above. The tip projects over the right atrium at the level of the diaphragm. Repositioning may be indicated. 2. No pneumothorax is seen post procedure. 3. Cardiomegaly with mild pulmonary vascular congestion ACT 112: Negative or not required by law. Electronically signed by: Juancho Hatfield M.D. 03/10/2024 12:47 PM I & O Totals 24 Hours 03/10/24 03/11/24 03/12/24 06:59 06:59 06:59 Intake Total 3612.167 / 3612.167 4567.141 / 4567.141 181.422 / 181.422 Output Total 1110 / 1110 961 / 961 Balance 2502.167 / 2502.167 3606.141 / 3606.141 181.422 / 181.422 Cumulative 03/08/24 14:31 thru 03/11/24 07:07 Intake Total 14669.230 Output Total 2074 Balance 69105.230 RT Ventilator Mngmt (Last Documented) Ventilator Ordered Settings Ventilator Support Mode PRVC 03/11/24 04:22 Respiratory Rate 37 03/11/24 07:48 Ventilator Tidal Volume 450 03/11/24 04:22 Setting Minute Ventilation 9.3 03/11/24 04:22 Positive End Expiratory 5 03/11/24 04:22 Pressure Fraction of Inspired Oxygen 30 03/11/24 04:22 Machine Comment Pascual Dyerron [employer] CCM made aware 03/11/24 04:22 Ventilator - PT Measurements Respiratory Rate 37 Exhaled Tidal Volume 450 Minute Ventilation 9.3 Peak Inspiratory Airway 24 Pressure Plateau Pressure 17.2 Respiratory Cycle Inspiratory: 1:3.4 Expiratory Ratio Inspiratory Phase Time 0.7 End-Tidal CO2 16 Static Lung Compliance 36.89 Dynamic Lung Compliance 23.68 Normal Static Lung Compliance 46.00 Patient Measurements Comment Patient placed on vent post-op Coding Level of Care Code 76993 CRITICAL CARE 1ST 30-74M Additional Critical Care Time Additional 30min Critical Care Time: Yes - 95222 Diagnoses Atrial fibrillation, rapid I48.91 Hyponatremia E87.1 Metabolic acidosis E87.20 Elevated lactic acid level R79.89 Chronic pain G89.29 Chronic pain type: other chronic pain Chronic hyponatremia E87.1 Diabetic peripheral neuropathy associated with type 2 diabetes mellitus E11.42 Pressure injury of buttock, stage 1 L89.301 Additional Codes Critical Care Time - Additional 30min Critical Care Time: Yes - 48086 ([id number]) (5) Chronic pain Chronic pain type: other chronic pain Qualified Code(s): G89.29 - Other chronic pain
[2024-03-11] MEDS ORDERED: Nursing to Pharmacy Communication SCH ×3 (08:30→11:15)
[2024-03-11] MEDS: ACETAMINOPHEN 1,000 MG/100 ML VIAL IV PRN (09:01)
[2024-03-11] MEDS ORDERED: STAT IV Infusion **Titration per Protocol STA (09:16)
[2024-03-11 09:38] LABS: Albumin Globulin Ratio 1.5 (0.9-2); Albumin Level 2.6 gm/dl (3.4-5.0); BUN Creatinine Ratio 17.4 (10-20); Bilirubin,Total 3.2 mg/dl (0.2-1.0); Calcium 7.6 mg/dl (8.6-10.3); Creatinine Clr Calc Pharmacy 11.5 ml/min; Est GFR (Non-African American) 8.7 ml/min; Globulin 1.7 gm/dl (2.5-4.0); Potassium 6.8 mmol/L (3.5-5.1); Total Protein 4.3 gm/dl (6.0-8.3)
[2024-03-11] MEDS: NOREPINEPHRINE/D5W 4 MG/250 ML PLCT IV SCH (09:45)
[2024-03-11] MEDS: THIAMINE HCL 500 MG in SODIUM CHLORIDE 0.9% 50 ML IV SCH (09:53)
--- NOTE | 2024-03-11 10:03 | Communication Note ---
Date of Service: March 11, 2024 Clinical update 0 900, attempting hemodialysis, increasing vasoactive medication requirements. Will continue to trend lactic acid and venous blood gas. Clinical update 1215: Stopped dialysis due to increasing vasoactive medication requirements, completed 2.5 hours. Now having recurrent hypoglycemic episodes, I believe she is entering fulminant liver failure. Required dialysis secondary to hyperkalemia. Updated Tea of current status and prognosis and Candace. They are in agreement with no heroics in event of cardiac arrest. They are attempting to come to bedside anticipate around 2:00 and will likely proceed with terminal extubation and transition to comfort measures. Both Tea and Candace feel the patient would find the current level of treatment unacceptable and ongoing life-sustaining treatment would be inconsistent with her long-term wishes. Both have confirmed that there is no direct family they have made attempts to contact a cousin, at this point I feel confident her friends fully capable of acting as surrogate decision makers and abiding by her wishes. Patient experiencing significant distal ischemia and I would anticipate if she were to survive would require amputation of distal extremities. I discussed the prognosis with general surgery: Dr. Zamorano who is also in agreement. Update 1405, friends at bedside all in agreement with proceeding with comfort measures and discontinuing all life-sustaining treatment and terminal extubation. I have personally spent 90 minutes of critical care time in the direct management of this patient. This is a life/limb threatening event. This includes time spent evaluating patient, direct bedside care, chart review, placing orders, interpretation of diagnostic studies, discussion with consultants, patient, and/or family members regarding treatment decisions, as well as other required patient management activities. This time is exclusive of all separately billable procedures, and teaching time and separate from and in addition to any other critical care service time. Coding Level of Care Code 42792 CRITICAL CARE EA ADD 30M Time Spent (min) 45
[2024-03-11 10:42] LABS: Codeine Urine NEGATIVE ng/mL (<50); Hydrocodone Urine NEGATIVE ng/mL (<50); Hydromor Urine 120 ng/mL (<50); Morphine Urine >10000 ng/mL (<50); Norhydrocodone Conf Ur NEGATIVE ng/mL (<50); Noroxycodone Urine 1870 ng/mL (<50); Oxycodone Urine 2360 ng/mL (<50); Oxymorph Urine 1190 ng/mL (<50)
[2024-03-11] MEDS: NOREPINEPHRINE/D5W 4 MG/250 ML IV ONE (10:54)
--- NOTE | 2024-03-11 10:59 | Surgery Progress Note ---
Date of Service March 11, 2024 Assessment & Plan (1) Infarction of large intestine: (2) Atrial fibrillation, rapid: Plan pod 1 pt doing poorly originally plan was to take to OR tomorrow for washout and development of ileostomy. D/w Dr. Wolfe. pt currently not stable for that. will monitor her course over next 24 hours. poor prognosis Admission and Anticipated Discharge Date Admission Date: March 08, 2024 Subjective pt intubated. discussed care with Dr. Wolfe and her RN. pt took turn for worse in past 12 hours. currently on 3 pressors. febrile. currently receiving dialysis. Physical Exam Physical Exam: sedated on vent. abd: soft. abthera in place non-responsive Results & Data Vital Signs (Past 12 Hours) Vital Signs Temp Pulse Pulse Resp BP Pulse Ox FiO2 03/11/24 10:06 38.4 C H 68 26 H 97 03/11/24 09:54 38.5 C H 68 27 H 93 03/11/24 09:45 69 143/73 H 03/11/24 09:30 38.6 C H 67 30 H 90 03/11/24 09:30 68 76/60 L 03/11/24 09:24 38.6 C H 66 28 H 97 03/11/24 09:15 67 86/67 L 03/11/24 09:12 38.7 C H 66 29 H 99 03/11/24 08:57 67 100/58 L 03/11/24 08:54 38.7 C H 68 32 H 100 03/11/24 08:43 38.6 C H 68 03/11/24 08:31 93/45 L 03/11/24 07:48 38.5 C H 66 37 H 92/67 L 97 03/11/24 07:39 38.5 C H 69 36 H 92 03/11/24 07:35 66 31 H 97 30 03/11/24 07:30 38.5 C H 66 36 H 97 03/11/24 07:15 38.4 C H 65 37 H 97 03/11/24 07:00 38.4 C H 65 36 H 133/76 97 03/11/24 06:01 37.7 C H 63 31 H 113/48 L 97 03/11/24 05:06 60 27 H 98 03/11/24 04:29 57 L 156/59 H 03/11/24 04:22 57 L 21 100 30 03/11/24 04:00 37.1 C 56 L 20 100 03/11/24 04:00 37.1 C 03/11/24 04:00 30 03/11/24 04:00 159/59 H 03/11/24 03:06 54 L 18 100 03/11/24 02:54 54 L 19 100 03/11/24 02:24 53 L 18 100 03/11/24 02:00 53 L 20 137/42 L 100 03/11/24 01:09 49 L 21 125/53 L 99 03/11/24 01:05 163/47 H 03/11/24 01:05 163/47 H 03/11/24 00:57 94 H 22 100 03/11/24 00:35 93 H 115/65 03/11/24 00:21 100 H 107/62 03/11/24 00:00 37.2 C 103 H 119/97 99 03/11/24 00:00 40 03/11/24 00:00 93 H 109/62 03/10/24 23:31 106 H 03/10/24 23:04 97 H 125/67 97 03/10/24 23:04 125/67 PG Care Time/CCT Total # of Minutes Spent Total Time Spent with Patient: Total time spent is greater than 50% in coordination of care (as documented) at patient's floor/unit and/or counseling patient: Coding Level of Care Code 78954 Post Operative Follow-Up Diagnoses Infarction of large intestine K55.049 Atrial fibrillation, rapid I48.91
--- NOTE | 2024-03-11 11:06 | XRay Report ---
XR chest 1V portable HISTORY: 78 years-old Female lines acute shortness of breath COMPARISON: 03/10/2024 TECHNIQUE: AP view of the chest FINDINGS: Endotracheal tube overlies the midline, 3.8 cm superior to the jabari. A catheter projects over the r ight lung base. Cardiomegaly with pulmonary vascular congestion. Mild right hemidiaphragmatic elevati on. Enteric tube courses to the stomach with distal tip outside the [id number]. No pneumothorax or large pleural effusion. Mild right basilar opacities. Right subclavian catheter distal tip projects over the right atrium. IMPRESSION: 1. Lines and tubes as above. 2. No pneumothorax. 3. Right basilar opacities may represent atelectasis versus pneumonitis. ACT 112: Negative or not required by law. The above report was generated using voice recognition software. It may contain grammatical, syntax o r spelling errors. Electronically signed by: William Fabian M.D. 03/11/2024 11:05 AM
[2024-03-11] MEDS: NOREPINEPHRINE/NSS 16 MG/250 ML BAG IV SCH (11:44)
[2024-03-11] MEDS: PHENYLEPHRINE/NSS 100 MG/250 ML BAG IV SCH (11:45)
[2024-03-11] MEDS: DEXTROSE 50% 50 ML SYRINGE IV PRN (12:20)
--- NOTE | 2024-03-11 12:31 | Nephrology Progress Note ---
Date of Service March 11, 2024 Assessment & Plan Admission and Anticipated Discharge Date Admission Date: March 08, 2024 Subjective Assessment & Plan (1) FRANKLIN (acute kidney injury): FRANKLIN in the setting of necrotic colon as the primary trigger causing Intraabdominal sepsis and Acute rhabdo. despite surgery yesterday not improving and in fact Significant e/o tissue hypoperfusion. Could not do dialysis and had to stop. On 3 pressors now, Intubated and critical with lot of hypoperfusion. very very high chance of mortality here. Discussion with her friend being done. she has no family. Continue pressor support and vent support. K very hgh before dialysis with very high lactate. Plan patient seems to be declining very fast. Discussed with ICU. Decide about code status Physical Exam Physical Exam: General: Critical illness. Intubated and on pressors Head: normocephalic, atraumatic ENT: normal inspection external ears, nose, mucous membranes dry Neck: supple, trachea midline Lungs: clear, no respiratory distress, no wheezing/rhonchi/rales CV: tachycardic. Abd:Distended +diffuse tenderness to palpation Ext: clear skin signs of PVD. Dusky red Skin b/l Neuro: much more obtunded today Results & Data Vital Signs (Past 12 Hours) Vital Signs Temp Pulse Pulse Resp BP BP Pulse Ox 03/11/24 11:45 38.0 C H 77 112/71 03/11/24 11:00 82 103/85 03/11/24 10:51 38.2 C H 78 33 H 99 03/11/24 10:48 38.2 C H 77 34 H 96 03/11/24 10:47 110/75 03/11/24 10:40 137/112 H 03/11/24 10:33 38.2 C H 79 33 H 169/91 H 100 03/11/24 10:30 76 99/72 L 03/11/24 10:30 72 31 H 100 03/11/24 10:24 38.3 C H 72 30 H 99 03/11/24 10:21 38.3 C H 71 29 H 99 03/11/24 10:12 38.4 C H 69 28 H 98 03/11/24 10:06 38.4 C H 68 26 H 97 03/11/24 10:03 68 99/65 L 03/11/24 09:54 38.5 C H 68 27 H 93 03/11/24 09:45 69 143/73 H 03/11/24 09:30 38.6 C H 67 30 H 90 03/11/24 09:30 68 76/60 L 03/11/24 09:24 38.6 C H 66 28 H 97 03/11/24 09:15 67 86/67 L 03/11/24 09:12 38.7 C H 66 29 H 99 03/11/24 08:57 67 100/58 L 03/11/24 08:54 38.7 C H 68 32 H 100 03/11/24 08:43 38.6 C H 68 03/11/24 08:31 93/45 L 03/11/24 07:48 38.5 C H 66 37 H 92/67 L 97 03/11/24 07:39 38.5 C H 69 36 H 92 03/11/24 07:35 66 31 H 97 03/11/24 07:30 38.5 C H 66 36 H 97 03/11/24 07:15 38.4 C H 65 37 H 97 03/11/24 07:00 38.4 C H 65 36 H 133/76 97 03/11/24 06:01 37.7 C H 63 31 H 113/48 L 97 03/11/24 05:06 60 27 H 98 03/11/24 04:29 57 L 156/59 H 03/11/24 04:22 57 L 21 100 03/11/24 04:00 37.1 C 56 L 20 100 03/11/24 04:00 37.1 C 03/11/24 04:00 03/11/24 04:00 159/59 H 03/11/24 03:06 54 L 18 100 03/11/24 02:54 54 L 19 100 03/11/24 02:24 53 L 18 100 03/11/24 02:00 53 L 20 137/42 L 100 03/11/24 01:09 49 L 21 125/53 L 99 03/11/24 01:05 163/47 H 03/11/24 01:05 163/47 H 03/11/24 00:57 94 H 22 100 03/11/24 00:35 93 H 115/65 FiO2 03/11/24 11:45 03/11/24 11:00 03/11/24 10:51 03/11/24 10:48 03/11/24 10:47 03/11/24 10:40 03/11/24 10:33 03/11/24 10:30 03/11/24 10:30 30 03/11/24 10:24 03/11/24 10:21 03/11/24 10:12 03/11/24 10:06 03/11/24 10:03 03/11/24 09:54 03/11/24 09:45 03/11/24 09:30 03/11/24 09:30 03/11/24 09:24 03/11/24 09:15 03/11/24 09:12 03/11/24 08:57 03/11/24 08:54 03/11/24 08:43 03/11/24 08:31 03/11/24 07:48 03/11/24 07:39 03/11/24 07:35 30 03/11/24 07:30 03/11/24 07:15 03/11/24 07:00 03/11/24 06:01 03/11/24 05:06 03/11/24 04:29 03/11/24 04:22 30 03/11/24 04:00 03/11/24 04:00 03/11/24 04:00 03/11/24 04:00 03/11/24 03:06 03/11/24 02:54 03/11/24 02:24 03/11/24 02:00 03/11/24 01:09 03/11/24 01:05 03/11/24 01:05 03/11/24 00:57 03/11/24 00:35
[2024-03-11] MEDS: HEPARIN SOD 5,000 UNIT/0.5 ML VIAL SQ SCH (13:39)
[2024-03-11] MEDS ORDERED: HYDROmorphone INJ 0.5 MG/0.5 ML SYR IV PRN (14:09)
[2024-03-11] MEDS ORDERED: LORazepam 2 MG/1 ML VIAL IV PRN (14:09)
[2024-03-11] MEDS ORDERED: ONDANSETRON INJ 2 MG/ML 2 ML VIAL IV PRN (14:09)
--- NOTE | 2024-03-11 14:31 | Death Pronouncement Note ---
Date of Service March 11, 2024 Pronouncement Note Admission Date Admission Date: March 08, 2024 Date and Time of Date of : 03/11/24 Time of : 15:56 PCOD Preliminary cause of : Acute infarction of large intestine Contributing Factors (1) Atrial fibrillation, rapid: (2) Acute infarction of large intestine: (3) Metabolic acidosis: (4) Acute kidney failure: (5) Acute liver failure: Hospital Course Hospital Course: Patient is a 78-year-old female who was elevated for generalized weakness in the emergency department and subsequently admitted to the hospital for an NSTEMI, acute kidney injury, transaminitis, lactic acidosis with concern for sepsis. Patient's laboratory values improved initially and patient was evaluated by nephrology gastroenterology and general surgery. She underwent a CT scan which demonstrated pancolitis. After initial period of improvement the patient's condition worsened with concern for acute mesenteric ischemia. Ultimately the patient went to the operating room with general surgery and had a subtotal colectomy for acute infarct of her large intestine. During this time the patient's acute kidney failure worsened requiring emergent dialysis. Patient's clinical condition continued to deteriorate in the postoperative period and she was unable to tolerate dialysis and ultimately required increasing vasoactive medication requirements. Longstanding friends of the patient confirmed that she would not want ongoing life-sustaining treatments in the face of severe disabilities as sequela of her sepsis and bowel infarction and the decision was made to discontinue life-sustaining measures and transition to comfort measures only. The patient was compassionately extubated on March 11, 2024 and with friends present at her bedside. 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
[2024-03-11 14:59] VITALS: BP 206/91; PULSE 59; RESP 24; TEMP 98.4; O2SAT 95
--- NOTE | 2024-03-11 16:28 | Discharge Summary ---
Date of Service March 11, 2024 Admission HPI Per Admitting Provider Patient is 78 year old female with PMH HTN, DM II, peripheral neuropathy, chronic pain on chronic narcotics and medical marijuana, hypothyroidism, depression and others listed below presented to ER for generalized weakness, N/V/D. History obtained from patient and outpatient chart review and inpatient chart review. History is somewhat limited and possibly unreliable as patient with difficulty recalling events. Patient states past couple of days had some chills, was not taking temperature. States yesterday had some generalized weakness. It is reported her friend saw her yesterday afternoon and patient seemed to be ok. Patient states that she remembers her friend visiting and remembers letting the cats inside yesterday evening. She states she had onset of nausea, vomiting and diarrhea. Is unsure how many episodes and unsure if any melena or hematochezia or hematemesis. Complains of diffuse abdominal discomfort. States sat on toilet and was too weak and couldn't get up. Patient was found today by friend sitting on toilet with reported diarrhea noted in bathroom. Patient unsure how long was sitting on toilet as is having trouble recalling events in past 24 hours. She states her throat feels dry but denies any recent sore throat, rhinorrhea or cough. States chronic SOB with climbing flight of stairs but otherwise denies SOB at rest. Patient had reported some intermittent blurry vision for unknown amount of time. Also reports intermittent dizziness for years and states had workup previously. Doesn't feel dizziness is worse than usual. Per outpatient PCP note from 02/01/24 patient with history MRSA to left 3rd toe and was following with Enoch Canela with [facility] and was on Bactrim however developed hives and oral sores so was switched to Nuzyra. Patient reports hasn't taken antibiotics for months as left 3rd toe has healed. Reports chronic pain "everywhere" with worst pain being in bilateral upper and lower extremities. Is on chronic morphine, Percocet and pregabalin. Denies DELCID, dizziness, neck pain, CP, palpitations, cough, paresthesias, weakness, extremity weakness, extremity edema, rashes, urinary symptoms. Denies recent travel or known ill contacts Admission Exam Per Admitting Provider General: no acute distress, overweight elderly female Head: normocephalic, atraumatic Eyes: PERRL, conjunctiva non-injected, anicteric ENT: normal inspection external ears, nose, mucous membranes dry Neck: supple, trachea midline Lungs: clear, no respiratory distress, no wheezing/rhonchi/rales CV: RRR, no murmur, no pretibial edema Abd: normal BS, soft, +diffuse tenderness to palpation Ext: no erythema, no calf tenderness; left 3rd toe with small scab without erythema Neuro: More Alert, oriented to person, place and time, difficulty remembering events of past 12-24 hours, no focal deficits noted, appears to have normal affect Skin: warm, dry, +nonblanching erythema to buttock from toilet seat Principal Diagnosis Acute infarction of large intestine Discharge Exam Patient intubated, sedated, on vasopressin and norepinephrine drip. On amiodarone drip. Conducted breath sounds on exam, abdomen with ABThera in place. Nonresponsive. Decreased capillary refill/acrocyanosis noted. 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 Consultations 03/08/24 17:37 ED Decision to Admit Stat 03/08/24 21:26 Consult Gastroenterology Routine 03/09/24 07:53 Consult Nephrology Routine 03/09/24 08:19 Consult General Surgery Routine 03/10/24 08:49 Consult Supervisor Sewing Department Routine Procedures Performed Operation Date: 03/10/24 09:10 Actual Procedures p Exploratory Laparotomy, Subtotal Colectomy with Removal of Terminal Ilium and Appendix(Not Applicable) - Duke Vickers MD Ordered Studies 03/08/24 15:23 CT head/brain wo con Stat 03/08/24 17:12 CT Abd and Pelvis [CT abd pelvis wo con] Stat 03/08/24 19:07 US gallbladder Urgent 03/08/24 19:08 MR brain wo con Urgent 03/10/24 10:18 US point of care ultrasound Routine Hospital Course (1) Pancolitis: Plan 78 year old female with PMH of HTN, DM II, peripheral neuropathy, chronic pain on chronic narcotics and medical marijuana, hypothyroidism, depression and others listed below presented to ER for generalized weakness, N/V/D, diffuse abdominal discomfort. It is reported upon initial presentation to ER patient was confused and very drowsy. Later on patient appears to be less drowsy and is was able to provide more history to admitting team. Pt noted to have difficulty recalling events. Pt was found by her friend sitting on toilet, maybe anywhere between 12-24 hours she might have been there. She was managed for the following: Acute metabolic encephalopathy likely multifactorial secondary to sepsis, medications, Rhabdomyolysis Severe sepsis POA: Likely secondary to Acute infarction of large intestine Acute infarction of large intestine Pancolitis Likely large bowel obstruction Increase blood lactic acid level Transaminitis Acute UTI: Acute rhabdomyolysis: Likely demand ischemia Hypertensive urgency Acute kidney injury and ATN iso acute rhabdomyolysis Lactic acidosis Metabolic acidosis Electrolyte abnormalities: Hyperkalemia, Hypocalcemia, Hypomagnesemia Dehydration Chronic hyponatremia Pressure injury of buttock, stage I History of MRSA infection Due to her critical illness and poor prognosis, patient was mercifully extubated while in ICU care. Patient's primary contact/friend aware. Time of 1556 hrs., date of 03/11/2024. Cause of : acute infarction of large intestine. Home Health Attestation I certify that this patient is under my care and that I, or a physicians admin assistant working with me, had a face to-face encounter that meets the home health [id number] encounter requirements with this patient. The encounter with the patient was in whole, or in part, for the following medical condition, which is the primary reason for home health care (list medical condition): Pancolitis, FRANKLIN I certify that, based on my findings, the following services are medically necessary home health services: My clinical findings support the need for the above services because: Caregiver Instruct Med Mgmt, Safety, Disease Process, Signs to Report Home Safety Assessment OT Assess ADL Status and Restore Function w ADLs PT Assessment for Endurance / Balance / Strength PT Eval for Safety and Mobility PT Eval for Safety, Gait Training, Assistive Devices PT Gait and Balance Training, Strengthening and Safety Skilled Nsg Assessment Surgical Incision / Wound Teach on Disease Management and Interventions Further, I certify that my clinical findings support that this patient is homebound (i.e. absences from home require considerable and taxing effort and are for medical reasons or mu-ism services or infrequently or of short duration when for other reasons) because: Transportation Assistance/Unable to Leave Home Unassisted Certification for Home Health Services: Based on the above findings, I certify that this patient is confined to the home and needs intermittent penitentiary care, physical therapy and/or speech therapy or continues to need occupational therapy. The patient is under my care, and I have initiated the establishment of the plan of care. This patient will be followed by a physician who will periodically review the plan of care. Total Time Total Time Spent Total Time Spent (In Minutes): 35 Discharge Plan Discharge Items Patient Disposition: Reason For Visit: FRANKLIN LIN Follow-up/Referrals: Paul Ellison MD [Primary Care Provider] - Medications and DC Order Prescriptions: No Action alpha lipoic acid 300 mg capsule 600 mg PO DAILY berberine-herbal comb no.18 Capsule 1 cap PO DAILY Rx Instructions: Unable to verify OTC meds at this date/time. cyanocobalamin (vitamin B-12) [Vitamin B-12] 100 mcg Tablet 100 mcg PO DAILY pantoprazole 40 mg Tablet,Delayed Release (Dr/Ec) 40 mg PO DAILY folic acid 1 mg Tablet 1 mg PO DAILY simethicone 125 mg Tablet 80 mg PO QID PRN (Reason: Gi Upset) cholecalciferol (vitamin D3) [Vitamin D3] 400 unit Tablet 2,000 unit PO DAILY coenzyme Q10 [CoQ-10] 100 mg Capsule 100 mg PO DAILY biotin 1 mg Tablet 1 mg PO QAM lutein 40 mg Capsule 40 mg PO DAILY polyethylene glycol 3350 [Miralax] 17 gram/dose Powder 17 g PO DAILY PRN (Reason: Constipation) docusate sodium 100 mg Tablet 100 mg PO BID PRN (Reason: Constipation) levothyroxine 150 mcg Tablet 150 mcg PO DAILY magnesium citrate 100 mg Capsule 100 mg PO DAILY metformin 500 mg Tablet Extended Release 24 Hr 1,000 mg PO DAILY meclizine 25 mg Tablet 25 mg PO TID PRN (Reason: Vertigo) oxycodone-acetaminophen 5-325 mg Tablet 1 tab PO Q4H PRN (Reason: Pain, Severe) thiamine HCl (vitamin B1) 250 mg Tablet 250 mg PO DAILY pyridoxine (vitamin B6) 100 mg Tablet 100 mg PO DAILY pravastatin 40 mg tablet 40 mg PO HS Qty: 30 0RF duloxetine 30 mg capsule,delayed release(DR/EC) See Rx Instructions .ROUTE .COMPLEX Rx Instructions: Take 30mg w/ 60mg to equal 90mg once daily celecoxib 200 mg capsule 200 mg PO DAILY pregabalin 200 mg capsule 200 mg PO TID morphine 15 mg tablet extended release 15 mg PO TID naloxone [Narcan] 4 mg/actuation spray,non-aerosol 1 sprays INTNAS DIRECTED duloxetine 60 mg capsule,delayed release(DR/EC) See Rx Instructions .ROUTE .COMPLEX Rx Instructions: Take 60mg w/ 30mg to equal 90mg everyday oxybutynin chloride 10 mg tablet extended release 24hr 10 mg PO DAILY hydrochlorothiazide 12.5 mg capsule 12.5 mg PO DAILY PRN (Reason: Edema) oxybutynin chloride 5 mg tablet extended release 24hr 5 mg PO PM Krames/Other Patient Handouts: Nutrition for Wound Healing, Managing Type 2 Diabetes Admission Data Admit Date/Time: 03/08/24 19:16 Attending Provider: Helder Chaudhary Admit Provider: Vidal Kaur Primary Care Provider: Paul Ellison Other Providers: [facility],Home [facility]; Vidal Kaur; Luek Pavon; Galo Levine; Duke Vickers; Luciano Wolfe
== END 2024-03-11 17:50 | disposition expired | DRG 853 ==
LOC: ED 14:47 → SUATTDRO 19:16 → 2S 19:16 → 1E 03-10 09:25